=== PATIENT | female | born 1965 | race Caucasian/White ===

== ENCOUNTER 2023-02-26 18:12 | Observation (INO) | payer MEDICAID, SELFPAY ==
--- NOTE | ~2023-02-26 | US_ITS ---
EXAMINATION: US venous doppler [facility] DATE: 02/27/2023 21:27 INDICATION: Lower limb swelling. TECHNIQUE: Grayscale ultrasound images without and with compression and Doppler ultrasound images of the bilateral lower extremity veins were obtained. COMPARISON: None. FINDINGS: The visualized portions of right common femoral vein, profunda (deep) femoral vein, femoral vein, pop liteal vein, peroneal veins, posterior tibial veins, and greater saphenous vein outflow are patent. The visualized portions of left common femoral vein, profunda femoral vein, femoral vein, popliteal v ein, peroneal veins, posterior tibial veins, and greater saphenous vein outflow are patent. IMPRESSION: 1. No deep venous thrombosis. Reviewed, dictated and finalized at location E.
--- NOTE | ~2023-02-26 | US_ITS ---
EXAMINATION: US renal BI DATE: 02/27/2023 10:10 INDICATION: Acute kidney injury TECHNIQUE: Multiple grayscale and Doppler ultrasound images of the kidneys were obtained. COMPARISON: None. FINDINGS: The right kidney measures 11.7 x 6.2 x 6.6 cm. The left kidney measures 12.1 x 5.8 x 5.5 cm . The kidneys demonstrate normal parenchymal echogenicity. There is no hydronephrosis. The bladder is decompressed by Seth catheter. IMPRESSION: 1. Normal kidneys without hydronephrosis. Reviewed, dictated and finalized at location L.
--- NOTE | ~2023-02-26 | XR_ITS ---
EXAMINATION: XR chest 1V portable Exam Date/Time: 02/26/2023 18:25 CDT HISTORY: BILAT leg swelling, SOB w/ excertion Comparison: None. RESULT: Lines, tubes, and devices: None. Lungs and pleura: Very mild bilateral reticular opacities, otherwise clear. Cardiomediastinal silhouette: Stable. Other: Left humeral head fracture. No acute abdominal finding. IMPRESSION: Mild interstitial edema. Left humeral head fracture of uncertain age, correlate with pain/tenderness. Reviewed, dictated and finalized at location K.
[2023-02-26 18:10] VITALS: BP 121/56; PULSE 71; RESP 17; TEMP 36.7; O2SAT 100
--- NOTE | 2023-02-26 18:14 | ECG_ITS ---
Measurements Intervals [place] Rate: 71 P: 43 NH: 178 QRS: 13 QRSD: 113 T: 48 QT: 394 QTc: 429 Interpretive Statements SINUS RHYTHM INTRAVENTRICULAR CONDUCTION DELAY LOW QRS VOLTAGE IN PRECORDIAL LEADS BASELINE ARTIFACT- I, II, AVR, AVL, AVF, V1-V6 BORDERLINE ECG NO PREVIOUS ECG AVAILABLE FOR COMPARISON Electronically Signed On 02-26-2023 20:12:38 CDT by Foster Argueta D.O.
[2023-02-26 18:56] VITALS: BP 128/59; PULSE 70; RESP 15; O2SAT 100
[2023-02-26 19:06] LABS: Basophils Percent Auto 0.3 % (0.2-1.2); Eosinophils Absolute Auto 0.4 K/mm3 (0-0.3); Eosinophils Percent Auto 5.6 % (0-4.4); Hematocrit 29.6 % (37.0-47.0); Hemoglobin 8.9 g/dL (12.0-15.0); Immature Granulocyte Absolute 0.02 K/mm3 (0.00-0.031); Immature Granulocyte Percent A 0.3 % (0-0.5); Lymphocytes Percent Auto 19.7 % (18.3-44.2); Mean Corpuscular HGB Conc 30.1 g/dl (32-36); Mean Corpuscular Hemoglobin 30.1 pg (26-34); Mean Platelet Volume 9.5 fl (7.4-10.4); Monocytes Absolute Auto 0.6 K/mm3 (0.1-0.6); Monocytes Percent Auto 8.8 % (2.6-8.5); Neutrophils Absolute Auto 4.7 K/mm3 (1.3-6.7); Neutrophils Percent Auto 65.3 % (45.5-73.1); Platelet Count Result 251 k/mm3 (150-375); Red Blood Count 2.96 M/mm3 (4.2-5.4); Red Cell Distribution Width 14.6 % (11.5-14.5); White Blood Count 7.1 K/mm3 (4.5-10.0)
[2023-02-26 19:15] LABS: Alanine Aminotransferase 21 U/L (6-35); Albumin Level 3.5 g/dL (3.5-5.1); Alkaline Phosphatase 82 U/L (38-126); Anion Gap 4 mmol/L (8-16); Aspartate Amino Transferase 33 U/L (14-36); Bilirubin,Total 0.5 mg/dL (0.2-1.3); Blood Urea Nitrogen 41 mg/dL (7-17); Calcium 8.5 mg/dL (8.4-10.2); Carbon Dioxide 30 mmol/L (22-30); Chloride 105 mmol/L (98-107); Estimated CRCL calculation 50 ml/min; Estimated Glomerular Filt Rate 33; Glucose 118 mg/dL (65-110); Potassium 4.4 mmol/L (3.4-5.0); Sodium 139 mmol/L (137-145)
[2023-02-26 19:20] LABS: INR 1.2
[2023-02-26 19:21] LABS: Partial Thromboplastin Time 28.9 SECONDS (22.3-36.8)
[2023-02-26 19:27] LABS: NT Pro B Type Natriuretic Pept 889 pg/mL (19.9-100); Troponin I < 0.012 ng/mL (0.000-0.034)
--- NOTE | 2023-02-26 19:51 | ED.GENADULT ---
HPI - General Adult General Chief complaint: Skin/Abscess/Foreign Body Stated complaint: CELLULITIS Time Seen by Provider: 02/26/23 18:22 History of Present Illness HPI narrative: 58-year-old female presented the ED for evaluation of increased lower extremity swelling and shortness of breath. Patient does have a history lymphedema and does take Lasix. Patient had a recent left shoulder injury and recently moved to the area and is living with her brother and [id number]. Patient spends majority of her time sitting in a recliner and ambulates very little. Since having the shoulder injury patient ambulates even less than her typical baseline. Patient presented to the ED today for worsening lower extremity edema, blisters and shortness of breath. Family does not feel that they are able to care for the patient at their home. Related Data Home Medications Medication Instructions Recorded Confirmed allopurinol 100 mg tablet 100 mg PO DAILY 02/27/23 02/27/23 allopurinol 100 mg tablet 100 mg PO DAILY 02/27/23 02/27/23 amlodipine 5 mg tablet 5 mg PO DAILY 02/27/23 02/27/23 apixaban 5 mg tablet (Eliquis) 5 mg PO BID 02/27/23 02/27/23 aspirin 81 mg tablet,delayed 81 mg PO DAILY 02/27/23 02/27/23 release bupropion HCl 100 mg tablet,12 hr 100 mg PO DAILY 02/27/23 02/27/23 sustained-release cariprazine 3 mg capsule (Vraylar) 3 mg PO DAILY 02/27/23 02/27/23 ferrous sulfate 325 mg (65 mg 325 mg PO DAILY 02/27/23 02/27/23 iron) tablet furosemide 40 mg tablet 40 mg PO DAILY 02/27/23 02/27/23 gabapentin 600 mg tablet 600 mg PO BID 02/27/23 02/27/23 glimepiride 2 mg tablet 2 mg PO BID 02/27/23 02/27/23 tamsulosin 0.4 mg capsule 0.4 mg PO HS 02/27/23 02/27/23 Allergies Allergy/AdvReac Type Severity Reaction Status Date / Time No Known Allergies Allergy Verified 02/27/23 00:38 Review of Systems Review of Systems: All systems reviewed & are unremarkable except as noted in HPI and below PMFSH Social History Social History Smoking status: Never smoker Second hand tobacco smoke exposure: Yes Alcohol intake: never Substance use: never Lack of Transportation: No Lack of Food: Never True Current Housing: I Have Housing Concerned About Future Housing: No Difficulty Paying Gas/Electric Bills: No Difficulty Paying for Meds: No Currently Unemployed: No Education: High School Diploma/GED Difficulty w/ Childcare or Family Care: No Spiritual care concerns: No Exam Narrative: APPEARANCE: Well appearing, no pain, no distress, well-nourished. HEAD: normocephalic, atraumatic. EYES: PERRLA/EOMI, conjunctivae clear. NOSE: Normal no drainage EARS:TMS clear with good light reflex. THROAT: Pharynx clear, no exudate. NECK: Supple. No adenopathy, no masses. RESPIRATORY: Airway patent, respirations nonlabored. Clear to auscultation bilaterally, no rales, rhonchi, wheezing. CARDIOVASCULAR: Regular rate and rhythm without murmurs rubs or gallops. ABDOMINAL: Soft, nontender, nondistended, normal bowel sounds MUSCULOSKELETAL: Moves all extremities. Bilateral lower extremity lymphedema with blistering NEURO: Alert. Cranial nerves II through XII intact. Good gait. Good coordination SKIN: Bilateral ulcers to heels Course Course Emergency Course: 58-year-old female presented the ED for evaluation of shortness of breath. Upon arrival to the ED patient states her shortness of breath is resolved and patient is saturating well on room air. Patient is afebrile with no leukocytosis and a hemoglobin of 8.9. Patient denies any active bleeding. Patient's creatinine is 1.6 with a BUN of 41. No baselines are available. Patient does have an elevated BNP at 889 and chest x-ray does show evidence of interstitial edema. Patient was treated with a dose of Lasix due to her lower extremity edema. Case was discussed with the hospitalist and patient will be admitted to be further diuresed and will have PT and OT. Patient family were
--- NOTE | 2023-02-26 20:30 | PM.IMHP ---
H&P: HPI History of Present Illness Date/Time: 02/26/23 20:30 Chief Complaint: leg swelling Narrative: This is a 58-year-old female with past medical history significant for type diabetes mellitus, morbid obesity, patient is bed ridden, according to history able to walk by at very short distances within the house and as of lately has been bed ridden, chronic bilateral lower extremity lymphedema on Lasix at home [place] had a humeral fracture which now make said more taxing when providing care for her family is wanting to place the patient in a half-way due to inability to take care of her at home. Patient also was noted to have worsening bilateral lower extremity swelling with blistering. No fevers, no rigors, no chills, no nausea, no vomiting, no cough, no sputum production, no shortness of breath. Preliminary workup was significant for hemoglobin 8.9 hematocrit 29 BUN 40 creatinine 1.6 brain natriuretic peptide 880. A chest x-ray was reported as: EXAMINATION:? XR chest 1V portable Exam Date/Time:? 02/26/2023 18:25 CDT HISTORY: BILAT leg swelling, SOB w/ excertion ? Comparison:? None. RESULT: Lines, tubes, and devices:? None. Lungs and pleura:? Very mild bilateral reticular opacities, otherwise clear. Cardiomediastinal silhouette:? Stable. Other:? Left humeral head fracture. No acute abdominal finding. ? IMPRESSION: Mild interstitial edema. Left humeral head fracture of uncertain age, correlate with pain/tenderness. ekg Rate 71 WA 178 QRSd 113 QT 394 QTc 429 --Mcgreg[place]-- P 43 QRS 13 T 48 SINUS RHYTHM INTRAVENTRICULAR CONDUCTION DELAY LOW QRS VOLTAGE IN PRECORDIAL LEADS BASELINE ARTIFACT- I, II, AVR, AVL, AVF, V1-V6 BORDERLINE ECG NO PREVIOUS ECG AVAILABLE FOR COMPARISON Electronically Signed On 02-26-2023 20:12:38 CDT by Foster Argueta D.O. Review of Systems Review of Systems: worsening bilateral lower extremity edema and blistering Constitutional: Constitutional: Denies chills, Denies fever(s), Denies night sweats, Denies poor appetite and Reports weakness Eyes: Eyes: Denies change in vision ENT: Denies dysphagia, Denies vertigo, Denies dizziness and Denies odynophagia Cardiovascular: Cardiovascular: Denies chest pain, Reports leg edema, Denies radiating jaw, neck or arm pain, Denies palpitations and Reports dyspnea Respiratory: Respiratory: Denies chest congestion and Denies cough Gastrointestinal: Gastrointestinal: Denies abdominal pain, Denies melena, Denies hematochezia, Denies coffee ground emesis, Denies dyspepsia, Denies heartburn, Denies diarrhea, Denies nausea and Denies vomiting Genitourinary: Genitourinary: Denies dysuria Musculoskeletal: Musculoskeletal: Reports muscle weakness Integumentary/Breasts: Skin/Breast: Reports skin swelling and Reports other ( blisters) Neurologic: Reports other ( bed ridden) Psychiatric: Psychiatric: Reports no additional psychiatric complaints and Reports as per HPI Endocrine: Endocrine: Denies cold intolerance, Denies flushing, Denies heat intolerance, Denies polyphagia, Denies polydipsia and Denies palpitations Hematologic/Lymphatic: Hematologic/Lymphatic: Reports no additional hematologic/lymphatic complaints and Reports as per HPI Allergic/Immunologic: Allergic/Immunologic: Reports no additional allergic/immunologic complaints and Reports as per HPI PMFSH Social History Social History Smoking status: Never smoker Second hand tobacco smoke exposure: Yes Alcohol intake: never Substance use: never Lack of Transportation: No Lack of Food: Never True Current Housing: I Have Housing Concerned About Future Housing: No Difficulty Paying Gas/Electric Bills: No Difficulty Paying for Meds: No Currently Unemployed: No Education: High School Diploma/GED Difficulty w/ Childcare or Family Care: No Spiritual care concerns: No Meds Home Medications and Allergies Home Medications Medication Instructions
[2023-02-26] MEDS: FUROSEMIDE INJ 40 MG/4 ML VIAL IV PUSH (20:49)
[2023-02-26 20:54] VITALS: BP 113/63; PULSE 70; RESP 18; O2SAT 96
[2023-02-26 23:07] VITALS: BP 139/57; PULSE 68; O2SAT 96
--- NOTE | 2023-02-26 23:38 | ADMGEN ---
This patient, Talia Peralta, was admitted to 3 [facility] Surg Room 316-02. Patient/family oriented to hospital policies and general routines including ID bracelet, bed and alarms, visiting hours, pain management, procedures, bathroom and other care routines, personal items, smoking policy, room service/diet, and visiting hours. Information on how to activate the Rapid Response Team has been discussed. Patient/Family are encouraged to report perceived risks to care and to ask questions if they do not understand what they are told or what they should do.
--- NOTE | 2023-02-27 | ECHO_ITS ---
Patient Info Name: Talia Peralta Age: 58 years : 1965 Gender: Female Ht: 66 in Wt: 293 lbs BSA: 2.56 m2 HR: 78 bpm BP: 130 / 63 mmHg Heart Rhythm: Sinus Rhythm Technical Quality: Poor Exam Date: 02/27/2023 11:06 AM Exam Location: [facility] Exam Room: [facility] Patient Status: Inpatient Admit Date: 02/26/2023 Staff Ordering Physician: Asher Agee MD Inside Tester: Abi Foy RDCS Attending Provider: Asher Agee MD Referring Physician: Anuel KUMAR; Exam Type: CA echo dop color flow w con Study Info Indications - MARY Complete two-dimensional, color flow and Doppler transthoracic echocardiogram is performed with contrast to opacify the left ventricle and to improve the deliniation of the left ventricle endocardial borders. Contrast/Agitated Saline Contrast/Ag. Saline: Definity Amount: 2.00 ml Administered By: Abi Foy [facility] Existing IV Access: Yes IV Access Condition: patent with no signs of infiltration Reason for Poor Study: patient body habitus Summary 1. Technically difficult study with limited views. Definity contrast administered. 2. Left ventricular chamber dimension is mildly enlarged. 3. Left ventricular systolic function is normal, estimated at 60-65%. 4. There is mildly increased left ventricular wall thickness. 5. The left ventricular diastolic function is grade I diastolic dysfunction. 6. Left atrial chamber dimension is moderately enlarged. 7. Right atrial chamber dimension is mildly enlarged. 8. There is no aortic valve stenosis. 9. There is mild mitral valve regurgitation. 10. There is mild tricuspid valve regurgitation. 11. Moderate pulmonary hypertension, estimated pulmonary arterial systolic pressure is 57 mmHg. Left Ventricle Left ventricular chamber dimension is mildly enlarged. Left ventricular systolic function is normal, estimated at 60-65%. There is mildly increased left ventricular wall thickness. The left ventricular diastolic function is grade I diastolic dysfunction. Technically difficult study with limited views. Definity contrast administered. Right Ventricle Right ventricular chamber dimension is normal. Right ventricular systolic function is normal. Left Atria Left atrial chamber dimension is moderately enlarged. Right Atria Right atrial chamber dimension is mildly enlarged. Aortic Valve The aortic valve is not well visualized. There is no aortic valve stenosis. There is no aortic valve regurgitation. Pulmonic Valve The pulmonic valve is not well visualized. Mitral Valve The mitral valve has normal leaflets. There is mild mitral valve regurgitation. The mitral valve annulus is mildly calcified. Tricuspid Valve The tricuspid valve leaflets are normal. There is mild tricuspid valve regurgitation. Moderate pulmonary hypertension, estimated pulmonary arterial systolic pressure is 57 mmHg. Pericardium/Pleural The pericardium appears not well visualized. There is trivial pericardial effusion. Inferior Vena Cava Normal inferior vena cava with >50% collapse upon inspiration consistent with normal right atrial pressure, 5 mmHg. Aorta The aortic root size at the sinus of Valsalva is normal. There is mild-moderate aortic atherosclerosis. Left Ventricular Outflow Tract Name Value Normal LVOT 2D
[2023-02-27 00:30] VITALS: BP 130/63; PULSE 75; RESP 25; TEMP 36.1; O2SAT 96
[2023-02-27 01:05] LABS: Glucose Point of Care 75 mg/dl (65-105)
[2023-02-27] MEDS: HYDROmorphone HCL INJ (*CRX) 1 MG/ML SYR IV PUSH (01:37)
[2023-02-27 05:54] LABS: Appearance Urine Clear (Clear); Bacteria Urine None Seen /hpf; Bilirubin Urine Negative (Negative); Blood Urine 1+ (Negative); Color Urine Yellow (Yellow); Glucose Urine UA Negative (Negative); Ketones Urine Negative (Negative); Leukocyte Esterase Ur 2+ LEU/UL (Negative); Need Manual Microscopic Reviewed; Nitrate Urine Negative (Negative); Protein Urine 1+ mg/dL (Negative); Specific Grav Ur 1.012 (1.001-1.035); Squamous Epithelial Cell Urine Occasional /hpf (Few); Urobilinogen Urine 0.2 mg/dL (<2.0); WBC Urine 51-100 /hpf
[2023-02-27 06:00] VITALS: BP 139/49; PULSE 71; RESP 18; TEMP 35.7; O2SAT 97
[2023-02-27 06:11] LABS: Add Urine Microscopic? YES
[2023-02-27 07:54] LABS: Iron 28 ug/dL (37-170)
[2023-02-27 07:56] LABS: Hematocrit 26.5 % (37.0-47.0); Hemoglobin 7.8 g/dL (12.0-15.0); Mean Corpuscular HGB Conc 29.4 g/dl (32-36); Mean Corpuscular Hemoglobin 29.9 pg (26-34); Mean Corpuscular Volume 101.5 fl (80-100); Mean Platelet Volume 9.9 fl (7.4-10.4); Platelet Count Result 236 k/mm3 (150-375); Red Blood Count 2.61 M/mm3 (4.2-5.4); Red Cell Distribution Width 14.6 % (11.5-14.5); White Blood Count 5.7 K/mm3 (4.5-10.0)
[2023-02-27 08:06] LABS: Percent Iron Saturation 11 % (20-50)
[2023-02-27 08:27] LABS: Alanine Aminotransferase 70 U/L (6-35); Albumin Level 2.9 g/dL (3.5-5.1); Alkaline Phosphatase 145 U/L (38-126); Anion Gap 6 mmol/L (8-16); Aspartate Amino Transferase 154 U/L (14-36); Bilirubin,Total 0.6 mg/dL (0.2-1.3); Blood Urea Nitrogen 39 mg/dL (7-17); Calcium 8.3 mg/dL (8.4-10.2); Carbon Dioxide 33 mmol/L (22-30); Chloride 103 mmol/L (98-107); Estimated CRCL calculation 44 ml/min; Estimated Glomerular Filt Rate 29; Glucose 77 mg/dL (65-110); Potassium 3.7 mmol/L (3.4-5.0); Sodium 142 mmol/L (137-145)
[2023-02-27 09:01] LABS: Folic Acid 11.7 ng/mL (2.76->20)
[2023-02-27] MEDS: amLODIPine BESYLATE 5 MG TABLET PO (10:23)
[2023-02-27] MEDS: APIXABAN 5 MG TABLET PO ×2 (10:23→20:13)
[2023-02-27] MEDS: FERROUS SULFATE 325 MG TABLET DR BY MOUTH (10:23)
[2023-02-27] MEDS: GABAPENTIN 300 MG CAPSULE 600 MG PO ×2 (10:23→18:46)
[2023-02-27] MEDS: allopurinoL 100 MG TABLET PO (10:24)
[2023-02-27] MEDS: buPROPion HCL SR (12HR) 100 MG TABCR PO (10:24)
[2023-02-27] MEDS: ASPIRIN 81 MG ENTERIC TABLET PO (10:24)
[2023-02-27] MEDS: cefTRIAXone 2 GM/NS 100 ML 2 GM/100 ML BAG IVPB (10:25)
[2023-02-27] MEDS: FUROSEMIDE INJ 40 MG/4 ML VIAL IV PUSH ×2 (10:34→20:13)
--- NOTE | 2023-02-27 10:45 | PM.IMPN ---
Progress Note: A&P Assessment and Plan (1) Adult failure to thrive: Code(s): R62.7 - Adult failure to thrive Status: Acute Assessment and Plan: patient is now bed ridden after fall fracturing her left humerus And worsening swelling her legs. Patient likely to need custodial placement. (2) Closed left humeral fracture: Code(s): S42.302A - Unspecified fracture of shaft of humerus, left arm, initial encounter for closed fracture Status: Acute Assessment and Plan: left arm in a sling. Bruising noted under aspect of the arm. Pain control ordered with Tylenol or Clark depending on pain level (3) Anemia: Code(s): D64.9 - Anemia, unspecified Status: Acute Assessment and Plan: Iron studies are low , B12 and folate are normal. Patient is supposed to be oral iron. Ordered IV iron. No evidence bleeding. (4) IGNACIO (acute kidney injury): Code(s): N17.9 - Acute kidney failure, unspecified Status: Acute Assessment and Plan: No baseline labs available but patient noted to have BUN 41 creatinine 1.6 estimated GFR 33 on admission and creatinine 1.8 GFR 29 on recheck this morning. Patient appears to be fluid overloaded with bilateral lower extremity excessive swelling with blistering. renal ultrasound unremarkable (5) Edema: Code(s): R60.9 - Edema, unspecified Status: Acute Assessment and Plan: IV diuresis initiated in the emergency department and continued. Will order venous Dopplers as well. (6) UTI (urinary tract infection): Code(s): N39.0 - Urinary tract infection, site not specified Status: Acute Assessment and Plan: Urinary discomfort with her white cells and leukocyte esterase noted. Culture in process. Started treatment with IV ceftriaxone 2 g then 1 g Q 24 hours ongoing Plan pain control for shoulder fracture case management for possible custodial placement PT OT wound care consult IV iron, monitor for bleeding Time Spent With Patient Time with patient: Greater than 35 minutes Subjective Date/time seen: 02/27/23 10:45 Interval history: Patient was admitted to the hospital due to inability to ambulate due to worsening lower extremity edema as well as new left humerus fracture for which she was initially evaluated at a hospital in [place]. Patient just moved to the area with her brother and is not able to be taken care of at home at this time. Family requesting custodial placement. patient complaining primarily left upper arm / shoulder pain as well as swelling and blistering of legs. Review of Systems Review of Systems: All systems reviewed & are unremarkable except as noted in HPI and below Exam Narrative: patient is laying in a stretcher Const: General: cooperative, comfortable, no acute distress, well developed, alert, awake, ill appearing chronically and obese Nutritional Appearance: obese Orientation/consciousness: patient oriented x3 HENMT: Head: normal to inspection, normocephalic and atraumatic Ears: hearing grossly normal bilaterally Face/Nose/Sinus: normal facial exam Face and sinus: normal facial exam Eyes: General: appearance normal, both eyes and all related structures Pupils: Equal, round and reactive pupils present EOM: EOMs intact bilaterally Neck: Neck: full ROM, no lymphadenopathy and no JVD Thyroid: thyroid normal Lymphatic: no lymphadenopathy noted Resp: Effort & Inspection: normal respiratory effort and able to speak in complete sentences Auscultation: clear to auscultation bilaterally Cardio: Jugular venous distension: no JVD Rate: regular rate Rhythm: regular rhythm Heart sounds: S1 normal heart sound present and S2 normal heart sound present GI: Inspection: Pannus present and obesity GI Palp: Yes Soft to palpation and Yes No hepatosplenomegaly present : General: Yes deferred Skin: Rashes: no rashes Other: bilateral lower extremity bliste
[2023-02-27] MEDS: ACETAMINOPHEN 325 MG TABLET 650 MG PO (10:47)
[2023-02-27] MEDS: PERFLUTREN LIPID MICROSPHERES 1.5 ML VIAL DILUTED TO 10 ML TOTAL VOLUME IV PUSH (11:35)
--- NOTE | 2023-02-27 12:49 | IVDEFINITY ---
Prior to administration of IV Definity the patient was educated on the risks and benefits of the imaging enhancing agent including potential adverse side effects. The patient verbalized understanding. Allergies were verified. No exclusion criteria were identified and at least one of the following inclusion criteria were met: 1) physician request, 2) patient technically difficult to image (per the [place] [employer]chocardi[employer] guidelines of two or more segments not discernable within the apical view), or 3) questionable left ventricular function. ?
[2023-02-27] MEDS: SILVERGEL (ELTA) 45 ML 1 APPLIC TOPICAL (13:20)
[2023-02-27] MEDS: HYDROcodone/acetaminophen (*CRX) 5-325 MG TABLET 2 TAB PO ×2 (13:20→20:18)
[2023-02-27 14:07] VITALS: BP 131/66; PULSE 76; RESP 17; TEMP 36.1; O2SAT 96
[2023-02-27] MEDS: IRON SUCROSE COMPLEX 500 MG in SODIUM CHLORIDE 0.9% IV 250 ML 78.57 MG IVPB (15:04)
--- NOTE | 2023-02-27 18:28 | PC.NURSE ---
On 02/27/23, the INTERFACE DESIGNER, Claribel Hilario, provided care and completed [employer] documentation on this patient. I have reviewed the INTERFACE DESIGNER's documentation and agree with the findings.
[2023-02-27 20:10] LABS: Glucose Point of Care 94 mg/dl (65-105)
[2023-02-27] MEDS: TOLNAFTATE 1% POWDER 45 GM BTL 1 APPLIC TOPICAL (20:13)
[2023-02-27] MEDS: TAMSULOSIN HCL 0.4 MG CAPSULE PO (20:13)
[2023-02-27 21:32] LABS: Hemoglobin A1C 6.8 % (<5.7)
[2023-02-27 22:00] VITALS: BP 102/46; PULSE 63; RESP 18; TEMP 36.4; O2SAT 96
[2023-02-28] VITALS (7 sets, daily range): BP systolic 116–147; BP diastolic 57–74; PULSE 68–75; RESP 16–17; TEMP 36–36.3; O2SAT 88–95
[2023-02-28] MEDS: HYDROcodone/acetaminophen (*CRX) 5-325 MG TABLET 2 TAB PO ×2 (05:39→14:40)
[2023-02-28 05:53] LABS: Basophils Percent Auto 0.4 % (0.2-1.2); Eosinophils Absolute Auto 0.4 K/mm3 (0-0.3); Hemoglobin 7.7 g/dL (12.0-15.0); Immature Granulocyte Absolute 0.02 K/mm3 (0.00-0.031); Immature Granulocyte Percent A 0.4 % (0-0.5); Lymphocytes Absolute Auto 1.36 K/mm3 (0.9-3.2); Lymphocytes Percent Auto 27.8 % (18.3-44.2); Mean Corpuscular HGB Conc 29.6 g/dl (32-36); Mean Corpuscular Hemoglobin 29.8 pg (26-34); Mean Corpuscular Volume 100.8 fl (80-100); Mean Platelet Volume 9.3 fl (7.4-10.4); Monocytes Absolute Auto 0.6 K/mm3 (0.1-0.6); Monocytes Percent Auto 11.6 % (2.6-8.5); Neutrophils Absolute Auto 2.5 K/mm3 (1.3-6.7); Neutrophils Percent Auto 51.8 % (45.5-73.1); Platelet Count Result 224 k/mm3 (150-375); Red Blood Count 2.58 M/mm3 (4.2-5.4); Red Cell Distribution Width 14.6 % (11.5-14.5); White Blood Count 4.9 K/mm3 (4.5-10.0)
[2023-02-28 06:06] LABS: Alanine Aminotransferase 56 U/L (6-35); Albumin Level 2.9 g/dL (3.5-5.1); Alkaline Phosphatase 118 U/L (38-126); Anion Gap 1 mmol/L (8-16); Aspartate Amino Transferase 55 U/L (14-36); Bilirubin,Total 0.3 mg/dL (0.2-1.3); Blood Urea Nitrogen 35 mg/dL (7-17); Carbon Dioxide 35 mmol/L (22-30); Chloride 103 mmol/L (98-107); Estimated CRCL calculation 44 ml/min; Estimated Glomerular Filt Rate 29; Glucose 86 mg/dL (65-110); Potassium 3.8 mmol/L (3.4-5.0); Sodium 139 mmol/L (137-145)
[2023-02-28 06:47] LABS: Hypochromasia 1+ (NORMAL); Platelet Estimate Adequate (Adequate); Schistocytes None Seen (NORMAL)
[2023-02-28] MEDS: FERROUS SULFATE 325 MG TABLET DR BY MOUTH (08:30)
[2023-02-28] MEDS: APIXABAN 5 MG TABLET PO ×2 (08:30→21:48)
[2023-02-28] MEDS: allopurinoL 100 MG TABLET PO (08:30)
[2023-02-28] MEDS: amLODIPine BESYLATE 5 MG TABLET PO (08:30)
[2023-02-28] MEDS: FUROSEMIDE INJ 40 MG/4 ML VIAL IV PUSH ×2 (08:30→21:49)
[2023-02-28] MEDS: buPROPion HCL SR (12HR) 100 MG TABCR PO (08:30)
[2023-02-28] MEDS: GABAPENTIN 300 MG CAPSULE 600 MG PO ×2 (08:30→16:28)
[2023-02-28] MEDS: ASPIRIN 81 MG ENTERIC TABLET PO (08:30)
[2023-02-28] MEDS: SILVERGEL (ELTA) 45 ML 1 APPLIC TOPICAL (08:31)
[2023-02-28] MEDS: TOLNAFTATE 1% POWDER 45 GM BTL 1 APPLIC TOPICAL ×2 (08:31→21:45)
[2023-02-28 08:40] LABS: Glucose Point of Care 85 mg/dl (65-105)
[2023-02-28 12:11] LABS: Glucose Point of Care 105 mg/dl (65-105)
--- NOTE | 2023-02-28 15:00 | PM.IMPN ---
Progress Note: A&P Assessment and Plan (1) Adult failure to thrive: Code(s): R62.7 - Adult failure to thrive Status: Acute Assessment and Plan: patient is now bed ridden after fall fracturing her left humerus And worsening swelling her legs. Patient likely to need longterm placement. (2) Closed left humeral fracture: Code(s): S42.302A - Unspecified fracture of shaft of humerus, left arm, initial encounter for closed fracture Status: Acute Assessment and Plan: left arm in a sling. Bruising noted under aspect of the arm. Pain control ordered with Tylenol or Manning depending on pain level PT/OT eval/treat (3) Anemia: Code(s): D64.9 - Anemia, unspecified Status: Acute Assessment and Plan: Iron studies are low , B12 and folate are normal. Patient is supposed to be oral iron. Ordered IV iron. No evidence bleeding. Current H/H stable 7.7/26.0 Continue to trend Adjust therapy as indicated (4) IGNACIO (acute kidney injury): Code(s): N17.9 - Acute kidney failure, unspecified Status: Acute Assessment and Plan: No baseline labs available but patient noted to have BUN 41 creatinine 1.6 estimated GFR 33 on admission and creatinine 1.8 GFR 29 on recheck this morning. Patient appears to be fluid overloaded with bilateral lower extremity excessive swelling with blistering. renal ultrasound unremarkable Current BUN/Cr 35/1.80 (5) Edema: Code(s): R60.9 - Edema, unspecified Status: Acute Assessment and Plan: IV diuresis initiated in the emergency department and continued. Venous dopplers negative Echo stable with grade 1 diastolic dysfunction and EF of 60-65% (6) UTI (urinary tract infection): Code(s): N39.0 - Urinary tract infection, site not specified Status: Acute Assessment and Plan: Urinary discomfort with her white cells and leukocyte esterase noted. Culture in process. Started treatment with IV ceftriaxone 2 g then 1 g Q 24 hours ongoing Culture still pending Plan pain control for shoulder fracture case management for possible longterm placement PT OT wound care consult IV iron, monitor for bleeding Time Spent With Patient Time: 48 minutes Time with patient: Greater than 35 minutes Subjective Date/time seen: 02/28/23 15:00 Interval history: patient is sitting in the chair. Patient stated that she is feeling okay. She denies any current chest pain, shortness a breath, vomiting Diarrhea constipation. Patient did state that she was nauseous and she said is related to her arm sling. She is currently still have 4+ pitting edema. She is also stated the pain is being controlled. Review of Systems Review of Systems: All systems reviewed & are unremarkable except as noted in HPI and below Exam Narrative: General: well-nourished, ill-appearing 58-year-old female, sitting up in chair, comfortable, NARD Neuro: awake, alert and oriented x4, speech clear, no focal neuro deficits noted HEENMT: normocephalic, atraumatic, EOMI, sclerae anicteric, moist oral mucosa Respiratory: Clear to auscultation bilaterally without crackles, rhonchi or wheezes, nonlabored breathing Cardio: regular rate, regular rhythm with S1-S2 Abdomen: nondistended, normoactive bowel sounds, soft, nontender to palpation Extremities: 4+ pitting edema, no erythema, or tenderness to palpation, DP pulses 2+ bilaterally Skin: no rashes or lesions, warm and dry, large blister noted to the right perea Psych: appropriate mood and affect, judgment and insight intact Objective Data Vital Signs Vital Signs: Vital Signs - 24 hr 02/27/23 22:00 02/28/23 05:30 02/28/23 05:32 Temperature 97.6 F Pulse Rate 63 Respiratory Rate 18 Blood Pressure 102/46 L Pulse Oximetry 96 88 L 92 Oxygen Delivery Room Air Nasal Cannula Oxygen Flow Rate 02/28/23 06:00 02/28/23 09:00 02/28/23
[2023-02-28 16:52] LABS: Glucose Point of Care 159 mg/dl (65-105)
[2023-02-28 21:38] LABS: Glucose Point of Care 298 mg/dl (65-105)
[2023-02-28] MEDS: TAMSULOSIN HCL 0.4 MG CAPSULE PO (21:48)
[2023-02-28] MEDS: INSULIN ASPART (*BKC) 100 UNITS/ML SUB-Q (21:50)
[2023-03-01 05:58] VITALS: BP 116/62; PULSE 70; RESP 18; TEMP 36.6; O2SAT 92
[2023-03-01 06:24] LABS: Basophils Percent Auto 0.3 % (0.2-1.2); Eosinophils Absolute Auto 0.4 K/mm3 (0-0.3); Eosinophils Percent Auto 7.3 % (0-4.4); Hematocrit 25.1 % (37.0-47.0); Hemoglobin 7.5 g/dL (12.0-15.0); Immature Granulocyte Absolute 0.04 K/mm3 (0.00-0.031); Immature Granulocyte Percent A 0.7 % (0-0.5); Lymphocytes Absolute Auto 1.47 K/mm3 (0.9-3.2); Mean Corpuscular HGB Conc 29.9 g/dl (32-36); Mean Corpuscular Volume 100.4 fl (80-100); Mean Platelet Volume 9.4 fl (7.4-10.4); Monocytes Absolute Auto 0.8 K/mm3 (0.1-0.6); Monocytes Percent Auto 12.7 % (2.6-8.5); Neutrophils Absolute Auto 3.2 K/mm3 (1.3-6.7); Platelet Count Result 249 k/mm3 (150-375); Red Cell Distribution Width 14.5 % (11.5-14.5); White Blood Count 5.9 K/mm3 (4.5-10.0)
[2023-03-01 06:40] LABS: Alanine Aminotransferase 44 U/L (6-35); Albumin Level 2.9 g/dL (3.5-5.1); Alkaline Phosphatase 114 U/L (38-126); Anion Gap 4 mmol/L (8-16); Aspartate Amino Transferase 38 U/L (14-36); Bilirubin,Total 0.3 mg/dL (0.2-1.3); Blood Urea Nitrogen 31 mg/dL (7-17); Calcium 8.5 mg/dL (8.4-10.2); Carbon Dioxide 35 mmol/L (22-30); Chloride 101 mmol/L (98-107); Estimated CRCL calculation 47 ml/min; Estimated Glomerular Filt Rate 31; Glucose 102 mg/dL (65-110); Potassium 3.7 mmol/L (3.4-5.0); Sodium 140 mmol/L (137-145)
[2023-03-01 07:30] LABS: Platelet Estimate Adequate (Adequate)
[2023-03-01 07:34] LABS: Hypochromasia 1+ (NORMAL); Schistocytes None Seen (NORMAL)
[2023-03-01 07:47] LABS: Glucose Point of Care 103 mg/dl (65-105)
[2023-03-01] MEDS: APIXABAN 5 MG TABLET PO ×2 (08:15→21:17)
[2023-03-01] MEDS: buPROPion HCL SR (12HR) 100 MG TABCR PO (08:15)
[2023-03-01] MEDS: FUROSEMIDE INJ 40 MG/4 ML VIAL IV PUSH ×2 (08:15→21:17)
[2023-03-01] MEDS: ASPIRIN 81 MG ENTERIC TABLET PO (08:15)
[2023-03-01] MEDS: allopurinoL 100 MG TABLET PO (08:15)
[2023-03-01] MEDS: amLODIPine BESYLATE 5 MG TABLET PO (08:15)
[2023-03-01] MEDS: FERROUS SULFATE 325 MG TABLET DR BY MOUTH (08:15)
[2023-03-01] MEDS: GABAPENTIN 300 MG CAPSULE 600 MG PO ×2 (08:15→16:12)
[2023-03-01] MEDS: TOLNAFTATE 1% POWDER 45 GM BTL 1 APPLIC TOPICAL ×2 (08:16→21:17)
[2023-03-01] MEDS: SILVERGEL (ELTA) 45 ML 1 APPLIC TOPICAL (08:16)
--- NOTE | 2023-03-01 10:17 | PM.IMPN ---
Progress Note: A&P Assessment and Plan (1) Adult failure to thrive: Code(s): R62.7 - Adult failure to thrive Status: Acute Assessment and Plan: Pain controlled, arm in sling Will continue current treatment. Patient is now bed ridden after fall fracturing her left humerus And worsening swelling her legs. Patient likely to need half-way placement. (2) Closed left humeral fracture: Code(s): S42.302A - Unspecified fracture of shaft of humerus, left arm, initial encounter for closed fracture Status: Acute Assessment and Plan: left arm in a sling. Bruising noted under aspect of the arm. Pain control ordered with Tylenol or [place] depending on pain level PT/OT eval/treat Waiting half-way placement (3) Anemia: Code(s): D64.9 - Anemia, unspecified Status: Acute Assessment and Plan: Iron studies are low , B12 and folate are normal. Patient is supposed to be oral iron. Ordered IV iron. No evidence bleeding. Current H/H stable 7.7/26.0 Continue to trend Adjust therapy as indicated Stable, monitor yesy (4) IGNACIO (acute kidney injury): Code(s): N17.9 - Acute kidney failure, unspecified Status: Acute Assessment and Plan: Improving Will continue current treatment and monitor closely. (5) Edema: Code(s): R60.9 - Edema, unspecified Status: Acute Assessment and Plan: IV diuresis initiated in the emergency department and continued. Venous dopplers negative Echo stable with grade 1 diastolic dysfunction and EF of 60-65% (6) UTI (urinary tract infection): Code(s): N39.0 - Urinary tract infection, site not specified Status: Acute Assessment and Plan: Urinary discomfort with her white cells and leukocyte esterase noted. Culture in process. Started treatment with IV ceftriaxone 2 g then 1 g Q 24 hours ongoing Culture still pending Plan pain control for shoulder fracture case management for possible half-way placement PT OT wound care consult IV iron, monitor for bleeding Subjective Date/time seen: 03/01/23 10:17 Interval history: Patient was seen during the morning rounds today. Feeling slightly better. Pain controlled. No sob or chest pain. No abdominal pain,no nausea or vomiting. Mood stable. Review of Systems Review of Systems: worsening bilateral lower extremity edema and blistering All systems reviewed & are unremarkable except as noted in HPI and below Constitutional: Constitutional: Denies chills, Denies fever(s), Denies night sweats, Denies poor appetite and Reports weakness Eyes: Eyes: Denies change in vision ENT: Denies dysphagia, Denies vertigo, Denies dizziness and Denies odynophagia Cardiovascular: Cardiovascular: Denies chest pain, Reports leg edema, Denies radiating jaw, neck or arm pain, Denies palpitations and Reports dyspnea Respiratory: Respiratory: Denies chest congestion, Denies cough and Reports dyspnea Gastrointestinal: Gastrointestinal: Denies abdominal pain, Denies melena, Denies hematochezia, Denies coffee ground emesis, Denies dysphagia, Denies dyspepsia, Denies heartburn, Denies diarrhea, Denies nausea, Denies odynophagia and Denies vomiting Genitourinary: Genitourinary: Denies dysuria Musculoskeletal: Musculoskeletal: Reports muscle weakness Integumentary/Breasts: Skin/Breast: Reports skin swelling and Reports other ( blisters) Neurologic: Denies vertigo, Denies dizziness, Reports weakness and Reports other ( bed ridden) Psychiatric: Psychiatric: Reports no additional psychiatric complaints and Reports as per HPI Endocrine: Endocrine: Denies cold intolerance, Denies flushing, Denies heat intolerance, Denies polyphagia, Denies polydipsia and Denies palpitations Hematologic/Lymphatic: Hematologic/Lymphatic: Reports no additional hematologic/lymphatic complaints and Reports as per HPI Allergic/Immunologic: Aller
[2023-03-01] MEDS: HYDROcodone/acetaminophen (*CRX) 5-325 MG TABLET 2 TAB PO (10:51)
[2023-03-01 11:34] LABS: Glucose Point of Care 132 mg/dl (65-105)
[2023-03-01 14:00] VITALS: BP 121/70; PULSE 74; RESP 16; TEMP 37; O2SAT 94
[2023-03-01 17:06] LABS: Glucose Point of Care 156 mg/dl (65-105)
[2023-03-01] MEDS: TAMSULOSIN HCL 0.4 MG CAPSULE PO (21:17)
[2023-03-01 21:42] LABS: Glucose Point of Care 165 mg/dl (65-105)
[2023-03-01 22:00] VITALS: BP 144/63; PULSE 70; RESP 16; TEMP 35.9; O2SAT 94
[2023-03-02 06:00] VITALS: BP 131/63; PULSE 69; RESP 16; TEMP 35.7; O2SAT 94
[2023-03-02 06:08] LABS: Basophils Percent Auto 0.5 % (0.2-1.2); Eosinophils Absolute Auto 0.5 K/mm3 (0-0.3); Eosinophils Percent Auto 7.6 % (0-4.4); Hematocrit 25.8 % (37.0-47.0); Hemoglobin 7.8 g/dL (12.0-15.0); Immature Granulocyte Absolute 0.03 K/mm3 (0.00-0.031); Immature Granulocyte Percent A 0.5 % (0-0.5); Lymphocytes Percent Auto 25.2 % (18.3-44.2); Mean Corpuscular HGB Conc 30.2 g/dl (32-36); Mean Corpuscular Hemoglobin 29.8 pg (26-34); Mean Corpuscular Volume 98.5 fl (80-100); Mean Platelet Volume 9.5 fl (7.4-10.4); Monocytes Absolute Auto 0.6 K/mm3 (0.1-0.6); Monocytes Percent Auto 9.2 % (2.6-8.5); Neutrophils Absolute Auto 3.4 K/mm3 (1.3-6.7); Platelet Count Result 257 k/mm3 (150-375); Red Blood Count 2.62 M/mm3 (4.2-5.4); Red Cell Distribution Width 14.6 % (11.5-14.5)
[2023-03-02 06:22] LABS: Alanine Aminotransferase 38 U/L (6-35); Albumin Level 3.1 g/dL (3.5-5.1); Alkaline Phosphatase 106 U/L (38-126); Anion Gap 2 mmol/L (8-16); Aspartate Amino Transferase 28 U/L (14-36); Bilirubin,Total 0.3 mg/dL (0.2-1.3); Blood Urea Nitrogen 33 mg/dL (7-17); Calcium 8.6 mg/dL (8.4-10.2); Carbon Dioxide 38 mmol/L (22-30); Chloride 99 mmol/L (98-107); Estimated CRCL calculation 50 ml/min; Estimated Glomerular Filt Rate 33; Glucose 108 mg/dL (65-110); Sodium 139 mmol/L (137-145)
[2023-03-02 08:00] VITALS: PULSE 69; RESP 16; O2SAT 94
[2023-03-02 08:22] LABS: Glucose Point of Care 117 mg/dl (65-105)
--- NOTE | 2023-03-02 08:31 | PM.IMPN ---
Progress Note: A&P Assessment and Plan (1) Adult failure to thrive: Code(s): R62.7 - Adult failure to thrive Status: Acute Assessment and Plan: Poor activity tolerance and not doing well at home - self care needs are not able to be met in current situation adequately per my opinion. Working towards a skilled placement. (2) Closed left humeral fracture: Code(s): S42.302A - Unspecified fracture of shaft of humerus, left arm, initial encounter for closed fracture Status: Acute Assessment and Plan: Sling to left arm to continue. - Therapy services as tolerated. - Likely SNF placement for rehab. (3) Anemia: Code(s): D64.9 - Anemia, unspecified Status: Acute Assessment and Plan: Hgb 7.8, stable. - Cont. Iron orally. Has received IV iron. - No acute evidence of bleeding. - Trend labs. (4) IGNACIO (acute kidney injury): Code(s): N17.9 - Acute kidney failure, unspecified Status: Acute Assessment and Plan: Continued daily improvement with creatinine from 1.7 to 1.6 on labs this am. Renally dose all meds. (5) Edema: Code(s): R60.9 - Edema, unspecified Status: Acute Assessment and Plan: Tolerating IV diuresis with lasix 40mg BID. Renal function stable. Currently 6L down since admission. - Will decrease to lasix daily. Consider back to oral tomorrow. (6) UTI (urinary tract infection): Code(s): N39.0 - Urinary tract infection, site not specified Status: Acute Assessment and Plan: Culture negative. DC Abx, three day course completed. Plan Pain is fairly well controlled on current regimen. Urine cx negative and dc abx. Awaiting case management plans for placement d/t inability to meet self care needs in home setting. Time Spent With Patient Time: >35 minutes Subjective Date/time seen: 03/02/23 08:31 Interval history: Taila states she is feeling fair this am. Her left arm pain is stable. Review of Systems Review of Systems: ROS negative across 10 systems unless otherwise noted. Exam Narrative: GENERAL APPEARANCE: Appears to be in no acute distress. HEAD: normocephalic atraumatic EYES: PERRL, EOMI. Vision grossly intact. ENT: Hearing grossly intact, no nasal discharge NECK: Neck supple, trachea midline. CARDIAC: Normal S1/S2. Rhythm is regular. No murmurs, rubs, or gallops. No cyanosis or pallor. Extremities are warm and well perfused. LUNGS: Clear to auscultation without rales, rhonchi, wheezing or diminished breath sounds. Respirations even and unlabored. ABDOMEN: Obese. BS positive x 4 quadrants. Soft, nondistended, nontender. No guarding or rebound. PERIPHERAL VASCULAR: Peripheral pulses palpable. Normal perfusion, cap refill <2 seconds. No edema. NEURO: Follows commands. No focal deficits. SKIN: [place] without lesions or eruptions. PSYCH: Stable, no paranoia or delusional thinking. Objective Data Vital Signs Vital Signs: Vital Signs - 24 hr 03/01/23 14:00 03/01/23 22:00 03/01/23 20:00 Temperature 98.6 F 96.6 F L Pulse Rate 74 70 Respiratory Rate 16 16 Blood Pressure 121/70 144/63 H Pulse Oximetry 94 94 Oxygen Delivery Room Air 03/02/23 06:00 Temperature 96.2 F L Pulse Rate 69 Respiratory Rate 16 Blood Pressure 131/63 Pulse Oximetry 94 Oxygen Delivery Intake/Output Intake/Output: Intake & Output 02/27/23 02/28/23 03/01/23 03/02/23 23:59 23:59 23:59 23:59 Intake Total 1525 1250 760 400 Output Total 3100 3250 2575 1550 [facility] -[id number] Meds/Results Medications: Active Medications Generic Name Dose Route Start Last Admin Trade Name Freq PRN Reason Stop Dose Admin Acetaminophen 650 mg 02/27/23 11:42 Acetaminophen 325 Mg Tablet PO Q4H PRN Pain Rated 1-3 Hydrocodone Bitart/Acetaminophen 1 tab 02/27/23 11:42 Hydrocodone/Acetaminophen (*Crx) 5-325 Mg Tablet PO Q6H PRN Pain Rated
[2023-03-02] MEDS: allopurinoL 100 MG TABLET PO (09:22)
[2023-03-02] MEDS: FERROUS SULFATE 325 MG TABLET DR BY MOUTH (09:22)
[2023-03-02] MEDS: FUROSEMIDE INJ 40 MG/4 ML VIAL IV PUSH ×2 (09:22→21:41)
[2023-03-02] MEDS: APIXABAN 5 MG TABLET PO ×2 (09:22→21:39)
[2023-03-02] MEDS: buPROPion HCL SR (12HR) 100 MG TABCR PO (09:22)
[2023-03-02] MEDS: GABAPENTIN 300 MG CAPSULE 600 MG PO ×2 (09:22→16:34)
[2023-03-02] MEDS: ASPIRIN 81 MG ENTERIC TABLET PO (09:22)
[2023-03-02] MEDS: amLODIPine BESYLATE 5 MG TABLET PO (09:23)
[2023-03-02] MEDS: HYDROcodone/acetaminophen (*CRX) 5-325 MG TABLET 2 TAB PO (09:25)
[2023-03-02 12:01] LABS: Glucose Point of Care 162 mg/dl (65-105)
[2023-03-02] MEDS: TOLNAFTATE 1% POWDER 45 GM BTL 1 APPLIC TOPICAL ×2 (13:31→21:40)
[2023-03-02] MEDS: SILVERGEL (ELTA) 45 ML 1 APPLIC TOPICAL (13:31)
[2023-03-02 14:00] VITALS: PULSE 70; RESP 18; TEMP 36.8; O2SAT 95
[2023-03-02] MEDS: HYDROcodone/acetaminophen (*CRX) 5-325 MG TABLET 1 TAB PO (16:35)
[2023-03-02 17:30] VITALS: BP 129/63
[2023-03-02 17:36] LABS: Glucose Point of Care 147 mg/dl (65-105)
[2023-03-02 19:56] LABS: Methylmalonic Acid 598 nmol/L (87-318)
[2023-03-02] MEDS: TAMSULOSIN HCL 0.4 MG CAPSULE PO (21:40)
[2023-03-02 21:51] LABS: Glucose Point of Care 178 mg/dl (65-105)
[2023-03-02 22:00] VITALS: BP 111/55; PULSE 70; RESP 20; TEMP 36.4; O2SAT 94
[2023-03-03 06:00] VITALS: BP 129/63; PULSE 69; RESP 18; TEMP 37.1; O2SAT 97
[2023-03-03 06:48] LABS: Basophils Percent Auto 0.4 % (0.2-1.2); Eosinophils Absolute Auto 0.4 K/mm3 (0-0.3); Eosinophils Percent Auto 5.9 % (0-4.4); Hematocrit 27.1 % (37.0-47.0); Hemoglobin 7.9 g/dL (12.0-15.0); Immature Granulocyte Absolute 0.04 K/mm3 (0.00-0.031); Immature Granulocyte Percent A 0.6 % (0-0.5); Lymphocytes Absolute Auto 1.59 K/mm3 (0.9-3.2); Lymphocytes Percent Auto 23.4 % (18.3-44.2); Mean Corpuscular HGB Conc 29.2 g/dl (32-36); Mean Corpuscular Hemoglobin 29.6 pg (26-34); Mean Corpuscular Volume 101.5 fl (80-100); Mean Platelet Volume 9.4 fl (7.4-10.4); Monocytes Absolute Auto 0.6 K/mm3 (0.1-0.6); Monocytes Percent Auto 8.7 % (2.6-8.5); Neutrophils Absolute Auto 4.1 K/mm3 (1.3-6.7); Platelet Count Result 276 k/mm3 (150-375); Red Blood Count 2.67 M/mm3 (4.2-5.4); White Blood Count 6.8 K/mm3 (4.5-10.0)
[2023-03-03 07:07] LABS: Hypochromasia 1+ (NORMAL); Platelet Estimate Adequate (Adequate); Schistocytes None Seen (NORMAL)
[2023-03-03 07:17] LABS: Alanine Aminotransferase 33 U/L (6-35); Albumin Level 2.8 g/dL (3.5-5.1); Alkaline Phosphatase 100 U/L (38-126); Anion Gap 3 mmol/L (8-16); Aspartate Amino Transferase 26 U/L (14-36); Bilirubin,Total 0.3 mg/dL (0.2-1.3); Blood Urea Nitrogen 41 mg/dL (7-17); Calcium 8.8 mg/dL (8.4-10.2); Carbon Dioxide 35 mmol/L (22-30); Chloride 100 mmol/L (98-107); Estimated CRCL calculation 50 ml/min; Estimated Glomerular Filt Rate 33; Glucose 133 mg/dL (65-110); Potassium 4.4 mmol/L (3.4-5.0); Sodium 138 mmol/L (137-145)
[2023-03-03 07:51] LABS: Glucose Point of Care 122 mg/dl (65-105)
[2023-03-03] MEDS: FUROSEMIDE INJ 40 MG/4 ML VIAL IV PUSH (08:09)
[2023-03-03] MEDS: amLODIPine BESYLATE 5 MG TABLET PO (08:16)
[2023-03-03] MEDS: APIXABAN 5 MG TABLET PO ×2 (08:17→20:20)
[2023-03-03] MEDS: ASPIRIN 81 MG ENTERIC TABLET PO (08:17)
[2023-03-03] MEDS: allopurinoL 100 MG TABLET PO (08:17)
[2023-03-03] MEDS: GABAPENTIN 300 MG CAPSULE 600 MG PO ×2 (08:17→17:22)
[2023-03-03] MEDS: FERROUS SULFATE 325 MG TABLET DR BY MOUTH (08:17)
[2023-03-03] MEDS: buPROPion HCL SR (12HR) 100 MG TABCR PO (08:17)
[2023-03-03] MEDS: TOLNAFTATE 1% POWDER 45 GM BTL 1 APPLIC TOPICAL ×2 (08:20→20:22)
[2023-03-03] MEDS: SILVERGEL (ELTA) 45 ML 1 APPLIC TOPICAL (08:42)
[2023-03-03 11:41] LABS: Glucose Point of Care 201 mg/dl (65-105)
--- NOTE | 2023-03-03 12:00 | PM.IMPN ---
Progress Note: A&P Assessment and Plan (1) Adult failure to thrive: Code(s): R62.7 - Adult failure to thrive Status: Acute Assessment and Plan: Patient presented to the ED with complaints of inability to take care of self at home Recently became more bed ridden after fall and fracture Could be related to the bilateral lower swelling of the lower extremity swelling. PT/OT ordered and consulted Rehab placement in progress Care coordination consulted (2) Closed left humeral fracture: Qualifiers: Encounter type: initial encounter Fracture morphology: unspecified fracture morphology Humerus Location: distal Qualified Code(s): S42.402A - Unspecified fracture of lower end of left humerus, initial encounter for closed fracture Code(s): S42.302A - Unspecified fracture of shaft of humerus, left arm, initial encounter for closed fracture Status: Acute Assessment and Plan: left arm in a sling. Pain medications ordered Continue PT/OT (3) Anemia: Qualifiers: Anemia type: iron deficiency Iron deficiency anemia type: inadequate dietary iron intake Qualified Code(s): D50.8 - Other iron deficiency anemias Code(s): D64.9 - Anemia, unspecified Status: Acute Assessment and Plan: H/H stable at time of admission 8.9/29.6 Currently trending back up 7.9/27.1 Low values 7.5/25.1 Anemia Labs Iron 28, TIBC 251, % sat 11, B12 444.0, Folate 11.7 Continue ferrous sulfate 325mg PO daily Continue to trend labs Transfuse for Hgb <7.0 (4) IGNACIO (acute kidney injury): Code(s): N17.9 - Acute kidney failure, unspecified Status: Acute Assessment and Plan: BUN/Cr 41/1.6 GFR 33 Current BUN/Cr 41/1.60 GFR 33 Most likely related to fluid overloaded Continue diuretics Trend labs Avoid nephrotoxic medications Renal dose medication Adjust therapy as indicated (5) Edema: Qualifiers: Edema type: unspecified Qualified Code(s): R60.9 - Edema, unspecified Code(s): R60.9 - Edema, unspecified Status: Acute Assessment and Plan: IV diuresis initiated in the emergency department Convert to 40mg PO daily Venous dopplers negative Echo stable with grade 1 diastolic dysfunction and EF of 60-65% daily weights Trend I&Os (6) UTI (urinary tract infection): Qualifiers: Hematuria presence: without hematuria Urinary tract infection type: acute cystitis Qualified Code(s): N30.00 - Acute cystitis without hematuria Code(s): N39.0 - Urinary tract infection, site not specified Status: Acute Assessment and Plan: Urinary discomfort with her white cells and leukocyte esterase noted. Culture in process. Started treatment with IV ceftriaxone 2 g then 1 g Q 24 hours discontinued Culture no growth Time Spent With Patient Time: 41 minutes Time with patient: Greater than 35 minutes Subjective Date/time seen: 03/03/23 1200 Interval history: 03/03/23 1200 Patient was sitting in the chair. Patient stated that she is feeling okay. She is stating that she is having some pain in her arm and stated that the pain medicine is working sometimes. She currently rates her pain a 9/10. She denies any chest pain, shortness a breath, nausea, vomiting, diarrhea constipation. She also seemed to be little disgruntled today which most likely related to the pain. She still has pretty decent appetite. 03/02/23 0831 patient is sitting in the chair. Patient stated that she is feeling okay. She denies any current chest pain, shortness a breath, vomiting Diarrhea constipation. Patient did state that she was nauseous and she said is related to her arm sling. She is currently still have 4+ pitting edema. She is also stated the pain is being controlled. 03/01/23? 10:17 Patient was seen during th
--- NOTE | 2023-03-03 12:00 | P.PNIM_ITS ---
Progress Note: A&P Assessment and Plan (1) Adult failure to thrive: Code(s): R62.7 - Adult failure to thrive Status: Acute Assessment and Plan: * Patient presented to the ED with complaints of inability to take care of self at home * Recently became more bed ridden after fall and fracture * Could be related to the bilateral lower swelling of the lower extremity swelling. * PT/OT ordered and consulted * Rehab placement in progress * Care coordination consulted (2) Closed left humeral fracture: Qualifiers: Encounter type: initial encounter Fracture morphology: unspecified fracture morphology Humerus Location: distal Qualified Code(s): S42.402A - Unspecified fracture of lower end of left humerus, initial encounter for closed fracture Code(s): S42.302A - Unspecified fracture of shaft of humerus, left arm, initial encounter for closed fracture Status: Acute Assessment and Plan: * left arm in a sling. * Pain medications ordered * Continue PT/OT (3) Anemia: Qualifiers: Anemia type: iron deficiency Iron deficiency anemia type: inadequate dietary iron intake Qualified Code(s): D50.8 - Other iron deficiency anemias Code(s): D64.9 - Anemia, unspecified Status: Acute Assessment and Plan: * H/H stable at time of admission 8.9/29.6 * Currently trending back up 7.9/27.1 * Low values 7.5/25.1 * Anemia Labs Iron 28, TIBC 251, % sat 11, B12 444.0, Folate 11.7 * Continue ferrous sulfate 325mg PO daily * Continue to trend labs * Transfuse for Hgb <7.0 (4) IGNACIO (acute kidney injury): Code(s): N17.9 - Acute kidney failure, unspecified Status: Acute Assessment and Plan: * BUN/Cr 41/1.6 GFR 33 * Current BUN/Cr 41/1.60 GFR 33 * Most likely related to fluid overloaded * Continue diuretics * Trend labs * Avoid nephrotoxic medications * Renal dose medication * Adjust therapy as indicated (5) Edema: Qualifiers: Edema type: unspecified Qualified Code(s): R60.9 - Edema, unspecified Code(s): R60.9 - Edema, unspecified Status: Acute Assessment and Plan: * IV diuresis initiated in the emergency department * Convert to 40mg PO daily * Venous dopplers negative * Echo stable with grade 1 diastolic dysfunction and EF of 60-65% * daily weights * Trend I&Os (6) UTI (urinary tract infection): Qualifiers: Hematuria presence: without hematuria Urinary tract infection type: acute cystitis Qualified Code(s): N30.00 - Acute cystitis without hematuria Code(s): N39.0 - Urinary tract infection, site not specified Status: Acute Assessment and Plan: * Urinary discomfort with her white cells and leukocyte esterase noted. Culture in process. Started treatment with IV ceftriaxone 2 g then 1 g Q 24 hours discontinued * Culture no growth Time Spent With Patient Time: 41 minutes Time with patient: Greater than 35 minutes Subjective Date/time seen: 03/03/23 1200 Interval history: 03/03/231199 Patient was sitting in the chair. Patient stated that she is feeling okay. She is stating that she is having some pain in her arm and stated that the pain medicine is working sometimes. She currently rates her pain a 9/10. She denies any chest pain,
[2023-03-03] MEDS: INSULIN ASPART (*BKC) 100 UNITS/ML SUB-Q ×2 (12:35→20:59)
[2023-03-03] MEDS: HYDROcodone/acetaminophen (*CRX) 5-325 MG TABLET 1 TAB PO ×2 (12:36→18:54)
[2023-03-03 15:09] VITALS: BP 128/61; PULSE 65; RESP 18; TEMP 36.2; O2SAT 98
[2023-03-03 17:14] LABS: Glucose Point of Care 170 mg/dl (65-105)
[2023-03-03] MEDS: TAMSULOSIN HCL 0.4 MG CAPSULE PO (20:20)
[2023-03-03 21:04] LABS: Glucose Point of Care 208 mg/dl (65-105)
[2023-03-03 21:08] VITALS: BP 113/51; PULSE 67; RESP 16; TEMP 36.2; O2SAT 97
[2023-03-04 05:43] VITALS: BP 119/64; PULSE 65; RESP 14; TEMP 36.3; O2SAT 94
[2023-03-04 06:47] LABS: Basophils Percent Auto 0.5 % (0.2-1.2); Eosinophils Absolute Auto 0.4 K/mm3 (0-0.3); Eosinophils Percent Auto 6.4 % (0-4.4); Hematocrit 26.3 % (37.0-47.0); Immature Granulocyte Absolute 0.03 K/mm3 (0.00-0.031); Immature Granulocyte Percent A 0.5 % (0-0.5); Lymphocytes Absolute Auto 1.41 K/mm3 (0.9-3.2); Mean Corpuscular HGB Conc 30.4 g/dl (32-36); Mean Corpuscular Hemoglobin 30.2 pg (26-34); Mean Corpuscular Volume 99.2 fl (80-100); Mean Platelet Volume 9.2 fl (7.4-10.4); Monocytes Absolute Auto 0.6 K/mm3 (0.1-0.6); Monocytes Percent Auto 9.1 % (2.6-8.5); Neutrophils Absolute Auto 3.9 K/mm3 (1.3-6.7); Neutrophils Percent Auto 61.5 % (45.5-73.1); Platelet Count Result 295 k/mm3 (150-375); Red Blood Count 2.65 M/mm3 (4.2-5.4); White Blood Count 6.4 K/mm3 (4.5-10.0)
[2023-03-04 07:01] LABS: Alanine Aminotransferase 28 U/L (6-35); Alkaline Phosphatase 96 U/L (38-126); Anion Gap 5 mmol/L (8-16); Aspartate Amino Transferase 23 U/L (14-36); Bilirubin,Total 0.3 mg/dL (0.2-1.3); Blood Urea Nitrogen 39 mg/dL (7-17); Calcium 8.6 mg/dL (8.4-10.2); Carbon Dioxide 36 mmol/L (22-30); Chloride 97 mmol/L (98-107); Estimated CRCL calculation 47 ml/min; Estimated Glomerular Filt Rate 31; Glucose 136 mg/dL (65-110); Sodium 138 mmol/L (137-145)
[2023-03-04 08:00] LABS: Glucose Point of Care 134 mg/dl (65-105)
--- NOTE | 2023-03-04 08:03 | P.DS_ITS ---
DS: Admitting Diagnosis Discharge Date 03/04/23 Admitting Diagnosis Failure to thrive, Severe bilateral lower extremity edema DS: Discharge Diagnosis Discharge Diagnosis (1) Adult failure to thrive: Code(s): R62.7 - Adult failure to thrive Status: Acute Assessment and Plan: * Patient presented to the ED with complaints of inability to take care of self at home * Recently became more bed ridden after fall and fracture * Could be related to the bilateral lower swelling of the lower extremity swelling. * PT/OT ordered and consulted * Rehab placement in progress * Care coordination consulted (2) Closed left humeral fracture: Qualifiers: Encounter type: initial encounter Fracture morphology: unspecified fracture morphology Humerus Location: distal Qualified Code(s): S42.402A - Unspecified fracture of lower end of left humerus, initial encounter for closed fracture Code(s): S42.302A - Unspecified fracture of shaft of humerus, left arm, initial encounter for closed fracture Status: Acute Assessment and Plan: * left arm in a sling. * Pain medications ordered * Continue PT/OT (3) Anemia: Qualifiers: Anemia type: iron deficiency Iron deficiency anemia type: inadequate dietary iron intake Qualified Code(s): D50.8 - Other iron deficiency anemias Code(s): D64.9 - Anemia, unspecified Status: Acute Assessment and Plan: * H/H stable at time of admission 8.9/29.6 * Currently trending back up 8.0/26.3 * Low values 7.5/25.1 * Anemia Labs Iron 28, TIBC 251, % sat 11, B12 444.0, Folate 11.7 * Continue ferrous sulfate 325mg PO daily * Continue to trend labs * Transfuse for Hgb <7.0 (4) IGNACIO (acute kidney injury): Code(s): N17.9 - Acute kidney failure, unspecified Status: Acute Assessment and Plan: * BUN/Cr 41/1.6 GFR 33 * Current BUN/Cr 39/1.70 * Most likely related to fluid overloaded * Continue diuretics * Trend labs * Avoid nephrotoxic medications * Renal dose medication * Adjust therapy as indicated (5) Edema: Qualifiers: Edema type: unspecified Qualified Code(s): R60.9 - Edema, unspecified Code(s): R60.9 - Edema, unspecified Status: Acute Assessment and Plan: * IV diuresis initiated in the emergency department * Convert to 40mg PO daily * Venous dopplers negative * Echo stable with grade 1 diastolic dysfunction and EF of 60-65% * daily weights * Trend I&Os DS: Summary Hospital Course Hospital Course: patient is a 58-year-old female with a past medical history of diabetes, morbid obesity who presented to the ED with complaints of failure to thrive inability take care of oneself. Patient has recently moved here from [place]. Upon arrival to the ED patient was noted to have anemia with hemoglobin of 8.9 hematocrit of 29 BUN of 40 creatinine 1.6 and a BNP of 880. patient recently had a fall. After the fall the patient has had some pretty significant declines. Patient has been and able to walk and has been also having issues with taking care of herself. PT and OT has been work with the patient patient has been able to get up and out of the chair. She does have a closed left humeral fracture which is being treated with pain medications in a sling. H&H has been on trend however is currently 8.0/26.3. Patient does ap
--- NOTE | 2023-03-04 08:03 | PM.DS ---
DS: Admitting Diagnosis Discharge Date 03/04/23 Admitting Diagnosis Failure to thrive, Severe bilateral lower extremity edema DS: Discharge Diagnosis Discharge Diagnosis (1) Adult failure to thrive: Code(s): R62.7 - Adult failure to thrive Status: Acute Assessment and Plan: Patient presented to the ED with complaints of inability to take care of self at home Recently became more bed ridden after fall and fracture Could be related to the bilateral lower swelling of the lower extremity swelling. PT/OT ordered and consulted Rehab placement in progress Care coordination consulted (2) Closed left humeral fracture: Qualifiers: Encounter type: initial encounter Fracture morphology: unspecified fracture morphology Humerus Location: distal Qualified Code(s): S42.402A - Unspecified fracture of lower end of left humerus, initial encounter for closed fracture Code(s): S42.302A - Unspecified fracture of shaft of humerus, left arm, initial encounter for closed fracture Status: Acute Assessment and Plan: left arm in a sling. Pain medications ordered Continue PT/OT (3) Anemia: Qualifiers: Anemia type: iron deficiency Iron deficiency anemia type: inadequate dietary iron intake Qualified Code(s): D50.8 - Other iron deficiency anemias Code(s): D64.9 - Anemia, unspecified Status: Acute Assessment and Plan: H/H stable at time of admission 8.9/29.6 Currently trending back up 8.0/26.3 Low values 7.5/25.1 Anemia Labs Iron 28, TIBC 251, % sat 11, B12 444.0, Folate 11.7 Continue ferrous sulfate 325mg PO daily Continue to trend labs Transfuse for Hgb <7.0 (4) IGNACIO (acute kidney injury): Code(s): N17.9 - Acute kidney failure, unspecified Status: Acute Assessment and Plan: BUN/Cr 41/1.6 GFR 33 Current BUN/Cr 39/1.70 Most likely related to fluid overloaded Continue diuretics Trend labs Avoid nephrotoxic medications Renal dose medication Adjust therapy as indicated (5) Edema: Qualifiers: Edema type: unspecified Qualified Code(s): R60.9 - Edema, unspecified Code(s): R60.9 - Edema, unspecified Status: Acute Assessment and Plan: IV diuresis initiated in the emergency department Convert to 40mg PO daily Venous dopplers negative Echo stable with grade 1 diastolic dysfunction and EF of 60-65% daily weights Trend I&Os DS: Summary Hospital Course Hospital Course: patient is a 58-year-old female with a past medical history of diabetes, morbid obesity who presented to the ED with complaints of failure to thrive inability take care of oneself. Patient has recently moved here from [place]. Upon arrival to the ED patient was noted to have anemia with hemoglobin of 8.9 hematocrit of 29 BUN of 40 creatinine 1.6 and a BNP of 880. patient recently had a fall. After the fall the patient has had some pretty significant declines. Patient has been and able to walk and has been also having issues with taking care of herself. PT and OT has been work with the patient patient has been able to get up and out of the chair. She does have a closed left humeral fracture which is being treated with pain medications in a sling. H&H has been on trend however is currently 8.0/26.3. Patient does appear to have an IGNACIO however patient most likely has some chronic kidney disease is unknown due to patient's new relocation. She did have some pretty significant bilateral lower extremity edema 4+ pitting edema. Patient was started on IV Lasix which did significantly decrease the swelling of the bilateral lower extremities. Echo was stable with an EF of 60 65% with grade 1 diastolic dysfunction. IV Lasix has been transitioned to 40 mg p.o. daily. Patient did also have a notable blister on the right perea which has been treated
[2023-03-04] MEDS: GABAPENTIN 300 MG CAPSULE 600 MG PO ×2 (09:14→18:11)
[2023-03-04] MEDS: APIXABAN 5 MG TABLET PO ×2 (09:14→20:43)
[2023-03-04] MEDS: amLODIPine BESYLATE 5 MG TABLET PO (09:14)
[2023-03-04] MEDS: FERROUS SULFATE 325 MG TABLET DR BY MOUTH (09:14)
[2023-03-04] MEDS: FUROSEMIDE 40 MG TABLET PO (09:14)
[2023-03-04] MEDS: buPROPion HCL SR (12HR) 100 MG TABCR PO (09:14)
[2023-03-04] MEDS: SILVERGEL (ELTA) 45 ML 1 APPLIC TOPICAL (09:15)
[2023-03-04] MEDS: allopurinoL 100 MG TABLET PO (09:15)
[2023-03-04] MEDS: ASPIRIN 81 MG ENTERIC TABLET PO (09:15)
[2023-03-04] MEDS: TOLNAFTATE 1% POWDER 45 GM BTL 1 APPLIC TOPICAL ×2 (09:15→20:54)
--- NOTE | 2023-03-04 09:45 | PM.IMPN ---
Progress Note: A&P Assessment and Plan (1) Adult failure to thrive: Code(s): R62.7 - Adult failure to thrive Status: Acute Assessment and Plan: Patient presented to the ED with complaints of inability to take care of self at home Recently became more bed ridden after fall and fracture Could be related to the bilateral lower swelling of the lower extremity swelling. PT/OT ordered and consulted Rehab placement in progress Care coordination consulted (2) Closed left humeral fracture: Qualifiers: Encounter type: initial encounter Fracture morphology: unspecified fracture morphology Humerus Location: distal Qualified Code(s): S42.402A - Unspecified fracture of lower end of left humerus, initial encounter for closed fracture Code(s): S42.302A - Unspecified fracture of shaft of humerus, left arm, initial encounter for closed fracture Status: Acute Assessment and Plan: left arm in a sling. Pain medications ordered Continue PT/OT (3) Anemia: Qualifiers: Anemia type: iron deficiency Iron deficiency anemia type: inadequate dietary iron intake Qualified Code(s): D50.8 - Other iron deficiency anemias Code(s): D64.9 - Anemia, unspecified Status: Acute Assessment and Plan: H/H stable at time of admission 8.9/29.6 Currently trending back up 8.0/26.3 Low values 7.5/25.1 Anemia Labs Iron 28, TIBC 251, % sat 11, B12 444.0, Folate 11.7 Continue ferrous sulfate 325mg PO daily Continue to trend labs Transfuse for Hgb <7.0 (4) IGNACIO (acute kidney injury): Code(s): N17.9 - Acute kidney failure, unspecified Status: Acute Assessment and Plan: BUN/Cr 41/1.6 GFR 33 Current BUN/Cr 39/1.70 Most likely related to fluid overloaded Continue diuretics Trend labs Avoid nephrotoxic medications Renal dose medication Adjust therapy as indicated (5) Edema: Qualifiers: Edema type: unspecified Qualified Code(s): R60.9 - Edema, unspecified Code(s): R60.9 - Edema, unspecified Status: Acute Assessment and Plan: IV diuresis initiated in the emergency department Convert to 40mg PO daily Venous dopplers negative Echo stable with grade 1 diastolic dysfunction and EF of 60-65% daily weights Trend I&Os Time Spent With Patient Time: 38 minutes Time with patient: Greater than 35 minutes Subjective Date/time seen: 03/04/23 0945 Interval history: 03/04/23 0945 patient is sitting in the chair patient denies any current chest pain, shortness a breath, nausea, vomiting, diarrhea constipation. Patient does still have pain in her arm and stated that her pain medicine is working. Was hopeful to discharge the patient however still awaiting acceptance from the long-term care facility. 03/03/23 1200 Patient was sitting in the chair. Patient stated that she is feeling okay. She is stating that she is having some pain in her arm and stated that the pain medicine is working sometimes. She currently rates her pain a 9/10. She denies any chest pain, shortness a breath, nausea, vomiting, diarrhea constipation. She also seemed to be little disgruntled today which most likely related to the pain. She still has pretty decent appetite. 03/02/23 0831 patient is sitting in the chair. Patient stated that she is feeling okay. She denies any current chest pain, shortness a breath, vomiting Diarrhea constipation. Patient did state that she was nauseous and she said is related to her arm sling. She is currently still have 4+ pitting edema. She is also stated the pain is being controlled. 03/01/23? 10:17 Patient was seen during the morning rounds today. Feeling slightly better. Pain controlled. No sob or chest pain. No abdominal pain,no nausea or vomiting. Mood stable. 02/28/23? 15:00 Interval history: ?pat
--- NOTE | 2023-03-04 09:45 | P.PNIM_ITS ---
Progress Note: A&P Assessment and Plan (1) Adult failure to thrive: Code(s): R62.7 - Adult failure to thrive Status: Acute Assessment and Plan: * Patient presented to the ED with complaints of inability to take care of self at home * Recently became more bed ridden after fall and fracture * Could be related to the bilateral lower swelling of the lower extremity swelling. * PT/OT ordered and consulted * Rehab placement in progress * Care coordination consulted (2) Closed left humeral fracture: Qualifiers: Encounter type: initial encounter Fracture morphology: unspecified fracture morphology Humerus Location: distal Qualified Code(s): S42.402A - Unspecified fracture of lower end of left humerus, initial encounter for closed fracture Code(s): S42.302A - Unspecified fracture of shaft of humerus, left arm, initial encounter for closed fracture Status: Acute Assessment and Plan: * left arm in a sling. * Pain medications ordered * Continue PT/OT (3) Anemia: Qualifiers: Anemia type: iron deficiency Iron deficiency anemia type: inadequate dietary iron intake Qualified Code(s): D50.8 - Other iron deficiency anemias Code(s): D64.9 - Anemia, unspecified Status: Acute Assessment and Plan: * H/H stable at time of admission 8.9/29.6 * Currently trending back up 8.0/26.3 * Low values 7.5/25.1 * Anemia Labs Iron 28, TIBC 251, % sat 11, B12 444.0, Folate 11.7 * Continue ferrous sulfate 325mg PO daily * Continue to trend labs * Transfuse for Hgb <7.0 (4) IGNACIO (acute kidney injury): Code(s): N17.9 - Acute kidney failure, unspecified Status: Acute Assessment and Plan: * BUN/Cr 41/1.6 GFR 33 * Current BUN/Cr 39/1.70 * Most likely related to fluid overloaded * Continue diuretics * Trend labs * Avoid nephrotoxic medications * Renal dose medication * Adjust therapy as indicated (5) Edema: Qualifiers: Edema type: unspecified Qualified Code(s): R60.9 - Edema, unspecified Code(s): R60.9 - Edema, unspecified Status: Acute Assessment and Plan: * IV diuresis initiated in the emergency department * Convert to 40mg PO daily * Venous dopplers negative * Echo stable with grade 1 diastolic dysfunction and EF of 60-65% * daily weights * Trend I&Os Time Spent With Patient Time: 38 minutes Time with patient: Greater than 35 minutes Subjective Date/time seen: 03/04/23944 Interval history: 03/04/23944 patient is sitting in the chair patient denies any current chest pain, shortness a breath, nausea, vomiting, diarrhea constipation. Patient does still have pain in her arm and stated that her pain medicine is working. Was hopeful to discharge the patient however still awaiting acceptance from the long-term care facility. 03/03/23 1200 Patient was sitting in the chair. Patient stated that she is feeling okay. She is stating that she is having some pain in her arm and stated that the pain medicine is working sometimes. She currently rates her pain a 9/10. She denies any chest pain, shortness a breath, nausea, vomiting, diarrhea constipation. She also seemed to be little disgruntled today which most likely related to the pain. She still has pretty decent appetite. 03/02/23 0831 patient
[2023-03-04 11:48] LABS: Glucose Point of Care 247 mg/dl (65-105)
[2023-03-04] MEDS: INSULIN ASPART (*BKC) 100 UNITS/ML SUB-Q ×2 (13:18→20:47)
[2023-03-04 13:59] VITALS: BP 108/55; PULSE 71; RESP 18; TEMP 36.6; O2SAT 98
[2023-03-04 16:25] LABS: Glucose Point of Care 180 mg/dl (65-105)
[2023-03-04] MEDS: TAMSULOSIN HCL 0.4 MG CAPSULE PO (20:43)
[2023-03-04 20:46] LABS: Glucose Point of Care 227 mg/dl (65-105)
[2023-03-04 22:00] VITALS: BP 133/58; PULSE 72; RESP 18; TEMP 36.5; O2SAT 98
[2023-03-05 06:00] VITALS: BP 116/51; PULSE 67; RESP 18; TEMP 36.4; O2SAT 95
[2023-03-05 06:45] LABS: Basophils Percent Auto 0.5 % (0.2-1.2); Eosinophils Absolute Auto 0.4 K/mm3 (0-0.3); Eosinophils Percent Auto 5.7 % (0-4.4); Hematocrit 28.2 % (37.0-47.0); Hemoglobin 8.4 g/dL (12.0-15.0); Immature Granulocyte Absolute 0.03 K/mm3 (0.00-0.031); Immature Granulocyte Percent A 0.5 % (0-0.5); Lymphocytes Absolute Auto 1.29 K/mm3 (0.9-3.2); Mean Corpuscular HGB Conc 29.8 g/dl (32-36); Mean Corpuscular Hemoglobin 30.1 pg (26-34); Mean Corpuscular Volume 101.1 fl (80-100); Mean Platelet Volume 9.5 fl (7.4-10.4); Monocytes Absolute Auto 0.6 K/mm3 (0.1-0.6); Monocytes Percent Auto 9.1 % (2.6-8.5); Neutrophils Absolute Auto 4.2 K/mm3 (1.3-6.7); Neutrophils Percent Auto 64.2 % (45.5-73.1); Platelet Count Result 300 k/mm3 (150-375); Red Blood Count 2.79 M/mm3 (4.2-5.4); Red Cell Distribution Width 15.4 % (11.5-14.5); White Blood Count 6.5 K/mm3 (4.5-10.0)
[2023-03-05 06:56] LABS: Alanine Aminotransferase 30 U/L (6-35); Albumin Level 3.2 g/dL (3.5-5.1); Alkaline Phosphatase 103 U/L (38-126); Anion Gap 4 mmol/L (8-16); Aspartate Amino Transferase 25 U/L (14-36); Bilirubin,Total 0.4 mg/dL (0.2-1.3); Blood Urea Nitrogen 36 mg/dL (7-17); Calcium 8.9 mg/dL (8.4-10.2); Carbon Dioxide 34 mmol/L (22-30); Chloride 100 mmol/L (98-107); Estimated CRCL calculation 50 ml/min; Estimated Glomerular Filt Rate 33; Glucose 132 mg/dL (65-110); Potassium 4.2 mmol/L (3.4-5.0); Sodium 138 mmol/L (137-145)
[2023-03-05 07:54] LABS: Platelet Estimate Adequate (Adequate)
[2023-03-05 07:55] LABS: Anisocytosis 1+ (NORMAL); Hypochromasia 1+ (NORMAL); Schistocytes None Seen (NORMAL)
[2023-03-05 07:57] LABS: Glucose Point of Care 138 mg/dl (65-105)
[2023-03-05 09:30] VITALS: O2SAT 96
[2023-03-05] MEDS: allopurinoL 100 MG TABLET PO (09:31)
[2023-03-05] MEDS: APIXABAN 5 MG TABLET PO (09:31)
[2023-03-05] MEDS: ASPIRIN 81 MG ENTERIC TABLET PO (09:31)
[2023-03-05] MEDS: amLODIPine BESYLATE 5 MG TABLET PO (09:31)
[2023-03-05] MEDS: GABAPENTIN 300 MG CAPSULE 600 MG PO (09:32)
[2023-03-05] MEDS: TOLNAFTATE 1% POWDER 45 GM BTL 1 APPLIC TOPICAL (09:32)
[2023-03-05] MEDS: FERROUS SULFATE 325 MG TABLET DR BY MOUTH (09:32)
[2023-03-05] MEDS: buPROPion HCL SR (12HR) 100 MG TABCR PO (09:32)
[2023-03-05] MEDS: FUROSEMIDE 40 MG TABLET PO (09:32)
[2023-03-05] MEDS: SILVERGEL (ELTA) 45 ML 1 APPLIC TOPICAL (09:33)
--- NOTE | 2023-03-05 11:53 | PM.DS ---
DS: Admitting Diagnosis Discharge Date 03/05/23 Admitting Diagnosis failure to thrive, severe bilateral lower extremity edema DS: Discharge Diagnosis Discharge Diagnosis (1) Adult failure to thrive: Code(s): R62.7 - Adult failure to thrive Status: Acute (2) Closed left humeral fracture: Qualifiers: Encounter type: initial encounter Fracture morphology: unspecified fracture morphology Humerus Location: distal Qualified Code(s): S42.402A - Unspecified fracture of lower end of left humerus, initial encounter for closed fracture Code(s): S42.302A - Unspecified fracture of shaft of humerus, left arm, initial encounter for closed fracture Status: Acute (3) Anemia: Qualifiers: Anemia type: iron deficiency Iron deficiency anemia type: inadequate dietary iron intake Qualified Code(s): D50.8 - Other iron deficiency anemias Code(s): D64.9 - Anemia, unspecified Status: Acute (4) IGNACIO (acute kidney injury): Code(s): N17.9 - Acute kidney failure, unspecified Status: Acute (5) Edema: Qualifiers: Edema type: unspecified Qualified Code(s): R60.9 - Edema, unspecified Code(s): R60.9 - Edema, unspecified Status: Acute DS: Summary Hospital Course Hospital Course: Patient is a 58-year-old female with a past medical history of diabetes, morbid? obesity who presented to the ED with complaints of failure to thrive inability take care of oneself.? Patient has recently moved here from [place].? Upon arrival to the ED patient was noted to have anemia with hemoglobin of 8.9 hematocrit of 29 BUN of 40 creatinine 1.6 and a BNP of 880. patient recently had a fall.? After the fall the patient has had some pretty significant declines.? Patient has been and able to walk and has been also having issues with taking care of herself.? PT and OT has been work with the patient patient has been able to get up and out of the chair.? She does have a closed left humeral fracture which is being treated with pain medications in a sling.? H&H has been on trend however is currently 8.0/26.3.? Patient does appear to have an IGNACIO however patient most likely has some chronic kidney disease is unknown due to patient's new relocation.? She did have some pretty significant bilateral lower extremity edema 4+ pitting edema.? Patient was started on IV Lasix which did significantly decrease the swelling of the bilateral lower extremities.? Echo was stable with an EF of 60 65% with grade 1 diastolic dysfunction.? IV Lasix has been transitioned to 40 mg p.o. daily.? Patient did also have a notable blister on the right perea which has been treated in covered.? She was complaining of some urinary discomfort however urine culture showed no growth.? Currently the patient just complains of pain in her left arm.? She denies any current chest pain, shortness a breath, nausea, vomiting, diarrhea or constipation.? Patient will be going to rehab facility for further strengthening and training.? At this time patient is stable for discharge for labs and vital signs. Time Spent with Patient Time attestation: Total time spent providing and/or coordinating discharge services: Exam Narrative: GENERAL: Comfortable, no acute distress, morbid obesity HENMT: moist mucous membranes, hirsutism EYES: EOM intact b/l NECK: no lymphadenopathy RESPIRATORY: clear to auscultation CARDIO: RRR GI: soft, nontender, bowel sounds present SKIN: no rashes EXTREMITIES: bilateral lower extremity edema +2 that is improved, no redness or tenderness DS: Data Data Completed and Pending Labs on day of discharge: Labs from last 24 hours 03/05/23 03/05/23 03/04/23 07:52 06:24 20:43 WBC 6.5 RBC 2.79 L Hgb 8.4 L Hct 28.2 L MCV 101.1 H MCH 30.1 MCHC 29.8 L RDW 15.4 H Plt Count 300 MPV 9.5 Immature Gran % (Auto) 0.5 Neut % (Auto) 64.2 Lymph % (Auto) 20.0 [place] % (Aut
[2023-03-05 12:12] LABS: Glucose Point of Care 151 mg/dl (65-105)
[2023-03-05] MEDS: polyethylene glycoL 3350 17 GM POWD.PACK PO (12:28)
[2023-03-05] MEDS: BISACODYL 10 MG SUPPOSITORY RECTAL (12:28)
[2023-03-05 14:00] VITALS: BP 146/60; PULSE 80; RESP 18; TEMP 36.5; O2SAT 98
[2023-03-05] MEDS: HYDROcodone/acetaminophen (*CRX) 5-325 MG TABLET 2 TAB PO (14:08)
[2023-03-05 16:46] LABS: Glucose Point of Care 176 mg/dl (65-105)
== END 2023-03-05 16:55 ==
LOC: ANHED 20:45 → ANH3MEDSUR 02-28 06:46
PROVIDERS: Nurse Practitioner; Admitting Provider Internal Medicine; Emergency Provider Emergency Medicine; Visit Provider Hospitalist
DX: R62.7 Adult failure to thrive (principal); Z68.42 Body mass index [BMI] 45.0-49.9, adult; S42.402A Unspecified fracture of lower end of left humerus, initial encounter for closed fracture; D50.8 Other iron deficiency anemias; R60.9 Edema, unspecified; N17.9 Acute kidney failure, unspecified; E66.01 Morbid (severe) obesity due to excess calories; I45.4 Nonspecific intraventricular block; N39.0 Urinary tract infection, site not specified; I08.1 Rheumatic disorders of both mitral and tricuspid valves; D72.829 Elevated white blood cell count, unspecified; E11.9 Type 2 diabetes mellitus without complications; I27.20 Pulmonary hypertension, unspecified; R23.8 Other skin changes; J84.9 Interstitial pulmonary disease, unspecified; Z74.01 Bed confinement status; R79.89 Other specified abnormal findings of blood chemistry; Z79.899 Other long term (current) drug therapy; Z79.01 Long term (current) use of anticoagulants; Z79.84 Long term (current) use of oral hypoglycemic drugs; Z79.82 Long term (current) use of aspirin
CPT/HCPCS: 36415; 71045; 76775; 80053; 81001; 82607; 82746; 82948; 83036; 83540; 83550; 83880; 83921; 84484; 85025; 85027; 85610; 85730; 87086; 93005; 93970; 96365; 96366; 96367; 96374; 96375; 96376; 97110; 97116; 97161; 97165; 97530; 97535; 99285; A9270; C8929; G0378; J0696; J1170; J1756; J1815; J1940; J7050; Q9957

== ENCOUNTER 2023-03-20 21:15 | Inpatient (IN) | payer MEDICAID, SELFPAY ==
[2023-03-20] VITALS (11 sets, daily range): BP systolic 145; BP diastolic 116; PULSE 65–75; RESP 14–20; TEMP 36.2; O2SAT 97–98
--- NOTE | ~2023-03-20 | XR_ITS ---
EXAMINATION: XR chest 2V DATE: 03/20/2023 22:14 INDICATION: Shortness of breath TECHNIQUE: Frontal and lateral views of the chest are obtained COMPARISON: 02/26/2023 FINDINGS: Cardiomegaly is noted. There is a mild diffuse interstitial pattern. No pleural effusion or pneumothorax. There is mild thoracic spondylosis. IMPRESSION: 1. Diffuse interstitial opacities, consistent with pneumonia versus pulmonary edema. 2. Cardiomegaly. Reviewed, dictated and finalized at location F. IMPRESSION: 1. Diffuse interstitial opacities, consistent with pneumonia versus pulmonary e saurav. 2. Cardiomegaly.
--- NOTE | 2023-03-20 21:33 | ECG_ITS ---
Measurements Intervals [place] Rate: 67 P: 48 MD: 175 QRS: 17 QRSD: 107 T: 36 QT: 422 QTc: 448 Interpretive Statements SINUS RHYTHM CANNOT RULE OUT SEPTAL INFARCT, AGE INDETERMINATE BASELINE ARTIFACT- I, II, III, AVR, AVL, AVF, V1-V6 ABNORMAL ECG COMPARED TO ECG 02/26/2023 19:12:22 NO SIGNIFICANT CHANGES Electronically Signed On 03-21-2023 6:24:23 CDT by Foster Argueta D.O.
--- NOTE | 2023-03-20 21:51 | ECG_ITS ---
Measurements Intervals [place] Rate: 69 P: 72 AK: 181 QRS: 19 QRSD: 105 T: 40 QT: 432 QTc: 463 Interpretive Statements SINUS RHYTHM LOW QRS VOLTAGE IN PRECORDIAL LEADS CANNOT RULE OUT SEPTAL INFARCT, AGE INDETERMINATE BASELINE ARTIFACT- I, II, AVR, AVL, AVF, V1-V2, V4-V6 ABNORMAL ECG COMPARED TO ECG 03/20/2023 21:36:34 NO SIGNIFICANT CHANGES Electronically Signed On 03-21-2023 6:27:31 CDT by Foster Argueta D.O.
[2023-03-20 22:02] LABS: Basophils Percent Auto 0.4 % (0.2-1.2); Eosinophils Absolute Auto 1.3 K/mm3 (0-0.3); Eosinophils Percent Auto 16.3 % (0-4.4); Hematocrit 29.7 % (37.0-47.0); Hemoglobin 8.9 g/dL (12.0-15.0); Immature Granulocyte Absolute 0.02 K/mm3 (0.00-0.031); Immature Granulocyte Percent A 0.3 % (0-0.5); Lymphocytes Absolute Auto 1.43 K/mm3 (0.9-3.2); Lymphocytes Percent Auto 18.1 % (18.3-44.2); Mean Corpuscular Hemoglobin 29.1 pg (26-34); Mean Corpuscular Volume 97.1 fl (80-100); Mean Platelet Volume 9.4 fl (7.4-10.4); Monocytes Absolute Auto 0.5 K/mm3 (0.1-0.6); Monocytes Percent Auto 6.6 % (2.6-8.5); Neutrophils Absolute Auto 4.6 K/mm3 (1.3-6.7); Neutrophils Percent Auto 58.3 % (45.5-73.1); Platelet Count Result 275 k/mm3 (150-375); Red Blood Count 3.06 M/mm3 (4.2-5.4); Red Cell Distribution Width 15.3 % (11.5-14.5); White Blood Count 7.9 K/mm3 (4.5-10.0)
[2023-03-20 22:12] LABS: Lactic Acid Reflex 1.3 mmol/L (0.7-2.0)
[2023-03-20 22:12] LABS: Alanine Aminotransferase 23 U/L (6-35); Albumin Level 3.7 g/dL (3.5-5.1); Alkaline Phosphatase 135 U/L (38-126); Anion Gap 4 mmol/L (8-16); Aspartate Amino Transferase 21 U/L (14-36); Bilirubin,Total 0.4 mg/dL (0.2-1.3); Blood Urea Nitrogen 37 mg/dL (7-17); Carbon Dioxide 34 mmol/L (22-30); Chloride 101 mmol/L (98-107); Estimated CRCL calculation 52 ml/min; Estimated Glomerular Filt Rate 33; Glucose 206 mg/dL (65-110); Potassium 4.4 mmol/L (3.4-5.0); Sodium 139 mmol/L (137-145)
[2023-03-21] VITALS (14 sets, daily range): BP systolic 122–134; BP diastolic 46–77; PULSE 61–78; RESP 13–31; TEMP 35.5–36.3; O2SAT 95–99; BMI 50.4; BMI 49.8
[2023-03-21] MEDS: FUROSEMIDE INJ 40 MG/4 ML VIAL IV PUSH ×3 (00:40→22:17)
[2023-03-21 00:58] LABS: NT Pro B Type Natriuretic Pept 513 pg/mL (19.9-100); Troponin I < 0.012 ng/mL (0.000-0.034)
--- NOTE | 2023-03-21 02:04 | ED.GENADULT ---
HPI - General Adult General Chief complaint: Shortness of Breath/Dyspnea Stated complaint: sob, LE swelling Time Seen by Provider: 03/20/23 23:48 History of Present Illness HPI narrative: Patient 58-year-old female who presents the emergency department with chief complaint of peripheral edema. Patient reports she was in the hospital recently and was discharged to a nursing facility the patient reports has been taking her Lasix and reported that her legs have become progressively more swollen. Patient denies fevers reports that she has felt a little short of breath with this but denies chest pain. The patient states that she feels as though the Lasix is not working anymore. Related Data Home Medications Medication Instructions Recorded Confirmed allopurinol 100 mg tablet 100 mg PO DAILY 02/27/23 02/27/23 allopurinol 100 mg tablet 100 mg PO DAILY 02/27/23 02/27/23 amlodipine 5 mg tablet 5 mg PO DAILY 02/27/23 02/27/23 apixaban 5 mg tablet (Eliquis) 5 mg PO BID 02/27/23 02/27/23 aspirin 81 mg tablet,delayed 81 mg PO DAILY 02/27/23 02/27/23 release bupropion HCl 100 mg tablet,12 hr 100 mg PO DAILY 02/27/23 02/27/23 sustained-release cariprazine 3 mg capsule (Vraylar) 3 mg PO DAILY 02/27/23 02/27/23 ferrous sulfate 325 mg (65 mg 325 mg PO DAILY 02/27/23 02/27/23 iron) tablet furosemide 40 mg tablet 40 mg PO DAILY 02/27/23 02/27/23 gabapentin 600 mg tablet 600 mg PO BID 02/27/23 02/27/23 glimepiride 2 mg tablet 2 mg PO BID 02/27/23 02/27/23 tamsulosin 0.4 mg capsule 0.4 mg PO HS 02/27/23 02/27/23 Allergies Allergy/AdvReac Type Severity Reaction Status Date / Time No Known Allergies Allergy Verified 02/27/23 00:38 Review of Systems Review of Systems: A 10 system review of systems was completed on the patient and is negative except for what is stated in the HPI. Nursing and ancillary documentation was reviewed. [facility] Social History Social History Smoking status: Never smoker Second hand tobacco smoke exposure: Yes Alcohol intake: never Substance use: never Lack of Transportation: No Lack of Food: Never True Current Housing: I Have Housing Concerned About Future Housing: No Difficulty Paying Gas/Electric Bills: No Difficulty Paying for Meds: No Currently Unemployed: No Education: High School Diploma/GED Difficulty w/ Childcare or Family Care: No Spiritual care concerns: No Exam Narrative: GENERAL: Well-appearing, well-nourished, and in no acute distress. HEAD: Normocephalic, atraumatic. EYES: PERRLA and EOMI. ENT: Nares clear, no rhinorrhea or epistaxis. Mucous membranes moist. NECK: Supple. CHEST: Clear to auscultation. No respiratory distress. HEART: Regular rate and rhythm. No murmur heard. Normal peripheral pulses. ABDOMEN: Soft, nontender, nondistended, normal active bowel sounds. EXTREMITIES: Normal range of motion. 2+ edema. SKIN: Warm, dry, no rash. Lower extremities are edematous and swollen there is slight erythema around the ankles bilaterally NEURO: No focal deficits. Alert and oriented x3. PSYCH: Normal mood and affect. Course Vital Signs Vital signs: Vital Signs Temperature 36.2 C L 03/20/23 21:15 Pulse Rate 70 03/20/23 21:15 Respiratory Rate 15 03/20/23 21:15 Blood Pressure 145/116 H 03/20/23 21:15 Pulse Oximetry 98 03/20/23 21:15 Oxygen Delivery Room Air 03/20/23 21:15 Temperature 36.2 C L 03/20/23 21:15 Pulse Rate 78 03/21/23 00:42 Respiratory Rate 31 H 03/21/23 00:42 Blood Pressure 127/77 03/21/23 00:42 Pulse Oximetry 95 03/21/23 00:42 Oxygen Delivery Room Air 03/20/23 21:23 Medical Decision Making MDM Narrative Medical decision making narrative: Differential diagnosis includes CHF exacerbation, peripheral edema, lymphedema, pneumonia, Laboratory studies were obtained and the patient showed a white count of 7.9 hemoglobin was
--- NOTE | 2023-03-21 02:36 | PC.NURSE ---
This RN attempted to call report to the nurse taking pt in room 317 but was unsuccessful.
--- NOTE | 2023-03-21 04:17 | PM.IMHP ---
H&P: HPI History of Present Illness Date/Time: 03/21/23 02:30 Chief Complaint: Shortness of breath. Narrative: This is a pleasant 58-year-old female with diastolic congestive heart failure, pulmonary hypertension, hypertension, hyperlipidemia, pulmonary embolism on anticoagulation, type 2 diabetes mellitus, chronic lymphedema, depression, and anxiety who presented to the emergency department via EMS from [place] for evaluation of shortness of breath. The patient provides the following history. She is known to the hospitalist service with a recent admission several weeks ago following a fall with volume overload and left humeral fracture. She was discharged to [place] on 03/05/2023 for I believe nursing home care. At that facility it does not sound as though she is given a heart healthy diet and since that time she has had increasing edema and shortness of breath which has gotten worse over the last day. She was given 80 mg of furosemide prior to being sent to the ED. she was afebrile on arrival with stable vital signs. CMP and CBC were reviewed and they are stable compared to previous labs. ProBNP was 513, down from a 889 earlier this month. Chest x-ray showed diffuse interstitial opacities consistent with pneumonia versus pulmonary edema and cardiomegaly. With further questioning she does endorse a mild cough which is been nonproductive. She has no concerns for pneumonia and specifically denies fever, chills, sweats, sinus congestion, sore throat, productive cough, nausea, vomiting, and diarrhea. She also denies chest and pleuritic pain and palpitations. In the ED she was given another 40 mg of furosemide and she is being admitted in this setting with volume overload. Review of Systems Review of Systems: Twelve systems were reviewed and are negative except for as per HPI. [facility] Past Medical History Medical History (Updated 03/21/23 @ 04:31 by Ester Vital PA-C) Chronic anemia Chronic anticoagulation Chronic kidney disease Depression with anxiety Diastolic congestive heart failure Hyperlipidemia Hypertension Lymphedema Pulmonary embolism (2018) Pulmonary hypertension Type 2 diabetes mellitus Surgical History Surgical History (Updated 03/21/23 @ 04:25 by Ester Vital PA-C) History of cholecystectomy History of hernia repair History of tonsillectomy History of tubal ligation Family History Family History (Updated 03/21/23 @ 04:25 by Ester Vital PA-C) Other Family history unknown Social History Social History (Updated 03/21/23 @ 04:25 by Ester Vital PA-C) Social History: Surrogate medical decision maker: Farhan Avalos (brother). Code status: Full code. Smoking status: Never smoker Second hand tobacco smoke exposure: Yes Alcohol intake: never Substance use: never Substance use type: does not use Lack of Transportation: No Lack of Food: Never True Current Housing: I Have Housing Concerned About Future Housing: No Difficulty Paying Gas/Electric Bills: No Difficulty Paying for Meds: No Currently Unemployed: No Education: High School Diploma/GED Difficulty w/ Childcare or Family Care: No Spiritual care concerns: No Meds Home Medications and Allergies Home Medications Medication Instructions Recorded Confirmed Type allopurinol 100 mg tablet 100 mg PO DAILY 02/27/23 02/27/23 History allopurinol 100 mg tablet 100 mg PO DAILY 02/27/23 02/27/23 History amlodipine 5 mg tablet 5 mg PO DAILY 02/27/23 02/27/23 History apixaban 5 mg tablet (Eliquis) 5 mg PO BID 02/27/23 02/27/23 History aspirin 81 mg tablet,delayed 81 mg PO DAILY 02/27/23 02/27/23 History release bupropion HCl 100 mg tablet,12 hr 100 mg PO DAILY 02/27/23 02/27/23 History sustained-release cariprazine 3 mg capsule (Vraylar) 3 mg PO DAILY 02/27/23 02/27/23 History ferrous sulfate 325 mg (65 mg 325 mg PO DAILY 02/27/23 02/27/23 History iron) tablet furosemide 40 mg tablet 40 mg PO DAILY
[2023-03-21 05:16] LABS: Anion Gap 2 mmol/L (8-16); Blood Urea Nitrogen 36 mg/dL (7-17); Calcium 8.7 mg/dL (8.4-10.2); Carbon Dioxide 36 mmol/L (22-30); Chloride 101 mmol/L (98-107); Estimated CRCL calculation 52 ml/min; Estimated Glomerular Filt Rate 33; Glucose 181 mg/dL (65-110); Potassium 3.9 mmol/L (3.4-5.0); Sodium 139 mmol/L (137-145)
[2023-03-21 05:51] LABS: Procalcitonin 0.1 ng/mL
[2023-03-21 07:36] LABS: Glucose Point of Care 146 mg/dl (65-105)
[2023-03-21 07:49] LABS: Troponin I < 0.012 ng/mL (0.000-0.034)
[2023-03-21] MEDS: HYDROcodone/acetaminophen (*CRX) 5-325 MG TABLET 1 TAB PO (08:25)
[2023-03-21] MEDS: FERROUS SULFATE 325 MG TABLET DR PO (08:29)
[2023-03-21] MEDS: ASPIRIN 81 MG ENTERIC TABLET PO (08:29)
[2023-03-21] MEDS: POTASSIUM CHLORIDE 20 MEQ ER TABLET 40 MEQ PO (08:30)
[2023-03-21] MEDS: amLODIPine BESYLATE 5 MG TABLET PO (08:30)
[2023-03-21] MEDS: APIXABAN 5 MG TABLET PO ×2 (08:30→16:18)
[2023-03-21] MEDS: GABAPENTIN 300 MG CAPSULE 600 MG PO ×2 (08:30→16:20)
[2023-03-21] MEDS: buPROPion HCL SR (12HR) 100 MG TABCR PO (08:31)
[2023-03-21] MEDS: GLIMEPIRIDE 2 MG TABLET PO ×2 (08:35→16:18)
[2023-03-21 11:23] LABS: Glucose Point of Care 106 mg/dl (65-105)
[2023-03-21] MEDS: SILVERGEL (ELTA) 45 ML 1 APPLIC TOPICAL (12:24)
[2023-03-21 13:05] LABS: Appearance Urine Clear (Clear); Bilirubin Urine Negative (Negative); Blood Urine Negative (Negative); Color Urine Yellow (Yellow); Glucose Urine UA Negative (Negative); Ketones Urine Negative (Negative); Leukocyte Esterase Ur Negative LEU/UL (Negative); Nitrate Urine Negative (Negative); Protein Urine Negative (Negative); Specific Grav Ur 1.008 (1.001-1.035); Urobilinogen Urine 0.2 mg/dL (<2.0)
[2023-03-21 13:10] LABS: Add Urine Microscopic? NO
--- NOTE | 2023-03-21 14:41 | PM.IMPN ---
Progress Note: A&P Assessment and Plan (1) Acute on chronic diastolic congestive heart failure: Code(s): I50.33 - Acute on chronic diastolic (congestive) heart failure Status: Acute Assessment and Plan: The patient presented to the emergency department for evaluation of increasing shortness of breath ProBNP is actually a bit lower than what it was earlier this month however her weight is up 6.5 kg Pulmonary edema on chest x-ray. Apnea link ordered to screen for sleep apnea. She will be diuresed with close monitoring of volume status, renal function, and electrolytes. (2) Diabetic ulcer of heel: Code(s): E11.621 - Type 2 diabetes mellitus with foot ulcer; L97.409 - Non-pressure chronic ulcer of unspecified heel and midfoot with unspecified severity Status: Acute Assessment and Plan: Regarding her right heel wound, there is a large black eschar which may need debridement and thus will ask General surgery to see her in consultation. (3) Type 2 diabetes mellitus: Code(s): E11.9 - Type 2 diabetes mellitus without complications Status: Acute Assessment and Plan: Continue glimepiride. Initiate sliding scale insulin, Accu-Cheks, and hypoglycemic protocol. 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 Urinary catheter placed and output was 1800 mL. UA with no sign of infection. Subjective Date/time seen: 03/21/23 14:41 Interval history: Patient lying comfortably in bed. Patient states that she did not move much at her senior living, and they just sat her in her wheelchair. Patient states that she typically uses a walker to ambulate although not sure how accurate this is. She was recently admitted here due to IGNACIO and CHF. She clinic that she continues to be short of breath for and she has pain in her lower extremities. She does have chronic ulcers on her heels. Exam Narrative: GENERAL: Comfortable, no acute distress HENMT: moist mucous membranes EYES: EOM intact b/l NECK: no lymphadenopathy RESPIRATORY: bibasilar expiratory wheezes present CARDIO: RRR GI: soft, nontender, bowel sounds present SKIN: no rashes EXTREMITIES: bilateral +4 pitting edema up to the knee with circumferential erythema around b/l ankles Objective Data Vital Signs Vital Signs: Vital Signs - 24 hr 03/20/23 21:15 03/20/23 21:23 03/20/23 21:36 Temperature 97.2 F L Pulse Rate 70 68 Respiratory Rate 15 14 Blood Pressure 145/116 H Pulse Oximetry 98 98 97 Oxygen Delivery Room Air Room Air 03/20/23 21:45 03/20/23 22:14 03/20/23 22:15 Temperature Pulse Rate 69 67 68 Respiratory Rate 18 14 14 Blood Pressure Pulse Oximetry 98 98 Oxygen Delivery 03/20/23 22:43 03/20/23 22:45 03/20/23 23:00 Temperature Pulse Rate 65 66 75 Respiratory Rate 20 20 16 Blood Pressure Pulse Oximetry 97 Oxygen Delivery 03/20/23 23:30 03/20/23 23:45 03/21/23 00:00 Temperature Pulse Rate 66 68 78 Respiratory Rate 16 14 19 Blood Pressure Pulse Oximetry 98 97 Oxygen Delivery 03/21/23 00:15 03/21/23 00:34 03/21/23 00:42 Temperature Pulse Rate 73 69 78 Respiratory Rate 30 H 13 31 H Blood Pre
--- NOTE | 2023-03-21 14:54 | WPDCN ---
Assessment and Plan Assessment and plan (1) Diabetic ulcer of heel: Code(s): E11.621 - Type 2 diabetes mellitus with foot ulcer; L97.409 - Non-pressure chronic ulcer of unspecified heel and midfoot with unspecified severity Status: Acute Assessment and Plan: The patient has bilateral diabetic heel ulcers the left being worse than the right. Presently there is minimal evidence of cellulitis. Minimal necrotic tissue was noted. Drainage is not purulent. We will continue with local wound care with silver impregnated dressings and offloading pressure from the heels with wall for bleeds. Will need to wrap the bilateral lower extremities from the knees distally all the way to the toes to get compression and decreased edema in lower extremities. Given the degree of edema at this point would be very very difficult to get the wounds to heal. There is no obvious need for surgical debridement at this time. Will follow. HPI Data of Consult Date/Time: 03/21/23 14:54 Requesting Physician: Devante Fermin MD Primary Care Provider: PHYSICIAN NOT ON STAFF Consult Narrative Reason for consult: Bilateral heel ulcers Narrative: Talia Peralta is a 58 year old female admitted from a local nursing with fluid overload. Apparently she had been discharged from the hospital not too long ago with the same issues. Upon admission was noted she had bilateral wounds on the heels. She states she has never had heel wounds in the past. Until recently when she had fluid retention issues and severe swelling of lower extremities she has been able to ambulate with the aid of a walker. She is a [id number] diabetic. She is also on Eliquis presently. She has been seen by the wound care nurses have assess the wounds and that documented pictures. The measurements of the wounds are in the wound care nursing notes. Review of Systems Constitutional: Comments: The remainder of the review of systems to include constitutional, HEENT, cardiovascular, respiratory, GI, , integumentary, musculoskeletal, endocrine, immunologic, hematologic, psychiatric, and neurologic are all negative except for which is mentioned above in the HPI. [facility] Past Medical History Medical History Chronic anemia Chronic anticoagulation Chronic kidney disease Depression with anxiety Diastolic congestive heart failure Hyperlipidemia Hypertension Lymphedema Pulmonary embolism (2018) Pulmonary hypertension Type 2 diabetes mellitus Surgical History Surgical History History of cholecystectomy History of hernia repair History of tonsillectomy History of tubal ligation Family History Family History Other Family history unknown Social History Social History Social History: Surrogate medical decision maker: Farhan Avalos (brother). Code status: Full code. Smoking status: Never smoker Second hand tobacco smoke exposure: Yes Alcohol intake: never Substance use: never Substance use type: does not use Lack of Transportation: No Lack of Food: Never True Current Housing: I Have Housing Concerned About Future Housing: No Difficulty Paying Gas/Electric Bills: No Difficulty Paying for Meds: No Currently Unemployed: No Education: High School Diploma/GED Difficulty w/ Childcare or Family Care: No Spiritual care concerns: No Meds Home Medications and Allergies Home Medications Medication Instructions Recorded Confirmed Type allopurinol 100 mg tablet 100 mg PO DAILY 02/27/23 03/21/23 History amlodipine 5 mg tablet 5 mg PO DAILY 02/27/23 03/21/23 History apixaban 5 mg tablet (Eliquis) 5 mg PO BID 02/27/23 03/21/23 History aspirin 81 mg tablet,delayed 81 mg PO DAILY 02/27/23 03/21/23 History ruthas
[2023-03-21 16:26] LABS: Glucose Point of Care 103 mg/dl (65-105)
[2023-03-21 20:02] LABS: Glucose Point of Care 74 mg/dl (65-105)
[2023-03-21 21:48] LABS: Glucose Point of Care 57 mg/dl (65-105)
[2023-03-21 22:12] LABS: Glucose Point of Care 77 mg/dl (65-105)
[2023-03-21] MEDS: TAMSULOSIN HCL 0.4 MG CAPSULE PO (22:17)
[2023-03-22] VITALS (9 sets, daily range): BP systolic 121–128; BP diastolic 52–62; PULSE 59–76; RESP 13–18; TEMP 36.4–36.6; O2SAT 92–98
[2023-03-22 06:37] LABS: Hematocrit 26.6 % (37.0-47.0); Mean Corpuscular HGB Conc 30.1 g/dl (32-36); Mean Corpuscular Hemoglobin 29.5 pg (26-34); Mean Corpuscular Volume 98.2 fl (80-100); Mean Platelet Volume 9.6 fl (7.4-10.4); Platelet Count Result 228 k/mm3 (150-375); Red Blood Count 2.71 M/mm3 (4.2-5.4); Red Cell Distribution Width 15.7 % (11.5-14.5); White Blood Count 5.7 K/mm3 (4.5-10.0)
[2023-03-22 06:50] LABS: Glucose Point of Care 48 mg/dl (65-105)
[2023-03-22 06:50] LABS: Anion Gap 5 mmol/L (8-16); Blood Urea Nitrogen 39 mg/dL (7-17); Calcium 8.5 mg/dL (8.4-10.2); Carbon Dioxide 35 mmol/L (22-30); Chloride 101 mmol/L (98-107); Estimated CRCL calculation 51 ml/min; Estimated Glomerular Filt Rate 33; Glucose 49 mg/dL (65-110); Magnesium 2.1 mg/dL (1.6-2.3); Potassium 4.2 mmol/L (3.4-5.0); Sodium 141 mmol/L (137-145)
[2023-03-22 07:34] LABS: Glucose Point of Care 77 mg/dl (65-105)
[2023-03-22 07:49] LABS: Glucose Point of Care 95 mg/dl (65-105)
[2023-03-22] MEDS: FUROSEMIDE INJ 40 MG/4 ML VIAL IV PUSH ×2 (08:17→20:44)
[2023-03-22] MEDS: ASPIRIN 81 MG ENTERIC TABLET PO (08:17)
[2023-03-22] MEDS: GLIMEPIRIDE 2 MG TABLET PO (08:17)
[2023-03-22] MEDS: GABAPENTIN 300 MG CAPSULE 600 MG PO ×2 (08:17→17:00)
[2023-03-22] MEDS: APIXABAN 5 MG TABLET PO ×2 (08:17→17:01)
[2023-03-22] MEDS: amLODIPine BESYLATE 5 MG TABLET PO (08:17)
[2023-03-22] MEDS: buPROPion HCL SR (12HR) 100 MG TABCR PO (08:17)
[2023-03-22] MEDS: FERROUS SULFATE 325 MG TABLET DR PO (08:17)
[2023-03-22] MEDS: SILVERGEL (ELTA) 45 ML 1 APPLIC TOPICAL (08:17)
--- NOTE | 2023-03-22 11:05 | PM.PNGS ---
Progress Note: A&P Assessment and Plan (1) Diabetic ulcer of heel: Code(s): E11.621 - Type 2 diabetes mellitus with foot ulcer; L97.409 - Non-pressure chronic ulcer of unspecified heel and midfoot with unspecified severity Status: Acute Assessment and Plan: Stable presently. Continue topical agents as recommended by wound care nurses. Continue compression with Michael wraps of the bilateral lower extremities from the knees all the way to the toes . Continue IV antibiotics. Will follow. Subjective Subjective Date/Time Seen: 03/22/23 11:05 Interval history: Patient without new complaints today. Continues to get diuresis as per hospitalist service. No obvious issues with breathing. Feet feel about the same as yesterday. Heel wounds are dressed and pressure is being offloaded with wall foot boots. Exam Skin: Other: Bilateral heel wounds unchanged from yesterday. No significant cellulitis. Swelling in the bilateral lower extremities from the knee distally is decreased with Michael wrapping which was started yesterday evening. Objective Data Vital Signs Vital Signs: Vital Signs - 24 hr 03/21/23 12:00 03/21/23 14:00 03/21/23 16:00 Temperature 36.3 C L Pulse Rate 67 69 61 Respiratory Rate 16 Blood Pressure 128/64 Pulse Oximetry 98 Oxygen Delivery 03/21/23 21:27 03/21/23 20:00 03/21/23 20:00 Temperature 36.3 C L Pulse Rate 70 66 70 Respiratory Rate 13 13 Blood Pressure 124/46 L Pulse Oximetry 95 95 Oxygen Delivery Room Air 03/22/23 00:00 03/22/23 05:43 03/22/23 04:00 Temperature 36.4 C L Pulse Rate 69 71 66 Respiratory Rate 13 Blood Pressure 125/52 L Pulse Oximetry 92 Oxygen Delivery 03/22/23 00:00 Temperature Pulse Rate Respiratory Rate Blood Pressure Pulse Oximetry 98 Oxygen Delivery Room Air Intake/Output Intake/Output: Intake & Output 03/19/23 03/20/23 03/21/23 03/22/23 23:59 23:59 23:59 23:59 Intake Total 1055 500 Output Total 2850 2100 Balance -1791 -1600 Meds/Results Medications: Active Medications Generic Name Dose Route Start Last Admin Trade Name Freq PRN Reason Stop Dose Admin Acetaminophen 650 mg 03/21/23 04:33 Acetaminophen 325 Mg Tablet PO Q6H PRN Mild Pain (1-3) or Fever Hydrocodone Bitart/Acetaminophen 1 tab 03/21/23 08:07 03/21/23 08:25 Hydrocodone/Acetaminophen (*Crx) 5-325 Mg Tablet PO 1 tab Q6H PRN Administration Pain Rated 4-6 Amlodipine Besylate 5 mg 03/21/23 09:00 03/22/23 08:17 Amlodipine Besylate 5 Mg Tablet PO 5 mg DAILY ANGELIA Administration Apixaban 5 mg 03/21/23 09:00 03/22/23 08:17 Apixaban 5 Mg Tablet PO 5 mg BID ANGELIA Administration Aspirin 81 mg 03/21/23 09:00 03/22/23 08:17 Aspirin 81 Mg Enteric Tablet PO 81 mg DAILY ANGELIA Administration Bupropion HCl 100 mg 03/21/23 09:00 03/22/23 08:17 Bupropion Hcl Sr (12hr) 100 Mg Tabcr PO 100 mg DAILY ANGELIA Administration Dextrose 12.5 gm 03/21/23 04:33 Dextrose 50% 25 Gm/50 Ml Syringe IV PUSH PRN PRN Hypoglycemia Protocol Ferrous Sulfate 325 mg 03/21/23 09:00 03/22/23 08:17 Ferrous Sulfate [address] PO 325 mg DAILY ANGELIA Administration Furosemide 40 mg 03/21/23 09:00 03/22/23 08:17 Furosemide Inj 40 Mg/4 Ml Vial IV PUSH 40 mg Q12HR ANGELIA Administration Gabapentin 600 mg 03/21/23 09:00 03/22/23 08:17 Gabapentin 300 Mg Capsule PO 600 mg BID ANGELIA Administration Glimepiride 2 mg 03/21/23 09:00 03/22/23 08:17 Glimepiride 2 Mg Tablet PO 2 mg BIDWM ANGELIA Administration Glucagon 1 mg 03/21/23 04:33 Glucagon For Inj 1 Mg Vial IM PRN PRN Hypoglycemia Protocol Glucose 15 gm 03/21/23 04:33 Glucose Oral Gel 15 Gm Of Glucse In 37.5 Gm Tube PO PRN PRN Hypoglycemia Protocol Dextrose 1,000 mls @ 100 mls/hr 03/21/23 04:33 Dextrose 5% 1,000 Ml IVPB PRN PRN
[2023-03-22 11:48] LABS: Glucose Point of Care 67 mg/dl (65-105)
--- NOTE | 2023-03-22 13:12 | PM.IMPN ---
Progress Note: A&P Assessment and Plan (1) Acute on chronic diastolic congestive heart failure: Code(s): I50.33 - Acute on chronic diastolic (congestive) heart failure Status: Acute Assessment and Plan: The patient presented to the emergency department for evaluation of increasing shortness of breath ProBNP is actually a bit lower than what it was earlier this month however her weight is up 6.5 kg Pulmonary edema on chest x-ray. Apnea link ordered to screen for sleep apnea. She will be diuresed with close monitoring of volume status, renal function, and electrolytes. Furosemide 40 mg IV b.i.d. (2) Diabetic ulcer of heel: Code(s): E11.621 - Type 2 diabetes mellitus with foot ulcer; L97.409 - Non-pressure chronic ulcer of unspecified heel and midfoot with unspecified severity Status: Acute Assessment and Plan: Regarding her right heel wound, there is a large black eschar which may need debridement and thus will ask General surgery to see her in consultation. (3) Type 2 diabetes mellitus: Code(s): E11.9 - Type 2 diabetes mellitus without complications Status: Acute Assessment and Plan: Continue glimepiride. Initiate sliding scale insulin, Accu-Cheks, and hypoglycemic protocol. 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 Urinary catheter placed and output was 1800 mL. UA with no sign of infection. Subjective Date/time seen: 03/22/23 13:12 Interval history: Patient states that she gets intermittently short of breath and has a dry cough. Her lower extremity continue to be edematous although they are improved with compression wraps. Spoke with surgeon and he is not believe that patient needs debridement at this time of her heel wounds. Patient is not having any chest pain, abdominal pain, nausea vomiting. Urinary catheter in place and draining appropriately. PT and OT evaluating patient. Care coordination stated patient's family is wanting her to return home with them. Exam Narrative: GENERAL: Comfortable, no acute distress HENMT: moist mucous membranes EYES: EOM intact b/l NECK: no lymphadenopathy RESPIRATORY: bibasilar expiratory wheezes present CARDIO: RRR GI: soft, nontender, bowel sounds present SKIN: no rashes EXTREMITIES: bilateral +4 pitting edema up to the knee with circumferential erythema around b/l ankles Objective Data Vital Signs Vital Signs: Vital Signs - 24 hr 03/21/23 14:00 03/21/23 16:00 03/21/23 21:27 Temperature 97.4 F L 97.4 F L Pulse Rate 69 61 70 Respiratory Rate 16 13 Blood Pressure 128/64 124/46 L Pulse Oximetry 98 95 Oxygen Delivery 03/21/23 20:00 03/21/23 20:00 03/22/23 00:00 Temperature Pulse Rate 66 70 69 Respiratory Rate 13 Blood Pressure Pulse Oximetry 95 Oxygen Delivery Room Air 03/22/23 05:43 03/22/23 04:00 03/22/23 00:00 Temperature 97.5 F L Pulse Rate 71 66 Respiratory Rate 13 Blood Pressure 125/52 L Pulse Oximetry 92 98 Oxygen Delivery Room Air 03/22/23 08:00 Temperature Pulse Rate Respiratory Rate Blood Pressure Pulse Oximetry Oxygen Delivery Room Air Intake/Output Intake/Output: Inta
[2023-03-22] MEDS: DEXTROSE 50% 25 GM/50 ML SYRINGE IV PUSH (16:29)
[2023-03-22 16:47] LABS: Glucose Point of Care 36 mg/dl (65-105)
[2023-03-22 17:53] LABS: Glucose Point of Care 104 mg/dl (65-105)
[2023-03-22 19:40] LABS: Glucose Point of Care 137 mg/dl (65-105)
[2023-03-22] MEDS: TAMSULOSIN HCL 0.4 MG CAPSULE PO (20:44)
[2023-03-22 21:33] LABS: Glucose Point of Care 118 mg/dl (65-105)
[2023-03-23] VITALS (9 sets, daily range): BP systolic 120–142; BP diastolic 49–77; PULSE 59–75; RESP 16–20; TEMP 36.1–36.4; O2SAT 94–95
[2023-03-23 04:47] LABS: Glucose Point of Care 87 mg/dl (65-105)
[2023-03-23 04:50] LABS: Glucose Point of Care 62 mg/dl (65-105)
--- NOTE | 2023-03-23 05:06 | PC.NURSE ---
Spoke with Dr. Luna about patient's blood glucose trending down and dropping below normal. New order received to give 1 amp D50 now and then have day team follow up with medications.
[2023-03-23] MEDS: DEXTROSE 50% 25 GM/50 ML SYRINGE IV PUSH (05:14)
[2023-03-23 06:29] LABS: Hematocrit 27.6 % (37.0-47.0); Hemoglobin 8.2 g/dL (12.0-15.0); Mean Corpuscular HGB Conc 29.7 g/dl (32-36); Mean Corpuscular Hemoglobin 28.8 pg (26-34); Mean Corpuscular Volume 96.8 fl (80-100); Mean Platelet Volume 9.2 fl (7.4-10.4); Platelet Count Result 216 k/mm3 (150-375); Red Blood Count 2.85 M/mm3 (4.2-5.4); Red Cell Distribution Width 15.5 % (11.5-14.5); White Blood Count 6.3 K/mm3 (4.5-10.0)
[2023-03-23 06:40] LABS: Alanine Aminotransferase 21 U/L (6-35); Alkaline Phosphatase 92 U/L (38-126); Anion Gap 3 mmol/L (8-16); Aspartate Amino Transferase 24 U/L (14-36); Bilirubin,Total 0.4 mg/dL (0.2-1.3); Blood Urea Nitrogen 44 mg/dL (7-17); Calcium 8.4 mg/dL (8.4-10.2); Carbon Dioxide 38 mmol/L (22-30); Chloride 98 mmol/L (98-107); Estimated CRCL calculation 51 ml/min; Estimated Glomerular Filt Rate 33; Glucose 122 mg/dL (65-110); Magnesium 2.2 mg/dL (1.6-2.3); Potassium 3.8 mmol/L (3.4-5.0); Sodium 139 mmol/L (137-145)
[2023-03-23 07:42] LABS: Glucose Point of Care 105 mg/dl (65-105)
[2023-03-23] MEDS: amLODIPine BESYLATE 5 MG TABLET PO (08:57)
[2023-03-23] MEDS: FUROSEMIDE INJ 40 MG/4 ML VIAL IV PUSH ×2 (08:57→20:35)
[2023-03-23] MEDS: ASPIRIN 81 MG ENTERIC TABLET PO (08:57)
[2023-03-23] MEDS: APIXABAN 5 MG TABLET PO ×2 (08:57→16:42)
[2023-03-23] MEDS: buPROPion HCL SR (12HR) 100 MG TABCR PO (08:57)
[2023-03-23] MEDS: FERROUS SULFATE 325 MG TABLET DR PO (08:57)
[2023-03-23] MEDS: GABAPENTIN 300 MG CAPSULE 600 MG PO ×2 (08:57→16:41)
[2023-03-23] MEDS: SILVERGEL (ELTA) 45 ML 1 APPLIC TOPICAL (08:58)
[2023-03-23] MEDS: POTASSIUM CHLORIDE 20 MEQ ER TABLET 40 MEQ PO (08:58)
[2023-03-23 10:00] LABS: Glucose Point of Care 149 mg/dl (65-105)
--- NOTE | 2023-03-23 10:42 | PM.PNGS ---
Progress Note: A&P Assessment and Plan (1) Diabetic ulcer of heel: Code(s): E11.621 - Type 2 diabetes mellitus with foot ulcer; L97.409 - Non-pressure chronic ulcer of unspecified heel and midfoot with unspecified severity Status: Acute Assessment and Plan: Continue wound care management as per wound care nurses topical medications the bilateral heels. Continue offloading pressure on the heels with waffle boots. Dressed with dry Kerlix gauze and Michael wraps from the knee to the toes for compression and decreasing lower extremity edema. No significant cellulitis to address. White blood cell count is normal. No need for debridement of the wounds. Subjective Subjective Date/Time Seen: 03/23/23 10:42 Interval history: Patient clinically stable. No new complaints. No significant pain in the bilateral lower extremities or heels. Wounds are dressed and off foam boots are in place. Exam Skin: Other: Bilateral heel wounds dressed. Dressings are dry. Michael wraps from the knee distal to the toes bilateral. Waffle boots in place. Lower extremity edema is improved with the compression wraps. Objective Data Vital Signs Vital Signs: Vital Signs - 24 hr 03/22/23 12:00 03/22/23 13:29 03/22/23 14:00 Temperature 36.6 C Pulse Rate 70 68 Respiratory Rate 14 Blood Pressure 128/56 L Pulse Oximetry 96 Oxygen Delivery Room Air 03/22/23 16:00 03/22/23 20:00 03/22/23 22:00 Temperature 36.4 C Pulse Rate 71 62 Respiratory Rate 18 Blood Pressure 121/62 Pulse Oximetry 96 93 Oxygen Delivery Room Air 03/22/23 20:00 03/23/23 00:00 03/23/23 04:00 Temperature Pulse Rate 59 L 59 L 64 Respiratory Rate Blood Pressure Pulse Oximetry Oxygen Delivery 03/23/23 06:00 03/23/23 08:00 03/23/23 08:00 Temperature 36.4 C Pulse Rate 66 68 Respiratory Rate 20 Blood Pressure 120/49 L Pulse Oximetry 95 Oxygen Delivery Room Air Intake/Output Intake/Output: Intake & Output 03/20/23 03/21/23 03/22/23 03/23/23 23:59 23:59 23:59 23:59 Intake Total 1055 1820 530 Output Total 1615 8910 1999 Balance -2290 -7166 -5854 Meds/Results Medications: Active Medications Generic Name Dose Route Start Last Admin Trade Name Freq PRN Reason Stop Dose Admin Acetaminophen 650 mg 03/21/23 04:33 Acetaminophen 325 Mg Tablet PO Q6H PRN Mild Pain (1-3) or Fever Hydrocodone Bitart/Acetaminophen 1 tab 03/21/23 08:07 03/21/23 08:25 Hydrocodone/Acetaminophen (*Crx) 5-325 Mg Tablet PO 1 tab Q6H PRN Administration Pain Rated 4-6 Amlodipine Besylate 5 mg 03/21/23 09:00 03/23/23 08:57 Amlodipine Besylate 5 Mg Tablet PO 5 mg DAILY ANGELIA Administration Apixaban 5 mg 03/21/23 09:00 03/23/23 08:57 Apixaban 5 Mg Tablet PO 5 mg BID ANGELIA Administration Aspirin 81 mg 03/21/23 09:00 03/23/23 08:57 Aspirin 81 Mg Enteric Tablet PO 81 mg DAILY ANGELIA Administration Bupropion HCl 100 mg 03/21/23 09:00 03/23/23 08:57 Bupropion Hcl Sr (12hr) 100 Mg Tabcr PO 100 mg DAILY ANGELIA Administration Dextrose 12.5 gm 03/21/23 04:33 03/22/23 16:29 Dextrose 50% 25 Gm/50 Ml Syringe IV PUSH 12.5 gm PRN PRN Administration Hypoglycemia Protocol Ferrous Sulfate 325 mg 03/21/23 09:00 03/23/23 08:57 Ferrous Sulfate [address] PO 325 mg DAILY ANGELIA Administration Furosemide 40 mg 03/21/23 09:00 03/23/23 08:57 Furosemide Inj 40 Mg/4 Ml Vial IV PUSH 40 mg Q12HR ANGELIA Administration Gabapentin 600 mg 03/21/23 09:00 03/23/23 08:57 Gabapentin 300 Mg Capsule PO 600 mg BID ANGELIA Administration Glimepiride 2 mg 03/21/23 09:00 03/23/23 08:57 Glimepiride 2 Mg Tablet PO Not Given BIDWM ANGELIA Glucagon 1 mg 03/21/23 04:33 Glucagon For Inj 1 Mg Vial IM PRN PRN Hypoglycemia Protocol Glucose 15 gm 03/21/23 04:33 Glucose Oral Gel 15 Gm Of Glucse In 37.5 Gm Tube
[2023-03-23 11:33] LABS: Glucose Point of Care 153 mg/dl (65-105)
--- NOTE | 2023-03-23 13:03 | PM.IMPN ---
Progress Note: A&P Assessment and Plan (1) Acute on chronic diastolic congestive heart failure: Code(s): I50.33 - Acute on chronic diastolic (congestive) heart failure Status: Acute Assessment and Plan: The patient presented to the emergency department for evaluation of increasing shortness of breath ProBNP is actually a bit lower than what it was earlier this month however her weight is up 6.5 kg Pulmonary edema on chest x-ray. Apnea link with the result of 18 suggestive of possible CHASTITY. Needs sleep study as outpatient. She will be diuresed with close monitoring of volume status, renal function, and electrolytes. Furosemide 40 mg IV b.i.d. (2) Diabetic ulcer of heel: Code(s): E11.621 - Type 2 diabetes mellitus with foot ulcer; L97.409 - Non-pressure chronic ulcer of unspecified heel and midfoot with unspecified severity Status: Acute Assessment and Plan: Regarding her right heel wound, there is a large black eschar which may need debridement and thus will ask General surgery to see her in consultation. (3) Type 2 diabetes mellitus: Code(s): E11.9 - Type 2 diabetes mellitus without complications Status: Acute Assessment and Plan: Continue glimepiride. Initiate sliding scale insulin, Accu-Cheks, and hypoglycemic protocol. 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 Urinary catheter placed and output was 1800 mL. UA with no sign of infection. Subjective Date/time seen: 03/23/23 13:03 Interval history: Patient doing better today. Her lower extremity edema has improved significantly. She continues to wear Michael wraps for compression. She states that she continues to have a dry cough and has some intermittent wheezing when she tries to do any activity. She denies any chest pain, lightheadedness, dizziness, nausea vomiting. Also spoke with her family member on the phone with her in the room and answered all their questions. Exam Narrative: GENERAL: Comfortable, no acute distress HENMT: moist mucous membranes EYES: EOM intact b/l NECK: no lymphadenopathy RESPIRATORY: bibasilar expiratory wheezes present CARDIO: RRR GI: soft, nontender, bowel sounds present SKIN: no rashes EXTREMITIES: bilateral +2 pitting edema up to the knee with circumferential erythema around b/l ankles Objective Data Vital Signs Vital Signs: Vital Signs - 24 hr 03/22/23 13:29 03/22/23 14:00 03/22/23 16:00 Temperature 97.8 F Pulse Rate 68 71 Respiratory Rate 14 Blood Pressure 128/56 L Pulse Oximetry 96 Oxygen Delivery Room Air 03/22/23 20:00 03/22/23 22:00 03/22/23 20:00 Temperature 97.6 F Pulse Rate 62 59 L Respiratory Rate 18 Blood Pressure 121/62 Pulse Oximetry 96 93 Oxygen Delivery Room Air 03/23/23 00:00 03/23/23 04:00 03/23/23 06:00 Temperature 97.6 F Pulse Rate 59 L 64 66 Respiratory Rate 20 Blood Pressure 120/49 L Pulse Oximetry 95 Oxygen Delivery 03/23/23 08:00 03/23/23 08:00 Temperature Pulse Rate 68 Respiratory Rate Blood Pressure Pulse Oximetry Oxygen Delivery Room Air Intake/Output Intake/Output: Intake & Output 03/20/23 03/21/23
[2023-03-23 14:33] LABS: Glucose Point of Care 148 mg/dl (65-105)
[2023-03-23 16:37] LABS: Glucose Point of Care 150 mg/dl (65-105)
[2023-03-23 20:26] LABS: Glucose Point of Care 177 mg/dl (65-105)
[2023-03-23] MEDS: TAMSULOSIN HCL 0.4 MG CAPSULE PO (20:35)
[2023-03-24] VITALS (10 sets, daily range): BP systolic 128–138; BP diastolic 60–78; PULSE 63–74; RESP 15–18; TEMP 35.9–36.3; O2SAT 93–100
[2023-03-24 07:47] LABS: Glucose Point of Care 100 mg/dl (65-105)
[2023-03-24 08:09] LABS: Alanine Aminotransferase 20 U/L (6-35); Albumin Level 3.3 g/dL (3.5-5.1); Alkaline Phosphatase 99 U/L (38-126); Anion Gap 2 mmol/L (8-16); Aspartate Amino Transferase 23 U/L (14-36); Bilirubin,Total 0.5 mg/dL (0.2-1.3); Blood Urea Nitrogen 48 mg/dL (7-17); Calcium 8.7 mg/dL (8.4-10.2); Carbon Dioxide 39 mmol/L (22-30); Chloride 99 mmol/L (98-107); Estimated CRCL calculation 51 ml/min; Estimated Glomerular Filt Rate 33; Glucose 97 mg/dL (65-110); Potassium 4.3 mmol/L (3.4-5.0); Sodium 140 mmol/L (137-145)
[2023-03-24 08:10] LABS: Hematocrit 26.7 % (37.0-47.0); Hemoglobin 8.1 g/dL (12.0-15.0); Mean Corpuscular HGB Conc 30.3 g/dl (32-36); Mean Corpuscular Hemoglobin 29.6 pg (26-34); Mean Corpuscular Volume 97.4 fl (80-100); Mean Platelet Volume 9.9 fl (7.4-10.4); Platelet Count Result 244 k/mm3 (150-375); Red Blood Count 2.74 M/mm3 (4.2-5.4); Red Cell Distribution Width 15.7 % (11.5-14.5); White Blood Count 6.1 K/mm3 (4.5-10.0)
[2023-03-24] MEDS: FUROSEMIDE INJ 40 MG/4 ML VIAL IV PUSH ×2 (09:22→21:40)
[2023-03-24] MEDS: amLODIPine BESYLATE 5 MG TABLET PO (09:23)
[2023-03-24] MEDS: FERROUS SULFATE 325 MG TABLET DR PO (09:23)
[2023-03-24] MEDS: ASPIRIN 81 MG ENTERIC TABLET PO (09:23)
[2023-03-24] MEDS: buPROPion HCL SR (12HR) 100 MG TABCR PO (09:23)
[2023-03-24] MEDS: APIXABAN 5 MG TABLET PO ×2 (09:23→16:36)
[2023-03-24] MEDS: GABAPENTIN 300 MG CAPSULE 600 MG PO ×2 (09:23→16:36)
[2023-03-24] MEDS: POTASSIUM CHLORIDE 20 MEQ ER TABLET 40 MEQ PO (09:23)
[2023-03-24] MEDS: SILVERGEL (ELTA) 45 ML 1 APPLIC TOPICAL (09:24)
[2023-03-24 11:16] LABS: Glucose Point of Care 171 mg/dl (65-105)
[2023-03-24] MEDS: GLIMEPIRIDE 2 MG TABLET PO ×2 (11:34→17:37)
--- NOTE | 2023-03-24 13:37 | PM.PNGS ---
Progress Note: A&P Assessment and Plan (1) Diabetic ulcer of heel: Code(s): E11.621 - Type 2 diabetes mellitus with foot ulcer; L97.409 - Non-pressure chronic ulcer of unspecified heel and midfoot with unspecified severity Status: Acute Assessment and Plan: Continue local wound care per wound care nurses on bilateral heels. Continue offloading pressure on the heels with waffle boots. No surgical indication at this time. Plan I have discussed the patient's case and plan of care with Dr. Lee. Subjective Subjective Date/Time Seen: 03/24/23 10:37 Patient reports: no new complaints and afebrile Interval history: This is a 58-year-old woman admitted from the assisted with fluid overload. She was also found to have bilateral heel wounds on admission which we were consulted for. Chart reviewed. She is seen this morning with the nurse at the bedside. We removed both dressings. She has no specific complaints. Plan for discharge is for her to discharge to her brother's house where she will live with him there. She is working with physical therapy for transfers. Exam Narrative: Bilateral lower extremity jeri wraps and dressings removed. Left heel with a small area of firm necrotic tissue on the posterior aspect of the heel that is intact, no purulent drainage. Right heel with a small superficial open wound that has pink healthy tissue, no purulent drainage or surrounding erythema. Lymphedema present of both legs with circumferential ring of mild erythema around the lower leg. Const: General: comfortable and no acute distress Objective Data Vital Signs Vital Signs: Vital Signs - 24 hr 03/23/23 16:00 03/23/23 14:00 03/23/23 21:11 Temperature 97.5 F L 97.0 F L Pulse Rate 72 72 68 Respiratory Rate 16 16 Blood Pressure 121/65 142/77 H Pulse Oximetry 94 95 Oxygen Delivery 03/23/23 20:00 03/23/23 20:00 03/24/23 00:00 Temperature Pulse Rate 70 66 Respiratory Rate Blood Pressure Pulse Oximetry 95 Oxygen Delivery Room Air 03/24/23 04:00 03/24/23 05:25 03/24/23 09:23 Temperature 97.4 F L Pulse Rate 71 71 Respiratory Rate 15 16 Blood Pressure 138/78 Pulse Oximetry 93 93 Oxygen Delivery Room Air 03/24/23 08:01 03/24/23 12:02 Temperature Pulse Rate 66 74 Respiratory Rate Blood Pressure Pulse Oximetry Oxygen Delivery Intake/Output Intake/Output: Intake & Output 03/21/23 03/22/23 03/23/23 03/24/23 23:59 23:59 23:59 23:59 Intake Total 1055 1820 1290 477 Output Total 2850 4300 4900 4025 [facility] -[phone] -[phone] -[id number] Meds/Results Medications: Active Medications Generic Name Dose Route Start Last Admin Trade Name Freq PRN Reason Stop Dose Admin Acetaminophen 650 mg 03/21/23 04:33 Acetaminophen 325 Mg Tablet PO Q6H PRN Mild Pain (1-3) or Fever Hydrocodone Bitart/Acetaminophen 1 tab 03/21/23 08:07 03/21/23 08:25 Hydrocodone/Acetaminophen (*Crx) 5-325 Mg Tablet PO 1 tab Q6H PRN Administration Pain Rated 4-6 Amlodipine Besylate 5 mg 03/21/23 09:00 03/24/23 09:23 Amlodipine Besylate 5 Mg Tablet PO 5 mg DAILY ANGELIA Administration Apixaban 5 mg 03/21/23 09:00 03/24/23 09:23 Apixaban 5 Mg Tablet PO 5 mg BID ANGELIA Administration Aspirin 81 mg 03/21/23 09:00 03/24/23 09:23 Aspirin 81 Mg Enteric Tablet PO 81 mg DAILY ANGELIA Administration Bupropion HCl 100 mg 03/21/23 09:00 03/24/23 09:23 Bupropion Hcl Sr (12hr) 100 Mg Tabcr PO 100 mg DAILY ANGELIA Administration Dextrose 12.5 gm 03/21/23 04:33 03/22/23 16:29 Dextrose 50% 25 Gm/50 Ml Syringe IV PUSH 12.5 gm PRN PRN Administration Hypoglycemia Protocol Ferrous Sulfate 325 mg 03/21/23 09:00 03/24/23 09:23 Ferrous Sulfate [address] PO 325 mg DAILY ANGELIA Administration Furosemide 40 mg 03/21/23 09:00 03/24/23 09:22 Furosemide Inj 40 Mg/4 Ml Vial IV PUSH 40 mg Q12HR ANGELIA
--- NOTE | 2023-03-24 16:11 | PM.IMPN ---
Progress Note: A&P Assessment and Plan (1) Acute on chronic diastolic congestive heart failure: Code(s): I50.33 - Acute on chronic diastolic (congestive) heart failure Status: Acute Assessment and Plan: The patient presented to the emergency department for evaluation of increasing shortness of breath ProBNP is actually a bit lower than what it was earlier this month however her weight is up 6.5 kg Pulmonary edema on chest x-ray. Apnea link with the result of 18 suggestive of possible CHASTITY. Needs sleep study as outpatient. She will be diuresed with close monitoring of volume status, renal function, and electrolytes. Furosemide 40 mg IV b.i.d. (2) Diabetic ulcer of heel: Code(s): E11.621 - Type 2 diabetes mellitus with foot ulcer; L97.409 - Non-pressure chronic ulcer of unspecified heel and midfoot with unspecified severity Status: Acute Assessment and Plan: Regarding her right heel wound, there is a large black eschar which may need debridement and thus will ask General surgery to see her in consultation. (3) Type 2 diabetes mellitus: Code(s): E11.9 - Type 2 diabetes mellitus without complications Status: Acute Assessment and Plan: Continue glimepiride. Initiate sliding scale insulin, Accu-Cheks, and hypoglycemic protocol. 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 Urinary catheter placed and output was 1800 mL. UA with no sign of infection. Subjective Date/time seen: 03/24/23 16:11 Interval history: Patient doing well today. She states that she has had minimal wheezing on exertion/shortness of breath and her cough has resolved. Her lower extremity edema has greatly improved. Will do voiding trial in the morning and plan on discharge tomorrow. Patient is unable to void will reinsert Seth catheter and have her follow-up with Urology in 7-10 days. She denies any chest pain. Encouraged her to get a primary care provider in order for her to closely follow with wound care. Exam Narrative: GENERAL: Comfortable, no acute distress HENMT: moist mucous membranes EYES: EOM intact b/l NECK: no lymphadenopathy RESPIRATORY: bibasilar expiratory wheezes present CARDIO: RRR GI: soft, nontender, bowel sounds present SKIN: no rashes EXTREMITIES: bilateral +2 pitting edema up to the knee with circumferential erythema around b/l ankles Objective Data Vital Signs Vital Signs: Vital Signs - 24 hr 03/23/23 21:11 03/23/23 20:00 03/23/23 20:00 Temperature 97.0 F L Pulse Rate 68 70 Respiratory Rate 16 Blood Pressure 142/77 H Pulse Oximetry 95 95 Oxygen Delivery Room Air 03/24/23 00:00 03/24/23 04:00 03/24/23 05:25 Temperature 97.4 F L Pulse Rate 66 71 71 Respiratory Rate 15 Blood Pressure 138/78 Pulse Oximetry 93 Oxygen Delivery 03/24/23 09:23 03/24/23 08:01 03/24/23 12:02 Temperature Pulse Rate 66 74 Respiratory Rate 16 Blood Pressure Pulse Oximetry 93 Oxygen Delivery Room Air 03/24/23 14:00 Temperature 96.6 F L Pulse Rate 69 Respiratory Rate 16 Blood Pressure 130/63 Pulse Oximetry 100 Oxygen Delivery Intake/Output Intake/Output: Intake & O
[2023-03-24 16:24] LABS: Glucose Point of Care 136 mg/dl (65-105)
[2023-03-24 21:05] LABS: Glucose Point of Care 148 mg/dl (65-105)
[2023-03-24] MEDS: TAMSULOSIN HCL 0.4 MG CAPSULE PO (21:40)
[2023-03-25] VITALS (7 sets, daily range): BP systolic 108–125; BP diastolic 53; PULSE 62–80; RESP 16–18; TEMP 36.2–36.6; O2SAT 93–97
[2023-03-25 07:18] LABS: Hematocrit 27.7 % (37.0-47.0); Hemoglobin 8.3 g/dL (12.0-15.0); Mean Corpuscular Hemoglobin 29.4 pg (26-34); Mean Corpuscular Volume 98.2 fl (80-100); Mean Platelet Volume 9.7 fl (7.4-10.4); Platelet Count Result 232 k/mm3 (150-375); Red Blood Count 2.82 M/mm3 (4.2-5.4); Red Cell Distribution Width 15.9 % (11.5-14.5)
[2023-03-25 07:37] LABS: Alanine Aminotransferase 19 U/L (6-35); Albumin Level 3.2 g/dL (3.5-5.1); Alkaline Phosphatase 106 U/L (38-126); Aspartate Amino Transferase 19 U/L (14-36); Bilirubin,Total 0.4 mg/dL (0.2-1.3); Blood Urea Nitrogen 45 mg/dL (7-17); Calcium 8.8 mg/dL (8.4-10.2); Carbon Dioxide > 40 mmol/L (22-30); Chloride 98 mmol/L (98-107); Estimated CRCL calculation 40 ml/min; Estimated Glomerular Filt Rate 26; Glucose 103 mg/dL (65-110); Potassium 4.3 mmol/L (3.4-5.0); Sodium 139 mmol/L (137-145)
[2023-03-25 07:48] LABS: Glucose Point of Care 95 mg/dl (65-105)
[2023-03-25] MEDS: GLIMEPIRIDE 2 MG TABLET PO (10:16)
[2023-03-25] MEDS: amLODIPine BESYLATE 5 MG TABLET PO (10:16)
[2023-03-25] MEDS: FERROUS SULFATE 325 MG TABLET DR PO (10:16)
[2023-03-25] MEDS: FUROSEMIDE INJ 40 MG/4 ML VIAL IV PUSH (10:16)
[2023-03-25] MEDS: buPROPion HCL SR (12HR) 100 MG TABCR PO (10:17)
[2023-03-25] MEDS: POTASSIUM CHLORIDE 20 MEQ ER TABLET 40 MEQ PO (10:17)
[2023-03-25] MEDS: APIXABAN 5 MG TABLET PO (10:17)
[2023-03-25] MEDS: GABAPENTIN 300 MG CAPSULE 600 MG PO (10:17)
[2023-03-25] MEDS: ASPIRIN 81 MG ENTERIC TABLET PO (10:17)
[2023-03-25] MEDS: SILVERGEL (ELTA) 45 ML 1 APPLIC TOPICAL (10:30)
[2023-03-25 11:25] LABS: Glucose Point of Care 189 mg/dl (65-105)
--- NOTE | 2023-03-25 12:09 | PM.DS ---
DS: Admitting Diagnosis Discharge Date 03/25/23 Admitting Diagnosis CHF exacerbation DS: Discharge Diagnosis Discharge Diagnosis (1) Acute on chronic diastolic congestive heart failure: Code(s): I50.33 - Acute on chronic diastolic (congestive) heart failure Status: Acute (2) Diabetic ulcer of heel: Code(s): E11.621 - Type 2 diabetes mellitus with foot ulcer; L97.409 - Non-pressure chronic ulcer of unspecified heel and midfoot with unspecified severity Status: Acute (3) Type 2 diabetes mellitus: Code(s): E11.9 - Type 2 diabetes mellitus without complications Status: Acute (4) Chronic anemia: Code(s): D64.9 - Anemia, unspecified Status: Chronic (5) Chronic anticoagulation: Code(s): Z79.01 - [facility] (current) use of anticoagulants Status: Chronic (6) Hypertension: Code(s): I10 - Essential (primary) hypertension Status: Chronic (7) Chronic kidney disease: Code(s): N18.9 - Chronic kidney disease, unspecified Status: Chronic (8) Urinary retention: Code(s): R33.9 - Retention of urine, unspecified Status: Acute DS: Summary Hospital Course Hospital Course: this is a 58-year-old female with diastolic congestive heart failure, pulmonary hypertension, hypertension, hyperlipidemia, history of PE on anticoagulation, diabetes, chronic lymphedema, depression and anxiety the presents to the ED on 03/21/2023 for evaluation of shortness of breath. Patient had recently been hospitalized and discharged on 03/05/2023 into skilled nursing care due to CHF exacerbation. Patient went to this facility and apparently they did not know she was on a heart healthy diet and ever since she has been at this facility she has had increasing edema and shortness of breath. Patient states that everything that she ate there was filled with salt. She has 4+ pitting edema in her legs Chest x-ray showed diffuse interstitial opacities consistent with pneumonia versus pulmonary edema and cardiomegaly. Patient has had a dry cough as well. Patient was admitted for CHF exacerbation and started on 40 mg furosemide IV b.i.d. patient also has history of chronic pressure wounds on her heels in general surgery was consulted. General surgery recommended that patient where impression stockings or Michael bandages to help reduce overall edema and aid in wound healing. He recommends that she does not bear weight other than for transfers. Patient's family does not want her to return to longterm and would like her to be discharged back to live with them. During patient's hospital stay her edema greatly improved with compression and IV Lasix. It is recommended that she continue using compression stockings and/or Michael bandages at home as well as setting up a primary care provider in order to receive outpatient wound care. Patient waiting for medical card to come in prior to setting up a primary care appointment. Patient worked really well with therapy. Labs and vital signs are stable and she is medically clear for discharge at this time Time Spent with Patient Time attestation: Total time spent providing and/or coordinating discharge services: Exam Narrative: GENERAL: Comfortable, no acute distress HENMT: moist mucous membranes EYES: EOM intact b/l NECK: no lymphadenopathy RESPIRATORY: bibasilar expiratory wheezes present CARDIO: RRR GI: soft, nontender, bowel sounds present SKIN: no rashes EXTREMITIES: bilateral +1 pitting edema up to the knee with circumferential erythema around b/l ankles DS: Data Data Completed and Pending Labs on day of discharge: Labs from last 24 hours 03/25/23 03/25/23 03/25/23 11:15 07:40 06:48 WBC 6.0 RBC 2.82 L Hgb 8.3 L Hct 27.7 L MCV 98.2 MCH 29.4 MCHC 30.0 L RDW 15.9 H Plt Count 232 MPV 9.7 Sodium Potassium Chloride Carbon Dioxide Anion Gap BUN Creatinine Estim Creat Francisco
[2023-03-25 16:32] LABS: Glucose Point of Care 155 mg/dl (65-105)
== END 2023-03-25 17:18 | disposition home or self-care (01) | DRG 194 ==
LOC: ANHED 03-21 02:07 → ANH3MEDSUR 03-21 03:33
PROVIDERS: Physician Assistant; Admitting Provider Internal Medicine; Emergency Provider Emergency Medicine; Visit Provider Internal Medicine Critical Care Medicine
DX: I13.0 Hypertensive heart and chronic kidney disease with heart failure and stage 1 through stage 4 chronic kidney disease, or unspecified chronic kidney disease (principal); I27.20 Pulmonary hypertension, unspecified; L97.418 Non-pressure chronic ulcer of right heel and midfoot with other specified severity; L97.428 Non-pressure chronic ulcer of left heel and midfoot with other specified severity; E11.22 Type 2 diabetes mellitus with diabetic chronic kidney disease; D63.1 Anemia in chronic kidney disease; I50.33 Acute on chronic diastolic (congestive) heart failure; E78.5 Hyperlipidemia, unspecified; E11.621 Type 2 diabetes mellitus with foot ulcer; F41.8 Other specified anxiety disorders; I89.0 Lymphedema, not elsewhere classified; N18.9 Chronic kidney disease, unspecified; R33.9 Retention of urine, unspecified; Z79.01 Long term (current) use of anticoagulants; Z23 Encounter for immunization; Z79.82 Long term (current) use of aspirin; Z79.84 Long term (current) use of oral hypoglycemic drugs; Z86.711 Personal history of pulmonary embolism; Z90.49 Acquired absence of other specified parts of digestive tract
CPT/HCPCS: 36415; 71046; 80048; 80053; 81003; 82948; 83605; 83735; 83880; 84145; 84443; 84484; 85025; 85027; 86140; 90471; 90686; 93005; 96374; 96375; 96376; 97110; 97161; 97165; 97530; 99285; A9270; G0008; G0378; J1940

== ENCOUNTER 2023-04-15 18:27 | Inpatient (IN) | payer MEDICAID, SELFPAY ==
[2023-04-15] VITALS (7 sets, daily range): BP systolic 101–132; BP diastolic 49–73; PULSE 59–94; RESP 14–20; TEMP 36.1–36.4; O2SAT 96–100; BMI 50.0
--- NOTE | ~2023-04-15 | US_ITS ---
EXAMINATION: US abdomen limited DATE: 04/16/2023 15:54 INDICATION: Elevated liver function tests TECHNIQUE: Multiple grayscale and Doppler ultrasound images of the abdomen were obtained. COMPARISON: None FINDINGS: The pancreatic head and body are normal in appearance. The pancreatic tail is not visualized. Visual ized proximal to mid inferior vena cava is normal. Liver has normal echogenicity and contour, with a smooth surface. No liver lesion identified. No intrahepatic biliary duct dilation suspected. Portal v enous flow was seen in the hepatopetal, normal direction. There is increased portal venous pulsatilit y which can be seen in setting of right heart failure, tricuspid regurgitation or other cause of elev ated right heart pressures. Gallbladder is not visualized and reportedly surgically absent. The commo n bile duct measures 6 mm diameter which is normal. Visualized portion of the right kidney demonstrat es normal echogenicity with no hydronephrosis. IMPRESSION: 1. Status post cholecystectomy. No evident intra-axial hepatic biliary ductal dilation. 2. Increased portal venous pulsatility with normal directional flow which can be seen with right hear t failure, tricuspid regurgitation or other cause of elevated right heart pressure. Reviewed, dictated and finalized at location A. IMPRESSION: 1. Status post cholecystectomy. No evident intra-axial hepatic biliary ductal d ilation. 2. Increased portal venous pulsatility with normal directional flow which can b e seen with right heart failure, tricuspid regurgitation or other cause of elev ated right heart pressure.
--- NOTE | ~2023-04-15 | XR_ITS ---
EXAMINATION: XR chest 1V portable DATE: 04/18/2023 02:28 INDICATION: Shortness of breath. TECHNIQUE: A single frontal view of the chest was obtained. COMPARISON: Chest single view 04/17/2023, 02/26/2023 FINDINGS: There are airspace opacities throughout the lungs bilaterally. No pleural effusion or pneum othorax. Cardiomegaly is noted. Again seen is an ununited two-part fracture of proximal left humerus. IMPRESSION: 1. Stable diffuse lung disease, consistent with pulmonary edema versus pneumonia. 2. Cardiomegaly. 3. Two-part fracture of proximal left humerus which was present on 02/26/2023 and may be subacute or ch ronic. Reviewed, dictated and finalized at location E. IMPRESSION: 1. Stable diffuse lung disease, consistent with pulmonary edema versus pneumoni a. 2. Cardiomegaly. 3. Two-part fracture of proximal left humerus which was present on 02/26/2023 and may be subacute or chronic.
--- NOTE | ~2023-04-15 | CT_ITS ---
EXAMINATION: CT BRAIN W/O DATE: 04/18/2023 10:58 INDICATION: Altered mental status TECHNIQUE: Computed tomography (CT) of the head was performed without intravenous contrast. The dose- length product was 605.33 mGy-cm. Automated exposure control and iterative reconstruction technique w ere employed. COMPARISON: No prior studies for comparison. FINDINGS: Normal brain parenchymal volume for age. Normal simpson-white differentiation. No acute intrac ranial hemorrhage, infarction, mass or mass effect. There are scattered mild periventricular and subc ortical white matter changes, most likely related to small vessel ischemic disease (microangiopathy). Study limited by motion artifact. No ventriculomegaly or midline shift. Midline sagittal images demonstrate a normal corpus callosum, c raniovertebral junction and sella turcica. Basilar cisterns are patent. Paranasal sinuses and mastoids are pneumatized. There is mild mucosal thickening of the left maxillar y sinus. Small right mastoid effusion. No depressed skull fractures. No depressed skull fractures. Th ere is an NG tube present. IMPRESSION: 1. No acute intracranial abnormality. Reviewed, dictated and finalized at location B.
--- NOTE | ~2023-04-15 | XR_ITS ---
EXAMINATION: XR shoulder LT min 2V DATE: 04/23/2023 13:21 INDICATION: Left humerus fracture. TECHNIQUE: 4 views of left shoulder were obtained. COMPARISON: Chest single view 02/26/2023, chest CT 04/21/2023 FINDINGS: There is a transverse fracture of surgical neck of proximal left humerus. The distal fractu re fragment demonstrates 2.0 cm medial displacement, 2.3 cm anterior displacement, and impaction. Eb vianney formation is noted. There is mild osteoarthritis of glenohumeral joint and acromioclavicular join t. There are airspace opacities in all lung zones bilaterally. IMPRESSION: 1. Subacute two-part fracture of proximal left humerus. 2. Polyarticular osteoarthritis. 3. Diffuse lung disease, consistent with pneumonia. Reviewed, dictated and finalized at location E.
--- NOTE | ~2023-04-15 | CT_ITS ---
EXAMINATION: CT chest high resolution wo id DATE: 04/21/2023 15:12 INDICATION: Respiratory failure. Interstitial lung disease. TECHNIQUE: Computed tomography (CT) of the chest was performed without intravenous contrast. The dose -length product was 965.06 mGy-cm. Automated exposure control and iterative reconstruction technique were employed. COMPARISON: Chest x-ray dated 04/19/2023 FINDINGS: Small pleural effusions. Heart size normal. Mediastinal lymphadenopathy. There is left axil karsten lymphadenopathy. There is extensive patchy groundglass opacification and consolidation throughou t both lungs. No pneumothorax. Mild thoracic spondylosis with accentuated kyphosis. There is a commin uted displaced left humeral neck fracture. IMPRESSION: 1. Extensive patchy bilateral groundglass opacification and consolidation, consistent with pneumonia. 2: Small pleural effusions. 3: Mediastinal and left axillary lymphadenopathy, likely reactive. 4: Comminuted displaced left humeral neck fracture with valgus angulation. Reviewed, dictated and finalized at location A. IMPRESSION: 1. Extensive patchy bilateral groundglass opacification and consolidation, cons istent with pneumonia. 2: Small pleural effusions. 3: Mediastinal and left axillary lymphadenopathy, likely reactive. 4: Comminuted displaced left humeral neck fracture with valgus angulation.
--- NOTE | ~2023-04-15 | XR_ITS ---
XR chest 1V portable DATE: 04/15/2023 18:53 INDICATION: Chest pain TECHNIQUE: Portable upright AP chest on 04/11/2023 at 1840 hours COMPARISON: 03/12/2023 AP and lateral chest FINDINGS: Cardiomegaly. There are diffuse patchy bilateral pulmonary infiltrates suggesting extensive multifocal pneumonia. Differential diagnosis includes pulmonary edema or less likely pulmonary hemor rhage. No pleural effusion or pneumothorax is noted. Diffuse osteopenia. Medially displaced transverse surgical neck fracture of the left humerus, not significantly changed s daren 03/20/2023. IMPRESSION: Diffuse patchy bilateral pulmonary infiltrates suggesting extensive multifocal pneumonia. Differential diagnosis includes pulmonary edema. The infiltrates are increased since 03/20/2023 Cardiomegaly Reviewed, dictated and finalized at location A. IMPRESSION: Diffuse patchy bilateral pulmonary infiltrates suggesting extensive multifocal pneumonia. Differential diagnosis includes pulmonary edema. The inf iltrates are increased since 03/20/2023 Cardiomegaly
--- NOTE | ~2023-04-15 | XR_ITS ---
XR chest 1V portable 04/17/2023 12:45 Indication: Shortness of breath Procedure: AP portable chest Comparison: Comparison to multiple prior studies sequentially, with oldest reviewed study dated 11/2022. Findings: Progression of diffuse bilateral airspace disease, compatible with pneumonia. No pleural ef fusion or pneumothorax. No acute osseous abnormality. Impression: 1: Progression of diffuse bilateral airspace disease, compatible with pneumonia. Reviewed, dictated and finalized at location L. Impression: 1: Progression of diffuse bilateral airspace disease, compatible with pneumonia .
--- NOTE | ~2023-04-15 | XR_ITS ---
EXAMINATION: XR chest 1V portable DATE: 04/22/2023 08:16 INDICATION: Pneumonia. TECHNIQUE: A single frontal view of the chest was obtained. COMPARISON: Chest single view 04/19/2023, chest CT 04/21/2023 FINDINGS: There are patchy airspace opacities throughout the lungs bilaterally. There are small pleur al effusions. No pneumothorax. The heart size is normal. There is a subacute fracture of proximal lef t humerus. IMPRESSION: 1. Stable diffuse lung disease, consistent with pneumonia. 2. Stable small pleural effusions. 3. Subacute fracture of proximal left humerus. Reviewed, dictated and finalized at location E.
--- NOTE | ~2023-04-15 | XR_ITS ---
EXAMINATION: XR abdomen gastric tube insert DATE: 04/18/2023 10:40 INDICATION: Nasogastric tube placement TECHNIQUE: A supine view of the abdomen and lower chest was obtained for evaluation of feeding tube placement. COMPARISON: Chest radiograph dated 04/18/2023 FINDINGS: Nasogastric tube tip in proximal side port in the body the stomach. No dilated loops of gas-filled juan wel in the visualized abdomen. Again seen are diffuse patchy airspace opacities throughout both lungs . Cardiomegaly. IMPRESSION: 1. Nasogastric tube in the stomach. 2. Diffuse bilateral lung disease which could represent pulmonary edema or pneumonia. 3. Cardiomegaly. Reviewed, dictated and finalized at location A. IMPRESSION: 1. Nasogastric tube in the stomach. 2. Diffuse bilateral lung disease which could represent pulmonary edema or pneu monia. 3. Cardiomegaly.
--- NOTE | ~2023-04-15 | XR_ITS ---
EXAMINATION: XR chest 1V portable DATE: 04/25/2023 05:48 INDICATION: Pneumonia. TECHNIQUE: A single frontal view of the chest was obtained. COMPARISON: Chest single view 04/22/2023 FINDINGS: There are patchy airspace opacities in all lung zones bilaterally. No pleural effusion or p neumothorax. The heart size is normal. Mediastinal lipomatosis is noted. There is a subacute fracture of proximal left humerus. IMPRESSION: 1. Stable diffuse lung disease, consistent with pneumonia versus pulmonary edema. 2. Subacute fracture of proximal left humerus. Reviewed, dictated and finalized at location E. IMPRESSION: 1. Stable diffuse lung disease, consistent with pneumonia versus pulmonary lia a. 2. Subacute fracture of proximal left humerus.
--- NOTE | ~2023-04-15 | XR_ITS ---
XR chest 1V portable DATE: 04/19/2023 05:27 INDICATION: Respiratory failure TECHNIQUE: Portable AP chest on 04/19/2023 at 0521 hours COMPARISON: 04/18/2023 portable AP chest at 0213 hours FINDINGS: There are persistent severe bilateral patchy consolidating infiltrates throughout both lung s, with little interval change since 04/18/2023. Cardiomegaly. Minimal blunting of the costophrenic angles might indicate small if any pleural effusio n. No pneumothorax. NG tube in stomach. Medially displaced left surgical neck fracture of the humerus. Diffuse osteopenia. IMPRESSION: Extensive bilateral pulmonary infiltrates, with little interval change since 04/18/2023 Interval placement of NG tube in stomach Reviewed, dictated and finalized at location A. IMPRESSION: Extensive bilateral pulmonary infiltrates, with little interval kathleen nge since 04/18/2023 Interval placement of NG tube in stomach
--- NOTE | 2023-04-15 18:39 | ECG_ITS ---
Measurements Intervals [place] Rate: 69 P: 57 NH: 188 QRS: 11 QRSD: 102 T: 49 QT: 403 QTc: 433 Interpretive Statements SINUS RHYTHM LOW QRS VOLTAGE IN PRECORDIAL LEADS [QRS DEFLECTION < 1.0 mV IN CHEST LEADS] COMPARED TO ECG 03/20/2023 21:57:09 NO SIGNIFICANT CHANGES Electronically Signed On 04-15-2023 20:05:28 CDT by Aria Edwards M.D.
[2023-04-15 18:47] LABS: Basophils Percent Auto 0.5 % (0.2-1.2); Eosinophils Absolute Auto 0.3 K/mm3 (0-0.3); Eosinophils Percent Auto 4.9 % (0-4.4); Hemoglobin 7.6 g/dL (12.0-15.0); Immature Granulocyte Absolute 0.02 K/mm3 (0.00-0.031); Immature Granulocyte Percent A 0.3 % (0-0.5); Lymphocytes Absolute Auto 1.01 K/mm3 (0.9-3.2); Mean Corpuscular HGB Conc 29.2 g/dl (32-36); Mean Corpuscular Volume 95.9 fl (80-100); Mean Platelet Volume 9.5 fl (7.4-10.4); Monocytes Absolute Auto 0.5 K/mm3 (0.1-0.6); Monocytes Percent Auto 7.6 % (2.6-8.5); Neutrophils Absolute Auto 4.2 K/mm3 (1.3-6.7); Neutrophils Percent Auto 69.7 % (45.5-73.1); Platelet Count Result 189 k/mm3 (150-375); Red Blood Count 2.71 M/mm3 (4.2-5.4); Red Cell Distribution Width 16.5 % (11.5-14.5)
[2023-04-15 19:00] LABS: Alanine Aminotransferase 34 U/L (6-35); Albumin Level 3.7 g/dL (3.5-5.1); Alkaline Phosphatase 104 U/L (38-126); Anion Gap 5 mmol/L (8-16); Aspartate Amino Transferase 26 U/L (14-36); Bilirubin,Total 0.6 mg/dL (0.2-1.3); Blood Urea Nitrogen 40 mg/dL (7-17); Calcium 9.2 mg/dL (8.4-10.2); Carbon Dioxide 34 mmol/L (22-30); Chloride 100 mmol/L (98-107); Estimated CRCL calculation 45 ml/min; Estimated Glomerular Filt Rate 31; Glucose 126 mg/dL (65-110); Lipase 38 U/L (23-300); Potassium 4.4 mmol/L (3.4-5.0); Sodium 139 mmol/L (137-145)
[2023-04-15 19:07] LABS: Anisocytosis 1+ (NORMAL); Hypochromasia 1+ (NORMAL); Platelet Estimate Adequate (Adequate); Schistocytes Rare (NORMAL); Target Cells 1+ (NORMAL)
[2023-04-15 19:08] LABS: INR 1.3; Prothrombin Time 17.2 Seconds (11.1-14.7)
--- NOTE | 2023-04-15 19:10 | PC.NURSE ---
Assumed care of pt from WILLIE Deras at this time.
[2023-04-15 19:11] LABS: Troponin I < 0.012 ng/mL (0.000-0.034)
--- NOTE | 2023-04-15 19:27 | ED.CHESTPAIN ---
HPI - Chest Pain General Chief Complaint: Chest Pain Stated Complaint: cp Time Seen by Provider: 04/15/23 19:01 History of Present Illness HPI narrative: 58F w/hx of CHF, COPD presenting with shortness of breath. States she has been compliant with all of her meds, including her lasix but she has been increasingly short of breath that last several days. Difficult to sleep d/t orthopnea. States she had chest pain earlier that has resolved. Reports intermittent cough. No fevers, numbness/weakness, nausea/vomiting, diarrhea. Reports chronic leg swelling that is unchanged. Related Data Home Medications Medication Instructions Recorded Confirmed allopurinol 100 mg tablet 100 mg PO DAILY 02/27/23 04/15/23 amlodipine 5 mg tablet 5 mg PO DAILY 02/27/23 04/15/23 apixaban 5 mg tablet (Eliquis) 5 mg PO BID 02/27/23 04/15/23 aspirin 81 mg tablet,delayed 81 mg PO DAILY 02/27/23 04/15/23 release bupropion HCl 100 mg tablet,12 hr 100 mg PO DAILY 02/27/23 04/15/23 sustained-release cariprazine 3 mg capsule (Vraylar) 3 mg PO DAILY 02/27/23 04/15/23 ferrous sulfate 325 mg (65 mg 325 mg PO DAILY 02/27/23 04/15/23 iron) tablet furosemide 40 mg tablet 80 mg PO DAILY 02/27/23 04/15/23 gabapentin 600 mg tablet 600 mg PO BID 02/27/23 04/15/23 glimepiride 2 mg tablet 2 mg PO BID 02/27/23 04/15/23 tamsulosin 0.4 mg capsule 0.4 mg PO HS 02/27/23 04/15/23 atorvastatin 40 mg tablet 40 mg PO HS 04/15/23 04/15/23 ergocalciferol (vitamin D2) 1,250 1,250 mcg PO WEEKLY 04/15/23 04/16/23 mcg (50,000 unit) capsule (Vitamin D2) omeprazole 20 mg capsule,delayed 20 mg PO BID 04/16/23 04/16/23 release Allergies Allergy/AdvReac Type Severity Reaction Status Date / Time No Known Allergies Allergy Verified 02/27/23 00:38 Review of Systems Review of Systems: All systems reviewed & are unremarkable except as noted in HPI and below PMFSH Past Medical History Medical History Chronic anemia Chronic anticoagulation Chronic kidney disease Depression with anxiety Diastolic congestive heart failure Hyperlipidemia Hypertension Lymphedema Pulmonary embolism (2018) Pulmonary hypertension Type 2 diabetes mellitus Surgical History Surgical History History of cholecystectomy History of hernia repair History of tonsillectomy History of tubal ligation Family History Family History Other Family history unknown Social History Social History Social History: Surrogate medical decision maker: Farhan Avalos (brother). Code status: Full code. Smoking status: Never smoker Second hand tobacco smoke exposure: No Alcohol intake: never Substance use: never Substance use type: does not use Lack of Transportation: No Lack of Food: Never True Current Housing: I Have Housing Concerned About Future Housing: No Difficulty Paying Gas/Electric Bills: No Difficulty Paying for Meds: No Currently Unemployed: No Education: High School Diploma/GED Difficulty w/ Childcare or Family Care: No Spiritual care concerns: No Exam Narrative: GENERAL: chronically ill appearing, in no acute distress HEAD: Normocephalic, atraumatic. EYES: PERRLA and EOMI. ENT: Mucous membranes moist. NECK: Supple. CHEST: crackles bilaterally, on 3L NC HEART: Regular rate and rhythm ABDOMEN: Soft, nontender EXTREMITIES: 4+ pitting edema BLE with compression stockings in place SKIN: Warm, dry NEURO: Alert and oriented x3. PSYCH: Normal mood and affect. Course Vital Signs Vital signs: Vital Signs Temperature 97.6 F 04/15/23 18:33 Pulse Rate 70 04/15/23 18:33 Respiratory Rate 16 04/15/23 18:33 Blood Pressure 132/68 04/15/23 18:33 Pulse Oximetry 98 04/15/23 18:33 Temperature 97.5 F L
[2023-04-15] MEDS: MORPHINE SULFATE (*CRX) 4 MG/ML INJ IV PUSH (19:35)
[2023-04-15] MEDS: ONDANSETRON INJ 4 MG/2 ML VIAL IV PUSH (19:35)
[2023-04-15 19:47] LABS: NT Pro B Type Natriuretic Pept 980 pg/mL (19.9-100)
[2023-04-15 20:21] LABS: Influenza A QL RT-PCR Negative (Negative); Influenza B QL RT-PCR Negative (Negative); SARS-CoV-2 RNA PCR Negative (Negative)
[2023-04-15] MEDS: FUROSEMIDE INJ 40 MG/4 ML VIAL IV PUSH (21:00)
[2023-04-15 22:14] LABS: Troponin I < 0.012 ng/mL (0.000-0.034)
--- NOTE | 2023-04-15 23:40 | ADMGEN ---
This patient, Talia Peralta, was admitted to [facility] Surg Room 326-01. Patient/family oriented to hospital policies and general routines including ID bracelet, bed and alarms, visiting hours, pain management, procedures, bathroom and other care routines, personal items, smoking policy, room service/diet, and visiting hours. Information on how to activate the Rapid Response Team has been discussed. Patient/Family are encouraged to report perceived risks to care and to ask questions if they do not understand what they are told or what they should do.
[2023-04-16] VITALS (11 sets, daily range): BP systolic 99–138; BP diastolic 60–82; PULSE 59–81; RESP 12–20; TEMP 35.8–36.2; O2SAT 94–97
[2023-04-16 02:06] LABS: Troponin I < 0.012 ng/mL (0.000-0.034)
[2023-04-16 08:50] LABS: Basophils Percent Auto 0.3 % (0.2-1.2); Eosinophils Absolute Auto 0.3 K/mm3 (0-0.3); Eosinophils Percent Auto 5.6 % (0-4.4); Hematocrit 27.5 % (37.0-47.0); Hemoglobin 7.7 g/dL (12.0-15.0); Immature Granulocyte Absolute 0.02 K/mm3 (0.00-0.031); Immature Granulocyte Percent A 0.3 % (0-0.5); Lymphocytes Absolute Auto 0.93 K/mm3 (0.9-3.2); Lymphocytes Percent Auto 15.2 % (18.3-44.2); Mean Platelet Volume 10.5 fl (7.4-10.4); Monocytes Absolute Auto 0.7 K/mm3 (0.1-0.6); Neutrophils Absolute Auto 4.1 K/mm3 (1.3-6.7); Neutrophils Percent Auto 67.6 % (45.5-73.1); Platelet Count Result 181 k/mm3 (150-375); Red Blood Count 2.75 M/mm3 (4.2-5.4); Red Cell Distribution Width 16.7 % (11.5-14.5); White Blood Count 6.1 K/mm3 (4.5-10.0)
[2023-04-16 09:18] LABS: Anisocytosis 2+ (NORMAL); Hypochromasia 2+ (NORMAL)
[2023-04-16 09:19] LABS: Platelet Estimate Adequate (Adequate); Schistocytes None Seen (NORMAL)
[2023-04-16] MEDS: buPROPion HCL SR (12HR) 100 MG TABCR PO (09:31)
[2023-04-16] MEDS: APIXABAN 5 MG TABLET PO ×2 (09:32→21:19)
[2023-04-16] MEDS: FUROSEMIDE INJ 40 MG/4 ML VIAL IV PUSH ×2 (09:32→16:22)
[2023-04-16] MEDS: GLIMEPIRIDE 2 MG TABLET PO ×2 (09:32→16:21)
[2023-04-16] MEDS: GABAPENTIN 300 MG CAPSULE 600 MG PO ×2 (09:32→16:22)
[2023-04-16] MEDS: ASPIRIN 81 MG ENTERIC TABLET PO (09:32)
[2023-04-16] MEDS: amLODIPine BESYLATE 5 MG TABLET PO (09:32)
[2023-04-16] MEDS: PANTOPRAZOLE SODIUM IV 40 MG VIAL IV PUSH ×2 (09:34→21:19)
[2023-04-16] MEDS: SILVERGEL (ELTA) 45 ML 1 APPLIC TOPICAL (09:36)
[2023-04-16] MEDS: ERGOCALCIFEROL 50,000 UNITS CAPSULE 50000 UNITS PO (09:41)
[2023-04-16] MEDS: FERROUS SULFATE 325 MG TABLET DR PO (09:41)
[2023-04-16 09:52] LABS: Alanine Aminotransferase 71 U/L (6-35); Albumin Level 3.4 g/dL (3.5-5.1); Alkaline Phosphatase 145 U/L (38-126); Anion Gap 6 mmol/L (8-16); Aspartate Amino Transferase 65 U/L (14-36); Bilirubin,Total 0.6 mg/dL (0.2-1.3); Blood Urea Nitrogen 40 mg/dL (7-17); Calcium 8.8 mg/dL (8.4-10.2); Carbon Dioxide 32 mmol/L (22-30); Chloride 103 mmol/L (98-107); Estimated CRCL calculation 40 ml/min; Estimated Glomerular Filt Rate 24; Glucose 75 mg/dL (65-110); Potassium 4.5 mmol/L (3.4-5.0); Sodium 141 mmol/L (137-145)
[2023-04-16] MEDS: AZITHROMYCIN 500 MG/NS 250 ML 500 MG/250 ML BAG 250 MG IVPB (10:16)
--- NOTE | 2023-04-16 13:14 | PM.IMHP ---
H&P: HPI History of Present Illness Date/Time: 04/16/23 13:14 Chief Complaint: Shortness of breath, chest pain, lower extremity swelling Narrative: This is a 58-year-old female with diastolic congestive heart failure, pulmonary hypertension, hypertension, hyperlipidemia, history of PE on anticoagulation, diabetes, chronic lymphedema and diabetic foot ulcers the present to the ED on 04/15/2023 due to worsening shortness of breath, chest pain and lower extremity edema. her symptoms started 1 days before presentation with worsening shortness of breath at rest, a chronic dry cough and progressive worsening lower extremity edema. She states she is compliant with her medication. Denies any sick contacts. Denies nausea, vomiting, fever, body aches, chills. Patient recently discharged from the hospital on 03/25/2023 due to similar symptoms. At that time patient was in a long-term where she was not following cardiac diet. Patient states that she has been compliant with her home medications although she has only been taking 40 mg of her furosemide and when she was discharged home last she was prescribed 80 mg daily. She states that she has been wearing her compression stockings and has been getting around the house well with the help of her [id number]. Patient presented with chest pain. Chest x-ray revealed multi focal pneumonia. Patient's troponins negative x3. She is typically on room air at baseline but is now requiring 3 L of oxygen. White blood cell count within normal limits, elevated BUN and creatinine of 40/2.1 which is Close to her baseline, elevated LFTs, BNP of 980 and COVID and flu negative. PMFSH Past Medical History Medical History Chronic anemia Chronic anticoagulation Chronic kidney disease Depression with anxiety Diastolic congestive heart failure Hyperlipidemia Hypertension Lymphedema Pulmonary embolism (2018) Pulmonary hypertension Type 2 diabetes mellitus Surgical History Surgical History History of cholecystectomy History of hernia repair History of tonsillectomy History of tubal ligation Family History Family History Other Family history unknown Social History Social History Social History: Surrogate medical decision maker: Farhan Avalos (brother). Code status: Full code. Smoking status: Never smoker Second hand tobacco smoke exposure: No Alcohol intake: never Substance use: never Substance use type: does not use Lack of Transportation: No Lack of Food: Never True Current Housing: I Have Housing Concerned About Future Housing: No Difficulty Paying Gas/Electric Bills: No Difficulty Paying for Meds: No Currently Unemployed: No Education: High School Diploma/GED Difficulty w/ Childcare or Family Care: No Spiritual care concerns: No Meds Home Medications and Allergies Home Medications Medication Instructions Recorded Confirmed Type allopurinol 100 mg tablet 100 mg PO DAILY 02/27/23 04/15/23 History amlodipine 5 mg tablet 5 mg PO DAILY 02/27/23 04/15/23 History apixaban 5 mg tablet (Eliquis) 5 mg PO BID 02/27/23 04/15/23 History aspirin 81 mg tablet,delayed 81 mg PO DAILY 02/27/23 04/15/23 History release bupropion HCl 100 mg tablet,12 hr 100 mg PO DAILY 02/27/23 04/15/23 History sustained-release cariprazine 3 mg capsule (Vraylar) 3 mg PO DAILY 02/27/23 04/15/23 History ferrous sulfate 325 mg (65 mg 325 mg PO DAILY 02/27/23 04/15/23 History iron) tablet furosemide 40 mg tablet 80 mg PO DAILY 02/27/23 04/15/23 History gabapentin 600 mg tablet 600 mg PO BID 02/27/23 04/15/23 History glimepiride 2 mg tablet 2 mg PO BID 02/27/23 04/15/23 History tamsulosin 0.4 mg capsule 0.4 mg PO HS 02/27/23 04/15/23 History blood sugar di
--- NOTE | 2023-04-16 14:54 | PC.NURSE ---
Bladder scanned pt at 1450 04/16/23 and got 117ml for the highest amount in the bladder.
[2023-04-16 16:58] LABS: Glucose Point of Care 99 mg/dl (65-105)
[2023-04-16 21:15] LABS: Glucose Point of Care 106 mg/dl (65-105)
[2023-04-16] MEDS: TAMSULOSIN HCL 0.4 MG CAPSULE PO (21:19)
[2023-04-16] MEDS: ATORVASTATIN 40 MG TABLET PO (21:27)
[2023-04-17] VITALS (14 sets, daily range): BP systolic 126–138; BP diastolic 58–67; PULSE 74–90; RESP 16–88; TEMP 35.9–36.4; O2SAT 90–96
[2023-04-17] MEDS: DEXTROSE 50% 25 GM/50 ML SYRINGE IV PUSH ×6 (05:07→23:58)
[2023-04-17 05:12] LABS: Glucose Point of Care 148 mg/dl (65-105)
[2023-04-17 05:12] LABS: Glucose Point of Care 35 mg/dl (65-105)
[2023-04-17] MEDS: ONDANSETRON INJ 4 MG/2 ML VIAL IV PUSH (05:24)
[2023-04-17 06:28] LABS: Basophils Percent Auto 0.1 % (0.2-1.2); Eosinophils Absolute Auto 0.3 K/mm3 (0-0.3); Hematocrit 24.9 % (37.0-47.0); Hemoglobin 7.2 g/dL (12.0-15.0); Immature Granulocyte Absolute 0.04 K/mm3 (0.00-0.031); Immature Granulocyte Percent A 0.6 % (0-0.5); Lymphocytes Absolute Auto 0.67 K/mm3 (0.9-3.2); Mean Corpuscular HGB Conc 28.9 g/dl (32-36); Mean Corpuscular Hemoglobin 28.5 pg (26-34); Mean Corpuscular Volume 98.4 fl (80-100); Mean Platelet Volume 10.2 fl (7.4-10.4); Monocytes Absolute Auto 0.6 K/mm3 (0.1-0.6); Monocytes Percent Auto 8.2 % (2.6-8.5); Neutrophils Absolute Auto 5.2 K/mm3 (1.3-6.7); Neutrophils Percent Auto 77.1 % (45.5-73.1); Platelet Count Result 163 k/mm3 (150-375); Red Blood Count 2.53 M/mm3 (4.2-5.4); Red Cell Distribution Width 16.1 % (11.5-14.5); White Blood Count 6.7 K/mm3 (4.5-10.0)
[2023-04-17 06:29] LABS: Glucose Point of Care 107 mg/dl (65-105)
[2023-04-17 06:29] LABS: Glucose Point of Care 102 mg/dl (65-105)
[2023-04-17 06:41] LABS: Alanine Aminotransferase 54 U/L (6-35); Albumin Level 3.3 g/dL (3.5-5.1); Alkaline Phosphatase 130 U/L (38-126); Anion Gap 2 mmol/L (8-16); Aspartate Amino Transferase 30 U/L (14-36); Bilirubin,Total 0.5 mg/dL (0.2-1.3); Blood Urea Nitrogen 44 mg/dL (7-17); Calcium 8.4 mg/dL (8.4-10.2); Carbon Dioxide 35 mmol/L (22-30); Chloride 99 mmol/L (98-107); Estimated CRCL calculation 38 ml/min; Estimated Glomerular Filt Rate 23; Glucose 101 mg/dL (65-110); Potassium 3.9 mmol/L (3.4-5.0); Sodium 136 mmol/L (137-145)
[2023-04-17 07:14] LABS: Hepatitis B Surface Antigen Negative (Negative)
[2023-04-17 07:20] LABS: HAV RESULT Negative (Negative); Hepatitis B Core IgM Result Negative (Negative)
[2023-04-17 07:21] LABS: Anisocytosis 1+ (NORMAL); Hypochromasia 1+ (NORMAL); Platelet Estimate Adequate (Adequate); Schistocytes None Seen (NORMAL)
[2023-04-17 07:32] LABS: Hepatitis C Virus Antibody Negative (Negative)
[2023-04-17 07:41] LABS: Glucose Point of Care 75 mg/dl (65-105)
[2023-04-17] MEDS: GLIMEPIRIDE 2 MG TABLET PO (08:14)
[2023-04-17] MEDS: GABAPENTIN 300 MG CAPSULE 600 MG PO ×2 (08:15→16:47)
[2023-04-17] MEDS: FERROUS SULFATE 325 MG TABLET DR PO (08:15)
[2023-04-17] MEDS: FUROSEMIDE INJ 40 MG/4 ML VIAL IV PUSH ×2 (08:15→16:47)
[2023-04-17] MEDS: ASPIRIN 81 MG ENTERIC TABLET PO (08:15)
[2023-04-17] MEDS: amLODIPine BESYLATE 5 MG TABLET PO (08:15)
[2023-04-17] MEDS: buPROPion HCL SR (12HR) 100 MG TABCR PO (08:15)
[2023-04-17] MEDS: APIXABAN 5 MG TABLET PO (08:15)
[2023-04-17] MEDS: SILVERGEL (ELTA) 45 ML 1 APPLIC TOPICAL (08:17)
[2023-04-17] MEDS: PANTOPRAZOLE SODIUM IV 40 MG VIAL IV PUSH ×2 (08:17→21:22)
[2023-04-17 09:32] LABS: Glucose Point of Care 153 mg/dl (65-105)
[2023-04-17 11:48] LABS: Glucose Point of Care 89 mg/dl (65-105)
[2023-04-17 12:01] LABS: Fractional Inspired Oxygen 32 %; HCO3 ABG 31.2 mEq/l (22.0-26.0); Oxygen Content ABG 10.6 %vol (16.0-22.0); Oxygen Saturation ABG 92.7 % (95.0-100.0); Oxyhemoglobin 90.3 % THb (90.0-100.0); PCO2 ABG 56.1 mmHg (35.0-45.0); PO2 ABG 68.5 mmHg (80.0-100.0); PO2 FiO2 Ratio Arterial Blood 2.14 %; Total Hemoglobin 8.3 g/dL (12.0-18.0); pH ABG 7.363 (7.350-7.450)
[2023-04-17 12:05] LABS: Device NASAL CANNULA; Modified Allen's Test Pass; Site Drawn RIGHT RADIAL
[2023-04-17 12:07] LABS: Transferrin 163 mg/dL (206-381)
[2023-04-17 12:13] LABS: Iron 23 ug/dL (37-170)
[2023-04-17] MEDS: ALBUMIN HUMAN 25% 25 GM/100 ML 100 ML IVPB ×2 (12:16→17:00)
[2023-04-17 12:24] LABS: Percent Iron Saturation 10 % (20-50)
[2023-04-17 12:46] LABS: Thyroid Stimulating Hormone Reflex 0.965 uIU/mL (0.465-4.68)
[2023-04-17 13:03] LABS: Folic Acid 9.2 ng/mL (2.76->20)
--- NOTE | 2023-04-17 13:58 | PM.IMPN ---
Progress Note: A&P Assessment and Plan (1) Acute on chronic diastolic congestive heart failure: Code(s): I50.33 - Acute on chronic diastolic (congestive) heart failure Status: Acute Assessment and Plan: The patient presented to the emergency department for evaluation of increasing shortness of breath. Patient's weight is up 7 and half kg since last admission. She will be diuresed with close monitoring of volume status, renal function, and electrolytes. Furosemide 40 mg IV b.i.d. Cardiac diet ordered daily weights and strict I&Os (2) Pneumonia: Code(s): J18.9 - Pneumonia, unspecified organism Status: Acute Assessment and Plan: Chest x-ray revealing extensive multifocal pneumonia. Patient started on azithromycin Rocephin. Sputum culture ordered. DuoNebs ordered. Patient requiring oxygen supplementation about 3 L. Wean to maintain O2 saturation greater than 90%. COVID and influenza negative (3) IGNACIO (acute kidney injury): Code(s): N17.9 - Acute kidney failure, unspecified Status: Acute Assessment and Plan: BUN creatinine 40/2.1. This is very close to patient's baseline. Continue to monitor hydration status. Consider fluid restriction if kidney function worsens. (4) Type 2 diabetes mellitus: Code(s): E11.9 - Type 2 diabetes mellitus without complications Status: Acute Assessment and Plan: Insulin Lispro sliding scale, Accu-checks qAc and HS and Hold oral hypoglycemics Initiate hypoglycemic precautions (5) Chronic kidney disease: Code(s): N18.9 - Chronic kidney disease, unspecified Status: Chronic Assessment and Plan: Patient with stage 3 chronic kidney disease. Continue to monitor BMP. 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 Continue Eliquis. (7) Lymphedema: Code(s): I89.0 - Lymphedema, not elsewhere classified Status: Chronic Assessment and Plan: Recommend leg elevation. Use Michael bandage to wrap legs Furosemide 40 mg IV b.i.d. (8) Elevated LFTs: Code(s): R79.89 - Other specified abnormal findings of blood chemistry Status: Acute Assessment and Plan: Patient with elevated AST, ALT and alk-phos. Right upper quadrant ultrasound ordered. Subjective Date/time seen: 04/17/23 13:58 Interval history: Patient is about the same today. She is very sleepy but able to answer questions appropriately. did an ABG on the patient she is well compensated. Will continue to monitor her as necessary. Repeat chest x-ray showed persistent pneumonia. She did have episode of hypoglycemia which causes some sweating and increased fatigue but that has since corrected itself. Exam Narrative: GENERAL: Comfortable, no acute distress HENMT: moist mucous membranes EYES: EOM intact b/l NECK: no lymphadenopathy RESPIRATORY: clear to auscultation CARDIO: RRR GI: soft, nontender, bowel sounds present SKIN: no rashes EXTREMITIES: Plus four pitting edema from the knees down, bilateral diabetic ulcers on the heels Objective Data Vital Signs Vital Signs: Vital Signs - 24 hr 04/16/23 14:00 04/16/23 15:45 04/16/23 15:57 Temperature 97.0 F L Pulse Rate 74 81 Respiratory Rate 20 Blood Pressure 104/78 Pulse Oximetry 97 94 Pulse Oximetry [At Rest After Therapy Session] Oxygen Delivery Nasal Cannula Nasal Cannula Oxygen Flow Rate 2.5 2 04/16/23 16:00 04/16/23 22:00 04/16/23 20:00 Temperature 96.5 F L Pulse Rate 78 78 73 Respiratory Rate 12 Blood Pressure 123/70 Pulse Oximetry 97 Pulse Oximetry [At Rest After Therapy Session] Oxygen Delivery Oxygen Flow Rate 04/17/23 00:00 04/17/23
[2023-04-17 16:47] LABS: Glucose Point of Care 90 mg/dl (65-105)
--- NOTE | 2023-04-17 20:35 | PC.NURSE ---
This RN scanned in medications, and used her account during Rapid Response
[2023-04-17 20:45] LABS: Glucose Point of Care 51 mg/dl (65-105)
[2023-04-17 20:45] LABS: Glucose Point of Care 53 mg/dl (65-105)
[2023-04-17 20:45] LABS: Glucose Point of Care 187 mg/dl (65-105)
--- NOTE | 2023-04-17 21:35 | PC.NURSE ---
Patient unable to take oral medications at this time, provider notifed
[2023-04-17 21:40] LABS: Glucose Point of Care 66 mg/dl (65-105)
[2023-04-17 22:13] LABS: Glucose Point of Care 95 mg/dl (65-105)
[2023-04-17 22:23] LABS: Glucose Point of Care 107 mg/dl (65-105)
[2023-04-17 22:40] LABS: Hematocrit 25.4 % (37.0-47.0); Hemoglobin 7.4 g/dL (12.0-15.0); Mean Corpuscular HGB Conc 29.1 g/dl (32-36); Mean Corpuscular Hemoglobin 28.5 pg (26-34); Mean Corpuscular Volume 97.7 fl (80-100); Mean Platelet Volume 10.1 fl (7.4-10.4); Platelet Count Result 161 k/mm3 (150-375); Red Cell Distribution Width 16.1 % (11.5-14.5); White Blood Count 7.1 K/mm3 (4.5-10.0)
[2023-04-17 22:51] LABS: Anion Gap 6 mmol/L (8-16); Blood Urea Nitrogen 46 mg/dL (7-17); Calcium 8.5 mg/dL (8.4-10.2); Carbon Dioxide 34 mmol/L (22-30); Chloride 97 mmol/L (98-107); Estimated CRCL calculation 39 ml/min; Estimated Glomerular Filt Rate 23; Glucose 99 mg/dL (65-110); Potassium 4.1 mmol/L (3.4-5.0); Sodium 137 mmol/L (137-145)
[2023-04-17] MEDS: DEXTROSE 5% 1,000 ML 1,000 ML 100 ML IVPB (23:03)
[2023-04-17 23:10] LABS: Glucose Point of Care 77 mg/dl (65-105)
--- NOTE | 2023-04-17 23:48 | PM.EVENT ---
Event Note Event Note Event Note: Rapid Response 8:00 p.m. POC glucose of 53 at 8:07 p.m. Patient has been somnolent throughout the day, however it was noted that patient was less responsive and confused. Patient has been on 2 L of oxygen via nasal cannula. Sat reassessed during rapid and 87%. Placed on high-flow cannula with humidity at 8 L nasal cannula. Sat 98%. At arrival patient not responding to voice. S1-S2 present without murmur, rub, ectopy. No wheezing or stridor. Airway partially obstructed by tongue but patent. Crackles on exam of lung yanez. Amp of d50 (25 G) given. Patient became more responsive and alert: orientated to self, place, year. Repeat POC post amp of D50 was 187 (8:29 p.m.). Repeat glucose in 1 hour. 9:30 p.m. POC was 66 and patient becoming increasingly somnolent again. Given D50 (12.5). Reassessment of patient: Somnolent, decreased to no response to voice. No new oxygen requirement. Physical exam of heart and lungs unchanged. After admin of 12.5 G of D50, returned to alert and orientated Xself, place, year. Repeat POC glucose 30 minutes. 10:00 p.m. POC glucose 95, given additional 12.5 g of D50. O2 titrated from 8 -> 6 -> 4L NS - sat 97%. Repeat in 30 minutes x2: 107 at 10:19 p.m. 11:00 p.m. POC glucose 77 at 10:59. Give additional 12.5G of D50, total at that time was 50G of D50. Due to persistent hypoglycemia despite 2 amps of D50, continue close monitoring of POC glucose and increase in nursing rounds. Add D10 at 100 mL/hr x500 mL. 12:00 a.m. 12.5 of D50 given while awaiting D10. Repeat POC in 30 mins. 12:30 a.m. Repeat POC glucose 87. Give additional 12.5 G of D50. Total now 75 G of D50. D10 has not arrived from pharmacy. Recheck in 30 mins. Continue increased nursing rounds and move to Q2H glucose checks post-D10 infusion initiation. Critical Care Time: I personally spent 90 minutes of direct patient care including (but not limited to) the physical examination, decision-making, bedside evaluation, review of medical records, review of labs and imaging, discussion with nursing staff and other providers for collaborative, critical care management of this patient.
[2023-04-18] VITALS (38 sets, daily range): BP systolic 107–142; BP diastolic 56–81; PULSE 54–80; RESP 11–28; TEMP 35.1–37.2; O2SAT 90–100
[2023-04-18] MEDS: ALBUMIN HUMAN 25% 25 GM/100 ML 100 ML IVPB ×2 (00:06→05:26)
[2023-04-18 00:39] LABS: Glucose Point of Care 87 mg/dl (65-105)
[2023-04-18] MEDS: DEXTROSE 50% 25 GM/50 ML SYRINGE IV PUSH (00:46)
[2023-04-18] MEDS: DEXTROSE 10% 500 ML 100 ML IV CONT (00:51)
[2023-04-18 01:32] LABS: Glucose Point of Care 120 mg/dl (65-105)
[2023-04-18 01:32] LABS: Glucose Point of Care 123 mg/dl (65-105)
[2023-04-18 01:47] LABS: Glucose Point of Care 124 mg/dl (65-105)
[2023-04-18 01:57] LABS: Glucose Point of Care 119 mg/dl (65-105)
[2023-04-18 02:05] LABS: Alveolar/Arterial O2 Gradient 441.9 mmHg; Base Excess ABG 4.1 mEq/l (+/-2.0); Carboxyhemoglobin 1.5 % THb (0-2.0); Fractional Inspired Oxygen 90 %; HCO3 ABG 34.9 mEq/l (22.0-26.0); Methemoglobin ABG 0.2 %THb (0-1.5); Oxygen Saturation ABG 93.7 % (95.0-100.0); Oxyhemoglobin 92.5 % THb (90.0-100.0); PO2 ABG 92.2 mmHg (80.0-100.0); PO2 FiO2 Ratio Arterial Blood 1.02 %; Reduced Hemoglobin 5.8 %THb (0-5.0); Total Hemoglobin 9.1 g/dL (12.0-18.0)
[2023-04-18 02:09] LABS: Device NON-REBREATHER MASK; Modified Allen's Test Pass; Site Drawn LEFT RADIAL
--- NOTE | 2023-04-18 02:25 | P.PNCROSS_ITS ---
Event Note Event Note Event Note: Rapid response was called to the patient's room after patient was found unrespo nsive, earlier in the day there was another episode in which patient was found to be hypoglycemic. Upon arrival to the room patient is noted to be unresponsive on non-rebreather patient is minimally responsive only opens eyes does not follow commands. Vitals blood pressure is 138/67 respiratory rate is 12 saturating 100% on non- rebreather pulse is 75 General: Laying in bed chronically ill-appearing morbidly obese female unresponsive on supplemental oxygen but non-rebreather HEENT: Face is symmetric, pupils reactive to light PERRLA, neck supple no JVD. Respiratory: Scattered wheezing and diminished throughout Cardiovascular: Heart sounds of low tone and intensity no murmurs rubs or gallops Abdomen: Large pannus, obesity, no hepatosplenomegaly. Extremities: 4+ bilateral lower extremity edema Michael wraps in place Skin: No cyanosis Central nervous system: Stuporous, face is symmetric, muscle tone equal throughout Assessment and plan 1.Acute hypercarbic respiratory failure:Transferred to IMU on continuous BiPAP. ABG reviewed, chest xr reviewed by me, cbc, trop, lactic acid, panculture, blood cx, urine. 2.Lung infiltrate: Patient was on Rocephin and Zithromax, will discontinue Ro cephin, will add Cefepime and vanc. Will diures as well. 3.Hypoglycemia: On d10 currently, glucose wnl, Glipizide discontinued.
[2023-04-18 02:30] LABS: Hematocrit 23.8 % (37.0-47.0); Mean Corpuscular HGB Conc 26.9 g/dl (32-36); Mean Corpuscular Hemoglobin 28.2 pg (26-34); Mean Corpuscular Volume 104.8 fl (80-100); Mean Platelet Volume 10.1 fl (7.4-10.4); Platelet Count Result 144 k/mm3 (150-375); Red Blood Count 2.27 M/mm3 (4.2-5.4); White Blood Count 6.5 K/mm3 (4.5-10.0)
--- NOTE | 2023-04-18 02:30 | PC.NURSE ---
This RN used computer during rapid on pt, orders received from provider at bedside. Pt transfered to ICU6
[2023-04-18 02:33] LABS: Hemoglobin 6.4 g/dL (12.0-15.0)
--- NOTE | 2023-04-18 02:43 | PC.NURSE ---
This RN to room after blood glucose of 53, protocol was followed, patient was very lethargic, hard to arouse and had a change in mental status, also patients oxygen level was low 80's on 6L NC, RN switched to high flow NC of 6-7L, rapid response was called, IV dextrose was given and blood sugar went up to 187, and patient was placed on 8L high flow, oxygen level improved to the lower 90's, patient was a&o x 4, and very drowsy, but was talking. rechecked blood sugar at 2130 and was 66, hospitalist was called and came to room, IV dextrose was given again, and was rechecked at 2200 and it was 95, patient was arousable and a&o 4 and was able to respond to questions. at 2259 patients blood sugar was 77, hospitalist was called again and orders were received to give a one time dose of IV dextrose, recheck in 30. recheck was 87, hospitalist gave orders to give rest of IV dextrose and hang D10 LR. patients glucose was in the 100's. RN in room to recheck glucose and patients consciousness was decreased, unresponsive to verbal and painful stimuli. Rapid response was called again, blood sugar was 119, oxygen level was in the lower 80s, MD to room, verbal orders were placed by at bedside, along with a continuous BIPAP, Dr transfered patient to ICU
[2023-04-18 02:54] LABS: Appearance Urine Cloudy (Clear); Bacteria Urine None Seen /hpf; Bilirubin Urine Negative (Negative); Blood Urine 2+ (Negative); Color Urine Yellow (Yellow); Glucose Urine UA Negative (Negative); Hyaline Casts Urine Present /lpf; Ketones Urine Negative (Negative); Leukocyte Esterase Ur Trace LEU/UL (Negative); Nitrate Urine Negative (Negative); Non Pathogenic Casts >20; Protein Urine 2+ mg/dL (Negative); RBC Urine 51-100 /hpf (0-2); Specific Grav Ur 1.014 (1.001-1.035); Squamous Epithelial Cell Urine Occasional /hpf (Few); WBC Clumps Urine Present /HPF
[2023-04-18 03:02] LABS: Add Urine Microscopic? YES
--- NOTE | 2023-04-18 03:09 | PC.NURSE ---
This patient, Talia Peralta, was received from [ [id number]] on 04/18/23 at 0225. Patient/family oriented to unit policies and routines. Brother notified of transfer and updated on care.
[2023-04-18] MEDS: FUROSEMIDE INJ 40 MG/4 ML VIAL IV PUSH ×3 (03:21→17:04)
[2023-04-18 04:05] LABS: Alveolar/Arterial O2 Gradient 110.9 mmHg; Base Excess ABG 4.2 mEq/l (+/-2.0); Carboxyhemoglobin 0.2 % THb (0-2.0); Fractional Inspired Oxygen 40 %; HCO3 ABG 32.7 mEq/l (22.0-26.0); Methemoglobin ABG 0.5 %THb (0-1.5); Oxygen Content ABG 10.2 %vol (16.0-22.0); Oxygen Saturation ABG 93.6 % (95.0-100.0); Oxyhemoglobin 92.6 % THb (90.0-100.0); PO2 FiO2 Ratio Arterial Blood 2.08 %; Reduced Hemoglobin 6.7 %THb (0-5.0)
[2023-04-18 04:09] LABS: Device NON-INVASIVE VENT; Modified Allen's Test Pass; PCO2 ABG 79.4 mmHg (35.0-45.0); Site Drawn LEFT RADIAL; Total Hemoglobin 7.7 g/dL (12.0-18.0); pH ABG 7.232 (7.350-7.450)
[2023-04-18 04:10] LABS: Non-Invasive Expiratory Pressure 10 CMH2O; Non-Invasive Inspiratory Pressure 18 CMH2O; Non-Invasive Vent Rate 24 /MIN
[2023-04-18 04:16] LABS: Basophils Percent Auto 0.3 % (0.2-1.2); Eosinophils Absolute Auto 0.1 K/mm3 (0-0.3); Eosinophils Percent Auto 1.8 % (0-4.4); Hematocrit 22.7 % (37.0-47.0); Immature Granulocyte Absolute 0.05 K/mm3 (0.00-0.031); Immature Granulocyte Percent A 0.8 % (0-0.5); Lymphocytes Absolute Auto 0.56 K/mm3 (0.9-3.2); Lymphocytes Percent Auto 8.6 % (18.3-44.2); Mean Corpuscular HGB Conc 29.1 g/dl (32-36); Mean Corpuscular Hemoglobin 28.6 pg (26-34); Mean Corpuscular Volume 98.3 fl (80-100); Mean Platelet Volume 9.9 fl (7.4-10.4); Monocytes Absolute Auto 0.5 K/mm3 (0.1-0.6); Neutrophils Absolute Auto 5.3 K/mm3 (1.3-6.7); Neutrophils Percent Auto 80.5 % (45.5-73.1); Platelet Count Result 141 k/mm3 (150-375); Red Blood Count 2.31 M/mm3 (4.2-5.4); White Blood Count 6.5 K/mm3 (4.5-10.0)
[2023-04-18] MEDS: VANCOMYCIN 1,250 MG/NS 250 ML 1,250 MG/250 ML BAG 166.67 MG IVPB ×2 (04:20→05:26)
[2023-04-18 04:28] LABS: Glucose Point of Care 127 mg/dl (65-105)
[2023-04-18 04:36] LABS: Hemoglobin 6.6 g/dL (12.0-15.0)
[2023-04-18 04:37] LABS: Anisocytosis 1+ (NORMAL); Hypochromasia 2+ (NORMAL); Platelet Estimate Adequate (Adequate); Schistocytes Rare (NORMAL); Target Cells 1+ (NORMAL)
[2023-04-18 04:41] LABS: Lactic Acid Reflex 0.5 mmol/L (0.7-2.0)
[2023-04-18 04:42] LABS: Alanine Aminotransferase 60 U/L (6-35); Albumin Level 3.6 g/dL (3.5-5.1); Alkaline Phosphatase 116 U/L (38-126); Anion Gap 5 mmol/L (8-16); Aspartate Amino Transferase 36 U/L (14-36); Bilirubin,Total 0.4 mg/dL (0.2-1.3); Blood Urea Nitrogen 46 mg/dL (7-17); Calcium 8.1 mg/dL (8.4-10.2); Carbon Dioxide 35 mmol/L (22-30); Chloride 97 mmol/L (98-107); Estimated CRCL calculation 39 ml/min; Estimated Glomerular Filt Rate 23; Glucose 132 mg/dL (65-110); Magnesium 2.3 mg/dL (1.6-2.3); Phosphorus 5.4 mg/dL (2.5-4.5); Sodium 137 mmol/L (137-145)
[2023-04-18 05:02] LABS: NT Pro B Type Natriuretic Pept 1530 pg/mL (19.9-100); Troponin I < 0.012 ng/mL (0.000-0.034)
[2023-04-18] MEDS: CEFEPIME 1 GM/NS 50 ML 1 GM/50 ML BAG IVPB ×2 (05:03→17:04)
[2023-04-18 05:35] LABS: MRSA (PCR) NOT DETECTED (NOT DETECTE)
[2023-04-18 06:32] LABS: Glucose Point of Care 121 mg/dl (65-105)
--- NOTE | 2023-04-18 07:05 | PC.NURSE ---
RN placed called to patient's brother Farhan, about patient's need for increased care and code status. Farhan wants to talk with his and call back.
--- NOTE | 2023-04-18 08:14 | P.PNIM_ITS ---
Progress Note: A&P Assessment and Plan (1) Acute respiratory failure: Code(s): J96.00 - Acute respiratory failure, unspecified whether with hypoxia or hypercapnia Status: Acute Assessment and Plan: The patient presented to the emergency department for evaluation of increasing shortness of breath. * Patient's weight is up 7.5 kg since last admission. BNP 980 -> 1530 * CXR on admission diffuse patchy bilateral pulmonary infiltrates and CMG. Diffusely edematous * Echo Feb 2023: EF 60-65%, Grade I diastolic dysfunction, Biatrial enlargement, mild valve dz and moderate pHTN. * Diff Diag: untreated CHASTITY, CHF, PNA, pulm HTN * Not on O2 at home and not diagnosed with CHASTITY (but positive apnea link in Feb) * Started on Lasix IV 04/15. * She worsened overnight 04/17- with ABG 7.14/105/92 on 15L NRBM; related to i ncreased O2? * She has acute hypoxic and hypercarbic resp failure * ABG better with BiPAP. Discussed with intensisvist. Settings changed. * Concern for PNA and was on Rocephin/Azithro on admission -> changed to Vanco/Cefepime/Azithro 04/18 * MRSA screen negative. BCx pending (drawn after abx started) * I/O +830 but UOP 2200mL yesterday * Monitor volume status, renal function, and electrolytes. * NPO (2) Unresponsive: Code(s): R41.89 - Other symptoms and signs involving cognitive functions and awareness Status: Acute Assessment and Plan: Patient unresponsive. No nuchal rigidity to suggest meningitus. No fevers but no hypothermic. CVA? She is on Eliquis. Related to resp failure? TSH okay. B12 to be replaced. CT brain when more stable. Monitor with neurochecks to see if improves as ABG improves. (3) Pneumonia: Code(s): J18.9 - Pneumonia, unspecified organism Status: Acute Assessment and Plan: Chest x-ray today showing stable diffuse lung disease * Patient started on azithromycin Rocephin but abx adjusted. * Sputum culture ordered. * Remains on DuoNebs * As above (4) Acute on chronic diastolic congestive heart failure: Code(s): I50.33 - Acute on chronic diastolic (congestive) heart failure Status: Acute Assessment and Plan: As above. Concern for CHF exacerbation but could be confused with right sided failure from her pHTN and from undiagnosed CHASTITY. (5) Acute on chronic renal failure: Code(s): N17.9 - Acute kidney failure, unspecified; N18.9 - Chronic kidney disease, unspecified Status: Acute Assessment and Plan: Patient with stage 3 chronic kidney disease. Baseline Cr 1.6-2.0. BUN creatinine 40/2.1 on admisison here. * This is close to patient's baseline. * Continue to monitor hydration status. (6) Type 2 diabetes mellitus: Code(s): E11.9 - Type 2 diabetes mellitus without complications Status: Acute Assessment and Plan: A1c 6.8 last month. The patient's blood glucose was reviewed on 04/18 Glucose low at times requiring intervention. Continue AccuCheks covering with sliding scale. Hypoglycemia protocol available as needed. 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 Hold Eliquis. (8) Lymphedema: Code(s): I89.0 - Lymphedema, not elsewhere classified Status: Chronic Assessment and Plan: Chronic lymph edema. Continue leg elevation and Michael bandage to wrap legs Continue Furosemide
--- NOTE | 2023-04-18 08:14 | PM.IMPN ---
Progress Note: A&P Assessment and Plan (1) Acute respiratory failure: Code(s): J96.00 - Acute respiratory failure, unspecified whether with hypoxia or hypercapnia Status: Acute Assessment and Plan: The patient presented to the emergency department for evaluation of increasing shortness of breath. Patient's weight is up 7.5 kg since last admission. BNP 980 -> 1530 CXR on admission diffuse patchy bilateral pulmonary infiltrates and CMG. Diffusely edematous Echo Feb 2023: EF 60-65%, Grade I diastolic dysfunction, Biatrial enlargement, mild valve dz and moderate pHTN. Diff Diag: untreated CHASTITY, CHF, PNA, pulm HTN Not on O2 at home and not diagnosed with CHASTITY (but positive apnea link in Feb) Started on Lasix IV 04/15. She worsened overnight 04/17- with ABG 7.14/105/92 on 15L NRBM; related to increased O2? She has acute hypoxic and hypercarbic resp failure ABG better with BiPAP. Discussed with intensisvist. Settings changed. Concern for PNA and was on Rocephin/Azithro on admission -> changed to Vanco/Cefepime/Azithro 04/18 MRSA screen negative. BCx pending (drawn after abx started) I/O +830 but UOP 2200mL yesterday Monitor volume status, renal function, and electrolytes. NPO (2) Unresponsive: Code(s): R41.89 - Other symptoms and signs involving cognitive functions and awareness Status: Acute Assessment and Plan: Patient unresponsive. No nuchal rigidity to suggest meningitus. No fevers but no hypothermic. CVA? She is on Eliquis. Related to resp failure? TSH okay. B12 to be replaced. CT brain when more stable. Monitor with neurochecks to see if improves as ABG improves. (3) Pneumonia: Code(s): J18.9 - Pneumonia, unspecified organism Status: Acute Assessment and Plan: Chest x-ray today showing stable diffuse lung disease Patient started on azithromycin Rocephin but abx adjusted. Sputum culture ordered. Remains on DuoNebs As above (4) Acute on chronic diastolic congestive heart failure: Code(s): I50.33 - Acute on chronic diastolic (congestive) heart failure Status: Acute Assessment and Plan: As above. Concern for CHF exacerbation but could be confused with right sided failure from her pHTN and from undiagnosed CHASTITY. (5) Acute on chronic renal failure: Code(s): N17.9 - Acute kidney failure, unspecified; N18.9 - Chronic kidney disease, unspecified Status: Acute Assessment and Plan: Patient with stage 3 chronic kidney disease. Baseline Cr 1.6-2.0. BUN creatinine 40/2.1 on admisison here. This is close to patient's baseline. Continue to monitor hydration status. (6) Type 2 diabetes mellitus: Code(s): E11.9 - Type 2 diabetes mellitus without complications Status: Acute Assessment and Plan: A1c 6.8 last month. The patient's blood glucose was reviewed on 04/18 Glucose low at times requiring intervention. Continue AccuCheks covering with sliding scale. Hypoglycemia protocol available as needed. 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 Hold Eliquis. (8) Lymphedema: Code(s): I89.0 - Lymphedema, not elsewhere classified Status: Chronic Assessment and Plan: Chronic lymph edema. Continue leg elevation and Michael bandage to wrap legs Continue Furosemide (9) Elevated LFTs: Code(s): R79.89 - Other specified abnormal findings of blood chemistry Status: Acute Assessment and Plan: Patient with elevated AST, ALT and alk-phos. Abd US showing increased portal venous pulsatility with normal flow c/w right heart failure. LFTs better and suspect related to hepatic congestion. (10) Left humeral fracture: Code(s): S42.302A - Unspecified fracture of shaft of h
[2023-04-18 08:15] LABS: Glucose Point of Care 111 mg/dl (65-105)
[2023-04-18] MEDS: PANTOPRAZOLE SODIUM IV 40 MG VIAL IV PUSH ×2 (08:29→20:41)
[2023-04-18] MEDS: SODIUM CHLORIDE 0.9% IV 250 ML 30 ML IV CONT (08:29)
[2023-04-18] MEDS: SILVERGEL (ELTA) 45 ML 1 APPLIC TOPICAL (08:33)
--- NOTE | 2023-04-18 11:07 | PCWOUND ---
Receive new consult for bilateral heels. Patient was seen on Friday04/16/23, orders are in place for care.
[2023-04-18 11:12] LABS: Glucose Point of Care 109 mg/dl (65-105)
[2023-04-18] MEDS: CYANOCOBALAMIN INJ 1,000 MCG/ML VIAL 1000 MCG IM (11:12)
[2023-04-18] MEDS: DEXTROSE 5%/0.9% SOD CHL 1,000 ML 50 ML IV CONT (11:17)
[2023-04-18 11:27] LABS: Alveolar/Arterial O2 Gradient 106.3 mmHg; Base Excess ABG 4.9 mEq/l (+/-2.0); Fractional Inspired Oxygen 35 %; HCO3 ABG 32.6 mEq/l (22.0-26.0); Oxygen Saturation ABG 88.7 % (95.0-100.0); Oxyhemoglobin 88.7 % THb (90.0-100.0); Total Hemoglobin 8.8 g/dL (12.0-18.0)
[2023-04-18 11:28] LABS: Device NON-INVASIVE VENT; Modified Allen's Test Pass; Site Drawn LEFT RADIAL; pH ABG 7.292 (7.350-7.450)
[2023-04-18 11:29] LABS: Non-Invasive Expiratory Pressure 10 CMH2O; Non-Invasive Inspiratory Pressure 22 CMH2O; Non-Invasive Vent Rate 24 /MIN
[2023-04-18 11:58] LABS: Glucose Point of Care 118 mg/dl (65-105)
--- NOTE | 2023-04-18 14:30 | PCOTNOTE ---
Spoke with hospitalist, Dr. Fermin, who agreed to D/C of OT services at this time due to decline in condition.
[2023-04-18 16:39] LABS: Glucose Point of Care 103 mg/dl (65-105)
--- NOTE | 2023-04-18 16:47 | PCPTNOTE ---
Per OT (who spoke with hospitalist), OK to discharge therapy orders due to pt condition. Please re-order when pt is appropriate. Will follow.
[2023-04-18 18:10] LABS: Glucose Point of Care 101 mg/dl (65-105)
[2023-04-18 19:06] LABS: Alveolar/Arterial O2 Gradient 75.9 mmHg; Base Excess ABG 7.2 mEq/l (+/-2.0); Fractional Inspired Oxygen 30 %; HCO3 ABG 34.1 mEq/l (22.0-26.0); Oxygen Content ABG 11.4 %vol (16.0-22.0); Oxygen Saturation ABG 90.6 % (95.0-100.0); Oxyhemoglobin 89.4 % THb (90.0-100.0); PO2 ABG 63.7 mmHg (80.0-100.0); PO2 FiO2 Ratio Arterial Blood 2.12 %
[2023-04-18 19:08] LABS: Device NON-INVASIVE VENT; Modified Allen's Test Pass; PCO2 ABG 63.2 mmHg (35.0-45.0); Site Drawn RIGHT RADIAL
[2023-04-18 19:09] LABS: Non-Invasive Expiratory Pressure 10 CMH2O; Non-Invasive Inspiratory Pressure 22 CMH2O; Non-Invasive Vent Rate 24 /MIN
[2023-04-18 20:38] LABS: Hematocrit 26.8 % (37.0-47.0)
[2023-04-18] MEDS: ATORVASTATIN 40 MG TABLET FEED TUBE (20:40)
[2023-04-18 20:48] LABS: Glucose Point of Care 114 mg/dl (65-105)
--- NOTE | 2023-04-18 22:01 | PC.NURSE ---
This patient, Talia Peralta, was transferred to [[id number]] on 04/18/23 at 2140. Personal belongings sent with patient. Report given to [WILLIE Waddell]. Appropriate documentation sent with patient.
[2023-04-18 23:54] LABS: Glucose Point of Care 130 mg/dl (65-105)
[2023-04-19] VITALS (20 sets, daily range): BP systolic 122–151; BP diastolic 58–88; PULSE 54–80; RESP 18–25; TEMP 36.1–36.6; O2SAT 92–96
[2023-04-19] MEDS: CEFEPIME 1 GM/NS 50 ML 1 GM/50 ML BAG IVPB ×2 (05:21→18:04)
[2023-04-19 05:24] LABS: Alveolar/Arterial O2 Gradient 75.9 mmHg; Base Excess ABG 8.8 mEq/l (+/-2.0); Fractional Inspired Oxygen 30 %; HCO3 ABG 34.7 mEq/l (22.0-26.0); Oxygen Content ABG 10.9 %vol (16.0-22.0); Oxygen Saturation ABG 93.9 % (95.0-100.0); Oxyhemoglobin 91.7 % THb (90.0-100.0); PCO2 ABG 57.2 mmHg (35.0-45.0); PO2 ABG 70.8 mmHg (80.0-100.0); PO2 FiO2 Ratio Arterial Blood 2.36 %; Total Hemoglobin 8.4 g/dL (12.0-18.0); pH ABG 7.401 (7.350-7.450)
[2023-04-19 05:25] LABS: Device NON-INVASIVE VENT; Modified Allen's Test Pass; Non-Invasive Expiratory Pressure 10 CMH2O; Non-Invasive Inspiratory Pressure 22 CMH2O; Non-Invasive Vent Rate 24 /MIN; Site Drawn RIGHT RADIAL
[2023-04-19 05:25] LABS: Basophils Percent Auto 0.3 % (0.2-1.2); Eosinophils Absolute Auto 0.4 K/mm3 (0-0.3); Eosinophils Percent Auto 5.5 % (0-4.4); Hematocrit 24.8 % (37.0-47.0); Hemoglobin 7.4 g/dL (12.0-15.0); Immature Granulocyte Absolute 0.03 K/mm3 (0.00-0.031); Immature Granulocyte Percent A 0.5 % (0-0.5); Lymphocytes Percent Auto 12.7 % (18.3-44.2); Mean Corpuscular HGB Conc 29.8 g/dl (32-36); Mean Corpuscular Hemoglobin 28.2 pg (26-34); Mean Corpuscular Volume 94.7 fl (80-100); Mean Platelet Volume 10.1 fl (7.4-10.4); Monocytes Absolute Auto 0.5 K/mm3 (0.1-0.6); Monocytes Percent Auto 8.2 % (2.6-8.5); Neutrophils Absolute Auto 4.6 K/mm3 (1.3-6.7); Neutrophils Percent Auto 72.8 % (45.5-73.1); Platelet Count Result 179 k/mm3 (150-375); Red Blood Count 2.62 M/mm3 (4.2-5.4); Red Cell Distribution Width 15.9 % (11.5-14.5); White Blood Count 6.3 K/mm3 (4.5-10.0)
[2023-04-19] MEDS: DEXTROSE 5%/0.9% SOD CHL 1,000 ML 50 ML IV CONT (05:28)
[2023-04-19 05:46] LABS: Alanine Aminotransferase 73 U/L (6-35); Albumin Level 3.4 g/dL (3.5-5.1); Alkaline Phosphatase 105 U/L (38-126); Anion Gap 5 mmol/L (8-16); Aspartate Amino Transferase 42 U/L (14-36); Bilirubin,Total 0.7 mg/dL (0.2-1.3); Blood Urea Nitrogen 46 mg/dL (7-17); Calcium 8.2 mg/dL (8.4-10.2); Carbon Dioxide 36 mmol/L (22-30); Chloride 98 mmol/L (98-107); Estimated CRCL calculation 47 ml/min; Estimated Glomerular Filt Rate 31; Glucose 133 mg/dL (65-110); Magnesium 2.3 mg/dL (1.6-2.3); Potassium 3.2 mmol/L (3.4-5.0); Sodium 139 mmol/L (137-145)
[2023-04-19 05:49] LABS: Anisocytosis 1+ (NORMAL); Platelet Estimate Adequate (Adequate); Schistocytes None Seen (NORMAL)
[2023-04-19 05:50] LABS: Hypochromasia 2+ (NORMAL)
[2023-04-19 09:03] LABS: Glucose Point of Care 123 mg/dl (65-105)
[2023-04-19] MEDS: PANTOPRAZOLE SODIUM IV 40 MG VIAL IV PUSH ×2 (09:53→20:04)
[2023-04-19] MEDS: FUROSEMIDE INJ 40 MG/4 ML VIAL IV PUSH ×2 (09:53→18:05)
[2023-04-19] MEDS: POTASSIUM CHLORIDE 20 MEQ ER TABLET 40 MEQ PO (09:53)
[2023-04-19] MEDS: ASPIRIN 81 MG CHEWABLE TABLET FEED TUBE (09:54)
[2023-04-19] MEDS: APIXABAN 5 MG TABLET PO ×2 (09:54→20:04)
[2023-04-19] MEDS: amLODIPine BESYLATE 5 MG TABLET FEED TUBE (09:54)
[2023-04-19] MEDS: GABAPENTIN 300 MG CAPSULE 600 MG FEED TUBE ×2 (09:54→18:05)
[2023-04-19] MEDS: SILVERGEL (ELTA) 45 ML 1 APPLIC TOPICAL (09:56)
[2023-04-19 12:17] LABS: Glucose Point of Care 164 mg/dl (65-105)
--- NOTE | 2023-04-19 14:47 | P.PNIM_ITS ---
Progress Note: A&P Assessment and Plan (1) Acute respiratory failure: Code(s): J96.00 - Acute respiratory failure, unspecified whether with hypoxia or hypercapnia Status: Acute Assessment and Plan: The patient presented to the emergency department for evaluation of increasing shortness of breath. * Patient's weight is up 7.5 kg since last admission. BNP 980 -> 1530 * CXR on admission diffuse patchy bilateral pulmonary infiltrates and CMG. Diffusely edematous * Echo Feb 2023: EF 60-65%, Grade I diastolic dysfunction, Biatrial enlargement, mild valve dz and moderate pHTN. * Diff Diag: untreated CHASTITY, CHF, PNA, pulm HTN * Not on O2 at home and not diagnosed with CHASTITY (but positive apnea link in Feb) * Started on Lasix IV 04/15. * She worsened overnight 04/17- with ABG 7.14/105/92 on 15L NRBM; related to i ncreased O2? * She has acute hypoxic and hypercarbic resp failure * ABG better with BiPAP. * Concern for PNA and was on Rocephin/Azithro on admission -> changed to Vanco/Cefepime/Azithro 04/18 * MRSA screen negative. UCx negative. BCx NGTD(drawn after abx started) * I/O +1.7L but UOP 2230mL yesterday * Much improved. ABG better but CXR unchanged, . * Trial off BiPAP while awake and use only when sleeping. Supplemental O2 while awake * Monitor volume status, renal function, and electrolytes. * Remove NGT and start diet (2) Unresponsive: Code(s): R41.89 - Other symptoms and signs involving cognitive functions and awareness Status: Acute Assessment and Plan: Patient unresponsive. No nuchal rigidity to suggest meningitus. No fevers but became hypothermic. CVA? She is on Eliquis. Related to resp failure? TSH okay. B12 to be replaced. CT brain showing no acute changes Related to above. Resolved (3) Pneumonia: Code(s): J18.9 - Pneumonia, unspecified organism Status: Acute Assessment and Plan: Chest x-ray today showing stable diffuse lung disease * Patient started on azithromycin Rocephin but abx adjusted. * Sputum culture ordered. * Remains on DuoNebs * As above (4) Acute on chronic diastolic congestive heart failure: Code(s): I50.33 - Acute on chronic diastolic (congestive) heart failure Status: Acute Assessment and Plan: As above. Concern for CHF exacerbation but could be confused with right sided failure from her pHTN and from undiagnosed CHASTITY. Continue Lasix (5) Acute on chronic renal failure: Code(s): N17.9 - Acute kidney failure, unspecified; N18.9 - Chronic kidney disease, unspecified Status: Acute Assessment and Plan: Patient with stage 3 chronic kidney disease. Baseline Cr 1.6-2.0. BUN creatinine 40/2.1 on admisison here. * Cr has trended down. * Continue to monitor (6) Type 2 diabetes mellitus: Code(s): E11.9 - Type 2 diabetes mellitus without complications Status: Acute Assessment and Plan: A1c 6.8 last month. The patient's blood glucose was reviewed on 04/19 Glucose low at times requiring intervention. Continue AccuCheks covering with sliding scale. Hypoglycemia protocol available as needed. (7) Chronic anticoagulation: Code(s): Z79.01 - halfway (current) use of anticoagulants Status: Chronic Assessment and Plan: Patient on Eliquis due to history of pulmonary embolism. Eliquis resumed. (8) Lymphedema: Code(s): I89.0 - Lymphedema, not elsewhere classified Status: Chronic Assessment and Plan: Chronic lymph edema. Cont
--- NOTE | 2023-04-19 14:47 | PM.IMPN ---
Progress Note: A&P Assessment and Plan (1) Acute respiratory failure: Code(s): J96.00 - Acute respiratory failure, unspecified whether with hypoxia or hypercapnia Status: Acute Assessment and Plan: The patient presented to the emergency department for evaluation of increasing shortness of breath. Patient's weight is up 7.5 kg since last admission. BNP 980 -> 1530 CXR on admission diffuse patchy bilateral pulmonary infiltrates and CMG. Diffusely edematous Echo Feb 2023: EF 60-65%, Grade I diastolic dysfunction, Biatrial enlargement, mild valve dz and moderate pHTN. Diff Diag: untreated CHASTITY, CHF, PNA, pulm HTN Not on O2 at home and not diagnosed with CHASTITY (but positive apnea link in Feb) Started on Lasix IV 04/15. She worsened overnight 04/17- with ABG 7.14/105/92 on 15L NRBM; related to increased O2? She has acute hypoxic and hypercarbic resp failure ABG better with BiPAP. Concern for PNA and was on Rocephin/Azithro on admission -> changed to Vanco/Cefepime/Azithro 04/18 MRSA screen negative. UCx negative. BCx NGTD(drawn after abx started) I/O +1.7L but UOP 2230mL yesterday Much improved. ABG better but CXR unchanged, . Trial off BiPAP while awake and use only when sleeping. Supplemental O2 while awake Monitor volume status, renal function, and electrolytes. Remove NGT and start diet (2) Unresponsive: Code(s): R41.89 - Other symptoms and signs involving cognitive functions and awareness Status: Acute Assessment and Plan: Patient unresponsive. No nuchal rigidity to suggest meningitus. No fevers but became hypothermic. CVA? She is on Eliquis. Related to resp failure? TSH okay. B12 to be replaced. CT brain showing no acute changes Related to above. Resolved (3) Pneumonia: Code(s): J18.9 - Pneumonia, unspecified organism Status: Acute Assessment and Plan: Chest x-ray today showing stable diffuse lung disease Patient started on azithromycin Rocephin but abx adjusted. Sputum culture ordered. Remains on DuoNebs As above (4) Acute on chronic diastolic congestive heart failure: Code(s): I50.33 - Acute on chronic diastolic (congestive) heart failure Status: Acute Assessment and Plan: As above. Concern for CHF exacerbation but could be confused with right sided failure from her pHTN and from undiagnosed CHASTITY. Continue Lasix (5) Acute on chronic renal failure: Code(s): N17.9 - Acute kidney failure, unspecified; N18.9 - Chronic kidney disease, unspecified Status: Acute Assessment and Plan: Patient with stage 3 chronic kidney disease. Baseline Cr 1.6-2.0. BUN creatinine 40/2.1 on admisison here. Cr has trended down. Continue to monitor (6) Type 2 diabetes mellitus: Code(s): E11.9 - Type 2 diabetes mellitus without complications Status: Acute Assessment and Plan: A1c 6.8 last month. The patient's blood glucose was reviewed on 04/19 Glucose low at times requiring intervention. Continue AccuCheks covering with sliding scale. Hypoglycemia protocol available as needed. 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 Eliquis resumed. (8) Lymphedema: Code(s): I89.0 - Lymphedema, not elsewhere classified Status: Chronic Assessment and Plan: Chronic lymph edema. Continue leg elevation and Michael bandage to wrap legs Continue Furosemide (9) Elevated LFTs: Code(s): R79.89 - Other specified abnormal findings of blood chemistry Status: Acute Assessment and Plan: Patient with elevated AST, ALT and alk-phos. Abd US showing increased portal venous pulsatility with normal flow c/w right heart failure. LFTs better and suspect related to hepatic congestion. (10) Left humeral fra
[2023-04-19 18:11] LABS: Glucose Point of Care 147 mg/dl (65-105)
[2023-04-19 20:03] LABS: Glucose Point of Care 142 mg/dl (65-105)
[2023-04-19] MEDS: ATORVASTATIN 40 MG TABLET FEED TUBE (20:04)
[2023-04-20] VITALS (17 sets, daily range): BP systolic 129–150; BP diastolic 64–72; PULSE 60–94; RESP 20–25; TEMP 36.4–36.6; O2SAT 92–97
[2023-04-20 05:31] LABS: Basophils Percent Auto 0.3 % (0.2-1.2); Eosinophils Absolute Auto 0.5 K/mm3 (0-0.3); Hematocrit 26.4 % (37.0-47.0); Hemoglobin 7.6 g/dL (12.0-15.0); Immature Granulocyte Absolute 0.01 K/mm3 (0.00-0.031); Immature Granulocyte Percent A 0.2 % (0-0.5); Lymphocytes Absolute Auto 0.78 K/mm3 (0.9-3.2); Lymphocytes Percent Auto 12.1 % (18.3-44.2); Mean Corpuscular HGB Conc 28.8 g/dl (32-36); Mean Corpuscular Hemoglobin 27.7 pg (26-34); Mean Corpuscular Volume 96.4 fl (80-100); Monocytes Absolute Auto 0.6 K/mm3 (0.1-0.6); Monocytes Percent Auto 9.3 % (2.6-8.5); Neutrophils Absolute Auto 4.6 K/mm3 (1.3-6.7); Neutrophils Percent Auto 71.1 % (45.5-73.1); Platelet Count Result 197 k/mm3 (150-375); Red Blood Count 2.74 M/mm3 (4.2-5.4); Red Cell Distribution Width 15.9 % (11.5-14.5); White Blood Count 6.5 K/mm3 (4.5-10.0)
[2023-04-20 05:46] LABS: Alanine Aminotransferase 69 U/L (6-35); Albumin Level 3.3 g/dL (3.5-5.1); Alkaline Phosphatase 106 U/L (38-126); Anion Gap 4 mmol/L (8-16); Aspartate Amino Transferase 32 U/L (14-36); Bilirubin,Total 0.6 mg/dL (0.2-1.3); Blood Urea Nitrogen 44 mg/dL (7-17); Calcium 8.3 mg/dL (8.4-10.2); Carbon Dioxide 37 mmol/L (22-30); Chloride 99 mmol/L (98-107); Estimated CRCL calculation 53 ml/min; Estimated Glomerular Filt Rate 36; Glucose 143 mg/dL (65-110); Magnesium 2.3 mg/dL (1.6-2.3); Phosphorus 2.9 mg/dL (2.5-4.5); Sodium 140 mmol/L (137-145)
[2023-04-20 05:52] LABS: Platelet Estimate Adequate (Adequate); Schistocytes Rare (NORMAL)
[2023-04-20 05:53] LABS: Anisocytosis 1+ (NORMAL); Hypochromasia 1+ (NORMAL)
[2023-04-20] MEDS: CEFEPIME 1 GM/NS 50 ML 1 GM/50 ML BAG IVPB ×2 (07:36→17:21)
[2023-04-20 08:47] LABS: Glucose Point of Care 139 mg/dl (65-105)
[2023-04-20] MEDS: APIXABAN 5 MG TABLET PO ×2 (10:06→20:46)
[2023-04-20] MEDS: GABAPENTIN 300 MG CAPSULE 600 MG FEED TUBE ×2 (10:07→17:20)
[2023-04-20] MEDS: amLODIPine BESYLATE 5 MG TABLET FEED TUBE (10:07)
[2023-04-20] MEDS: ASPIRIN 81 MG CHEWABLE TABLET FEED TUBE (10:07)
[2023-04-20] MEDS: FUROSEMIDE INJ 40 MG/4 ML VIAL IV PUSH ×2 (10:09→17:20)
[2023-04-20] MEDS: PANTOPRAZOLE SODIUM IV 40 MG VIAL IV PUSH ×2 (10:10→20:47)
[2023-04-20] MEDS: SILVERGEL (ELTA) 45 ML 1 APPLIC TOPICAL (10:10)
--- NOTE | 2023-04-20 11:28 | PCSTNOTE ---
Bedside swallowing evaluation completed. Cursory oral peripheral examination results within functional limits. Patient is able to cough and clear throat upon request. Patient was seen bedside with head of bed elevated. Nasogastric tube in place. Trials of thin liquid by spoon were WFL. Trial of thin liquid by straw was not followed by coughing but other signs of possible aspiration were observed, including shortness of breath and holding breath after swallowing to avoid coughing. Trials of mildly thickened liquids by spoon and straw were WFL. Pureed food by spoon was WFL. No soft signs of aspiration noted with the exception of possibly with thin liquids by straw. Patient refused trials of crackers due to dryness and possible discomfort with swallowing them with nasogastric tube in place. Recommendation: pureed diet with mildly thickened liquids. Swallowing precaution recommendations placed in chart. Once nasogastric tube is removed patient could have another bedside swallowing evaluation to determine whether diet consistency can be advanced based on patient's functional swallowing abilities at that time. Please note that silent aspiration cannot be ruled out at bedside and can be evaluated with a modified barium swallow study. No further speech therapy is recommended at this time. Thank you for this referral.
[2023-04-20] MEDS: POTASSIUM CHLORIDE 20 MEQ PACKET (FOR LIQUID) 40 MEQ FEED TUBE (11:54)
--- NOTE | 2023-04-20 13:24 | P.PNIM_ITS ---
Progress Note: A&P Assessment and Plan (1) Acute respiratory failure: Code(s): J96.00 - Acute respiratory failure, unspecified whether with hypoxia or hypercapnia Status: Acute Assessment and Plan: The patient presented to the emergency department for evaluation of increasing shortness of breath. Diff Diag: untreated CHASTITY, CHF, PNA, pulm HTN. Patient's weight is up 7.5 kg since last admission. * CXR on admission diffuse patchy bilateral pulmonary infiltrates and CMG. Diffusely edematous * Echo Feb 2023: EF 60-65%, Grade I diastolic dysfunction, Biatrial enlargement, mild valve dz and moderate pHTN. * BNP 980 -> 1530 * Not on O2 at home and not diagnosed with CHASTITY (but positive apnea link in Feb) * Started on Lasix IV 04/15. * She worsened overnight 04/17- with ABG 7.14/105/92 on 15L NRBM; related to increased O2? * She has acute hypoxic and hypercarbic resp failure * ABG better with BiPAP. * Concern for PNA and was on Rocephin/Azithro on admission -> changed to Vanco/Cefepime/Azithro 04/18 * MRSA screen negative. UCx negative. BCx NGTD(drawn after abx started) * I/O -4.6L but UOP 2900mL yesterday * Much improved. ABG better * Now off BiPAP while awake and using only when sleeping. Supplemental O2 while awake * Wean off O2 as toelrated. * Monitor volume status, renal function, and electrolytes. * Remove NGT and start diet (2) Unresponsive: Code(s): R41.89 - Other symptoms and signs involving cognitive functions and awareness Status: Acute Assessment and Plan: Patient unresponsive. No nuchal rigidity to suggest meningitus. No fevers but became hypothermic. TSH okay. B12 to be replaced. CT brain showing no acute changes Related to above. Resolved (3) Pneumonia: Code(s): J18.9 - Pneumonia, unspecified organism Status: Acute Assessment and Plan: Chest x-ray today showing stable diffuse lung disease * Patient started on azithromycin Rocephin but abx adjusted. * Sputum culture ordered. * Add Albuterol * As above (4) Acute on chronic diastolic congestive heart failure: Code(s): I50.33 - Acute on chronic diastolic (congestive) heart failure Status: Acute Assessment and Plan: As above. Concern for CHF exacerbation but could be confused with right sided failure from her pHTN and from undiagnosed CHASTITY. Continue Lasix. Monitor renal function, electrolytes and UOP. (5) Acute on chronic renal failure: Code(s): N17.9 - Acute kidney failure, unspecified; N18.9 - Chronic kidney disease, unspecified Status: Acute Assessment and Plan: Patient with stage 3 chronic kidney disease. Baseline Cr 1.6-2.0. BUN creatinine 40/2.1 on admisison here. * Cr has trended down. * Continue to monitor (6) Type 2 diabetes mellitus: Code(s): E11.9 - Type 2 diabetes mellitus without complications Status: Acute Assessment and Plan: A1c 6.8 last month. The patient's blood glucose was reviewed on 04/20 Glucose was ow at times requiring intervention but now better. Continue AccuCheks covering with sliding scale. Hypoglycemia protocol available as needed. Diet started. 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 Eliquis resumed. (8) Lymphedema: Code(s): I89.0 - Lymphedema, not elsewhere classified Status: Chronic
--- NOTE | 2023-04-20 13:24 | PM.IMPN ---
Progress Note: A&P Assessment and Plan (1) Acute respiratory failure: Code(s): J96.00 - Acute respiratory failure, unspecified whether with hypoxia or hypercapnia Status: Acute Assessment and Plan: The patient presented to the emergency department for evaluation of increasing shortness of breath. Diff Diag: untreated CHASTITY, CHF, PNA, pulm HTN. Patient's weight is up 7.5 kg since last admission. CXR on admission diffuse patchy bilateral pulmonary infiltrates and CMG. Diffusely edematous Echo Feb 2023: EF 60-65%, Grade I diastolic dysfunction, Biatrial enlargement, mild valve dz and moderate pHTN. BNP 980 -> 1530 Not on O2 at home and not diagnosed with CHASTITY (but positive apnea link in Feb) Started on Lasix IV 04/15. She worsened overnight 04/17- with ABG 7.14/105/92 on 15L NRBM; related to increased O2? She has acute hypoxic and hypercarbic resp failure ABG better with BiPAP. Concern for PNA and was on Rocephin/Azithro on admission -> changed to Vanco/Cefepime/Azithro 04/18 MRSA screen negative. UCx negative. BCx NGTD(drawn after abx started) I/O -4.6L but UOP 2900mL yesterday Much improved. ABG better Now off BiPAP while awake and using only when sleeping. Supplemental O2 while awake Wean off O2 as toelrated. Monitor volume status, renal function, and electrolytes. Remove NGT and start diet (2) Unresponsive: Code(s): R41.89 - Other symptoms and signs involving cognitive functions and awareness Status: Acute Assessment and Plan: Patient unresponsive. No nuchal rigidity to suggest meningitus. No fevers but became hypothermic. TSH okay. B12 to be replaced. CT brain showing no acute changes Related to above. Resolved (3) Pneumonia: Code(s): J18.9 - Pneumonia, unspecified organism Status: Acute Assessment and Plan: Chest x-ray today showing stable diffuse lung disease Patient started on azithromycin Rocephin but abx adjusted. Sputum culture ordered. Add Albuterol As above (4) Acute on chronic diastolic congestive heart failure: Code(s): I50.33 - Acute on chronic diastolic (congestive) heart failure Status: Acute Assessment and Plan: As above. Concern for CHF exacerbation but could be confused with right sided failure from her pHTN and from undiagnosed CHASTITY. Continue Lasix. Monitor renal function, electrolytes and UOP. (5) Acute on chronic renal failure: Code(s): N17.9 - Acute kidney failure, unspecified; N18.9 - Chronic kidney disease, unspecified Status: Acute Assessment and Plan: Patient with stage 3 chronic kidney disease. Baseline Cr 1.6-2.0. BUN creatinine 40/2.1 on admisison here. Cr has trended down. Continue to monitor (6) Type 2 diabetes mellitus: Code(s): E11.9 - Type 2 diabetes mellitus without complications Status: Acute Assessment and Plan: A1c 6.8 last month. The patient's blood glucose was reviewed on 04/20 Glucose was ow at times requiring intervention but now better. Continue AccuCheks covering with sliding scale. Hypoglycemia protocol available as needed. Diet started. Will stop IVF/Dextrose (7) Chronic anticoagulation: Code(s): Z79.01 - prison (current) use of anticoagulants Status: Chronic Assessment and Plan: Patient on Eliquis due to history of pulmonary embolism. Eliquis resumed. (8) Lymphedema: Code(s): I89.0 - Lymphedema, not elsewhere classified Status: Chronic Assessment and Plan: Chronic lymph edema. Continue leg elevation and Michael bandage to wrap legs Continue Furosemide (9) Elevated LFTs: Code(s): R79.89 - Other specified abnormal findings of blood chemistry Status: Acute Assessment and Plan: Patient with elevated AST, ALT and alk-phos. Abd US showing increased portal venous pulsatility with normal flow c/w right heart failure. LFTs better and suspect relate
[2023-04-20 14:44] LABS: Glucose Point of Care 192 mg/dl (65-105)
[2023-04-20 17:20] LABS: Glucose Point of Care 176 mg/dl (65-105)
[2023-04-20] MEDS: ALBUTEROL SULFATE NEB 2.5 MG/3 ML INH INHALATION (20:12)
[2023-04-20 20:46] LABS: Glucose Point of Care 182 mg/dl (65-105)
[2023-04-20] MEDS: ATORVASTATIN 40 MG TABLET FEED TUBE (20:47)
[2023-04-21] VITALS (24 sets, daily range): BP systolic 109–141; BP diastolic 57–73; PULSE 58–92; RESP 16–27; TEMP 36.2–36.4; O2SAT 93–98
[2023-04-21] MEDS: CEFEPIME 1 GM/NS 50 ML 1 GM/50 ML BAG IVPB (05:28)
[2023-04-21 09:06] LABS: Basophils Percent Auto 0.7 % (0.2-1.2); Eosinophils Absolute Auto 0.4 K/mm3 (0-0.3); Eosinophils Percent Auto 7.1 % (0-4.4); Hematocrit 28.2 % (37.0-47.0); Hemoglobin 8.2 g/dL (12.0-15.0); Immature Granulocyte Absolute 0.02 K/mm3 (0.00-0.031); Immature Granulocyte Percent A 0.3 % (0-0.5); Lymphocytes Absolute Auto 0.73 K/mm3 (0.9-3.2); Lymphocytes Percent Auto 12.7 % (18.3-44.2); Mean Corpuscular HGB Conc 29.1 g/dl (32-36); Mean Corpuscular Hemoglobin 28.1 pg (26-34); Mean Corpuscular Volume 96.6 fl (80-100); Mean Platelet Volume 9.6 fl (7.4-10.4); Monocytes Absolute Auto 0.5 K/mm3 (0.1-0.6); Monocytes Percent Auto 9.4 % (2.6-8.5); Neutrophils Percent Auto 69.8 % (45.5-73.1); Platelet Count Result 222 k/mm3 (150-375); Red Blood Count 2.92 M/mm3 (4.2-5.4); Red Cell Distribution Width 15.8 % (11.5-14.5); White Blood Count 5.7 K/mm3 (4.5-10.0)
[2023-04-21] MEDS: PANTOPRAZOLE SODIUM IV 40 MG VIAL IV PUSH ×2 (09:06→21:36)
[2023-04-21] MEDS: GABAPENTIN 300 MG CAPSULE 600 MG FEED TUBE ×2 (09:06→16:32)
[2023-04-21] MEDS: FUROSEMIDE INJ 40 MG/4 ML VIAL IV PUSH (09:06)
[2023-04-21] MEDS: SILVERGEL (ELTA) 45 ML 1 APPLIC TOPICAL (09:07)
[2023-04-21] MEDS: amLODIPine BESYLATE 5 MG TABLET FEED TUBE (09:07)
[2023-04-21] MEDS: APIXABAN 5 MG TABLET PO ×2 (09:07→21:35)
[2023-04-21] MEDS: ASPIRIN 81 MG CHEWABLE TABLET FEED TUBE (09:07)
[2023-04-21 09:18] LABS: Glucose Point of Care 118 mg/dl (65-105)
[2023-04-21 09:28] LABS: Alanine Aminotransferase 51 U/L (6-35); Albumin Level 3.5 g/dL (3.5-5.1); Alkaline Phosphatase 111 U/L (38-126); Aspartate Amino Transferase 21 U/L (14-36); Bilirubin,Total 0.6 mg/dL (0.2-1.3); Blood Urea Nitrogen 37 mg/dL (7-17); Carbon Dioxide > 40 mmol/L (22-30); Chloride 99 mmol/L (98-107); Estimated CRCL calculation 59 ml/min; Estimated Glomerular Filt Rate 39; Glucose 128 mg/dL (65-110); Magnesium 2.2 mg/dL (1.6-2.3); Phosphorus 2.6 mg/dL (2.5-4.5); Potassium 3.2 mmol/L (3.4-5.0); Sodium 142 mmol/L (137-145)
[2023-04-21] MEDS: ALBUTEROL SULFATE NEB 2.5 MG/3 ML INH INHALATION ×3 (09:36→20:13)
[2023-04-21 09:38] LABS: Anisocytosis 1+ (NORMAL); Hypochromasia 1+ (NORMAL); Platelet Estimate Adequate (Adequate); Schistocytes None Seen (NORMAL)
[2023-04-21] MEDS: INSULIN ASPART (*BKC) 100 UNITS/ML SUB-Q ×2 (12:18→16:32)
[2023-04-21 12:33] LABS: Glucose Point of Care 220 mg/dl (65-105)
[2023-04-21] MEDS: POTASSIUM CHLORIDE 20 MEQ ER TABLET 40 MEQ PO (13:25)
--- NOTE | 2023-04-21 14:20 | P.PNIM_ITS ---
Progress Note: A&P Assessment and Plan (1) Acute respiratory failure: Code(s): J96.00 - Acute respiratory failure, unspecified whether with hypoxia or hypercapnia Status: Acute Assessment and Plan: The patient presented to the emergency department for evaluation of increasing shortness of breath. Diff Diag: untreated CHASTITY, CHF, PNA, pulm HTN. Patient's weight is up 7.5 kg since last admission. * CXR on admission diffuse patchy bilateral pulmonary infiltrates and CMG. Diffusely edematous * Echo Feb 2023: EF 60-65%, Grade I diastolic dysfunction, Biatrial enlargement, mild valve dz and moderate pHTN. * BNP 980 -> 1530 * Not on O2 at home and not diagnosed with CHASTITY (but positive apnea link in Feb) * Started on Lasix IV 04/15. * She worsened overnight 04/17- with ABG 7.14/105/92 on 15L NRBM; related to increased O2? * She has acute hypoxic and hypercarbic resp failure * ABG better with BiPAP. * Concern for PNA and was on Rocephin/Azithro on admission -> changed to Vanco/Cefepime/Azithro 04/18 * MRSA screen negative. UCx negative. BCx NGTD(drawn after abx started) * I/O -4.6L but UOP 2900mL yesterday * ABG better so now using BiPAP while sleeping. Weaned off O2 while awake * Monitor volume status, renal function, and electrolytes. * Change to oral Lasix * Stop Azithromycin. Change to oral abx. * Pulmonary consult to help with getting BiPAP at home. (2) Unresponsive: Code(s): R41.89 - Other symptoms and signs involving cognitive functions and awareness Status: Acute Assessment and Plan: Patient unresponsive. No fevers but became hypothermic. TSH okay. B12 to be replaced. CT brain showing no acute changes Related to above. Resolved (3) Pneumonia: Code(s): J18.9 - Pneumonia, unspecified organism Status: Acute Assessment and Plan: Chest x-ray today showing stable diffuse lung disease * Patient started on azithromycin Rocephin but abx adjusted. * Diffuse lung disease noted last admission - ILD? Aspiration? Autoimmune given the pulm HTN? * Sputum culture ordered. * Continue Albuterol * Check CT chest. * As above (4) Acute on chronic diastolic congestive heart failure: Code(s): I50.33 - Acute on chronic diastolic (congestive) heart failure Status: Acute Assessment and Plan: As above. Concern for CHF exacerbation but could be confused with right sided failure from her pHTN and from undiagnosed CHASTITY. Continue Lasix but change to oral. Monitor renal function, electrolytes and UOP. (5) Acute on chronic renal failure: Code(s): N17.9 - Acute kidney failure, unspecified; N18.9 - Chronic kidney disease, unspecified Status: Acute Assessment and Plan: Patient with stage 3 chronic kidney disease. Baseline Cr 1.6-2.0. BUN creatinine 40/2.1 on admisison here. * Cr has trended down. * Continue to monitor (6) Type 2 diabetes mellitus: Code(s): E11.9 - Type 2 diabetes mellitus without complications Status: Acute Assessment and Plan: A1c 6.8 last month. The patient's blood glucose was reviewed on 04/21 Glucose was low at times requiring intervention but now better. Continue AccuCheks covering with sliding scale. Hypoglycemia protocol available as needed. 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 Eliquis resumed. (8) Jacinto
--- NOTE | 2023-04-21 14:20 | PM.IMPN ---
Progress Note: A&P Assessment and Plan (1) Acute respiratory failure: Code(s): J96.00 - Acute respiratory failure, unspecified whether with hypoxia or hypercapnia Status: Acute Assessment and Plan: The patient presented to the emergency department for evaluation of increasing shortness of breath. Diff Diag: untreated CHASTITY, CHF, PNA, pulm HTN. Patient's weight is up 7.5 kg since last admission. CXR on admission diffuse patchy bilateral pulmonary infiltrates and CMG. Diffusely edematous Echo Feb 2023: EF 60-65%, Grade I diastolic dysfunction, Biatrial enlargement, mild valve dz and moderate pHTN. BNP 980 -> 1530 Not on O2 at home and not diagnosed with CHASTITY (but positive apnea link in Feb) Started on Lasix IV 04/15. She worsened overnight 04/17- with ABG 7.14/105/92 on 15L NRBM; related to increased O2? She has acute hypoxic and hypercarbic resp failure ABG better with BiPAP. Concern for PNA and was on Rocephin/Azithro on admission -> changed to Vanco/Cefepime/Azithro 04/18 MRSA screen negative. UCx negative. BCx NGTD(drawn after abx started) I/O -4.6L but UOP 2900mL yesterday ABG better so now using BiPAP while sleeping. Weaned off O2 while awake Monitor volume status, renal function, and electrolytes. Change to oral Lasix Stop Azithromycin. Change to oral abx. Pulmonary consult to help with getting BiPAP at home. (2) Unresponsive: Code(s): R41.89 - Other symptoms and signs involving cognitive functions and awareness Status: Acute Assessment and Plan: Patient unresponsive. No fevers but became hypothermic. TSH okay. B12 to be replaced. CT brain showing no acute changes Related to above. Resolved (3) Pneumonia: Code(s): J18.9 - Pneumonia, unspecified organism Status: Acute Assessment and Plan: Chest x-ray today showing stable diffuse lung disease Patient started on azithromycin Rocephin but abx adjusted. Diffuse lung disease noted last admission - ILD? Aspiration? Autoimmune given the pulm HTN? Sputum culture ordered. Continue Albuterol Check CT chest. As above (4) Acute on chronic diastolic congestive heart failure: Code(s): I50.33 - Acute on chronic diastolic (congestive) heart failure Status: Acute Assessment and Plan: As above. Concern for CHF exacerbation but could be confused with right sided failure from her pHTN and from undiagnosed CHASTITY. Continue Lasix but change to oral. Monitor renal function, electrolytes and UOP. (5) Acute on chronic renal failure: Code(s): N17.9 - Acute kidney failure, unspecified; N18.9 - Chronic kidney disease, unspecified Status: Acute Assessment and Plan: Patient with stage 3 chronic kidney disease. Baseline Cr 1.6-2.0. BUN creatinine 40/2.1 on admisison here. Cr has trended down. Continue to monitor (6) Type 2 diabetes mellitus: Code(s): E11.9 - Type 2 diabetes mellitus without complications Status: Acute Assessment and Plan: A1c 6.8 last month. The patient's blood glucose was reviewed on 04/21 Glucose was low at times requiring intervention but now better. Continue AccuCheks covering with sliding scale. Hypoglycemia protocol available as needed. 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 Eliquis resumed. (8) Lymphedema: Code(s): I89.0 - Lymphedema, not elsewhere classified Status: Chronic Assessment and Plan: Chronic lymph edema. Continue leg elevation and Michael bandage to wrap legs Continue Furosemide (9) Elevated LFTs: Code(s): R79.89 - Other specified abnormal findings of blood chemistry Status: Acute Assessment and Plan: Patient with elevated AST, ALT and alk-phos. Abd US showing increas
[2023-04-21] MEDS: FERROUS SULFATE 325 MG TABLET DR PO (16:32)
[2023-04-21] MEDS: FUROSEMIDE 40 MG TABLET PO (16:32)
[2023-04-21 17:05] LABS: Glucose Point of Care 204 mg/dl (65-105)
--- NOTE | 2023-04-21 17:36 | PC.NURSE ---
This patient, Talia Peralta, was transferred to [ [facility]] on 04/21/23 at 1730. Personal belongings sent with patient. Report given to [ Xenia]. Appropriate documentation sent with patient.
--- NOTE | 2023-04-21 19:02 | ADMGEN ---
This patient, Talia Peralta, was admitted to 3 [facility] Surg Room 322-01. Patient/family oriented to hospital policies and general routines including ID bracelet, bed and alarms, visiting hours, pain management, procedures, bathroom and other care routines, personal items, smoking policy, room service/diet, and visiting hours. Information on how to activate the Rapid Response Team has been discussed. Patient/Family are encouraged to report perceived risks to care and to ask questions if they do not understand what they are told or what they should do.
[2023-04-21] MEDS: TAMSULOSIN HCL 0.4 MG CAPSULE PO (21:35)
[2023-04-21] MEDS: DOXYCYCLINE HYCLATE 100 MG TABLET PO (21:35)
[2023-04-21] MEDS: ATORVASTATIN 40 MG TABLET FEED TUBE (21:35)
[2023-04-21] MEDS: AMOXICILLIN/CLAVULANATE K 875-125 MG TAB 1 TABLET PO (21:35)
[2023-04-22] VITALS (15 sets, daily range): BP systolic 118–146; BP diastolic 55–70; PULSE 65–82; RESP 14–25; TEMP 36.4–36.7; O2SAT 88–100
[2023-04-22 00:05] LABS: Glucose Point of Care 171 mg/dl (65-105)
[2023-04-22] MEDS: ALBUTEROL SULFATE NEB 2.5 MG/3 ML INH INHALATION ×4 (02:59→21:17)
[2023-04-22 08:02] LABS: Glucose Point of Care 98 mg/dl (65-105)
[2023-04-22] MEDS: DOXYCYCLINE HYCLATE 100 MG TABLET PO ×2 (09:10→20:17)
[2023-04-22] MEDS: AMOXICILLIN/CLAVULANATE K 875-125 MG TAB 1 TABLET PO ×2 (09:10→20:17)
[2023-04-22] MEDS: APIXABAN 5 MG TABLET PO ×2 (09:10→20:17)
[2023-04-22] MEDS: FUROSEMIDE 40 MG TABLET PO ×2 (09:10→17:36)
[2023-04-22] MEDS: ASPIRIN 81 MG CHEWABLE TABLET FEED TUBE (09:10)
[2023-04-22] MEDS: GABAPENTIN 300 MG CAPSULE 600 MG FEED TUBE ×2 (09:10→17:36)
[2023-04-22] MEDS: FERROUS SULFATE 325 MG TABLET DR PO ×2 (09:10→17:36)
[2023-04-22] MEDS: allopurinoL 100 MG TABLET PO (09:11)
[2023-04-22] MEDS: SILVERGEL (ELTA) 45 ML 1 APPLIC TOPICAL (09:11)
[2023-04-22] MEDS: PANTOPRAZOLE SODIUM IV 40 MG VIAL IV PUSH ×2 (09:11→20:15)
[2023-04-22] MEDS: amLODIPine BESYLATE 5 MG TABLET FEED TUBE (09:18)
[2023-04-22 09:22] LABS: Basophils Percent Auto 0.6 % (0.2-1.2); Eosinophils Absolute Auto 0.3 K/mm3 (0-0.3); Eosinophils Percent Auto 6.4 % (0-4.4); Hematocrit 26.3 % (37.0-47.0); Hemoglobin 7.8 g/dL (12.0-15.0); Immature Granulocyte Absolute 0.02 K/mm3 (0.00-0.031); Immature Granulocyte Percent A 0.4 % (0-0.5); Lymphocytes Absolute Auto 0.79 K/mm3 (0.9-3.2); Lymphocytes Percent Auto 15.4 % (18.3-44.2); Mean Corpuscular HGB Conc 29.7 g/dl (32-36); Mean Corpuscular Hemoglobin 28.2 pg (26-34); Mean Corpuscular Volume 94.9 fl (80-100); Mean Platelet Volume 9.8 fl (7.4-10.4); Monocytes Absolute Auto 0.5 K/mm3 (0.1-0.6); Monocytes Percent Auto 9.7 % (2.6-8.5); Neutrophils Absolute Auto 3.5 K/mm3 (1.3-6.7); Neutrophils Percent Auto 67.5 % (45.5-73.1); Platelet Count Result 232 k/mm3 (150-375); Red Blood Count 2.77 M/mm3 (4.2-5.4); Red Cell Distribution Width 15.9 % (11.5-14.5); White Blood Count 5.1 K/mm3 (4.5-10.0)
[2023-04-22 09:52] LABS: Alanine Aminotransferase 39 U/L (6-35); Albumin Level 3.2 g/dL (3.5-5.1); Alkaline Phosphatase 105 U/L (38-126); Aspartate Amino Transferase 22 U/L (14-36); Bilirubin,Total 0.6 mg/dL (0.2-1.3); Blood Urea Nitrogen 36 mg/dL (7-17); Calcium 8.8 mg/dL (8.4-10.2); Carbon Dioxide > 40 mmol/L (22-30); Chloride 97 mmol/L (98-107); Complement C3 122 mg/dL (88-165); Estimated CRCL calculation 55 ml/min; Estimated Glomerular Filt Rate 36; Glucose 110 mg/dL (65-110); Magnesium 2.2 mg/dL (1.6-2.3); Phosphorus 2.7 mg/dL (2.5-4.5); Potassium 3.6 mmol/L (3.4-5.0); Rheumatoid Factor < 12.0 IU/ML (<12); Sodium 140 mmol/L (137-145)
[2023-04-22 10:00] LABS: Hepatitis B Surface Antigen Negative (Negative)
--- NOTE | 2023-04-22 10:03 | PM.CNPUL ---
Assessment and Plan Assessment and plan (1) Obesity hypoventilation syndrome: Code(s): E66.2 - Morbid (severe) obesity with alveolar hypoventilation Status: Acute Assessment and Plan: Patient is morbidly obese with a BMI of 50.4. She has fluid overload and has diuresed 6.7 L. she states she is breathing at her baseline. Her TSH is normal. The patient has no smoking and no evidence of emphysema on her CT scan. ABG on 3 L on 04/17/2023 7.36/56/69. The patient has obesity hypoventilation syndrome with chronic hypercarbic respiratory failure and would benefit from noninvasive ventilation. The patient has attempted to wear BiPAP but she says the pressure is prevent her from sleeping at night. I changed her to noninvasive ventilator mode with the AVAPS mode rate of 20, tidal volume 500, EPAP 5, minimal inspiratory pressure 6, maximal inspiratory pressure 25, I time of 1.0, rise of 5 and 32% FiO2. She said this was more comfortable believe she could tolerate it tonight. Plan: I will place is a patient on the noninvasive ventilation with the above settings and order an overnight oximetry and blood gas prior to removal to assess oxygenation and ventilation on these settings. I have spoken to the housing coordinator on her will initiate home noninvasive ventilation. Discussed with Dr. Fermin, will follow with you (2) Fluid overload: Code(s): E87.70 - Fluid overload, unspecified Status: Acute Assessment and Plan: 04/22: Creatinine is 1.5. She has diuresed a total of 6.5 L since admission. Agree with as aggressive diuresis as tolerated by her cardiac and renal systems per hospitalist team. Currently she is on Lasix 40 p.o. b.i.d.. (3) Pneumonia: Code(s): J18.9 - Pneumonia, unspecified organism Status: Acute Assessment and Plan: Patient was admitted to the hospital on 04/15 and treated for pneumonia with ceftriaxone and azithromycin. Patient deteriorated on 04/18 was changed to cefepime and vanco and continue the azithromycin. On 04/21/2023 the azithromycin was discontinued after 5 days. On 04/22 she was changed to doxycycline and Augmentin. She is afebrile, denies any respiratory complaints and his on 2 L during the day. Chest x-ray today is shows diffuse interstitial infiltrates with no change compared to 04/19/2023. Patient has a CT scan of the chest with diffuse ground-glass infiltrates with no evidence of bullous emphysema, bronchiectasis, honeycombing or reticulations. Serologies for connective tissue disease and autoimmune disease have been sent. I will add a CPK, aldolase level, anti CCP antibody, hypersensitivity pneumonitis panel and MyoMarker 3 panel Plan: I will continue doxycycline and Augmentin at this time. Today is day 8 of total antibiotics. Patient will require a CT scan as an outpatient to follow her diffuse ground-glass patchy infiltrates. History of Present Illness History of Present Illness Consult date: 04/22/23 Chief complaint: CHF Exacerbation Narrative: 04/22/2023: This is a new pulmonary consult for chronic hypercarbic respiratory failure and pneumonia. 58-year-old with a history of diabetes, anemia, fluid overload, closed left humerus fracture, PE in 2018 on chronic anticoagulation, CKD, morbid obesity with a BMI of 50.4 Patient was admitted to the hospital from 02/26/2023 through 03/05/2023 for increased lower extremity edema she had an echocardiogram with an EF of 60 65%, grade 1 diastolic dysfunction, mildly enlarged left atrium, mildly enlarged right atrium, normal RV size and function, mild MR, mild TR with an RVSP of 57. Patient improved and was treated with IV Lasix and sent home on Lasix 40 p.o. q.day. of no chest x-ray at that time showed cardiomegaly with very mild bilateral interstitial infiltrates on 02/26/2023. She was started on ceftriaxone and azithromycin Patient was admitted to the hospital from 03/21 through 03 26 2023 with fluid ov
[2023-04-22 10:07] LABS: HIV 1/2 Ab P24 Ag Result Negative (Negative)
[2023-04-22 10:17] LABS: Hepatitis B Surface Anti Res Negative
[2023-04-22 10:35] LABS: NT Pro B Type Natriuretic Pept 1500 pg/mL (19.9-100)
[2023-04-22 10:36] LABS: Hepatitis C Virus Antibody Negative (Negative)
[2023-04-22 10:57] LABS: Anisocytosis 1+ (NORMAL); Hypochromasia 1+ (NORMAL); Platelet Estimate Adequate (Adequate); Schistocytes None Seen (NORMAL)
[2023-04-22 12:14] LABS: Glucose Point of Care 135 mg/dl (65-105)
[2023-04-22 14:17] LABS: Influenza A QL RT-PCR Negative (Negative); Influenza B QL RT-PCR Negative (Negative); RSV RNA, RT-PCR Negative (Negative); SARS-CoV-2 RNA PCR Negative (Negative)
--- NOTE | 2023-04-22 16:19 | PM.IMPN ---
Progress Note: A&P Assessment and Plan (1) Acute respiratory failure: Code(s): J96.00 - Acute respiratory failure, unspecified whether with hypoxia or hypercapnia Status: Acute Assessment and Plan: The patient presented to the emergency department for evaluation of increasing shortness of breath. Diff Diag: untreated CHASTITY, CHF, PNA, pulm HTN. Patient's weight is up 7.5 kg since last admission. CXR on admission diffuse patchy bilateral pulmonary infiltrates and CMG. Diffusely edematous Echo Feb 2023: EF 60-65%, Grade I diastolic dysfunction, Biatrial enlargement, mild valve dz and moderate pHTN. BNP 980 -> 1530 Not on O2 at home and not diagnosed with CHASTITY (but positive apnea link in Feb) Started on Lasix IV 04/15. She worsened overnight 04/17- with ABG 7.14/105/92 on 15L NRBM; related to increased O2? She has acute hypoxic and hypercarbic resp failure ABG better with BiPAP. Concern for PNA and was on Rocephin/Azithro on admission -> changed to Vanco/Cefepime/Azithro 04/18 MRSA screen negative. UCx negative. BCx NGTD(drawn after abx started) I/O -6.4L and UOP 3300mL yesterday ABG better so now using BiPAP while sleeping. Weaned off O2 briefly but now back on O2 Monitor volume status, renal function, and electrolytes. Continue oral Lasix Completed Azithromycin. Changed to Doxycycline and Augmentin Pulmonary consulted to help with getting BiPAP at home and appreciate their input (2) Unresponsive: Code(s): R41.89 - Other symptoms and signs involving cognitive functions and awareness Status: Acute Assessment and Plan: Patient was unresponsive. No fevers but became hypothermic. TSH okay. B12 low and on replacement. CT brain showing no acute changes Related to respiratory failure. Resolved (3) Pneumonia: Code(s): J18.9 - Pneumonia, unspecified organism Status: Acute Assessment and Plan: Chest x-ray today showing stable diffuse lung disease Patient started on azithromycin Rocephin but abx adjusted. Diffuse lung disease noted last admission on 03/20 but CXR 02/26 showing mild interstital edema CT chest showing extensive patchy bilateral groundglass opacification and consolidation, consistent with pneumonia. Consider anti-GBM. Blood work drawn Continue Albuterol Discussed with pulmonary (4) Acute on chronic diastolic congestive heart failure: Code(s): I50.33 - Acute on chronic diastolic (congestive) heart failure Status: Acute Assessment and Plan: As above. Concern for CHF exacerbation; possibly right sided failure from her pHTN and from undiagnosed CHASTITY. Echo Feb 2023: EF 60-65%, Grade I diastolic dysfunction, Biatrial enlargement, mild valve dz and moderate pHTN. Continue Lasix Monitor renal function, electrolytes and UOP. (5) Acute on chronic renal failure: Code(s): N17.9 - Acute kidney failure, unspecified; N18.9 - Chronic kidney disease, unspecified Status: Acute Assessment and Plan: Patient with stage 3 chronic kidney disease. Baseline Cr 1.6-2.0. BUN creatinine 40/2.1 on admisison here. Cr has trended down and now stable at 1.5 range. Continue to monitor (6) Type 2 diabetes mellitus: Code(s): E11.9 - Type 2 diabetes mellitus without complications Status: Acute Assessment and Plan: A1c 6.8 last month. The patient's blood glucose was reviewed on 04/22 Glucose was low at times requiring intervention but now better. Continue AccuCheks covering with sliding scale. Hypoglycemia protocol available as needed. 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 Continue Eliquis (8) Lymphedema: Code(s): I89.0 - Lymphedema, not elsewhere classified Status: Chronic Assessment and Plan
[2023-04-22 16:51] LABS: Glucose Point of Care 201 mg/dl (65-105)
[2023-04-22] MEDS: INSULIN ASPART (*BKC) 100 UNITS/ML SUB-Q (17:43)
[2023-04-22] MEDS: TAMSULOSIN HCL 0.4 MG CAPSULE PO (20:15)
[2023-04-22] MEDS: ATORVASTATIN 40 MG TABLET FEED TUBE (20:17)
[2023-04-22 20:25] LABS: Glucose Point of Care 185 mg/dl (65-105)
[2023-04-23] VITALS (13 sets, daily range): BP systolic 116–137; BP diastolic 45–67; PULSE 66–84; RESP 18–26; TEMP 35.7–36.6; O2SAT 92–96
--- NOTE | 2023-04-23 04:24 | PCRCNOTE ---
Due to patient being on an overnight oximetry study, pt did not receive her 0200 updraft treatment. Treatment will resume at 0800.
[2023-04-23 05:29] LABS: Base Excess ABG 9.7 mEq/l (+/-2.0); Device NON-INVASIVE VENT; Fractional Inspired Oxygen 32 %; Modified Allen's Test Pass; Non-Invasive Expiratory Pressure 5 CMH2O; Non-Invasive Vent Rate 20 /MIN; Oxygen Content ABG 10.7 %vol (16.0-22.0); Oxygen Saturation ABG 96.1 % (95.0-100.0); Oxyhemoglobin 93.1 % THb (90.0-100.0); PCO2 ABG 52.8 mmHg (35.0-45.0); PO2 ABG 81.4 mmHg (80.0-100.0); PO2 FiO2 Ratio Arterial Blood 2.54 %; Site Drawn RIGHT RADIAL; Total Hemoglobin 8.1 g/dL (12.0-18.0); pH ABG 7.439 (7.350-7.450)
[2023-04-23 06:35] LABS: Basophils Percent Auto 0.3 % (0.2-1.2); Eosinophils Absolute Auto 0.4 K/mm3 (0-0.3); Eosinophils Percent Auto 6.3 % (0-4.4); Hematocrit 25.1 % (37.0-47.0); Hemoglobin 7.3 g/dL (12.0-15.0); Immature Granulocyte Absolute 0.01 K/mm3 (0.00-0.031); Immature Granulocyte Percent A 0.2 % (0-0.5); Lymphocytes Absolute Auto 0.87 K/mm3 (0.9-3.2); Lymphocytes Percent Auto 15.1 % (18.3-44.2); Mean Corpuscular HGB Conc 29.1 g/dl (32-36); Mean Corpuscular Hemoglobin 28.1 pg (26-34); Mean Corpuscular Volume 96.5 fl (80-100); Mean Platelet Volume 9.1 fl (7.4-10.4); Monocytes Absolute Auto 0.5 K/mm3 (0.1-0.6); Monocytes Percent Auto 8.9 % (2.6-8.5); Neutrophils Percent Auto 69.2 % (45.5-73.1); Platelet Count Result 209 k/mm3 (150-375); Red Cell Distribution Width 16.2 % (11.5-14.5); White Blood Count 5.8 K/mm3 (4.5-10.0)
[2023-04-23 07:01] LABS: Blood Urea Nitrogen 36 mg/dL (7-17); Calcium 8.8 mg/dL (8.4-10.2); Carbon Dioxide > 40 mmol/L (22-30); Chloride 97 mmol/L (98-107); Estimated CRCL calculation 55 ml/min; Estimated Glomerular Filt Rate 36; Glucose 127 mg/dL (65-110); Potassium 3.9 mmol/L (3.4-5.0); Sodium 140 mmol/L (137-145)
[2023-04-23 07:02] LABS: Platelet Estimate Adequate (Adequate)
[2023-04-23 07:03] LABS: Anisocytosis 2+ (NORMAL); Hypochromasia 2+ (NORMAL)
[2023-04-23 07:04] LABS: Microcytosis 1+ (NORMAL); Schistocytes None Seen (NORMAL)
[2023-04-23 08:05] LABS: Glucose Point of Care 124 mg/dl (65-105)
[2023-04-23] MEDS: ALBUTEROL SULFATE NEB 2.5 MG/3 ML INH INHALATION ×3 (09:00→20:12)
--- NOTE | 2023-04-23 09:04 | P.PNIM_ITS ---
Progress Note: A&P Assessment and Plan (1) Acute respiratory failure: Code(s): J96.00 - Acute respiratory failure, unspecified whether with hypoxia or hypercapnia Status: Acute Assessment and Plan: The patient presented to the emergency department for evaluation of increasing shortness of breath. Diff Diag: untreated CHASTITY, CHF, PNA, pulm HTN. Patient's weight is up 7.5 kg since last admission. * CXR on admission diffuse patchy bilateral pulmonary infiltrates and CMG. Diffusely edematous * Echo Feb 2023: EF 60-65%, Grade I diastolic dysfunction, Biatrial enlargement, mild valve dz and moderate pHTN. * BNP 980 -> 1530 * Not on O2 at home and not diagnosed with CHASTITY (but positive apnea link in Feb) * Started on Lasix IV 04/15. * She worsened overnight 04/17- with ABG 7.14/105/92 on 15L NRBM; related to increased O2? * She has acute hypoxic and hypercarbic resp failure * ABG better with BiPAP. * Concern for PNA and was on Rocephin/Azithro on admission -> changed to Vanco/Cefepime/Azithro 04/18 * MRSA screen negative. UCx negative. BCx NGTD(drawn after abx started) * I/O -6.4L and UOP 3300mL yesterday * ABG better so now using BiPAP while sleeping. Weaned off O2 briefly but now back on O2 * Monitor volume status, renal function, and electrolytes. * Continue oral Lasix * Completed Azithromycin. Changed to Doxycycline and Augmentin * Pulmonary consulted to help with getting BiPAP at home and appreciate their input (2) Unresponsive: Code(s): R41.89 - Other symptoms and signs involving cognitive functions and awareness Status: Acute Assessment and Plan: Patient was unresponsive. No fevers but became hypothermic. TSH okay. B12 low and on replacement. CT brain showing no acute changes Related to respiratory failure. Resolved (3) Pneumonia: Code(s): J18.9 - Pneumonia, unspecified organism Status: Acute Assessment and Plan: Chest x-ray today showing stable diffuse lung disease * Patient started on azithromycin Rocephin but abx adjusted. * Diffuse lung disease noted last admission on 03/20 but CXR 02/26 showing mild interstital edema * CT chest showing extensive patchy bilateral groundglass opacification and consolidation, consistent with pneumonia. * Consider anti-GBM. Blood work drawn * Continue Albuterol * Discussed with pulmonary (4) Acute on chronic diastolic congestive heart failure: Code(s): I50.33 - Acute on chronic diastolic (congestive) heart failure Status: Acute Assessment and Plan: As above. Concern for CHF exacerbation; possibly right sided failure from her pHTN and from undiagnosed CHASTITY. Echo Feb 2023: EF 60-65%, Grade I diastolic dysfunction, Biatrial enlargement, mild valve dz and moderate pHTN. Continue Lasix Monitor renal function, electrolytes and UOP. (5) Acute on chronic renal failure: Code(s): N17.9 - Acute kidney failure, unspecified; N18.9 - Chronic kidney disease, unspecified Status: Acute Assessment and Plan: Patient with stage 3 chronic kidney disease. Baseline Cr 1.6-2.0. BUN creatinine 40/2.1 on admisison here. * Cr has trended down and now stable at 1.5 range. * Continue to monitor (6) Type 2 diabetes mellitus: Code(s): E11.9 - Type 2 diabetes mellitus without complications Status: Acute Assessment and Plan: A1c 6.8 last month. The patient's blood glucose was reviewed on 04/23 Glucose was low at times requiring intervention but now better. Continue AccuCheks covering with sliding scale. Hypoglycemia pro
[2023-04-23] MEDS: PANTOPRAZOLE SODIUM IV 40 MG VIAL IV PUSH ×2 (09:40→21:38)
--- NOTE | 2023-04-23 09:57 | PM.PNPUL ---
Progress Note: A&P Assessment and Plan (1) Obesity hypoventilation syndrome: Code(s): E66.2 - Morbid (severe) obesity with alveolar hypoventilation Status: Acute Assessment and Plan: Patient is morbidly obese with a BMI of 50.4. She has fluid overload and has diuresed 6.7 L. she states she is breathing at her baseline. Her TSH is normal. The patient has no smoking and no evidence of emphysema on her CT scan. ABG on 3 L on 04/17/2023 7.36/56/69. The patient has obesity hypoventilation syndrome with chronic hypercarbic respiratory failure and would benefit from noninvasive ventilation. The patient has attempted to wear BiPAP but she says the pressure is prevent her from sleeping at night. I changed her to noninvasive ventilator mode with the AVAPS mode rate of 20, tidal volume 500, EPAP 5, minimal inspiratory pressure 6, maximal inspiratory pressure 25, I time of 1.0, rise of 5 and 32% FiO2. She said this was more comfortable believe she could tolerate it tonight. Plan: I will place is a patient on the noninvasive ventilation with the above settings and order an overnight oximetry and blood gas prior to removal to assess oxygenation and ventilation on these settings. I have spoken to the closing coordinator on her will initiate home noninvasive ventilation. Discussed with Dr. Fermin, will follow with you. 04/23/23: Patient wore the hospital noninvasive ventilator with the AVAPS mode : rate of 20, tidal volume 500, EPAP 5, minimal inspiratory pressure 6, maximal inspiratory pressure 25, I time of 1.0, rise of 5 and 32% FiO2. Used an over the mouth under the nose mask. She had an overnight oximetry with recording duration of 7 hours and 43 minutes, average saturation 97%, low saturation 88%. Time with saturation less than or equal to 88% was 0 minutes, oxygen desaturation index was 0.9. Patient had a blood gas prior to removal with a pH of 7.44/53/81. Plan: The above settings provide adequate oxygenation and ventilation. Will continue these settings while she is in the hospital. Discharge plans being made and the patient will need noninvasive ventilation when she is discharged and she should go to a facility that has the capability to use a noninvasive ventilator with the AVAPS AE mode. (2) Fluid overload: Code(s): E87.70 - Fluid overload, unspecified Status: Acute Assessment and Plan: 04/22: Creatinine is 1.5. She has diuresed a total of 6.5 L since admission. Agree with as aggressive diuresis as tolerated by her cardiac and renal systems per hospitalist team. Currently she is on Lasix 40 p.o. b.i.d.. 04/23/23: The patient states that she is breathing normal. She has no wheezing. creatinine is 1.5, admission weight was 140.6 and today's weight is 140.2. Cumulative diuresis since admission is 7.9 L. continue aggressive diuresis per hospitalist team. (3) Pneumonia: Code(s): J18.9 - Pneumonia, unspecified organism Status: Acute Assessment and Plan: Patient was admitted to the hospital on 04/15 and treated for pneumonia with ceftriaxone and azithromycin. Patient deteriorated on 04/18 was changed to cefepime and vanco and continue the azithromycin. On 04/21/2023 the azithromycin was discontinued after 5 days. On 04/22 she was changed to doxycycline and Augmentin. She is afebrile, denies any respiratory complaints and his on 2 L during the day. Chest x-ray today is shows diffuse interstitial infiltrates with no change compared to 04/19/2023. Patient has a CT scan of the chest with diffuse ground-glass infiltrates with no evidence of bullous emphysema, bronchiectasis, honeycombing or reticulations. Plan: I will continue doxycycline and Augmentin at this time. Today is day 8 of total antibiotics. Patient will require a CT scan as an outpatient to follow her diffuse ground-glass patchy infiltrates. Serologies for connective tissue disease and autoimmune disease have been sen
[2023-04-23] MEDS: ASPIRIN 81 MG CHEWABLE TABLET FEED TUBE (10:00)
[2023-04-23] MEDS: GABAPENTIN 300 MG CAPSULE 600 MG FEED TUBE ×2 (10:01→18:48)
[2023-04-23] MEDS: DOXYCYCLINE HYCLATE 100 MG TABLET PO ×2 (10:01→21:37)
[2023-04-23] MEDS: amLODIPine BESYLATE 5 MG TABLET FEED TUBE (10:01)
[2023-04-23] MEDS: AMOXICILLIN/CLAVULANATE K 875-125 MG TAB 1 TABLET PO ×2 (10:02→21:36)
[2023-04-23] MEDS: allopurinoL 100 MG TABLET PO (10:02)
[2023-04-23] MEDS: APIXABAN 5 MG TABLET PO ×2 (10:02→21:36)
[2023-04-23] MEDS: FERROUS SULFATE 325 MG TABLET DR PO ×2 (10:02→18:49)
[2023-04-23] MEDS: polyethylene glycoL 3350 17 GM POWD.PACK PO (10:03)
[2023-04-23] MEDS: FUROSEMIDE 40 MG TABLET PO ×2 (10:03→18:48)
[2023-04-23] MEDS: SILVERGEL (ELTA) 45 ML 1 APPLIC TOPICAL (10:07)
[2023-04-23 11:36] LABS: Glucose Point of Care 155 mg/dl (65-105)
--- NOTE | 2023-04-23 12:01 | PM.CNOR ---
Assessment and Plan Assessment and plan (1) Left humeral fracture: Code(s): S42.302A - Unspecified fracture of shaft of humerus, left arm, initial encounter for closed fracture Status: Acute (2) Comminuted left humeral fracture with nonunion: Code(s): S42.352K - Displaced comminuted fracture of shaft of humerus, left arm, subsequent encounter for fracture with nonunion Status: Acute Assessment and Plan: Patient has a comminuted fracture of the left humerus which is I believe is ununited. It happened 2 months ago in [place]. For some reason she did not seek any treatment and has just been living with it. She has multiple medical problems which makes her not a surgical candidate at this point. To address this she would probably require a prosthesis as a it is ununited at this point.I think it will probably remain ununited. I think if she can be in a sling for comfort she can use her hand wrist and elbow as she can tolerate. She can follow-up at the office when she is medically better. I will review her status at that point. I do not have any x-rays so I have ordered them here. To better evaluate the fracture at this time. On the chest x-rays it appears to be ununited. History of Present Illness HPI Consult date: 04/23/23 Chief complaint: CHF Exacerbation Narrative: Patient presents two-month history of shoulder pain. She fell in [place] 2 months ago. Had a diagnosed fracture but never got treatment. She was placed in a sling and has developed a nonunion. Review of Systems Musculoskeletal: Musculoskeletal: Reports arthralgias and Reports joint swelling PMFSH Past Medical History Medical History Chronic anemia Chronic anticoagulation Chronic kidney disease Depression with anxiety Diastolic congestive heart failure Hyperlipidemia Hypertension Lymphedema Pulmonary embolism (2018) Pulmonary hypertension Type 2 diabetes mellitus Surgical History Surgical History History of cholecystectomy History of hernia repair History of tonsillectomy History of tubal ligation Family History Family History Other Family history unknown Social History Social History Social History: Surrogate medical decision maker: Farhan Avalos (brother). Code status: Full code. Smoking status: Never smoker Second hand tobacco smoke exposure: No Alcohol intake: never Substance use: never Substance use type: does not use Lack of Transportation: No Lack of Food: Never True Current Housing: I Have Housing Concerned About Future Housing: No Difficulty Paying Gas/Electric Bills: No Difficulty Paying for Meds: No Currently Unemployed: No Education: High School Diploma/GED Difficulty w/ Childcare or Family Care: No Spiritual care concerns: No Meds Home Medications and Allergies Home Medications Medication Instructions Recorded Confirmed Type allopurinol 100 mg tablet 100 mg PO DAILY 02/27/23 04/15/23 History amlodipine 5 mg tablet 5 mg PO DAILY 02/27/23 04/15/23 History apixaban 5 mg tablet (Eliquis) 5 mg PO BID 02/27/23 04/15/23 History aspirin 81 mg tablet,delayed 81 mg PO DAILY 02/27/23 04/15/23 History release bupropion HCl 100 mg tablet,12 hr 100 mg PO DAILY 02/27/23 04/15/23 History sustained-release cariprazine 3 mg capsule (Vraylar) 3 mg PO DAILY 02/27/23 04/15/23 History ferrous sulfate 325 mg (65 mg 325 mg PO DAILY 02/27/23 04/15/23 History iron) tablet furosemide 40 mg tablet 80 mg PO DAILY 02/27/23 04/15/23 History gabapentin 600 mg tablet 600 mg PO BID 02/27/23 04/15/23 History glimepiride 2 mg tablet 2 mg PO BID 02/27/23 04/15/23 History tamsulosin 0.4 mg capsule 0.4 mg PO HS 02/27/23 04/15/23 History blood sugar diagnost
[2023-04-23 16:49] LABS: Glucose Point of Care 168 mg/dl (65-105)
--- NOTE | 2023-04-23 19:14 | PC.NURSE ---
On 04/23/23, the MALARIOLOGIST Claribel Hilario, provided care and completed [facility] documentation on this patient. I have reviewed the MALARIOLOGIST's documentation and agree with the findings.
[2023-04-23 21:12] LABS: Glucose Point of Care 219 mg/dl (65-105)
[2023-04-23] MEDS: TAMSULOSIN HCL 0.4 MG CAPSULE PO (21:36)
[2023-04-23] MEDS: ATORVASTATIN 40 MG TABLET FEED TUBE (21:36)
[2023-04-23] MEDS: INSULIN ASPART (*BKC) 100 UNITS/ML SUB-Q (21:37)
[2023-04-24] VITALS (8 sets, daily range): BP systolic 118–160; BP diastolic 54–73; PULSE 65–79; RESP 18–22; TEMP 35.7–36.4; O2SAT 94–98
[2023-04-24] MEDS: ALBUTEROL SULFATE NEB 2.5 MG/3 ML INH INHALATION (02:03)
[2023-04-24 04:40] LABS: Alveolar/Arterial O2 Gradient 100.8 mmHg; Base Excess ABG 14.3 mEq/l (+/-2.0); Fractional Inspired Oxygen 32 %; HCO3 ABG 40.1 mEq/l (22.0-26.0); Oxygen Content ABG 10.2 %vol (16.0-22.0); Oxygen Saturation ABG 90.1 % (95.0-100.0); Oxyhemoglobin 88.3 % THb (90.0-100.0); PCO2 ABG 59.7 mmHg (35.0-45.0); PO2 ABG 57.5 mmHg (80.0-100.0); Total Hemoglobin 8.2 g/dL (12.0-18.0); pH ABG 7.445 (7.350-7.450)
[2023-04-24 04:41] LABS: Device NON-INVASIVE VENT; Site Drawn RIGHT BRACHIAL
[2023-04-24 04:42] LABS: Non-Invasive Expiratory Pressure 4 CMH2O; Non-Invasive Inspiratory Pressure 18 CMH2O; Non-Invasive Vent Rate 20 /MIN
[2023-04-24 07:57] LABS: Glucose Point of Care 129 mg/dl (65-105)
[2023-04-24] MEDS: ASPIRIN 81 MG CHEWABLE TABLET FEED TUBE (09:43)
[2023-04-24] MEDS: allopurinoL 100 MG TABLET PO (09:43)
[2023-04-24] MEDS: FERROUS SULFATE 325 MG TABLET DR PO ×2 (09:44→16:29)
[2023-04-24] MEDS: amLODIPine BESYLATE 5 MG TABLET FEED TUBE (09:44)
[2023-04-24] MEDS: GABAPENTIN 300 MG CAPSULE 600 MG FEED TUBE ×2 (09:44→16:30)
[2023-04-24] MEDS: APIXABAN 5 MG TABLET PO ×2 (09:44→20:32)
[2023-04-24] MEDS: PANTOPRAZOLE SODIUM IV 40 MG VIAL IV PUSH ×2 (09:44→20:34)
[2023-04-24] MEDS: AMOXICILLIN/CLAVULANATE K 875-125 MG TAB 1 TABLET PO ×2 (09:44→20:32)
[2023-04-24] MEDS: polyethylene glycoL 3350 17 GM POWD.PACK PO (09:44)
[2023-04-24] MEDS: FUROSEMIDE 40 MG TABLET PO ×2 (09:44→16:29)
[2023-04-24] MEDS: DOXYCYCLINE HYCLATE 100 MG TABLET PO ×2 (09:44→20:32)
[2023-04-24] MEDS: SILVERGEL (ELTA) 45 ML 1 APPLIC TOPICAL (09:45)
--- NOTE | 2023-04-24 09:51 | PCNWS ---
Weekly nutritional screen. Patient is tolerating current diet with adequate intake. No weight loss reported. No nutritional needs at this time.
[2023-04-24 11:54] LABS: Glucose Point of Care 152 mg/dl (65-105)
--- NOTE | 2023-04-24 12:18 | PM.PNPUL ---
Progress Note: A&P Assessment and Plan (1) Obesity hypoventilation syndrome: Code(s): E66.2 - Morbid (severe) obesity with alveolar hypoventilation Status: Acute Assessment and Plan: Patient is morbidly obese with a BMI of 50.4. She has fluid overload and has diuresed 6.7 L. she states she is breathing at her baseline. Her TSH is normal. The patient has no smoking and no evidence of emphysema on her CT scan. ABG on 3 L on 04/17/2023 7.36/56/69. The patient has obesity hypoventilation syndrome with chronic hypercarbic respiratory failure and would benefit from noninvasive ventilation. The patient has attempted to wear BiPAP but she says the pressure is prevent her from sleeping at night. I changed her to noninvasive ventilator mode with the AVAPS mode rate of 20, tidal volume 500, EPAP 5, minimal inspiratory pressure 6, maximal inspiratory pressure 25, I time of 1.0, rise of 5 and 32% FiO2. She said this was more comfortable believe she could tolerate it tonight. Plan: I will place is a patient on the noninvasive ventilation with the above settings and order an overnight oximetry and blood gas prior to removal to assess oxygenation and ventilation on these settings. I have spoken to the credentialing coordinator on her will initiate home noninvasive ventilation. Discussed with Dr. Fermin, will follow with you. 04/23/23: Patient wore the hospital noninvasive ventilator with the AVAPS mode : rate of 20, tidal volume 500, EPAP 5, minimal inspiratory pressure 6, maximal inspiratory pressure 25, I time of 1.0, rise of 5 and 32% FiO2. Used an over the mouth under the nose mask. She had an overnight oximetry with recording duration of 7 hours and 43 minutes, average saturation 97%, low saturation 88%. Time with saturation less than or equal to 88% was 0 minutes, oxygen desaturation index was 0.9. Patient had a blood gas prior to removal with a pH of 7.44/53/81. Plan: The above settings provide adequate oxygenation and ventilation. Will continue these settings while she is in the hospital. Discharge plans being made and the patient will need noninvasive ventilation when she is discharged and she should go to a facility that has the capability to use a noninvasive ventilator with the AVAPS AE mode. Later in the day informed that she will go to a facility that can not apply noninvasive ventilation with the AVAPS mode. 04/24/23: Patient wore the hospital BiPAP last night was set rate of 20, pressures 18/4 and 32% FiO2. She said she did well with the mask. Overnight oximetry on these studies was not performed. ABG prior to removal of these settings was 7.45/60/58. The patient told me she could tolerate more pressure. Plan: The above settings do not provide adequate ventilation I will increase her IPAP to 22, continue EPAP at 4 and 32% FiO2. I will perform an overnight oximetry and blood gas prior to removal of the settings. (2) Fluid overload: Code(s): E87.70 - Fluid overload, unspecified Status: Acute Assessment and Plan: 04/22: Creatinine is 1.5. She has diuresed a total of 6.5 L since admission. Agree with as aggressive diuresis as tolerated by her cardiac and renal systems per hospitalist team. Currently she is on Lasix 40 p.o. b.i.d.. 04/23/23: The patient states that she is breathing normal. She has no wheezing. creatinine is 1.5, admission weight was 140.6 and today's weight is 140.2. Cumulative diuresis since admission is 7.9 L. continue aggressive diuresis per hospitalist team. 04/24/23: She states her breathing is normal and has no wheezing. Patient is on Lasix 40 p.o. b.i.d. with net cumulative diuresis 10.2 L since admission on Lasix 40 p.o. b.i.d.. (3) Pneumonia: Code(s): J18.9 - Pneumonia, unspecified organism Status: Acute Assessment and Plan: Patient was admitted to the hospital on 04/15 and treated for pneumonia with ceftriaxone and azithromycin. Patient deter
[2023-04-24 16:52] LABS: Glucose Point of Care 151 mg/dl (65-105)
[2023-04-24] MEDS: ATORVASTATIN 40 MG TABLET FEED TUBE (20:32)
[2023-04-24] MEDS: TAMSULOSIN HCL 0.4 MG CAPSULE PO (20:34)
[2023-04-24 21:06] LABS: Glucose Point of Care 165 mg/dl (65-105)
[2023-04-25 03:20] VITALS: PULSE 83; RESP 21; O2SAT 97
[2023-04-25 04:43] LABS: Alveolar/Arterial O2 Gradient 64.4 mmHg; Base Excess ABG 19.3 mEq/l (+/-2.0); Fractional Inspired Oxygen 31 %; HCO3 ABG 44.9 mEq/l (22.0-26.0); Oxygen Content ABG 11.1 %vol (16.0-22.0); Oxygen Saturation ABG 96.7 % (95.0-100.0); Oxyhemoglobin 95.1 % THb (90.0-100.0); PO2 ABG 84.8 mmHg (80.0-100.0); PO2 FiO2 Ratio Arterial Blood 2.74 %; Total Hemoglobin 8.2 g/dL (12.0-18.0); pH ABG 7.483 (7.350-7.450)
[2023-04-25 04:47] LABS: Device NON-INVASIVE VENT; Modified Allen's Test Pass; PCO2 ABG 61.3 mmHg (35.0-45.0); Site Drawn LEFT RADIAL
[2023-04-25 04:48] LABS: Non-Invasive Expiratory Pressure 4 CMH2O; Non-Invasive Inspiratory Pressure 22 CMH2O; Non-Invasive Vent Rate 20 /MIN
[2023-04-25 06:47] VITALS: BP 124/69; PULSE 57; RESP 20; TEMP 35.7; O2SAT 98
[2023-04-25 07:46] LABS: Glucose Point of Care 115 mg/dl (65-105)
[2023-04-25 08:30] VITALS: O2SAT 93
[2023-04-25] MEDS: allopurinoL 100 MG TABLET PO (08:32)
[2023-04-25] MEDS: ASPIRIN 81 MG CHEWABLE TABLET FEED TUBE (08:32)
[2023-04-25] MEDS: amLODIPine BESYLATE 5 MG TABLET FEED TUBE (08:32)
[2023-04-25] MEDS: GABAPENTIN 300 MG CAPSULE 600 MG FEED TUBE ×2 (08:33→16:23)
[2023-04-25] MEDS: FERROUS SULFATE 325 MG TABLET DR PO ×2 (08:33→16:23)
[2023-04-25] MEDS: FUROSEMIDE 40 MG TABLET PO ×2 (08:33→16:22)
[2023-04-25] MEDS: AMOXICILLIN/CLAVULANATE K 875-125 MG TAB 1 TABLET PO (08:33)
[2023-04-25] MEDS: DOXYCYCLINE HYCLATE 100 MG TABLET PO (08:33)
[2023-04-25] MEDS: APIXABAN 5 MG TABLET PO (08:33)
[2023-04-25] MEDS: SILVERGEL (ELTA) 45 ML 1 APPLIC TOPICAL (08:34)
[2023-04-25] MEDS: polyethylene glycoL 3350 17 GM POWD.PACK PO (08:34)
[2023-04-25] MEDS: PANTOPRAZOLE SODIUM IV 40 MG VIAL IV PUSH (08:34)
[2023-04-25] MEDS: CYANOCOBALAMIN INJ 1,000 MCG/ML VIAL 1000 MCG IM (08:47)
[2023-04-25 08:56] LABS: Myeloperoxidase Ab <1.0 AI (<1.0)
--- NOTE | 2023-04-25 09:35 | PM.PNPUL ---
Progress Note: A&P Assessment and Plan (1) Obesity hypoventilation syndrome: Code(s): E66.2 - Morbid (severe) obesity with alveolar hypoventilation Status: Acute Assessment and Plan: Patient is morbidly obese with a BMI of 50.4. She has fluid overload and has diuresed 6.7 L. she states she is breathing at her baseline. Her TSH is normal. The patient has no smoking and no evidence of emphysema on her CT scan. ABG on 3 L on 04/17/2023 7.36/56/69. The patient has obesity hypoventilation syndrome with chronic hypercarbic respiratory failure and would benefit from noninvasive ventilation. The patient has attempted to wear BiPAP but she says the pressure is prevent her from sleeping at night. I changed her to noninvasive ventilator mode with the AVAPS mode rate of 20, tidal volume 500, EPAP 5, minimal inspiratory pressure 6, maximal inspiratory pressure 25, I time of 1.0, rise of 5 and 32% FiO2. She said this was more comfortable believe she could tolerate it tonight. Plan: I will place is a patient on the noninvasive ventilation with the above settings and order an overnight oximetry and blood gas prior to removal to assess oxygenation and ventilation on these settings. I have spoken to the shipping coordinator on her will initiate home noninvasive ventilation. Discussed with Dr. Fermin, will follow with you. 04/23/23: Patient wore the hospital noninvasive ventilator with the AVAPS mode : rate of 20, tidal volume 500, EPAP 5, minimal inspiratory pressure 6, maximal inspiratory pressure 25, I time of 1.0, rise of 5 and 32% FiO2. Used an over the mouth under the nose mask. She had an overnight oximetry with recording duration of 7 hours and 43 minutes, average saturation 97%, low saturation 88%. Time with saturation less than or equal to 88% was 0 minutes, oxygen desaturation index was 0.9. Patient had a blood gas prior to removal with a pH of 7.44/53/81. Plan: The above settings provide adequate oxygenation and ventilation. Will continue these settings while she is in the hospital. Discharge plans being made and the patient will need noninvasive ventilation when she is discharged and she should go to a facility that has the capability to use a noninvasive ventilator with the AVAPS AE mode. Later in the day informed that she will go to a facility that can not apply noninvasive ventilation with the AVAPS mode. 04/24/23: Patient wore the hospital BiPAP last night was set rate of 20, pressures 18/4 and 32% FiO2. She said she did well with the mask. Overnight oximetry on these studies was not performed. ABG prior to removal of these settings was 7.45/60/58. The patient told me she could tolerate more pressure. Plan: The above settings do not provide adequate ventilation I will increase her IPAP to 22, continue EPAP at 4 and 32% FiO2. I will perform an overnight oximetry and blood gas prior to removal of the settings. 04/25 patient continues to improve she was out of bed yesterday. Patient states she has no breathing issues at rest and got to the chair yesterday without any dyspnea on exertion. She has no wheezing on exam. Patient wore the hospital BiPAP with a rate of 20, 22/4 and 32% FiO2. Overnight oximetry on these studies with recording time of 6 hours and 18 minutes, average saturation 94, low saturation 86, time with saturation less than or equal to 88% was 0 minutes. Oxygen desaturation was index was 0.7. Patient had an ABG on these settings with a pH of 7.48/61/85. Chest x-ray today demonstrates diffuse interstitial alveolar infiltrates with no change from 04/22. Cumulative diuresis since admission is -12.7 L. Patient weighs 137 kilos today. Plan: 32% FiO2 provides adequate oxygenation. paCO2 was marginally higher on a increased EPAP and will discharge the patient on BiPAP rate of 20, EPAP 4, IPAP 18, 3 L bleed in. Patient should wear and over the mouth under the nose mask until her nose fully heals and at that time
[2023-04-25 11:49] LABS: Glucose Point of Care 155 mg/dl (65-105)
[2023-04-25 11:51] LABS: Anti Glomerular Basement Memb <1.0 AI (<1.0)
--- NOTE | 2023-04-25 12:33 | P.DS_ITS ---
DS: Admitting Diagnosis Discharge Date 04/25/23 Admitting Diagnosis sob DS: Discharge Diagnosis Discharge Diagnosis (1) Acute respiratory failure: Code(s): J96.00 - Acute respiratory failure, unspecified whether with hypoxia or hypercapnia Status: Acute Assessment and Plan: The patient presented to the emergency department for evaluation of increasing shortness of breath. Diff Diag: untreated CHASTITY, CHF, PNA, pulm HTN. Patient's weight is up 7.5 kg since last admission. * CXR on admission diffuse patchy bilateral pulmonary infiltrates and CMG. Diffusely edematous * Echo Feb 2023: EF 60-65%, Grade I diastolic dysfunction, Biatrial enlargement, mild valve dz and moderate pHTN. * BNP 980 -> 1530 * Not on O2 at home and not diagnosed with CHASTITY (but positive apnea link in Feb) * Started on Lasix IV 04/15. * She worsened overnight 04/17- with ABG 7.14/105/92 on 15L NRBM; related to increased O2? * She has acute hypoxic and hypercarbic resp failure * ABG better with BiPAP. * Concern for PNA and was on Rocephin/Azithro on admission -> changed to Vanco/Cefepime/Azithro 04/18 * MRSA screen negative. UCx negative. BCx NGTD(drawn after abx started) * I/O -6.4L and UOP 3300mL yesterday * ABG better so now using BiPAP while sleeping. Weaned off O2 briefly but now back on O2 * Monitor volume status, renal function, and electrolytes. * Continue oral Lasix * Completed Azithromycin. Changed to Doxycycline and Augmentin * Pulmonary consulted to help with getting BiPAP at home and appreciate their input (2) Unresponsive: Code(s): R41.89 - Other symptoms and signs involving cognitive functions and awareness Status: Acute Assessment and Plan: Patient was unresponsive. No fevers but became hypothermic. TSH okay. B12 low and on replacement. CT brain showing no acute changes Related to respiratory failure. Resolved (3) Pneumonia: Code(s): J18.9 - Pneumonia, unspecified organism Status: Acute Assessment and Plan: Chest x-ray today showing stable diffuse lung disease * Patient started on azithromycin Rocephin but abx adjusted. * Diffuse lung disease noted last admission on 03/20 but CXR 02/26 showing mild interstital edema * CT chest showing extensive patchy bilateral groundglass opacification and consolidation, consistent with pneumonia. * Consider anti-GBM. Blood work drawn * Continue Albuterol * Discussed with pulmonary (4) Acute on chronic diastolic congestive heart failure: Code(s): I50.33 - Acute on chronic diastolic (congestive) heart failure Status: Acute Assessment and Plan: As above. Concern for CHF exacerbation; possibly right sided failure from her pHTN and from undiagnosed CHASTITY. Echo Feb 2023: EF 60-65%, Grade I diastolic dysfunction, Biatrial enlargement, mild valve dz and moderate pHTN. Continue Lasix Monitor renal function, electrolytes and UOP. (5) Acute on chronic renal failure: Code(s): N17.9 - Acute kidney failure, unspecified; N18.9 - Chronic kidney disease, unspecified Status: Acute Assessment and Plan: Patient with stage 3 chronic kidney disease. Baseline Cr 1.6-2.0. BUN creatinine 40/2.1 on admisison here. * Cr has trended down and now stable at 1.5 range. * Continue to monitor (6) Type 2 diabetes mellitus: Code(s): E11.9 - Type 2 diabetes mellitus without complications Status: Acute Assessment and Plan: A1c 6.8 last month. The patient's blood glucose was reviewed on 04/25 Glucose was low at times req
--- NOTE | 2023-04-25 12:33 | PM.DS ---
DS: Admitting Diagnosis Discharge Date 04/25/23 Admitting Diagnosis sob DS: Discharge Diagnosis Discharge Diagnosis (1) Acute respiratory failure: Code(s): J96.00 - Acute respiratory failure, unspecified whether with hypoxia or hypercapnia Status: Acute Assessment and Plan: The patient presented to the emergency department for evaluation of increasing shortness of breath. Diff Diag: untreated CHASTITY, CHF, PNA, pulm HTN. Patient's weight is up 7.5 kg since last admission. CXR on admission diffuse patchy bilateral pulmonary infiltrates and CMG. Diffusely edematous Echo Feb 2023: EF 60-65%, Grade I diastolic dysfunction, Biatrial enlargement, mild valve dz and moderate pHTN. BNP 980 -> 1530 Not on O2 at home and not diagnosed with CHASTITY (but positive apnea link in Feb) Started on Lasix IV 04/15. She worsened overnight 04/17- with ABG 7.14/105/92 on 15L NRBM; related to increased O2? She has acute hypoxic and hypercarbic resp failure ABG better with BiPAP. Concern for PNA and was on Rocephin/Azithro on admission -> changed to Vanco/Cefepime/Azithro 04/18 MRSA screen negative. UCx negative. BCx NGTD(drawn after abx started) I/O -6.4L and UOP 3300mL yesterday ABG better so now using BiPAP while sleeping. Weaned off O2 briefly but now back on O2 Monitor volume status, renal function, and electrolytes. Continue oral Lasix Completed Azithromycin. Changed to Doxycycline and Augmentin Pulmonary consulted to help with getting BiPAP at home and appreciate their input (2) Unresponsive: Code(s): R41.89 - Other symptoms and signs involving cognitive functions and awareness Status: Acute Assessment and Plan: Patient was unresponsive. No fevers but became hypothermic. TSH okay. B12 low and on replacement. CT brain showing no acute changes Related to respiratory failure. Resolved (3) Pneumonia: Code(s): J18.9 - Pneumonia, unspecified organism Status: Acute Assessment and Plan: Chest x-ray today showing stable diffuse lung disease Patient started on azithromycin Rocephin but abx adjusted. Diffuse lung disease noted last admission on 03/20 but CXR 02/26 showing mild interstital edema CT chest showing extensive patchy bilateral groundglass opacification and consolidation, consistent with pneumonia. Consider anti-GBM. Blood work drawn Continue Albuterol Discussed with pulmonary (4) Acute on chronic diastolic congestive heart failure: Code(s): I50.33 - Acute on chronic diastolic (congestive) heart failure Status: Acute Assessment and Plan: As above. Concern for CHF exacerbation; possibly right sided failure from her pHTN and from undiagnosed CHASTITY. Echo Feb 2023: EF 60-65%, Grade I diastolic dysfunction, Biatrial enlargement, mild valve dz and moderate pHTN. Continue Lasix Monitor renal function, electrolytes and UOP. (5) Acute on chronic renal failure: Code(s): N17.9 - Acute kidney failure, unspecified; N18.9 - Chronic kidney disease, unspecified Status: Acute Assessment and Plan: Patient with stage 3 chronic kidney disease. Baseline Cr 1.6-2.0. BUN creatinine 40/2.1 on admisison here. Cr has trended down and now stable at 1.5 range. Continue to monitor (6) Type 2 diabetes mellitus: Code(s): E11.9 - Type 2 diabetes mellitus without complications Status: Acute Assessment and Plan: A1c 6.8 last month. The patient's blood glucose was reviewed on 04/25 Glucose was low at times requiring intervention but now better. Continue AccuCheks covering with sliding scale. Hypoglycemia protocol available as needed. 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 Continue Eliquis (8) Lymphedema: Code(s): I89.0 - Lymp
[2023-04-25 13:14] LABS: Alanine Aminotransferase 60 U/L (6-35); Albumin Level 3.2 g/dL (3.5-5.1); Alkaline Phosphatase 101 U/L (38-126); Aspartate Amino Transferase 43 U/L (14-36); Bilirubin,Total 0.6 mg/dL (0.2-1.3); Blood Urea Nitrogen 38 mg/dL (7-17); Calcium 9.2 mg/dL (8.4-10.2); Carbon Dioxide > 40 mmol/L (22-30); Chloride 93 mmol/L (98-107); Estimated CRCL calculation 67 ml/min; Estimated Glomerular Filt Rate 46; Glucose 175 mg/dL (65-110); Potassium 4.4 mmol/L (3.4-5.0); Sodium 138 mmol/L (137-145)
[2023-04-25 14:00] VITALS: BP 136/55; PULSE 67; RESP 20; TEMP 36.2; O2SAT 95
[2023-04-25 14:21] LABS: SARS-CoV-2 RNA PCR Negative (Negative)
[2023-04-25 14:24] LABS: Hepatitis B Core Ab Total Nonreactive (Nonreactive)
[2023-04-25 14:45] LABS: Basophils Percent Auto 0.5 % (0.2-1.2); Eosinophils Absolute Auto 0.4 K/mm3 (0-0.3); Eosinophils Percent Auto 6.7 % (0-4.4); Hematocrit 29.1 % (37.0-47.0); Hemoglobin 8.2 g/dL (12.0-15.0); Immature Granulocyte Absolute 0.03 K/mm3 (0.00-0.031); Immature Granulocyte Percent A 0.5 % (0-0.5); Lymphocytes Absolute Auto 0.76 K/mm3 (0.9-3.2); Lymphocytes Percent Auto 13.5 % (18.3-44.2); Mean Corpuscular HGB Conc 28.2 g/dl (32-36); Mean Corpuscular Hemoglobin 27.5 pg (26-34); Mean Corpuscular Volume 97.7 fl (80-100); Mean Platelet Volume 10.3 fl (7.4-10.4); Monocytes Absolute Auto 0.4 K/mm3 (0.1-0.6); Monocytes Percent Auto 6.7 % (2.6-8.5); Neutrophils Absolute Auto 4.1 K/mm3 (1.3-6.7); Neutrophils Percent Auto 72.1 % (45.5-73.1); Platelet Count Result 268 k/mm3 (150-375); Red Blood Count 2.98 M/mm3 (4.2-5.4); Red Cell Distribution Width 15.9 % (11.5-14.5); White Blood Count 5.6 K/mm3 (4.5-10.0)
[2023-04-25 15:30] LABS: Platelet Estimate Adequate (Adequate)
[2023-04-25 15:31] LABS: Hypochromasia 1+ (NORMAL); Schistocytes None Seen (NORMAL)
[2023-04-25 15:32] LABS: Anisocytosis 1+ (NORMAL)
[2023-04-25 16:32] LABS: Glucose Point of Care 169 mg/dl (65-105)
[2023-04-25 23:14] LABS: ANCA Screen Negative (Negative)
[2023-04-26 21:14] LABS: Anti Cyclic Citrullinated Pept <16 Units (<20)
[2023-04-27 03:16] LABS: Adenovirus DNA Not Detected (Not Detected); Chlamydophila pneumoniae Not Detected (Not Detected); Coronavirus 229E Not Detected (Not Detected); Coronavirus HKU1 Not Detected (Not Detected); Coronavirus NL63 Not Detected (Not Detected); Coronavirus OC43 Not Detected (Not Detected); Human Metapneumovirus Not Detected (Not Detected); Human Parainfluenza Virus 1 Not Detected (Not Detected); Human Parainfluenza Virus 2 Not Detected (Not Detected); Human Parainfluenza Virus 3 Not Detected (Not Detected); Human Parainfluenza Virus 4 Not Detected (Not Detected); Human RSV B Not Detected (Not Detected); Influenza A Not Detected (Not Detected); Influenza B Not Detected (Not Detected); Mycoplasma pneumoniae Not Detected (Not Detected); Rhinovirus/Enterovirus Not Detected (Not Detected)
[2023-04-27 05:14] LABS: Hexagonal Phase Confirm Positive (Negative); Lupus dRVVT Confirmation Negative (Negative)
[2023-04-27 05:48] LABS: Lupus dRVVT Screen 51 sec (<=45); PTT-LA Screen 54 sec (<=40)
[2023-04-28 05:00] LABS: Anti Cyclic Citrullinated Pept <16 Units (<20)
[2023-04-28 19:18] LABS: Cryoglobulin, QL Negative (Negative)
[2023-04-28 21:57] LABS: Aldolase 3.8 U/L (<=8.1)
[2023-05-02 18:47] LABS: JO-1 AB <11 SI (<11); MI-2 Alpha Ab <11 SI (<11); MI-2 Beta Ab <11 SI (<11); NXP-2 AB <11 SI (<11); TIF1 Gamma Ab <11 SI (<11)
== END 2023-04-25 17:48 | DRG 133 ==
LOC: ANHED 19:09 → ANH3MEDSUR 22:37 → ANHICU 04-18 02:33 → ANHIMU 04-18 21:56 → ANH3MEDSUR 04-21 17:39
PROVIDERS: Emergency Medicine; Internal Medicine; Internal Medicine Critical Care Medicine; Internal Medicine Pulmonary Disease; Student in an Organized Health Care Education/Training Program; Admitting Provider Internal Medicine; Emergency Provider Emergency Medicine; Visit Provider Student in an Organized Health Care Education/Training Program
DX: J96.02 Acute respiratory failure with hypercapnia (principal); I50.33 Acute on chronic diastolic (congestive) heart failure; I27.20 Pulmonary hypertension, unspecified; E11.649 Type 2 diabetes mellitus with hypoglycemia without coma; J18.9 Pneumonia, unspecified organism; N17.9 Acute kidney failure, unspecified; I13.0 Hypertensive heart and chronic kidney disease with heart failure and stage 1 through stage 4 chronic kidney disease, or unspecified chronic kidney disease; E66.2 Morbid (severe) obesity with alveolar hypoventilation; L97.419 Non-pressure chronic ulcer of right heel and midfoot with unspecified severity; L97.429 Non-pressure chronic ulcer of left heel and midfoot with unspecified severity; E11.621 Type 2 diabetes mellitus with foot ulcer; E11.22 Type 2 diabetes mellitus with diabetic chronic kidney disease; N18.30 Chronic kidney disease, stage 3 unspecified; E78.5 Hyperlipidemia, unspecified; F32.A Depression, unspecified; R41.89 Other symptoms and signs involving cognitive functions and awareness; I89.0 Lymphedema, not elsewhere classified; F41.9 Anxiety disorder, unspecified; Z20.822 Contact with and (suspected) exposure to COVID-19; Z79.01 Long term (current) use of anticoagulants; Z11.52 Encounter for screening for COVID-19; Z86.711 Personal history of pulmonary embolism; Z79.82 Long term (current) use of aspirin; Z68.43 Body mass index [BMI] 50.0-59.9, adult; D50.9 Iron deficiency anemia, unspecified; S42.302K Unspecified fracture of shaft of humerus, left arm, subsequent encounter for fracture with nonunion; W19.XXXD Unspecified fall, subsequent encounter
CPT/HCPCS: 36415; 36430; 36600; 70450; 71045; 71250; 73030; 76705; 80048; 80053; 80074; 80202; 81001; 82085; 82104; 82375; 82595; 82607; 82728; 82746; 82805; 82948; 83050; 83520; 83540; 83550; 83605; 83690; 83735; 83880; 84100; 84182; 84443; 84466; 84484; 85014; 85018; 85025; 85027; 85597; 85598; 85610; 85613; 85670; 85730; 86036; 86038; 86146; 86160; 86200; 86225; 86331; 86430; 86606; 86609; 86703; 86704; 86706; 86803; 86850; 86900; 86901; 86923; 87040; 87086; 87340; 87633; 87635; 87636; 87637; 87641; 92610; 93005; 94002; 94003; 94640; 94660; 96365; 96367; 96374; 96375; 96376; 97110; 97161; 97166; 97530; 99285; A4565; A9270; C9113; G0378; G0379; G0432; J0456; J0692; J0696; J1815; J1940; J2270; J2405; J3370; J3420; J7042; J7050; J7060; J7070; P9016; P9047

== ENCOUNTER 2023-04-27 11:00 | Emergency (ER) | payer MEDICAID, SELFPAY ==
[2023-04-27] VITALS (18 sets, daily range): BP systolic 100–135; BP diastolic 44–68; PULSE 62–71; RESP 12–21; TEMP 36.4–36.7; O2SAT 98–100
--- NOTE | ~2023-04-27 | US_ITS ---
EXAMINATION: US venous doppler UE DATE: 04/27/2023 14:34 INDICATION: Unilateral left upper limb swelling post recent humeral fracture TECHNIQUE: Grayscale images without and with compression and Doppler images of the right upper extrem ity veins were obtained. COMPARISON: None. FINDINGS: The right internal jugular vein, subclavian vein, axillary vein, brachial vein, basilic vein and ceph alic vein are patent. The contralateral left internal jugular vein is also patent. IMPRESSION: 1. Patent right upper extremity veins. No evidence of venous thrombosis. Reviewed, dictated and finalized at location A. ENT FINANCIAL REPRESENTATIVE
--- NOTE | 2023-04-27 12:00 | ED.SKABFB ---
HPI - Skin/Abscess/Foreign Bdy General Chief complaint: Skin/Abscess/Foreign Body Stated complaint: LUE pain/swelling Time Seen by Provider: 04/27/23 11:15 Source: patient History of Present Illness HPI narrative: This is a 58 year old female who presents with left upper extremity swelling noticed starting today. Patient recently sustained a left humeral fracture after a fall while in the [place] It was deemed non-operable but she has been [facility] a [facility] for the past few days as a result for PT/range of motion/strengthening exercises. She states she awoke today with pain and swelling throughout the entire left arm. She denies any paresthesias. Related Data Home Medications Medication Instructions Recorded Confirmed allopurinol 100 mg tablet 100 mg PO DAILY 02/27/23 04/15/23 amlodipine 5 mg tablet 5 mg PO DAILY 02/27/23 04/15/23 apixaban 5 mg tablet (Eliquis) 5 mg PO BID 02/27/23 04/15/23 aspirin 81 mg tablet,delayed 81 mg PO DAILY 02/27/23 04/15/23 release bupropion HCl 100 mg tablet,12 hr 100 mg PO DAILY 02/27/23 04/15/23 sustained-release cariprazine 3 mg capsule (Vraylar) 3 mg PO DAILY 02/27/23 04/15/23 ferrous sulfate 325 mg (65 mg 325 mg PO DAILY 02/27/23 04/15/23 iron) tablet furosemide 40 mg tablet 80 mg PO DAILY 02/27/23 04/15/23 gabapentin 600 mg tablet 600 mg PO BID 02/27/23 04/15/23 glimepiride 2 mg tablet 2 mg PO BID 02/27/23 04/15/23 tamsulosin 0.4 mg capsule 0.4 mg PO HS 02/27/23 04/15/23 atorvastatin 40 mg tablet 40 mg PO HS 04/15/23 04/15/23 ergocalciferol (vitamin D2) 1,250 1,250 mcg PO WEEKLY 04/15/23 04/16/23 mcg (50,000 unit) capsule (Vitamin D2) Allergies Allergy/AdvReac Type Severity Reaction Status Date / Time No Known Allergies Allergy Verified 02/27/23 00:38 [facility] Past Medical History Medical History Chronic anemia Chronic anticoagulation Chronic kidney disease Comminuted left humeral fracture with nonunion Depression with anxiety Diastolic congestive heart failure Hyperlipidemia Hypertension Lymphedema Pulmonary embolism (2018) Pulmonary hypertension Type 2 diabetes mellitus Surgical History Surgical History History of cholecystectomy History of hernia repair History of tonsillectomy History of tubal ligation Family History Family History Other Family history unknown Social History Social History Social History: 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 Code status: Full code. Smoking status: Never smoker Second hand tobacco smoke exposure: No Alcohol intake: never Substance use: never Substance use type: does not use Lack of Transportation: No Lack of Food: Never True Current Housing: I Have Housing Concerned About Future Housing: No Difficulty Paying Gas/Electric Bills: No Difficulty Paying for Meds: No Currently Unemployed: No Education: High School Diploma/GED Difficulty w/ Childcare or Family Care: No Spiritual care concerns: No Exam Const: General: no acute distress; No confusion or diaphoretic Nutritional Appearance: obese Other: hirsuit HENMT: Head: normal to inspection Other: gross auditory acuity intact Neck: Other: supple Resp: Effort & Inspection: normal respiratory effort, not labored and not tachypneic Cardio: Rate: regular rate Rhythm: regular rhythm Other: palpable radial pulse left upper extremity. Capillary refill throughout left hand fingers GI: Inspection: distended GI Palp: Yes Soft to palpation and No Tenderness to palpation present (GI) Skin: General skin exam: normal color and no jaundice Other: scattered ecchymoses across bi
[2023-04-27] MEDS: HYDROcodone/acetaminophen (*CRX) 5-325 MG TABLET 1 TAB PO (14:30)
--- NOTE | 2023-04-27 17:34 | PC.NURSE ---
transported back to [place] at this time by
== END 2023-04-27 17:36 ==
PROVIDERS: Emergency Provider Student in an Organized Health Care Education/Training Program
DX: S42.302S Unspecified fracture of shaft of humerus, left arm, sequela (principal); R60.0 Localized edema; E78.5 Hyperlipidemia, unspecified; I13.0 Hypertensive heart and chronic kidney disease with heart failure and stage 1 through stage 4 chronic kidney disease, or unspecified chronic kidney disease; E11.22 Type 2 diabetes mellitus with diabetic chronic kidney disease; N18.9 Chronic kidney disease, unspecified; I50.30 Unspecified diastolic (congestive) heart failure; W19.XXXA Unspecified fall, initial encounter
CPT/HCPCS: 93971; 99284; A9270

== ENCOUNTER 2023-04-28 15:37 | Inpatient (IN) | payer MEDICAID, SELFPAY ==
[2023-04-28] VITALS (9 sets, daily range): BP systolic 112–125; BP diastolic 47–62; PULSE 69–80; RESP 18–20; TEMP 36.8; O2SAT 95–98; BMI 47.7
--- NOTE | ~2023-04-28 | XR_ITS ---
EXAMINATION: XR chest 1V portable Exam Date/Time: 04/28/2023 16:14 MANAGER SAP HISTORY: dysnpea, COUGHING UP BLOOD, FEVER Comparison: 04/25/2023; CT chest 04/21/2023. RESULT: Lines, tubes, and devices: None. Lungs and pleura: Moderate diffuse reticular opacities, with patchy subsegmental groundglass and con solidative opacities, slightly worse than the prior study. Cardiomediastinal silhouette: Stable. Other: No acute osseous or upper abdominal finding. Subacute left proximal humeral fracture. IMPRESSION: Moderate interstitial edema, versus edema with infection to include chronic finding such as bronchiol itis obliterans. Overall findings have worsened slightly in the interval. Reviewed, dictated and finalized at location K. GER SAP IMPRESSION: Moderate interstitial edema, versus edema with infection to include chronic fin ding such as bronchiolitis obliterans. Overall findings have worsened slightly in the interval.
--- NOTE | ~2023-04-28 | CT_ITS ---
EXAMINATION: CT chest abdomen wo con DATE: 04/29/2023 16:52 INDICATION: Hemoptysis . TECHNIQUE: Computed tomography (CT) of the chest, and abdomen was performed with 100 mL Omnipaque-350 intravenous contrast. Automated exposure control and iterative reconstruction technique were employe d. The dose-length product was 1516.78 mGy-cm. COMPARISON: None FINDINGS: CHEST: Thoracic aorta: No significant dilation or calcification. Lung parenchyma and airways: Unchanged pulmonary opacities. Thoracic inlet, axillae and chest wall: Stable left axillary lymphadenopathy. Unchanged focus of subc utaneous gas and stranding in the right upper chest. Mediastinum: Stable lymphadenopathy. Heart and pericardium: Normal heart size. No pericardial effusion. Coronary artery calcifications: Mild. Pleura: stable pleural effusions. Thoracic bones: No acute osseous finding in the chest. Subacute left humeral fracture. ABDOMEN/PELVIS: Liver: Normal. Biliary/Gallbladder: Gallbladder is absent. No bile duct dilation. Pancreas: No mass or duct dilation. Spleen: Normal. Adrenals:No mass. Kidneys: Mild left hydronephrosis. No suspicious mass, obstructing stone, or right. hydronephrosis. GI tract: No small or large bowel dilation. S/P appendectomy. Mesentery/Peritoneum: No ascites, mass, or free air. Retroperitoneum: No mass Soft Tissues: Moderate body wall edema, with a more focal subcutaneous collection at the left iliac w ing. Abdominal bones: No acute osseous finding in the abdomen/pelvis. IMPRESSION: Diffuse bilateral pneumonia and/or moderate edema. Stable small bilateral pleural effusions. Stable l ymphadenopathy. Mild left hydronephrosis. May be chronic or related to distal obstruction out of the field of view. Possible left hip contusion. Reviewed, dictated and finalized at location K. PEDIATRIC ALLERGIST IMPRESSION: Diffuse bilateral pneumonia and/or moderate edema. Stable small bilateral pleur al effusions. Stable lymphadenopathy. Mild left hydronephrosis. May be chronic or related to distal obstruction out o f the field of view. Possible left hip contusion.
--- NOTE | ~2023-04-28 | XR_ITS ---
EXAMINATION: XR chest 1V portable DATE: 05/03/2023 11:09 INDICATION: Pneumonia. TECHNIQUE: A single frontal view of the chest was obtained. COMPARISON: Chest single view 04/28/2023, chest CT 04/29/2023 FINDINGS: There are interstitial and patchy airspace opacities throughout the lungs bilaterally. No p leural effusion or pneumothorax. The heart size is normal. Again seen is a two-part fracture of proxi mal left humerus. IMPRESSION: 1. Diffuse lung disease with mild improvement, consistent with pulmonary edema versus pneumonia. Reviewed, dictated and finalized at location A. PROOF REPRODUCER
--- NOTE | ~2023-04-28 | CT_ITS ---
EXAMINATION: CTA chest PE protocol DATE: 04/28/2023 17:16 INDICATION: hypoxic with hemoptysis; PE vs poss fat embolism TECHNIQUE: Computed tomography angiography (CTA) of the chest was performed with 200 mL Omnipaque-350 intravenous contrast timed to evaluate the pulmonary arteries. Coronal maximum intensity projection 3D-reconstructions were created by the technologist. The dose-length product (DLP) was 2232.43 mGy-cm . Automated exposure control and iterative reconstruction technique were employed. COMPARISON: X-ray chest same date; high-resolution chest CT 04/21/2023. FINDINGS: Lung parenchyma and airways: Similar degree of patchy subsegmental consolidative and groundglass opac ities diffusely and bilaterally. Increasing, now moderate septal thickening. Pleura: Stable small left and slightly improved small right pleural effusions. Thoracic inlet, axillae and chest wall: Worsening left axillary lymphadenopathy. Subcutaneous edema o michael the right upper chest with mild subcutaneous stranding. Thoracic aorta: Mild arch calcification. Mediastinum: Mediastinal lymphadenopathy, increased since the prior study. Heart and pericardium: Mild cardiomegaly. No pericardial effusion. Coronary artery calcifications: Absent. Upper abdomen: No significant finding. Bones: No acute osseous finding. Subacute left humeral fracture. Pulmonary arteries: Study quality: Evaluation for nonocclusive segmental and visualization of the mor e distal subsegmental arteries limited by mild motion artifact, quantum mottle, and beam hardening fr om body habitus and arm positioning. No central or occlusive segmental pulmonary emboli detected. IMPRESSION: Limited study, as detailed above. No central or occlusive segmental emboli detected. Pulmonary findings consistent with pneumonia, overlying worsening, now moderate interstitial edema. Worsening mediastinal and left axillary lymphadenopathy. Stable small left and slightly decreased small right pleural effusions. Subcutaneous emphysema and stranding in the right upper chest, correlate with physical examination fi ndings and any recent procedures. Reviewed, dictated and finalized at location K. EDUCATOR IMPRESSION: Limited study, as detailed above. No central or occlusive segmental emboli dete cted. Pulmonary findings consistent with pneumonia, overlying worsening, now moderate interstitial edema. Worsening mediastinal and left axillary lymphadenopathy. Stable small left and slightly decreased small right pleural effusions. Subcutaneous emphysema and stranding in the right upper chest, correlate with p hysical examination findings and any recent procedures.
[2023-04-28 16:32] LABS: Basophils Percent Auto 0.5 % (0.2-1.2); Eosinophils Absolute Auto 0.3 K/mm3 (0-0.3); Eosinophils Percent Auto 4.6 % (0-4.4); Hematocrit 27.4 % (37.0-47.0); Immature Granulocyte Absolute 0.04 K/mm3 (0.00-0.031); Immature Granulocyte Percent A 0.6 % (0-0.5); Lymphocytes Absolute Auto 0.99 K/mm3 (0.9-3.2); Lymphocytes Percent Auto 15.6 % (18.3-44.2); Mean Corpuscular HGB Conc 29.2 g/dl (32-36); Mean Corpuscular Hemoglobin 28.1 pg (26-34); Mean Corpuscular Volume 96.1 fl (80-100); Mean Platelet Volume 9.8 fl (7.4-10.4); Monocytes Absolute Auto 0.5 K/mm3 (0.1-0.6); Monocytes Percent Auto 8.5 % (2.6-8.5); Neutrophils Absolute Auto 4.5 K/mm3 (1.3-6.7); Neutrophils Percent Auto 70.2 % (45.5-73.1); Platelet Count Result 188 k/mm3 (150-375); Red Blood Count 2.85 M/mm3 (4.2-5.4); Red Cell Distribution Width 16.3 % (11.5-14.5); White Blood Count 6.4 K/mm3 (4.5-10.0)
[2023-04-28 16:52] LABS: Alanine Aminotransferase 53 U/L (6-35); Albumin Level 3.3 g/dL (3.5-5.1); Alkaline Phosphatase 94 U/L (38-126); Aspartate Amino Transferase 42 U/L (14-36); Bilirubin,Total 0.5 mg/dL (0.2-1.3); Blood Urea Nitrogen 35 mg/dL (7-17); Carbon Dioxide > 40 mmol/L (22-30); Chloride 94 mmol/L (98-107); Estimated CRCL calculation 54 ml/min; Estimated Glomerular Filt Rate 39; Glucose 58 mg/dL (65-110); Sodium 140 mmol/L (137-145)
[2023-04-28 17:02] LABS: Platelet Estimate Adequate (Adequate)
[2023-04-28 17:03] LABS: Anisocytosis 2+ (NORMAL); Hypochromasia 1+ (NORMAL); Schistocytes None Seen (NORMAL)
--- NOTE | 2023-04-28 17:19 | ED.SOB ---
HPI - SOB/Dyspnea General Chief Complaint: Shortness of Breath/Dyspnea Stated Complaint: sob/low o2 / coughing up blood Time Seen by Provider: 04/28/23 16:04 History of Present Illness HPI Narrative: This is a 58-year-old female with past medical history congestive heart failure who presents to the emergency department with shortness of breath. 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 Ultrasound was performed and did not demonstrate any VTE. Patient was discharged back to facility. It was reported that you patient experience shortness of breath today, she states this occurred suddenly. She was noted by nursing facility to have an oxygen saturation in the low 80s. She states she has been having a dry cough recently but then she started to experience jo mopped assist. She was placed on nasal cannula and was noted to have an SPO2 of 84%. Patient states she has been feeling warm. Her blood glucose was noted to be 62. Prior to my assessment of patient, she had been placed on a nonrebreather at 15 L/min and given a DuoNeb and then subsequently de-escalated back to nasal cannula and maintaining SPO2 greater than 94% on this. Patient's only complaint is of pain associated with the bedding at her buttocks. Related Data Home Medications Medication Instructions Recorded Confirmed allopurinol 100 mg tablet 100 mg PO DAILY 02/27/23 04/15/23 amlodipine 5 mg tablet 5 mg PO DAILY 02/27/23 04/15/23 apixaban 5 mg tablet (Eliquis) 5 mg PO BID 02/27/23 04/15/23 aspirin 81 mg tablet,delayed 81 mg PO DAILY 02/27/23 04/15/23 release bupropion HCl 100 mg tablet,12 hr 100 mg PO DAILY 02/27/23 04/15/23 sustained-release cariprazine 3 mg capsule (Vraylar) 3 mg PO DAILY 02/27/23 04/15/23 ferrous sulfate 325 mg (65 mg 325 mg PO DAILY 02/27/23 04/15/23 iron) tablet furosemide 40 mg tablet 80 mg PO DAILY 02/27/23 04/15/23 gabapentin 600 mg tablet 600 mg PO BID 02/27/23 04/15/23 glimepiride 2 mg tablet 2 mg PO BID 02/27/23 04/15/23 tamsulosin 0.4 mg capsule 0.4 mg PO HS 02/27/23 04/15/23 atorvastatin 40 mg tablet 40 mg PO HS 04/15/23 04/15/23 ergocalciferol (vitamin D2) 1,250 1,250 mcg PO WEEKLY 04/15/23 04/16/23 mcg (50,000 unit) capsule (Vitamin D2) Allergies Allergy/AdvReac Type Severity Reaction Status Date / Time No Known Allergies Allergy Verified 02/27/23 00:38 [facility] Past Medical History Medical History (Updated 04/28/23 @ 21:29 by Ruth Marshall MD) Chronic anemia Chronic anticoagulation Chronic kidney disease Comminuted left humeral fracture with nonunion Depression with anxiety Diastolic congestive heart failure Hyperlipidemia Hypertension Lymphedema Pneumonia Pulmonary embolism (2018) Pulmonary hypertension Type 2 diabetes mellitus Surgical History Surgical History History of cholecystectomy History of hernia repair History of tonsillectomy History of tubal ligation Family History Family History Other Family history unknown Social History Social History Social History: Resides at [facility] facility Surrogate medical decision maker: Farhan Avalos (brother). Code status: Full code. Smoking status: Never smoker Second hand tobacco smoke exposure: No Alcohol intake: never Substance use: never Substance use type: does not use Lack of Transportation: No Lack of Food: Never True Current Housing: I Have Housing Concerned About Future Housing: No Difficulty Paying Gas/Electric Bills: No Difficulty Paying for Meds: No Currently Unemployed: No Education: High School Diploma/GED Difficulty w/ Childcare or Family Care: No Spiritual care concerns: No Exam Const: General: ill appe
[2023-04-28 17:40] LABS: Alveolar/Arterial O2 Gradient 55.2 mmHg; Base Excess ABG 13.3 mEq/l (+/-2.0); Fractional Inspired Oxygen 28 %; HCO3 ABG 38.4 mEq/l (22.0-26.0); Oxygen Content ABG 11.6 %vol (16.0-22.0); Oxygen Saturation ABG 96.4 % (95.0-100.0); Oxyhemoglobin 94.1 % THb (90.0-100.0); PCO2 ABG 53.3 mmHg (35.0-45.0); PO2 ABG 81.5 mmHg (80.0-100.0); PO2 FiO2 Ratio Arterial Blood 2.91 %; Total Hemoglobin 8.7 g/dL (12.0-18.0); pH ABG 7.476 (7.350-7.450)
[2023-04-28 17:41] LABS: Device NASAL CANNULA; Modified Allen's Test Pass; Site Drawn RIGHT RADIAL
[2023-04-28 18:12] LABS: Glucose Point of Care 82 mg/dl (65-105)
[2023-04-28 19:07] LABS: NT Pro B Type Natriuretic Pept 1060 pg/mL (19.9-100)
--- NOTE | 2023-04-28 19:22 | PC.NURSE ---
Assumed care of pt from WILLIE Melgar at this time.
[2023-04-28] MEDS: DOXYCYCLINE HYCLATE 100 MG TABLET PO (19:27)
[2023-04-28 19:33] LABS: Influenza A QL RT-PCR Negative (Negative); Influenza B QL RT-PCR Negative (Negative); RSV RNA, RT-PCR Negative (Negative); SARS-CoV-2 RNA PCR Negative (Negative)
--- NOTE | 2023-04-28 19:35 | PM.IMHP ---
H&P: HPI History of Present Illness Date/Time: 04/28/23 19:35 Chief Complaint: Shortness of breath Narrative: This is a 58-year-old female with past medical history significant for morbid obesity, gout, hypertension, dyslipidemia, bed ridden. Patient presents [facility] emergency [facility] local [facility] due to low pulse ox, cough. Patient denies any chills fevers but has had night sweats. Denies any nausea, vomiting, abdominal pain, diarrhea, according to emergency room patient has had hemoptysis. Preliminary workup was significant for checks x-ray was reported as: EXAMINATION:? XR chest 1V portable Exam Date/Time:? 04/28/2023 16:14 [facility] HISTORY: dysnpea, COUGHING UP BLOOD, FEVER ? Comparison:? 04/25/2023; CT chest 04/21/2023. RESULT: Lines, tubes, and devices:? None. Lungs and pleura:? Moderate diffuse reticular opacities, with patchy subsegmental groundglass and consolidative opacities, slightly worse than the prior study. Cardiomediastinal silhouette:? Stable. Other:? No acute osseous or upper abdominal finding. Subacute left proximal humeral fracture. ? IMPRESSION: Moderate interstitial edema, versus edema with infection to include chronic finding such as bronchiolitis obliterans. Overall findings have worsened slightly in the interval. EXAMINATION: CTA chest PE protocol DATE: 04/28/2023 17:16 INDICATION: hypoxic with hemoptysis; PE vs poss fat embolism TECHNIQUE: Computed tomography angiography (CTA) of the chest was performed with 200 mL Omnipaque-350 intravenous contrast timed to evaluate the pulmonary arteries. Coronal maximum intensity projection 3D-reconstructions were created by the technologist. The dose-length product (DLP) was 2232.43 mGy-cm. Automated exposure control and iterative reconstruction technique were employed. COMPARISON: X-ray chest same date; high-resolution chest CT 04/21/2023. ? FINDINGS:? Lung parenchyma and airways: Similar degree of patchy subsegmental consolidative and groundglass opacities diffusely and bilaterally. Increasing, now moderate septal thickening. Pleura: Stable small left and slightly improved small right pleural effusions. Thoracic inlet, axillae and chest wall: Worsening left axillary lymphadenopathy. Subcutaneous edema over the right upper chest with mild subcutaneous stranding. Thoracic aorta: Mild arch calcification. Mediastinum: Mediastinal lymphadenopathy, increased since the prior study. Heart and pericardium: Mild cardiomegaly. No pericardial effusion. Coronary artery calcifications: Absent. Upper abdomen: No significant finding. Bones: No acute osseous finding. Subacute left humeral fracture. Pulmonary arteries: Study quality: Evaluation for nonocclusive segmental and visualization of the more distal subsegmental arteries limited by mild motion artifact, quantum mottle, and beam hardening from body habitus and arm positioning. No central or occlusive segmental pulmonary emboli detected. IMPRESSION: Limited study, as detailed above. No central or occlusive segmental emboli detected. Pulmonary findings consistent with pneumonia, overlying worsening, now moderate interstitial edema. Worsening mediastinal and left axillary lymphadenopathy. Stable small left and slightly decreased small right pleural effusions. Subcutaneous emphysema and stranding in the right upper chest, correlate with physical examination findings and any recent procedures. Review of Systems Review of Systems: Shortness of breath Constitutional: Constitutional: Reports chills, Denies fever(s), Reports night sweats and Reports weakness Eyes: Eyes: Denies change in vision ENT: Denies dysphagia and Denies odynophagia Cardiovascular: Cardiovascular: Denies chest pain, Denies radiating jaw, neck or arm pain and Denies palpitations Respiratory: Respiratory: Reports cough, Reports hemoptysis and Reports dyspnea Gastrointestinal: Gastrointestinal: Denies abdomin
[2023-04-28] MEDS: DEXTROSE 50% 25 GM/50 ML SYRINGE IV PUSH (23:13)
[2023-04-28] MEDS: DEXTROSE 5% 1,000 ML 1,000 ML 100 ML IVPB (23:20)
--- NOTE | 2023-04-28 23:51 | ADMGEN ---
This patient, Talia Peralta, was admitted to [facility] Surg Room 316-02. Patient/family oriented to hospital policies and general routines including ID bracelet, bed and alarms, visiting hours, pain management, procedures, bathroom and other care routines, personal items, smoking policy, room service/diet, and visiting hours. Information on how to activate the Rapid Response Team has been discussed. Patient/Family are encouraged to report perceived risks to care and to ask questions if they do not understand what they are told or what they should do.
[2023-04-29] VITALS (21 sets, daily range): BP systolic 104–139; BP diastolic 46–61; PULSE 64–102; RESP 18–24; TEMP 36.2–37.9; O2SAT 92–100
[2023-04-29 00:20] LABS: Glucose Point of Care 23 mg/dl (65-105)
[2023-04-29 00:20] LABS: Glucose Point of Care 36 mg/dl (65-105)
[2023-04-29 00:20] LABS: Glucose Point of Care 128 mg/dl (65-105)
[2023-04-29 00:20] LABS: Glucose Point of Care 134 mg/dl (65-105)
[2023-04-29 00:20] LABS: Glucose Point of Care 138 mg/dl (65-105)
[2023-04-29 00:36] LABS: Glucose Point of Care 171 mg/dl (65-105)
[2023-04-29] MEDS: FUROSEMIDE INJ 40 MG/4 ML VIAL IV PUSH (01:36)
[2023-04-29] MEDS: MUPIROCIN 2% OINT 22 GM TUBE 1 APPLIC TOPICAL ×4 (01:36→16:05)
[2023-04-29 02:17] LABS: Glucose Point of Care 166 mg/dl (65-105)
[2023-04-29] MEDS: CEFEPIME 2 GM/NS 50 ML 2 GM/50 ML BAG IVPB ×2 (02:44→16:05)
[2023-04-29] MEDS: VANCOMYCIN 1,250 MG/NS 250 ML 1,250 MG/250 ML BAG 166.67 MG IVPB ×2 (03:00→05:45)
[2023-04-29 04:20] LABS: Glucose Point of Care 128 mg/dl (65-105)
[2023-04-29 08:31] LABS: MRSA (PCR) NOT DETECTED (NOT DETECTE)
[2023-04-29 09:02] LABS: Glucose Point of Care 91 mg/dl (65-105)
[2023-04-29] MEDS: amLODIPine BESYLATE 5 MG TABLET PO (09:10)
[2023-04-29] MEDS: allopurinoL 100 MG TABLET PO (09:10)
[2023-04-29] MEDS: ASPIRIN 81 MG ENTERIC TABLET PO (09:10)
[2023-04-29] MEDS: GABAPENTIN 300 MG CAPSULE 600 MG PO (09:11)
[2023-04-29] MEDS: buPROPion HCL SR (12HR) 100 MG TABCR PO (09:11)
[2023-04-29] MEDS: FERROUS SULFATE 325 MG TABLET DR PO (09:11)
[2023-04-29 09:20] LABS: Hematocrit 26.9 % (37.0-47.0); Hemoglobin 7.8 g/dL (12.0-15.0); Mean Corpuscular Hemoglobin 27.9 pg (26-34); Mean Corpuscular Volume 96.1 fl (80-100); Mean Platelet Volume 9.1 fl (7.4-10.4); Platelet Count Result 143 k/mm3 (150-375); Red Cell Distribution Width 16.6 % (11.5-14.5); White Blood Count 4.9 K/mm3 (4.5-10.0)
[2023-04-29 09:41] LABS: Alanine Aminotransferase 68 U/L (6-35); Albumin Level 3.1 g/dL (3.5-5.1); Alkaline Phosphatase 91 U/L (38-126); Aspartate Amino Transferase 52 U/L (14-36); Bilirubin,Total 0.4 mg/dL (0.2-1.3); Blood Urea Nitrogen 32 mg/dL (7-17); Calcium 8.5 mg/dL (8.4-10.2); Carbon Dioxide > 40 mmol/L (22-30); Chloride 93 mmol/L (98-107); Estimated CRCL calculation 57 ml/min; Estimated Glomerular Filt Rate 39; Glucose 94 mg/dL (65-110); Potassium 4.5 mmol/L (3.4-5.0); Sodium 137 mmol/L (137-145)
--- NOTE | 2023-04-29 10:15 | PM.IMPN ---
Progress Note: A&P Assessment and Plan (1) Pneumonia: Qualifiers: Pneumonia type: due to unspecified organism Code(s): J18.9 - Pneumonia, unspecified organism Status: Acute Assessment and Plan: Started on cefepime and vancomycin Holding anticoagulation due to hemoptysis Cultures in progress Supportive care Continue to monitor (2) Fluid overload: Code(s): E87.70 - Fluid overload, unspecified Status: Acute Assessment and Plan: Brain natriuretic peptide minimally elevated at 1060 Bicarb is 40 Holding Lasix Strict daily intake and output Start Diamox 250 mg b.i.d. p.o. (3) Obesity hypoventilation syndrome: Code(s): E66.2 - Morbid (severe) obesity with alveolar hypoventilation Status: Acute Assessment and Plan: BiPAP at nighttime (4) Acute respiratory failure: Code(s): J96.00 - Acute respiratory failure, unspecified whether with hypoxia or hypercapnia Status: Acute Assessment and Plan: Currently on supplemental oxygen by nasal cannula (5) Diabetic ulcer of heel: Code(s): E11.621 - Type 2 diabetes mellitus with foot ulcer; L97.409 - Non-pressure chronic ulcer of unspecified heel and midfoot with unspecified severity Status: Acute Assessment and Plan: Local care (6) Type 2 diabetes mellitus: Code(s): E11.9 - Type 2 diabetes mellitus without complications Status: Acute Assessment and Plan: Holding glimepiride Patient had episode of hypoglycemia corrected Start insulin sliding scale a.c. q.h.s. Subjective Date/time seen: 04/29/23 10:15 Interval history: Patient feels better today, denies chest pain, shortness a breath is improving. Hypoglycemia improves Exam Narrative: GENERAL: Pleasant, in no acute distress. Well-nourished. - EYES: EOMI. Anicteric. - HENT: Moist mucous membranes. - LUNGS: Clear to auscultation bilaterally, no wheezing, rhonchi, or rales. - CARDIOVASCULAR: Regular rate and rhythm. No murmur. No JVD. - ABDOMEN: Soft, non-tender and non-distended. No palpable masses. - EXTREMITIES: No edema. Peripheral pulses 2+. Non-tender. - NEUROLOGIC: No focal neurological deficits. CN II-XII grossly intact. - PSYCHIATRIC: Awake, Alert and oriented x 3. Appropriate mood and affect. - SKIN: No rashes or lesions. Warm. - LYMPH: No cervical lymphadenopathy. Objective Data Vital Signs Vital Signs: Vital Signs - 24 hr 04/28/23 15:41 04/28/23 16:29 04/28/23 16:30 Temperature 98.2 F Pulse Rate 75 80 Respiratory Rate 18 Blood Pressure 125/62 Pulse Oximetry 95 98 Oxygen Delivery Non-Rebreather Mask Nasal Cannula Oxygen Flow Rate 15 2 Fraction of Inspired Oxygen 04/28/23 19:32 04/28/23 20:32 04/28/23 20:47 Temperature Pulse Rate 73 70 70 Respiratory Rate 20 20 18 Blood Pressure 119/47 L 119/51 L 113/50 L Pulse Oximetry 95 96 95 Oxygen Delivery Oxygen Flow Rate Fraction of Inspired Oxygen 04/28/23 21:02 04/28/23 21:32 04/28/23 22:02 Temperature Pulse Rate 69 71 71 Respiratory Rate 18 19 18 Blood Pressure 114/53 L 123/57 L 112/60 Pulse Oximetry 95 97 95 Oxygen Delivery Oxygen Flow Rate Fraction of Inspired Oxygen 04/29/23 00:53 04/29/23 01:45 04/29/23 04:00 Temperature 97.8 F 97.6 F Pulse Rate 70 68 Respiratory Rate 20 18 22 H Blood Pressure 104/46 L 113/49 L Pulse Oximetry 95 97 100 Oxygen Delivery BiPAP Oxygen Flow Rate Fraction of Inspired Oxygen 04/29/23 04:00 04/29/23 04:51 04/29/23 02:00 Temperature Pulse Rate 66 Respiratory Rate 19 Blood Pressure Pulse Oximetry 98 Oxygen Delivery BiPAP BiPAP Oxygen Flow Rate Fraction of Inspired Oxygen 45 04/29/23 04:00 04/29/23 06:00 04/29/23 08:27 Temperature 97.1 F L Pulse Rate 69 69 65 Respiratory Rate 24 H Blood Pressure 120/52 L Pulse Oximetry 97 Oxygen Delivery Oxygen Flow Rate Fraction of Inspired Oxyge
[2023-04-29 12:29] LABS: Glucose Point of Care 145 mg/dl (65-105)
[2023-04-29 17:19] LABS: Glucose Point of Care 95 mg/dl (65-105)
--- NOTE | 2023-04-29 18:19 | PC.NURSE ---
2243-Spoke with speech therapy about patients last bedside swallow eval for her last diet order. ST recommended pt be NPO for barium swallow study tomorrow. Will update hospitalist.
--- NOTE | 2023-04-29 18:20 | PC.NURSE ---
1616-Spoke with hospitalist about ST recommendation, gave new orders. Updated on pt's condition, received further orders. Will continue to update per orders.
--- NOTE | 2023-04-29 18:22 | PC.NURSE ---
1743-Updated hospitalist on results from CT scan, received orders for pulmonary consult.
[2023-04-29] MEDS: acetaZOLAMIDE TAB 250 MG TABLET PO (18:51)
[2023-04-29 19:47] LABS: Glucose Point of Care 79 mg/dl (65-105)
[2023-04-29] MEDS: DEXTROSE 5% 1,000 ML 1,000 ML 100 ML IVPB (19:51)
[2023-04-29 20:41] LABS: Glucose Point of Care 93 mg/dl (65-105)
[2023-04-30] VITALS (28 sets, daily range): BP systolic 108–136; BP diastolic 45–84; PULSE 71–96; RESP 16–24; TEMP 36.1–37.2; O2SAT 95–100
[2023-04-30] MEDS: ALBUTEROL SULFATE NEB 2.5 MG/3 ML INH INHALATION ×6 (00:27→20:29)
[2023-04-30] MEDS: IPRATROPIUM BR 0.02% INH SOLN 0.5 MG/2.5 ML VIAL INHALATION ×6 (00:28→20:28)
[2023-04-30 00:57] LABS: Glucose Point of Care 136 mg/dl (65-105)
[2023-04-30] MEDS: CEFEPIME 2 GM/NS 50 ML 2 GM/50 ML BAG IVPB ×2 (02:29→13:55)
[2023-04-30 06:32] LABS: Glucose Point of Care 131 mg/dl (65-105)
--- NOTE | 2023-04-30 08:33 | PC.NURSE ---
Pt has been yelling out she wants to kill her self and she suicidal and she gets like this when the MD do not lopez to see her are take care of her needs, she told this nurse I will take drugs to hurt myself that is the plan for her to hurt her self, pt dose not have access to meds at this hospital but does have a lot of lines such as O2 and IV lines, this nurse notified Dr Delacruz and Denies charge nurse of this issue, stated he will have pulm come see her and he will speak to her.
--- NOTE | 2023-04-30 08:44 | PM.IMPN ---
Progress Note: A&P Assessment and Plan (1) Pneumonia: Qualifiers: Pneumonia type: due to unspecified organism Code(s): J18.9 - Pneumonia, unspecified organism Status: Acute Assessment and Plan: Started on cefepime and vancomycin Holding anticoagulation due to hemoptysis Cultures in progress Supportive care Continue to monitor (2) Fluid overload: Code(s): E87.70 - Fluid overload, unspecified Status: Acute Assessment and Plan: Brain natriuretic peptide minimally elevated at 1060 Bicarb is 40 Holding Lasix Strict daily intake and output Start Diamox 250 mg b.i.d. p.o. (3) Obesity hypoventilation syndrome: Code(s): E66.2 - Morbid (severe) obesity with alveolar hypoventilation Status: Acute Assessment and Plan: BiPAP at nighttime (4) Acute respiratory failure: Code(s): J96.00 - Acute respiratory failure, unspecified whether with hypoxia or hypercapnia Status: Acute Assessment and Plan: Currently on supplemental oxygen by nasal cannula Continue nebulizer Likely resulting from pneumonia and hypoventilation syndrome (5) Diabetic ulcer of heel: Code(s): E11.621 - Type 2 diabetes mellitus with foot ulcer; L97.409 - Non-pressure chronic ulcer of unspecified heel and midfoot with unspecified severity Status: Acute Assessment and Plan: Local care (6) Type 2 diabetes mellitus: Code(s): E11.9 - Type 2 diabetes mellitus without complications Status: Acute Assessment and Plan: Holding glimepiride Patient had episode of hypoglycemia corrected Start insulin sliding scale a.c. q.h.s. (7) Hemoptysis: Code(s): R04.2 - Hemoptysis Status: Acute Assessment and Plan: Patient continue to have bloody phlegm with the cough No obvious however obstruction Aspirin and Eliquis on hold, patient has history of pulmonary embolism in her right lung CT reveals Diffuse bilateral pneumonia and/or moderate edema. Stable small bilateral pleural effusions. Stable lymphadenopathy.on 04/29 Consult pot feeder for evaluation and treatment (8) Suicide ideation: Code(s): R45.851 - Suicidal ideations Status: Acute Assessment and Plan: Patient has history of depression on 04/30 Patient told nurses that she wanted to kill herself. When I talked to the patient at bedside with the nurse and student nurse, patient said she was frustrated but she did really mean to hurt herself. Later on patient stated she was attempting to kill herself with a knife before. now she is on Abilify [address] a sitter at bedside monitor patient closely Will consult psychiatrist when patient medically stable, and may need to move patient to mental health department for further evaluation and management at discharge Plan Anemia Patient has issue of chronic anemia Hemoglobin close to baseline Stool guaiac positive Patient has hemoptysis, positive guaiac possible from swallowing blood from mouth Patient on blood thinner Need to rule out GI bleeding Consult GI for evaluation treatment Subjective Date/time seen: 04/30/23 08:44 Interval history: I saw on exam patient today. Patient still has short of breath, continue cough with right blood is phlegm. Patient denies nausea vomiting, but was noticed to have black stools. Patient need oxygen via nasal cannula 3 L per minutes. Patient told nurses that she wanted to kill herself. When I talked to the patient at bedside with the nurse and student nurse, patient said she was frustrated but she did really mean to hurt herself. Later on patient stated she was attempting to kill herself with a knife before. Exam Narrative: GENERAL: Pleasant, in no acute distress. Well-nourished. - EYES: EOMI. Anicteric. - HENT: Moist mucous membranes. - LUNGS: Clear to auscultation bilaterally, no wheezing, rhonchi, or rales. - CARDIOVASCULAR: Regular rate and r
[2023-04-30 09:11] LABS: Glucose Point of Care 128 mg/dl (65-105)
[2023-04-30] MEDS: amLODIPine BESYLATE 5 MG TABLET PO (09:41)
[2023-04-30] MEDS: MUPIROCIN 2% OINT 22 GM TUBE 1 APPLIC TOPICAL ×3 (09:42→18:33)
[2023-04-30] MEDS: TOLNAFTATE 1% POWDER 45 GM BTL 1 APPLIC TOPICAL ×2 (09:42→20:56)
--- NOTE | 2023-04-30 09:59 | PC.NURSE ---
Pt is bed reden from [facility] is physically impaired no meds in room pt is on 02 at 3 L NC and suction, pt is being closely monitored by nursing staff and nursing students, Dr Delacruz made aware.
--- NOTE | 2023-04-30 10:52 | PM.CNPUL ---
Assessment and Plan Assessment and plan (1) Respiratory failure with hypoxia: Qualifiers: Chronicity: unspecified Qualified Code(s): J96.91 - Respiratory failure, unspecified with hypoxia Code(s): J96.91 - Respiratory failure, unspecified with hypoxia Status: Acute Assessment and Plan: This patient was re-admitted with apparent hemoptysis, significant drop in her H and H, hemoglobin 5.5 hematocrit 18.7, which is not seen with hemoptysis. This large drop in H&H with significant coughing blood is likely GI source. Her CT of the chest is not that different from the previous 1. She has no history of tuberculosis, cancer, chest trauma, has not had epistaxis. She has had multiple rounds of antibiotics recently. Her white blood cell count is normal. I do not think she has pneumonia. I agree with Dr. Delacruz, this may be another source, not her lungs. She has had hypercapnic hypoxemic respiratory failure, was on BiPAP at [facility]. I think she would benefit more from a noninvasive device but this was not permitted at the last admission. I believe an Astral was considered but her blood gases did not allow her to leave the hospital with that. (2) Obesity hypoventilation syndrome: Code(s): E66.2 - Morbid (severe) obesity with alveolar hypoventilation Status: Acute Assessment and Plan: Patient is morbidly obes, BMI 47. Seh has had intermittent fluid overload, managed with diuresis. The patient has no smoking history, no emphysema on CT. The patient has obesity hypoventilation syndrome with chronic hypercarbic respiratory failure and would benefit from noninvasive ventilation, but has not qualified due to insurance guidelines. Last admission, she tried BiPAP but the pressures was uncomfortable and she could not sleep at night. Plan Last admission, serologies for connective tissue disease and autoimmune disease were sent; also sent CPK, aldolase level, anti CCP antibody, hypersensitivity pneumonitis panel and MyoMarker 3 panel- these results are still pending. I will follow with you. I am not convinced she has hemoptysis. History of Present Illness History of Present Illness Consult date: 05/01/23 Requesting physician: Adarsh Delacruz MD Chief complaint: Hemoptysis, Pneumonia, Heart Failure, CO2 Retentio Narrative: patient was seen Room 203 in IMU Apr 30 at 11:15 a.m. NEW: Talia Peralta is a chronically ill 58-year-old female in Room 203, readmitted overnight from [facility] for apparent hemoptysis, increased shortness of breath, and new chest CT = diffuse infiltrates with ground glass opacities and small effusions. She is on 3 L/min, same O2 she was on at rehab, . She has had a large drop in her H and H, hemoglobin today 5.5 hematocrit 18.7%. She was transfused with 2 units of blood. Her oxygenation has not significantly worsen. A large drop of this magnitude is not seen in hemoptysis. This is likely another source such as GI. She did not have any blood in her nares. She does not have an underlying history of lung disease. The CTA 04/28 was a limited study however was negative for any large pulmonary embolus. She has infiltrates which are worse, may be due to pulmonary edema. Was here for similar presentation Apr 19 through Apr 25, treated with ceftriaxone and azithromycin, worsened 04/18, changed to cefepime, vanco, continued azithromycin; wento [facility] on doxycycline and Augmentin. all micro studies were negative. She went to [facility] for rehab on Augmentin and doxycycline. She was not allowed to have a non-invasive positive pressure device- AVAPS with settings rate 20, TV 500, EPAP 5, minimal inspiratory pressure 6, maximal inspiratory pressure 25, I time 1.0, rise of 5 and 32% FiO2. However was allowed to have a BiPAP 08/10 with back up rate 20 and she was using it until
--- NOTE | 2023-04-30 11:51 | PCSTNOTE ---
MBS scheduled and attempted but cancelled due to pt size.
[2023-04-30 12:21] LABS: IFOB Positive Control Positive; Immunochemical Fecal Occult Bl Positive (N)
[2023-04-30 13:46] LABS: Glucose Point of Care 131 mg/dl (65-105)
--- NOTE | 2023-04-30 14:16 | PC.NURSE ---
Addendum entered by Clara Watkins RN 04/30/23 17:18: Pt was seen by Dr Delacruz to evaluate pt for suicide thoughts, and yelling out that she was going to kill her self, upon MD assessment pt told MD she did not mean what she said about killing her self today but she has tried in the past to do so was placed in psych unit and this time did not really mean she wanted to kill her self, I just needed someone to help me today Dr Delacruz did not give any straight verbal orders on the next step. Original Note: Pt was seen by Dr Delacruz to evaluate pt for suiside thoughts this am and she told MD she did not mean what she said and does really want to kill her self.
[2023-04-30 18:05] LABS: Glucose Point of Care 130 mg/dl (65-105)
[2023-04-30 18:06] LABS: Basophils Percent Auto 0.5 % (0.2-1.2); Eosinophils Absolute Auto 0.3 K/mm3 (0-0.3); Eosinophils Percent Auto 4.1 % (0-4.4); Immature Granulocyte Absolute 0.03 K/mm3 (0.00-0.031); Immature Granulocyte Percent A 0.5 % (0-0.5); Lymphocytes Absolute Auto 0.93 K/mm3 (0.9-3.2); Lymphocytes Percent Auto 14.7 % (18.3-44.2); Mean Corpuscular HGB Conc 29.4 g/dl (32-36); Mean Corpuscular Hemoglobin 27.9 pg (26-34); Mean Corpuscular Volume 94.9 fl (80-100); Mean Platelet Volume 9.9 fl (7.4-10.4); Monocytes Absolute Auto 0.6 K/mm3 (0.1-0.6); Neutrophils Absolute Auto 4.5 K/mm3 (1.3-6.7); Neutrophils Percent Auto 70.2 % (45.5-73.1); Platelet Count Result 174 k/mm3 (150-375); Red Blood Count 1.97 M/mm3 (4.2-5.4); Red Cell Distribution Width 16.7 % (11.5-14.5); White Blood Count 6.3 K/mm3 (4.5-10.0)
[2023-04-30 18:25] LABS: Anion Gap 0 mmol/L (8-16); Blood Urea Nitrogen 67 mg/dL (7-17); Calcium 8.6 mg/dL (8.4-10.2); Carbon Dioxide 37 mmol/L (22-30); Chloride 101 mmol/L (98-107); Estimated CRCL calculation 47 ml/min; Estimated Glomerular Filt Rate 31; Glucose 136 mg/dL (65-110); Potassium 3.9 mmol/L (3.4-5.0); Sodium 138 mmol/L (137-145)
[2023-04-30] MEDS: OXYMETAZOLINE HCL 0.05% NAS 15 ML BTL (*BKC) 1 SPRAY NASAL (18:33)
--- NOTE | 2023-04-30 18:36 | PC.NURSE ---
Addendum entered by Clara Watkins RN 04/30/23 18:39: Pt had an order to keep NPO till speech therapy eval for swallowing. Original Note: This nurse made Dr Delacruz aware that all PO meds held today he was ok with this till Speech could do bedside swallow eval.
[2023-04-30 18:53] LABS: Hemoglobin 5.5 g/dL (12.0-15.0)
[2023-04-30 18:54] LABS: Hematocrit 18.7 % (37.0-47.0)
[2023-04-30 19:24] LABS: Hypochromasia 1+ (NORMAL); Platelet Estimate Adequate (Adequate); Schistocytes None Seen (NORMAL)
[2023-04-30 19:25] LABS: Anisocytosis 2+ (NORMAL)
[2023-04-30] MEDS: GABAPENTIN 300 MG CAPSULE 600 MG PO (20:54)
[2023-04-30] MEDS: ATORVASTATIN 40 MG TABLET PO (20:54)
[2023-04-30] MEDS: TAMSULOSIN HCL 0.4 MG CAPSULE PO (20:55)
[2023-05-01] VITALS (30 sets, daily range): BP systolic 106–139; BP diastolic 41–73; PULSE 62–88; RESP 18–22; TEMP 35.7–37.1; O2SAT 95–100
[2023-05-01 00:07] LABS: Glucose Point of Care 110 mg/dl (65-105)
[2023-05-01] MEDS: ALBUTEROL SULFATE NEB 2.5 MG/3 ML INH INHALATION ×5 (00:18→20:41)
[2023-05-01] MEDS: IPRATROPIUM BR 0.02% INH SOLN 0.5 MG/2.5 ML VIAL INHALATION ×5 (00:18→20:41)
[2023-05-01 00:58] LABS: Hematocrit 21.6 % (37.0-47.0)
[2023-05-01 01:06] LABS: Hemoglobin 6.5 g/dL (12.0-15.0)
[2023-05-01] MEDS: FUROSEMIDE INJ 40 MG/4 ML VIAL 10 MG IV PUSH (01:40)
[2023-05-01] MEDS: CEFEPIME 2 GM/NS 50 ML 2 GM/50 ML BAG IVPB ×2 (01:41→14:03)
[2023-05-01 06:55] LABS: Glucose Point of Care 113 mg/dl (65-105)
[2023-05-01 07:21] LABS: Hematocrit 25.4 % (37.0-47.0); Hemoglobin 7.6 g/dL (12.0-15.0)
--- NOTE | 2023-05-01 08:32 | PM.IMPN ---
Progress Note: A&P Assessment and Plan (1) Pneumonia: Qualifiers: Pneumonia type: due to unspecified organism Code(s): J18.9 - Pneumonia, unspecified organism Status: Acute Assessment and Plan: Started on cefepime and vancomycin Holding anticoagulation due to hemoptysis MRSA screening negative, dc vancomycin April 30 c/w cefepime IV Cultures in progress Supportive care Continue to monitor (2) Fluid overload: Code(s): E87.70 - Fluid overload, unspecified Status: Acute Assessment and Plan: Brain natriuretic peptide minimally elevated at 1060 Bicarb is 40 Holding Lasix Strict daily intake and output Start Diamox 250 mg b.i.d. p.o. (3) Obesity hypoventilation syndrome: Code(s): E66.2 - Morbid (severe) obesity with alveolar hypoventilation Status: Acute Assessment and Plan: BiPAP at nighttime (4) Acute respiratory failure: Code(s): J96.00 - Acute respiratory failure, unspecified whether with hypoxia or hypercapnia Status: Acute Assessment and Plan: Currently on supplemental oxygen by nasal cannula Continue nebulizer Likely resulting from pneumonia and hypoventilation syndrome (5) Diabetic ulcer of heel: Code(s): E11.621 - Type 2 diabetes mellitus with foot ulcer; L97.409 - Non-pressure chronic ulcer of unspecified heel and midfoot with unspecified severity Status: Acute Assessment and Plan: Local care (6) Type 2 diabetes mellitus: Code(s): E11.9 - Type 2 diabetes mellitus without complications Status: Acute Assessment and Plan: Holding glimepiride Patient had episode of hypoglycemia corrected Start insulin sliding scale a.c. q.h.s. (7) Hemoptysis: Code(s): R04.2 - Hemoptysis Status: Acute Assessment and Plan: Patient continue to have bloody phlegm with the cough No obvious however obstruction Aspirin and Eliquis on hold, patient has history of pulmonary embolism in her right lung CT reveals Diffuse bilateral pneumonia and/or moderate edema. Stable small bilateral pleural effusions. Stable lymphadenopathy.on 04/29 Consult beaver trapper for evaluation and treatment (8) Suicide ideation: Code(s): R45.851 - Suicidal ideations Status: Acute Assessment and Plan: Patient has history of depression on 04/30 Patient told nurses that she wanted to kill herself. When I talked to the patient at bedside with the nurse and student nurse, patient said she was frustrated but she did really mean to hurt herself. Later on patient stated she was attempting to kill herself with a knife before. now she is on Abilify [address] a sitter at bedside monitor patient closely Will consult psychiatrist when patient medically stable, and may need to move patient to mental health department for further evaluation and management at discharge 05/01 I saw and examined the patient with patient's nurse, ICU charge nurse, child care assistant. Patient feels comfortable today, patient feels shortness breath improved significantly, denies chest pain, palpitation, abdomen pain. Hemoptysis stopped. Patient also denies nausea vomiting. Patient has no obvious distress, patient states she was frustrated yesterday she did mean to kill herself yesterday, and today she feels comfortable and no thought of suicidal ideas or plans. Patient states she does have remote history of suicide attempt, and consulted the psychiatrist. Since then patient does not have suicide attempt or ideation. We don't think pt has risk of suicide now. Patient will continue psychiatrists evaluation and treatment after patient going back to his [facility] Plan Acute on chronic blood-loss anemia Patient has hx chronic anemia drops below to 5.5 Stool guaiac positive Patient has hemoptysis, positive guaiac Received pack RBC transfusion Patient on blood thinner Need to rule out GI bleeding Consult GI for sebas
[2023-05-01 08:50] LABS: Basophils Percent Auto 0.6 % (0.2-1.2); Eosinophils Absolute Auto 0.4 K/mm3 (0-0.3); Eosinophils Percent Auto 6.2 % (0-4.4); Immature Granulocyte Absolute 0.03 K/mm3 (0.00-0.031); Immature Granulocyte Percent A 0.4 % (0-0.5); Lymphocytes Absolute Auto 0.96 K/mm3 (0.9-3.2); Lymphocytes Percent Auto 14.2 % (18.3-44.2); Mean Corpuscular Hemoglobin 28.5 pg (26-34); Mean Corpuscular Volume 95.2 fl (80-100); Mean Platelet Volume 10.2 fl (7.4-10.4); Monocytes Absolute Auto 0.7 K/mm3 (0.1-0.6); Monocytes Percent Auto 10.7 % (2.6-8.5); Neutrophils Absolute Auto 4.6 K/mm3 (1.3-6.7); Neutrophils Percent Auto 67.9 % (45.5-73.1); Platelet Count Result 162 k/mm3 (150-375); Red Cell Distribution Width 16.1 % (11.5-14.5); White Blood Count 6.7 K/mm3 (4.5-10.0)
[2023-05-01 09:06] LABS: Glucose Point of Care 110 mg/dl (65-105)
[2023-05-01 09:10] LABS: Blood Urea Nitrogen 67 mg/dL (7-17); Calcium 8.7 mg/dL (8.4-10.2); Carbon Dioxide 31 mmol/L (22-30); Estimated CRCL calculation 53 ml/min; Estimated Glomerular Filt Rate 36; Glucose 108 mg/dL (65-110); Potassium 4.9 mmol/L (3.4-5.0); Sodium 141 mmol/L (137-145)
[2023-05-01 09:52] LABS: Anion Gap 4 mmol/L (8-16); Chloride 106 mmol/L (98-107)
[2023-05-01] MEDS: FERROUS SULFATE 325 MG TABLET DR PO (10:00)
[2023-05-01] MEDS: allopurinoL 100 MG TABLET PO (10:00)
[2023-05-01] MEDS: GABAPENTIN 300 MG CAPSULE 600 MG PO ×2 (10:00→20:25)
[2023-05-01] MEDS: buPROPion HCL SR (12HR) 100 MG TABCR PO (10:00)
[2023-05-01] MEDS: amLODIPine BESYLATE 5 MG TABLET PO (10:00)
[2023-05-01 10:01] LABS: Iron 63 ug/dL (37-170)
[2023-05-01] MEDS: acetaZOLAMIDE TAB 250 MG TABLET PO ×2 (10:01→17:54)
[2023-05-01] MEDS: ARIPiprazole 2 MG TABLET PO (10:01)
[2023-05-01] MEDS: TOLNAFTATE 1% POWDER 45 GM BTL 1 APPLIC TOPICAL ×2 (10:02→20:28)
[2023-05-01] MEDS: MUPIROCIN 2% OINT 22 GM TUBE 1 APPLIC TOPICAL ×3 (10:03→17:55)
[2023-05-01 10:20] LABS: Percent Iron Saturation 26 % (20-50)
[2023-05-01 12:40] LABS: Glucose Point of Care 132 mg/dl (65-105)
--- NOTE | 2023-05-01 13:25 | PC.NURSE ---
1030- Nabila Peck, Care Coordination, Kamala Reddy RN, and Moyn RN at bedside to evaluate patient. Patient states that she does not currently have any thoughts of harming herself. She states that she was frustrated yesterday because she wasn't allowed to eat. She states she feels great today and denies any suicidal thoughts or plans. Care Coordination will have alf psychologist follow up with patient.
--- NOTE | 2023-05-01 15:26 | WPDGICN ---
Assessment and Plan Assessment and plan (1) Anemia: Qualifiers: Anemia type: iron deficiency Iron deficiency anemia type: inadequate dietary iron intake Qualified Code(s): D50.8 - Other iron deficiency anemias Code(s): D64.9 - Anemia, unspecified Status: Acute Assessment and Plan: Patient with a chronic anemia. Admitted with a decline in hemoglobin associated with massive hemoptysis. I suspect she has a chronic anemia aggravated by her hemoptysis. She was found to have Hemoccult-positive stools and for this reason GI lesion cannot be definitively excluded. Given her general medical condition invasive testing such as endoscopy will not be feasible at this time. Would recommend covering for possible peptic ulcer disease with Protonix. It should be noted iron studies are most consistent with anemia of chronic disease. Caution should be given should she require anticoagulation. (2) Hemoptysis: Code(s): R04.2 - Hemoptysis Status: Acute Assessment and Plan: Pulmonary Service following for her hemoptysis. (3) Obesity hypoventilation syndrome: Code(s): E66.2 - Morbid (severe) obesity with alveolar hypoventilation Status: Acute (4) Suicide ideation: Code(s): R45.851 - Suicidal ideations Status: Acute (5) Occult blood in stools: Code(s): R19.5 - Other fecal abnormalities Status: Acute Assessment and Plan: Occult blood in stool potentially related to ingested blood after hemoptysis. Cannot exclude other organic disease of the GI tract. Continue monitor hemoglobin and can close observation and courage. We will keep her on Protonix for now. GI Consult Note Consult date/time: 05/01/23 15:26 Reason for consult: Occult blood in stool HPI: Talia Peralta is a 58 year old female I am asked to see this patient at the request of the hospitalist service. Patient has chronic medical problems. She is morbidly obese and bed ridden at home. She has been treated for diabetes mellitus and depression. She developed rather massive hemoptysis. She describes this is rather large amount may have actually swallowed some of the blood. For this reason she was admitted to the hospital on 04/28/2023. Patient actually was readmitted having been in the hospital for some time prior to this. Patient's initial hemoglobin on presentation was 5.5 which was a drop from her baseline of approximately 7.8. Patient has a chronic anemia that has remained relatively stable during hospital stay. His stool Hemoccult was obtained and found to be positive today. No obvious prior history of GI bleeding has been described. Review of Systems Review of Systems: Review of systems noncontributory. [facility] Past Medical History Medical History (Updated 05/01/23 @ 15:36 by Anoop Mckee MD) Anemia Chronic anemia Chronic anticoagulation Chronic kidney disease Comminuted left humeral fracture with nonunion Depression with anxiety Diastolic congestive heart failure Hyperlipidemia Hypertension Lymphedema Pneumonia Pulmonary embolism (2018) Pulmonary hypertension Type 2 diabetes mellitus Surgical History Surgical History History of cholecystectomy History of hernia repair History of tonsillectomy History of tubal ligation Family History Family History Other Family history unknown Social History Social History Social History: Resides at Residential/long term facility Surrogate medical decision maker: Farhan Avalos (brother). Code status: Full code. Smoking status: Never smoker Second hand tobacco smoke exposure: No Alcohol intake: never Substance use: never Substance use type: does not use Lack of Transportation: No Lack of Food: Never True Current H
--- NOTE | 2023-05-01 15:29 | PM.PNPUL ---
Progress Note: A&P Assessment and Plan (1) Respiratory failure with hypoxia: Qualifiers: Chronicity: unspecified Qualified Code(s): J96.91 - Respiratory failure, unspecified with hypoxia Code(s): J96.91 - Respiratory failure, unspecified with hypoxia Status: Acute Assessment and Plan: She was re-admitted with apparent hemoptysis, significant drop in her H and H, hemoglobin 5.5 hematocrit 18.7, which is not seen with hemoptysis. This large drop in H&H with significant coughing blood is likely GI source becasue she would have had a higher O2 requirement with a significant episode of hemoptysis. Her CT of the chest is not that different from the previous one. She has no history of tuberculosis, cancer, chest trauma, has not had epistaxis. She has had multiple rounds of antibiotics recently. Her white blood cell count is normal. I do not think she has pneumonia. I agree with Dr. Delacruz, this may be another source, not her lungs. She has had hypercapnic hypoxemic respiratory failure, was on BiPAP at [place]. I think she would benefit more from a noninvasive device but this was not permitted at the last admission. I believe an Astral was considered but her blood gases did not allow her to leave the hospital with that. (2) Obesity hypoventilation syndrome: Code(s): E66.2 - Morbid (severe) obesity with alveolar hypoventilation Status: Acute Assessment and Plan: Patient is morbidly obese, BMI 47. Seh has had intermittent fluid overload, managed with diuresis. The patient has no smoking history, no emphysema on CT. The patient has obesity hypoventilation syndrome with chronic hypercarbic respiratory failure and would benefit from noninvasive ventilation, but has not qualified due to insurance guidelines. Last admission, she tried BiPAP but the pressures was uncomfortable and she could not sleep at night. Plan Still penidng serologies for connective tissue disease and autoimmune disease were sent; also sent CPK, aldolase level, anti CCP antibody, hypersensitivity pneumonitis panel and MyoMarker 3 panel- Subjective Date/time seen: 05/01/23 15:29 Interval history: hospital follow up May 01 : no more blood from airway/stomach. This has stopped. She received 2 units blood and H/H improved. She is on nasal cannula, feels better. Apr 30 - new consult Talia Peralta is a chronically ill 58-year-old female in Room 203, readmitted overnight from [place] for apparent hemoptysis, increased shortness of breath, and new chest CT = diffuse infiltrates with ground glass opacities and small effusions. She is on 3 L/min, same O2 she was on at rehab, . She has had a large drop in her H and H, hemoglobin today 5.5 hematocrit 18.7%.? She was transfused with 2 units of blood.? Her oxygenation has not significantly worsen.? A large drop of this magnitude is not seen in hemoptysis.? This is likely another source such as GI.? She did not have any blood in her nares.? She does not have an underlying history of lung disease.? The CTA 04/28 was a limited study however was negative for any large pulmonary embolus. She has infiltrates which are worse, may be due to pulmonary edema. Was here for similar presentation Apr 19 through Apr 25, treated with ceftriaxone and azithromycin, worsened 04/18, changed to cefepime, vanco, continued azithromycin; wento [facility] on doxycycline and Augmentin. all micro studies were negative. She went to [facility] for rehab on Augmentin and doxycycline. She was not allowed to have a non-invasive positive pressure device- AVAPS with settings rate 20, TV 500, EPAP 5, minimal inspiratory pressure 6, maximal inspiratory pressure 25, I time? 1.0, rise of 5 and 32% FiO2.? However was allowed to have a BiPAP 08/10 with back up rate 20 and she was using it until she starting coughing up blood.?
[2023-05-01 17:31] LABS: Glucose Point of Care 145 mg/dl (65-105)
[2023-05-01] MEDS: TAMSULOSIN HCL 0.4 MG CAPSULE PO (20:26)
[2023-05-01] MEDS: ATORVASTATIN 40 MG TABLET PO (20:26)
[2023-05-01] MEDS: OXYMETAZOLINE HCL 0.05% NAS 15 ML BTL (*BKC) 1 SPRAY NASAL (20:27)
[2023-05-01 20:28] LABS: Basophils Percent Auto 0.6 % (0.2-1.2); Eosinophils Absolute Auto 0.5 K/mm3 (0-0.3); Eosinophils Percent Auto 6.6 % (0-4.4); Hematocrit 23.6 % (37.0-47.0); Hemoglobin 7.1 g/dL (12.0-15.0); Immature Granulocyte Absolute 0.03 K/mm3 (0.00-0.031); Immature Granulocyte Percent A 0.4 % (0-0.5); Lymphocytes Absolute Auto 0.94 K/mm3 (0.9-3.2); Lymphocytes Percent Auto 13.5 % (18.3-44.2); Mean Corpuscular HGB Conc 30.1 g/dl (32-36); Mean Corpuscular Hemoglobin 28.4 pg (26-34); Mean Corpuscular Volume 94.4 fl (80-100); Mean Platelet Volume 9.8 fl (7.4-10.4); Monocytes Absolute Auto 0.5 K/mm3 (0.1-0.6); Monocytes Percent Auto 7.7 % (2.6-8.5); Neutrophils Percent Auto 71.2 % (45.5-73.1); Platelet Count Result 157 k/mm3 (150-375)
[2023-05-01 20:47] LABS: Glucose Point of Care 158 mg/dl (65-105)
[2023-05-01 20:59] LABS: Anion Gap 4 mmol/L (8-16); Blood Urea Nitrogen 53 mg/dL (7-17); Carbon Dioxide 34 mmol/L (22-30); Chloride 105 mmol/L (98-107); Estimated CRCL calculation 50 ml/min; Estimated Glomerular Filt Rate 33; Glucose 170 mg/dL (65-110); Potassium 4.2 mmol/L (3.4-5.0); Sodium 143 mmol/L (137-145)
[2023-05-02] VITALS (25 sets, daily range): BP systolic 92–121; BP diastolic 45–59; PULSE 57–72; RESP 18–26; TEMP 36–36.3; O2SAT 96–100
[2023-05-02] MEDS: CEFEPIME 2 GM/NS 50 ML 2 GM/50 ML BAG IVPB ×2 (02:08→13:55)
--- NOTE | 2023-05-02 02:08 | PCRCNOTE ---
Patient did not want to be awakened twice. Therefore, RT did not administer pt's 0000 updraft treatment and will give her 0400 treatment early.
[2023-05-02] MEDS: IPRATROPIUM BR 0.02% INH SOLN 0.5 MG/2.5 ML VIAL INHALATION ×5 (02:26→20:27)
[2023-05-02] MEDS: ALBUTEROL SULFATE NEB 2.5 MG/3 ML INH INHALATION ×5 (02:26→20:27)
[2023-05-02 07:32] LABS: Glucose Point of Care 97 mg/dl (65-105)
[2023-05-02 09:15] LABS: Basophils Percent Auto 0.7 % (0.2-1.2); Eosinophils Absolute Auto 0.5 K/mm3 (0-0.3); Eosinophils Percent Auto 8.1 % (0-4.4); Hematocrit 24.6 % (37.0-47.0); Hemoglobin 7.2 g/dL (12.0-15.0); Immature Granulocyte Absolute 0.03 K/mm3 (0.00-0.031); Immature Granulocyte Percent A 0.5 % (0-0.5); Lymphocytes Absolute Auto 0.73 K/mm3 (0.9-3.2); Lymphocytes Percent Auto 12.6 % (18.3-44.2); Mean Corpuscular HGB Conc 29.3 g/dl (32-36); Mean Corpuscular Hemoglobin 28.8 pg (26-34); Mean Corpuscular Volume 98.4 fl (80-100); Mean Platelet Volume 10.1 fl (7.4-10.4); Monocytes Absolute Auto 0.5 K/mm3 (0.1-0.6); Monocytes Percent Auto 8.5 % (2.6-8.5); Neutrophils Percent Auto 69.6 % (45.5-73.1); Platelet Count Result 146 k/mm3 (150-375); Red Cell Distribution Width 16.2 % (11.5-14.5); White Blood Count 5.8 K/mm3 (4.5-10.0)
[2023-05-02 09:24] LABS: Anion Gap 3 mmol/L (8-16); Blood Urea Nitrogen 45 mg/dL (7-17); Calcium 8.9 mg/dL (8.4-10.2); Carbon Dioxide 33 mmol/L (22-30); Chloride 106 mmol/L (98-107); Estimated CRCL calculation 50 ml/min; Estimated Glomerular Filt Rate 33; Glucose 109 mg/dL (65-110); Potassium 4.1 mmol/L (3.4-5.0); Sodium 142 mmol/L (137-145)
--- NOTE | 2023-05-02 10:07 | PM.IMPN ---
Progress Note: A&P Assessment and Plan (1) Pneumonia: Qualifiers: Pneumonia type: due to unspecified organism Code(s): J18.9 - Pneumonia, unspecified organism Status: Acute Assessment and Plan: Started on cefepime and vancomycin Holding anticoagulation due to hemoptysis MRSA screening negative, dc vancomycin April 30 c/w cefepime IV Cultures in progress Supportive care Continue to monitor (2) Fluid overload: Code(s): E87.70 - Fluid overload, unspecified Status: Acute Assessment and Plan: Brain natriuretic peptide minimally elevated at 1060 Bicarb was >40 04/29, Holding Lasix Strict daily intake and output Start Diamox 250 mg b.i.d. p.o. now becomes a trending down Restart Lasix 40 mg IV daily (3) Obesity hypoventilation syndrome: Code(s): E66.2 - Morbid (severe) obesity with alveolar hypoventilation Status: Acute Assessment and Plan: BiPAP at nighttime (4) Acute respiratory failure: Code(s): J96.00 - Acute respiratory failure, unspecified whether with hypoxia or hypercapnia Status: Acute Assessment and Plan: Currently on supplemental oxygen by nasal cannula Continue nebulizer Likely resulting from pneumonia and hypoventilation syndrome (5) Diabetic ulcer of heel: Code(s): E11.621 - Type 2 diabetes mellitus with foot ulcer; L97.409 - Non-pressure chronic ulcer of unspecified heel and midfoot with unspecified severity Status: Acute Assessment and Plan: Local care (6) Type 2 diabetes mellitus: Code(s): E11.9 - Type 2 diabetes mellitus without complications Status: Acute Assessment and Plan: Holding glimepiride Patient had episode of hypoglycemia corrected Start insulin sliding scale a.c. q.h.s. (7) Hemoptysis: Code(s): R04.2 - Hemoptysis Status: Acute Assessment and Plan: Patient continue to have bloody phlegm with the cough No obvious however obstruction Aspirin and Eliquis on hold, patient has history of pulmonary embolism in her right lung CT reveals Diffuse bilateral pneumonia and/or moderate edema. Stable small bilateral pleural effusions. Stable lymphadenopathy.on 04/29 Consult structural metal fabricator apprentice for evaluation and treatment (8) Suicide ideation: Code(s): R45.851 - Suicidal ideations Status: Acute Assessment and Plan: Patient has history of depression on 04/30 Patient told nurses that she wanted to kill herself. When I talked to the patient at bedside with the nurse and student nurse, patient said she was frustrated but she did really mean to hurt herself. Later on patient stated she was attempting to kill herself with a knife before. now she is on Abilify [address] a sitter at bedside monitor patient closely Will consult psychiatrist when patient medically stable, and may need to move patient to mental health department for further evaluation and management at discharge 05/01 I saw and examined the patient with patient's nurse, ICU charge nurse, animal care technician. Patient feels comfortable today, patient feels shortness breath improved significantly, denies chest pain, palpitation, abdomen pain. Hemoptysis stopped. Patient also denies nausea vomiting. Patient has no obvious distress, patient states she was frustrated yesterday she did mean to kill herself yesterday, and today she feels comfortable and no thought of suicidal ideas or plans. Patient states she does have remote history of suicide attempt, and consulted the psychiatrist. Since then patient does not have suicide attempt or ideation. We don't think pt has risk of suicide now. Patient will continue psychiatrists evaluation and treatment after patient going back to his snf Plan Acute on chronic blood-loss anemia Patient has hx chronic anemia drops below to 5.5 Stool guaiac positive Patient has hemoptysis, positive guaiac Received pack RBC transfusion Patient
[2023-05-02 10:51] LABS: Anisocytosis 1+ (NORMAL); Platelet Estimate Adequate (Adequate); Schistocytes None Seen (NORMAL)
[2023-05-02] MEDS: PANTOPRAZOLE SODIUM IV 40 MG VIAL IV PUSH (11:33)
[2023-05-02] MEDS: FUROSEMIDE INJ 40 MG/4 ML VIAL IV PUSH (11:33)
[2023-05-02] MEDS: GABAPENTIN 300 MG CAPSULE 600 MG PO ×2 (11:34→20:58)
[2023-05-02] MEDS: ARIPiprazole 2 MG TABLET PO (11:34)
[2023-05-02] MEDS: FERROUS SULFATE 325 MG TABLET DR PO (11:34)
[2023-05-02] MEDS: acetaZOLAMIDE TAB 250 MG TABLET PO ×2 (11:35→16:34)
[2023-05-02] MEDS: allopurinoL 100 MG TABLET PO (11:35)
[2023-05-02] MEDS: buPROPion HCL SR (12HR) 100 MG TABCR PO (11:35)
[2023-05-02] MEDS: amLODIPine BESYLATE 5 MG TABLET PO (11:36)
[2023-05-02] MEDS: TOLNAFTATE 1% POWDER 45 GM BTL 1 APPLIC TOPICAL ×2 (11:39→20:59)
[2023-05-02] MEDS: MUPIROCIN 2% OINT 22 GM TUBE 1 APPLIC TOPICAL ×3 (11:39→16:34)
--- NOTE | 2023-05-02 11:41 | WPDGIPROGNO ---
Progress Note: A&P Assessment and Plan (1) Acute on chronic blood loss anemia: Code(s): D62 - Acute posthemorrhagic anemia Status: Acute Assessment and Plan: she states that she was coughing up blood at home and this morning blood was coming out her nostrils. It appears to be respiratory source. Will hold off on any gastrointestinal investigation at this time (2) Occult blood in stools: Code(s): R19.5 - Other fecal abnormalities Status: Acute Assessment and Plan: stools are occult blood positive but brown. (3) Hemoptysis: Code(s): R04.2 - Hemoptysis Status: Acute Assessment and Plan: the patient states that she was coughing up blood but was not actually vomiting. (4) Epistaxis: Code(s): R04.0 - Epistaxis Status: Acute Assessment and Plan: This morning the nurses extracted a large blood clot from her nostrils Plan Will continue to follow. No endoscopic investigation schedule at this moment. Subjective Date/time seen: 05/02/23 11:41 the patient recently expectorated a large blood clot nasally. She is denying any gastrointestinal symptoms. She is hungry wishes to eat. Currently she is on a pureed diet and she does not feel she needs that. I told her that we could give it a try with regular and liquids. Although she had a positive stool Hemoccult, her stools have been brown and she has had no melena or rectal bleeding since admission. Review of Systems Review of Systems: All systems reviewed & are unremarkable except as noted in HPI and below Exam Const: General: alert Nutritional Appearance: obese Orientation/consciousness: patient oriented x3 Resp: Auscultation: clear to auscultation bilaterally Cardio: Rhythm: regular rhythm GI: Inspection: obesity GI Palp: Yes Soft to palpation, No Tenderness to palpation present (GI) and Yes No hepatosplenomegaly present Auscultation: normal bowel sounds Neuro: General: patient oriented x3 Objective Data Vital Signs Vital Signs: Vital Signs - 24 hr 05/01/23 12:00 05/01/23 13:30 05/01/23 13:47 Temperature 36.4 C L Pulse Rate 88 70 67 Respiratory Rate 22 H 18 18 Blood Pressure 139/73 Pulse Oximetry 98 Oxygen Delivery Oxygen Flow Rate 05/01/23 12:00 05/01/23 12:00 05/01/23 14:00 Temperature Pulse Rate 81 73 Respiratory Rate Blood Pressure Pulse Oximetry 98 Oxygen Delivery Nasal Cannula Oxygen Flow Rate 2 05/01/23 16:00 05/01/23 17:00 05/01/23 17:15 Temperature 36.3 C L Pulse Rate 69 74 72 Respiratory Rate 18 18 18 Blood Pressure 109/50 L Pulse Oximetry 98 Oxygen Delivery Oxygen Flow Rate 05/01/23 16:00 05/01/23 16:00 05/01/23 18:00 Temperature Pulse Rate 73 73 Respiratory Rate Blood Pressure Pulse Oximetry 98 Oxygen Delivery Nasal Cannula Oxygen Flow Rate 2 05/01/23 20:00 05/01/23 20:41 05/01/23 20:49 Temperature 36.3 C L Pulse Rate 66 64 64 Respiratory Rate 18 18 Blood Pressure 108/41 L Pulse Oximetry 96 98 Oxygen Delivery Nasal Cannula Oxygen Flow Rate 2 05/01/23 20:50 05/01/23 20:00 05/01/23 23:48 Temperature 36.5 C Pulse Rate 64 69 66 Respiratory Rate 18 18 Blood Pressure 106/43 L Pulse Oximetry 100 Oxygen Delivery Oxygen Flow Rate 05/01/23 22:00 05/02/23 00:00 05/02/23 02:00 Temperature Pulse Rate 72 64 72 Respiratory Rate Blood Pressure Pulse Oximetry Oxygen Delivery Oxygen Flow Rate 05/02/23 02:26 05/02/23 02:34 05/02/23 04:00 Temperature 36.3 C L Pulse Rate 64 60 59 L Respiratory Rate 18 18 18 Blood Pressure 99/47 L Pulse Oximetry 99 Oxygen Delivery Oxygen Flow Rate 05/02/23 04:00 05/02/23 06:00 05/02/23 08:00 Temperature 36.3 C L Pulse Rate 65 72 62 Respiratory Rate 24 H Blood Pressure 114/54 L Pulse Oximetry 100 Oxygen Delivery Oxygen Flow Rate 05/02/23 08:37 04/23
[2023-05-02 12:17] LABS: Glucose Point of Care 122 mg/dl (65-105)
--- NOTE | 2023-05-02 15:40 | PM.PNPUL ---
Progress Note: A&P Assessment and Plan (1) Respiratory failure with hypoxia: Qualifiers: Chronicity: unspecified Qualified Code(s): J96.91 - Respiratory failure, unspecified with hypoxia Code(s): J96.91 - Respiratory failure, unspecified with hypoxia Status: Acute Assessment and Plan: She was re-admitted with apparent hemoptysis, significant drop in her H and H, hemoglobin 5.5 hematocrit 18.7, which is not seen with hemoptysis. This large drop in H&H with significant coughing blood is likely GI source becasue she would have had a higher O2 requirement with a significant episode of hemoptysis. Her CT of the chest is not that different from the previous one. She has no history of tuberculosis, cancer, chest trauma, has not had epistaxis. She has had multiple rounds of antibiotics recently. Her white blood cell count is normal. I do not think she has pneumonia. I agree with Dr. Delacruz, this may be another source, not her lungs. She has had hypercapnic hypoxemic respiratory failure, was on BiPAP at [place]. I think she would benefit more from a noninvasive device but this was not permitted at the last admission. I believe an Astral was considered but her blood gases did not allow her to leave the hospital with that. (2) Obesity hypoventilation syndrome: Code(s): E66.2 - Morbid (severe) obesity with alveolar hypoventilation Status: Acute Assessment and Plan: Patient is morbidly obese, BMI 47. Seh has had intermittent fluid overload, managed with diuresis. The patient has no smoking history, no emphysema on CT. The patient has obesity hypoventilation syndrome with chronic hypercarbic respiratory failure and would benefit from noninvasive ventilation, but has not qualified due to insurance guidelines. Last admission, she tried BiPAP but the pressures was uncomfortable and she could not sleep at night. Plan Serologies for connective tissue disease/ autoimmune disease are negative, also sent CPK, aldolase 3.8, normal level, anti CCP antibody - looking for result, hypersensitivity pneumonitis - pending still, MyoMarker 3 panel-negative. Subjective Date/time seen: 05/02/23 15:40 Interval history: hospital follow up May 02: May 02 :feels much better, getting a regular diet, on 2 L/min. No more expectorating blood. This presentation is not consistent with hemoptysis. She is high risk for any endoscopy, and GI is not impressed that she has a gastrointestinal bleed. The patient told other staff members that she wanted to kill herself, raising concern that she might have swallowed something. Overall, better, acute respiratory failure resolved. May 01 : no more blood from airway/stomach. This has stopped. She received 2 units blood and H/H improved. She is on nasal cannula, feels better. Apr 30 - new consult Talia Peralta is a chronically ill 58-year-old female in Room 203, readmitted overnight from [place] [facility] for apparent hemoptysis, increased shortness of breath, and new chest CT = diffuse infiltrates with ground glass opacities and small effusions. She is on 3 L/min, same O2 she was on at rehab, . She has had a large drop in her H and H, hemoglobin today 5.5 hematocrit 18.7%.? She was transfused with 2 units of blood.? Her oxygenation has not significantly worsen.? A large drop of this magnitude is not seen in hemoptysis.? This is likely another source such as GI.? She did not have any blood in her nares.? She does not have an underlying history of lung disease.? The CTA 04/28 was a limited study however was negative for any large pulmonary embolus. She has infiltrates which are worse, may be due to pulmonary edema. Was here for similar presentation Apr 19 through Apr 25, treated with ceftriaxone and azithromycin, worsened 04/18, changed to cefepime, vanco, continued azithromycin; mika [facility]
[2023-05-02 17:23] LABS: Basophils Percent Auto 0.7 % (0.2-1.2); Eosinophils Absolute Auto 0.5 K/mm3 (0-0.3); Hemoglobin 7.4 g/dL (12.0-15.0); Immature Granulocyte Absolute 0.03 K/mm3 (0.00-0.031); Immature Granulocyte Percent A 0.5 % (0-0.5); Immature Platelet Fraction Pct 3.7 % (0.9-11.2); Lymphocytes Percent Auto 16.7 % (18.3-44.2); Mean Corpuscular HGB Conc 28.5 g/dl (32-36); Mean Corpuscular Hemoglobin 27.9 pg (26-34); Mean Corpuscular Volume 98.1 fl (80-100); Mean Platelet Volume 10.3 fl (7.4-10.4); Monocytes Absolute Auto 0.5 K/mm3 (0.1-0.6); Monocytes Percent Auto 8.5 % (2.6-8.5); Neutrophils Absolute Auto 3.9 K/mm3 (1.3-6.7); Neutrophils Percent Auto 64.6 % (45.5-73.1); Platelet Count Result 162 k/mm3 (150-375); Red Blood Count 2.65 M/mm3 (4.2-5.4); Red Cell Distribution Width 16.2 % (11.5-14.5)
[2023-05-02 17:33] LABS: Anion Gap 6 mmol/L (8-16); Blood Urea Nitrogen 43 mg/dL (7-17); Calcium 8.6 mg/dL (8.4-10.2); Carbon Dioxide 30 mmol/L (22-30); Chloride 105 mmol/L (98-107); Estimated CRCL calculation 53 ml/min; Estimated Glomerular Filt Rate 36; Glucose 141 mg/dL (65-110); Potassium 4.4 mmol/L (3.4-5.0); Sodium 141 mmol/L (137-145)
[2023-05-02 18:26] LABS: Glucose Point of Care 136 mg/dl (65-105)
[2023-05-02 19:55] LABS: Glucose Point of Care 165 mg/dl (65-105)
[2023-05-02] MEDS: ATORVASTATIN 40 MG TABLET PO (20:59)
[2023-05-02] MEDS: TAMSULOSIN HCL 0.4 MG CAPSULE PO (20:59)
[2023-05-03] VITALS (34 sets, daily range): BP systolic 93–122; BP diastolic 40–70; PULSE 55–88; RESP 16–21; TEMP 35.6–36.8; O2SAT 95–100
[2023-05-03] MEDS: ALBUTEROL SULFATE NEB 2.5 MG/3 ML INH INHALATION ×4 (01:26→11:23)
[2023-05-03] MEDS: IPRATROPIUM BR 0.02% INH SOLN 0.5 MG/2.5 ML VIAL INHALATION ×4 (01:26→11:23)
[2023-05-03] MEDS: CEFEPIME 2 GM/NS 50 ML 2 GM/50 ML BAG IVPB ×2 (01:50→14:49)
[2023-05-03 07:33] LABS: Basophils Percent Auto 0.5 % (0.2-1.2); Eosinophils Absolute Auto 0.5 K/mm3 (0-0.3); Eosinophils Percent Auto 9.2 % (0-4.4); Hematocrit 24.1 % (37.0-47.0); Immature Granulocyte Absolute 0.03 K/mm3 (0.00-0.031); Immature Granulocyte Percent A 0.5 % (0-0.5); Lymphocytes Absolute Auto 0.93 K/mm3 (0.9-3.2); Lymphocytes Percent Auto 16.7 % (18.3-44.2); Mean Corpuscular Hemoglobin 28.7 pg (26-34); Mean Corpuscular Volume 98.8 fl (80-100); Mean Platelet Volume 10.2 fl (7.4-10.4); Monocytes Absolute Auto 0.6 K/mm3 (0.1-0.6); Monocytes Percent Auto 10.4 % (2.6-8.5); Neutrophils Absolute Auto 3.5 K/mm3 (1.3-6.7); Neutrophils Percent Auto 62.7 % (45.5-73.1); Platelet Count Result 154 k/mm3 (150-375); Red Blood Count 2.44 M/mm3 (4.2-5.4); Red Cell Distribution Width 15.9 % (11.5-14.5); White Blood Count 5.6 K/mm3 (4.5-10.0)
[2023-05-03 07:41] LABS: Anion Gap 4 mmol/L (8-16); Blood Urea Nitrogen 40 mg/dL (7-17); Calcium 8.6 mg/dL (8.4-10.2); Carbon Dioxide 33 mmol/L (22-30); Chloride 106 mmol/L (98-107); Estimated CRCL calculation 42 ml/min; Estimated Glomerular Filt Rate 27; Glucose 107 mg/dL (65-110); Potassium 3.9 mmol/L (3.4-5.0); Sodium 143 mmol/L (137-145)
[2023-05-03 07:55] LABS: Glucose Point of Care 106 mg/dl (65-105)
--- NOTE | 2023-05-03 08:55 | PC.NURSE ---
Spoke to Dr. Hammer regarding the critical Hgb of 7.0. He will come and see the patient today for possible EGD Friday
--- NOTE | 2023-05-03 09:40 | WPDGIPROGNO ---
Progress Note: A&P Assessment and Plan (1) Acute on chronic blood loss anemia: Code(s): D62 - Acute posthemorrhagic anemia Status: Acute Assessment and Plan: she states that she was coughing up blood at home and this morning blood was coming out her nostrils. It appears to be respiratory source. Will hold off on any gastrointestinal investigation at this time (2) Occult blood in stools: Code(s): R19.5 - Other fecal abnormalities Status: Acute Assessment and Plan: stools are occult blood positive but brown. There is in other words no evidence of lower gastrointestinal bleeding. She has never had a colonoscopy and I told her that she should do that at some point. (3) Hemoptysis: Code(s): R04.2 - Hemoptysis Status: Acute Assessment and Plan: the patient states that she was coughing up blood but was not actually vomiting. Because of continued drop in her blood counts will perform EGD on Friday to rule out upper gastrointestinal source for her bleeding. (4) Epistaxis: Code(s): R04.0 - Epistaxis Status: Acute Assessment and Plan: Friday the nurses extracted a large blood clot from her nostrils Plan because of slow gradual drop her counts and no definite known source for bleeding, will schedule for EGD Friday. Subjective Date/time seen: 05/03/23 09:40 No further nose bleeds or hematemesis, hemoptysis. The patient is tolerating her diet I explained to her that her counts continue to slowly drop, presently 7.0. Exam Const: General: alert and obese Nutritional Appearance: obese Orientation/consciousness: patient oriented x3 Resp: Auscultation: clear to auscultation bilaterally Cardio: Rhythm: regular rhythm GI: Inspection: obesity Auscultation: normal bowel sounds Neuro: General: patient oriented x3 Objective Data Vital Signs Vital Signs: Vital Signs - 24 hr 05/02/23 10:00 05/02/23 12:00 05/02/23 12:00 Temperature 36.0 C L Pulse Rate 70 63 64 Respiratory Rate 26 H Blood Pressure 121/59 L Pulse Oximetry 100 Oxygen Delivery Oxygen Flow Rate Fraction of Inspired Oxygen 05/02/23 13:37 05/02/23 12:00 05/02/23 13:50 Temperature Pulse Rate 60 67 Respiratory Rate 18 18 Blood Pressure Pulse Oximetry 97 Oxygen Delivery Nasal Cannula Oxygen Flow Rate 2 Fraction of Inspired Oxygen 05/02/23 16:00 05/02/23 16:08 05/02/23 16:00 Temperature Pulse Rate 69 66 Respiratory Rate 18 18 Blood Pressure Pulse Oximetry 98 Oxygen Delivery BiPAP Oxygen Flow Rate Fraction of Inspired Oxygen 05/02/23 14:00 05/02/23 16:00 05/02/23 16:00 Temperature 36.1 C L Pulse Rate 59 L 59 L 63 Respiratory Rate 18 Blood Pressure 113/52 L Pulse Oximetry 100 Oxygen Delivery Oxygen Flow Rate Fraction of Inspired Oxygen 05/02/23 18:00 05/02/23 20:24 05/02/23 20:28 Temperature 36.2 C L Pulse Rate 72 63 Respiratory Rate 18 Blood Pressure 92/45 L Pulse Oximetry 100 100 Oxygen Delivery Nasal Cannula Oxygen Flow Rate 2 Fraction of Inspired Oxygen 05/02/23 20:29 05/03/23 00:12 05/03/23 01:25 Temperature 36.2 C L Pulse Rate 60 55 L 59 L Respiratory Rate 18 20 21 H Blood Pressure 109/49 L Pulse Oximetry 100 Oxygen Delivery Oxygen Flow Rate Fraction of Inspired Oxygen 05/02/23 22:55 05/02/23 20:43 05/03/23 01:15 Temperature Pulse Rate 57 L 63 59 L Respiratory Rate 20 18 21 H Blood Pressure Pulse Oximetry 99 99 Oxygen Delivery BiPAP BiPAP Oxygen Flow Rate Fraction of Inspired Oxygen 05/02/23 20:00 05/03/23 00:00 05/03/23 04:24 Temperature 36.2 C L Pulse Rate 56 L Respiratory Rate 20 Blood Pressure 101/63 Pulse Oximetry 100 100 99 Oxygen Delivery Nasal Cannula BiPAP Oxygen Flow Rate 2 Fraction of Inspired Oxygen 30 05/03/23 04:52 05/03/23 04:52 05/03/23 01:38
[2023-05-03] MEDS: SODIUM CHLORIDE 0.9% IV 250 ML 30 ML IV CONT (09:45)
--- NOTE | 2023-05-03 09:59 | PM.IMPN ---
Progress Note: A&P Assessment and Plan (1) Pneumonia: Qualifiers: Pneumonia type: due to unspecified organism Code(s): J18.9 - Pneumonia, unspecified organism Status: Acute Assessment and Plan: Started on cefepime and vancomycin Holding anticoagulation due to hemoptysis MRSA screening negative, dc vancomycin April 30 c/w cefepime IV Cultures in progress Supportive care Continue to monitor (2) Fluid overload: Code(s): E87.70 - Fluid overload, unspecified Status: Acute Assessment and Plan: Brain natriuretic peptide minimally elevated at 1060 Bicarb was >40 04/29, Holding Lasix Strict daily intake and output Start Diamox 250 mg b.i.d. p.o. now becomes a trending down Restart Lasix 40 mg IV daily (3) Obesity hypoventilation syndrome: Code(s): E66.2 - Morbid (severe) obesity with alveolar hypoventilation Status: Acute Assessment and Plan: BiPAP at nighttime (4) Acute respiratory failure: Code(s): J96.00 - Acute respiratory failure, unspecified whether with hypoxia or hypercapnia Status: Acute Assessment and Plan: Currently on supplemental oxygen by nasal cannula Continue nebulizer Likely resulting from pneumonia and hypoventilation syndrome (5) Diabetic ulcer of heel: Code(s): E11.621 - Type 2 diabetes mellitus with foot ulcer; L97.409 - Non-pressure chronic ulcer of unspecified heel and midfoot with unspecified severity Status: Acute Assessment and Plan: Local care (6) Type 2 diabetes mellitus: Code(s): E11.9 - Type 2 diabetes mellitus without complications Status: Acute Assessment and Plan: Holding glimepiride Patient had episode of hypoglycemia corrected Start insulin sliding scale a.c. q.h.s. (7) Hemoptysis: Code(s): R04.2 - Hemoptysis Status: Acute Assessment and Plan: Patient continue to have bloody phlegm with the cough No obvious however obstruction Aspirin and Eliquis on hold, patient has history of pulmonary embolism in her right lung CT reveals Diffuse bilateral pneumonia and/or moderate edema. Stable small bilateral pleural effusions. Stable lymphadenopathy.on 04/29 Consult oil transport driver for evaluation and treatment (8) Suicide ideation: Code(s): R45.851 - Suicidal ideations Status: Acute Assessment and Plan: Patient has history of depression on 04/30 Patient told nurses that she wanted to kill herself. When I talked to the patient at bedside with the nurse and student nurse, patient said she was frustrated but she did really mean to hurt herself. Later on patient stated she was attempting to kill herself with a knife before. now she is on Abilify [address] a sitter at bedside monitor patient closely Will consult psychiatrist when patient medically stable, and may need to move patient to mental health department for further evaluation and management at discharge 05/01 I saw and examined the patient with patient's nurse, ICU charge nurse, personal care home administrator. Patient feels comfortable today, patient feels shortness breath improved significantly, denies chest pain, palpitation, abdomen pain. Hemoptysis stopped. Patient also denies nausea vomiting. Patient has no obvious distress, patient states she was frustrated yesterday she did mean to kill herself yesterday, and today she feels comfortable and no thought of suicidal ideas or plans. Patient states she does have remote history of suicide attempt, and consulted the psychiatrist. Since then patient does not have suicide attempt or ideation. We don't think pt has risk of suicide now. Patient will continue psychiatrists evaluation and treatment after patient going back to his group home Plan Acute on chronic blood-loss anemia Patient has hx chronic anemia drops below to 5.5 received 2 pack RBC, hemoglobin dropped to 7 on May 03 Stool guaiac positive Patient has hemoptys
[2023-05-03 10:13] LABS: Iron 53 ug/dL (37-170)
[2023-05-03 10:22] LABS: Percent Iron Saturation 21 % (20-50)
[2023-05-03] MEDS: ARIPiprazole 2 MG TABLET PO (10:22)
[2023-05-03] MEDS: amLODIPine BESYLATE 5 MG TABLET PO (10:22)
[2023-05-03] MEDS: GABAPENTIN 300 MG CAPSULE 600 MG PO ×2 (10:22→20:38)
[2023-05-03] MEDS: buPROPion HCL SR (12HR) 100 MG TABCR PO (10:23)
[2023-05-03] MEDS: allopurinoL 100 MG TABLET PO (10:23)
[2023-05-03] MEDS: FERROUS SULFATE 325 MG TABLET DR PO (10:23)
[2023-05-03] MEDS: MUPIROCIN 2% OINT 22 GM TUBE 1 APPLIC TOPICAL ×3 (10:24→16:24)
[2023-05-03] MEDS: TOLNAFTATE 1% POWDER 45 GM BTL 1 APPLIC TOPICAL ×2 (10:24→20:38)
[2023-05-03 10:46] LABS: NT Pro B Type Natriuretic Pept 564 pg/mL (19.9-100)
--- NOTE | 2023-05-03 12:06 | PM.PNPUL ---
Progress Note: A&P Assessment and Plan (1) Pulmonary infiltrates: Code(s): R91.8 - Other nonspecific abnormal finding of lung field Status: Acute Assessment and Plan: Patient was admitted to the hospital on 04/15/2023 and treated for pneumonia, fluid overload. Her CT scan showed diffuse patchy diffuse ground-glass infiltrates with no evidence of bullous emphysema, bronchiectasis, honeycombing or reticulations. She was treated with antibiotics, diuretics, and obesity hypoventilation with noninvasive ventilation with BiPAP mode and was discharged after completing 10 days of antibiotics on 04/25/2023 on 2 L nasal cannula. Her weight was 137 kilos. Workup during that it [facility] demonstrated COVID, influenza, RSV RT PCR negative, rheumatoid factor less than 12, normal C3 and C4 complements. Since discharge her lupus anticoagulant is positive. Her aldolase is normal at 3.8. Her anti CCP peptide antibody is negative, her [place] screen for 11 auto antibodies is negative, her Anca screen is negative, her anti proteinase 3 antibody is negative, anti-myeloperoxidase antibody is negative, her MyoMarker 3+ screen is negative for 11 auto antibodies her anti-GBM antibody is negative. Her respiratory pathogen panel is negative for 21 pathogens. Her anticardiolipin, Phospha till searing antibodies and beta 2 GP I antibodies are pending. Her hypersensitivity pneumonitis panel is pending. 04/30/23: This patient was re-admitted with apparent hemoptysis, significant drop in her H and H, hemoglobin 5.5 hematocrit 18.7, which is not seen with hemoptysis.? This large drop in H&H with significant coughing blood is likely GI source.? Her CT of the chest is not that different from the previous 1.? She has no history of tuberculosis, cancer, chest trauma, has not had epistaxis.? She has had multiple rounds of antibiotics recently.? Her white blood cell count is normal.? I do not think she has pneumonia.? I agree with Dr. Delacruz, this may be another source, not her lungs. She has had hypercapnic hypoxemic respiratory failure, was on BiPAP at [place].? I think she would benefit more from a noninvasive device but this was not permitted at the last admission.? I believe an Astral was considered but her blood gases did not allow her to leave the hospital with that. 05/03: Patient and daytime nurse who took care of her yesterday said she had had no further hemoptysis or nosebleeds. The patient tells me she is breathing much better than she was when she entered the hospital. Overall she states she is 80% back to her normal, she remains with a dry cough. When she blew her nose this morning she had clear nasal discharge. When I enter the room the patient was on 2 L nasal cannula with saturations 100%. I decreased her to room air and after 5 minutes her saturations were 96%. She is afebrile. Hemoglobin 7.0 and she is being transfused 1 unit of blood. Creatinine is 1.90, she has diuresed 9.4 L since admission and Lasix and spironolactone were held. Chest x-ray with mild improvement of her bilateral interstitial infiltrates. She received doxycycline and ceftriaxone on 04/28. She received vancomycin on 04/29 (DC as MRSA swab negative) and cefepime on 04/29. Plan: Patient continues to improve clinically from a respiratory viewpoint (80% back to normal). Her chest x-ray is improved, her oxygenation is improved and not tolerating room air rest. She has been treated with discontinuation of her Eliquis, for fluid overload with diuresis and for possible bacterial pneumonia with cefepime, day 5. I will plan on giving a total of 7 days of cefepime. She has not received inhaled or systemic steroids. She has also received bronchodilators and last admission I discontinued her bronchodilators and she remained clinically stable and she currently has no wheezing and I will discontinue her nebulized albuterol and ipratropium today. Will follow with you. (2) Hemoptysis: Code(s)
[2023-05-03 12:27] LABS: Glucose Point of Care 213 mg/dl (65-105)
[2023-05-03 16:13] LABS: Glucose Point of Care 258 mg/dl (65-105)
[2023-05-03 20:27] LABS: Glucose Point of Care 224 mg/dl (65-105)
[2023-05-03] MEDS: PANTOPRAZOLE SODIUM IV 40 MG VIAL IV PUSH (20:38)
[2023-05-03] MEDS: ATORVASTATIN 40 MG TABLET PO (20:38)
[2023-05-03] MEDS: TAMSULOSIN HCL 0.4 MG CAPSULE PO (20:38)
[2023-05-04] VITALS (13 sets, daily range): BP systolic 113–130; BP diastolic 50–59; PULSE 60–71; RESP 16–24; TEMP 36.3–36.9; O2SAT 94–99
[2023-05-04] MEDS: CEFEPIME 2 GM/NS 50 ML 2 GM/50 ML BAG IVPB ×2 (01:29→14:55)
[2023-05-04 05:08] LABS: Alveolar/Arterial O2 Gradient 41.5 mmHg; Base Excess ABG 4.2 mEq/l (+/-2.0); Fractional Inspired Oxygen 28 %; HCO3 ABG 30.3 mEq/l (22.0-26.0); Oxygen Content ABG 17.4 %vol (16.0-22.0); Oxygen Saturation ABG 97.2 % (95.0-100.0); Oxyhemoglobin 95.5 % THb (90.0-100.0); PCO2 ABG 51.5 mmHg (35.0-45.0); PO2 ABG 97.4 mmHg (80.0-100.0); PO2 FiO2 Ratio Arterial Blood 3.48 %; Total Hemoglobin 12.9 g/dL (12.0-18.0); pH ABG 7.387 (7.350-7.450)
[2023-05-04 06:34] LABS: Site Drawn RIGHT RADIAL
[2023-05-04 06:35] LABS: Device NON-INVASIVE VENT; Modified Allen's Test Pass; Non-Invasive Expiratory Pressure 4 CMH2O; Non-Invasive Inspiratory Pressure 12 CMH2O; Non-Invasive Vent Rate 20 /MIN
[2023-05-04 08:25] LABS: Glucose Point of Care 129 mg/dl (65-105)
--- NOTE | 2023-05-04 08:40 | PM.IMPN ---
Progress Note: A&P Assessment and Plan (1) Pneumonia: Qualifiers: Pneumonia type: due to unspecified organism Code(s): J18.9 - Pneumonia, unspecified organism Status: Acute Assessment and Plan: Started on cefepime and vancomycin Holding anticoagulation due to hemoptysis MRSA screening negative, dc vancomycin April 30 c/w cefepime IV Cultures in progress Supportive care Continue to monitor (2) Fluid overload: Code(s): E87.70 - Fluid overload, unspecified Status: Acute Assessment and Plan: Brain natriuretic peptide minimally elevated at 1060 Strict daily intake and output Discontinue diamox 250 mg b.i.d. p.o. Discontinue lasix 40 mg IV daily Compensated (3) Obesity hypoventilation syndrome: Code(s): E66.2 - Morbid (severe) obesity with alveolar hypoventilation Status: Acute Assessment and Plan: BiPAP at nighttime (4) Acute respiratory failure: Code(s): J96.00 - Acute respiratory failure, unspecified whether with hypoxia or hypercapnia Status: Acute Assessment and Plan: Currently on supplemental oxygen by nasal cannula Continue nebulizer Likely resulting from pneumonia and hypoventilation syndrome (5) Diabetic ulcer of heel: Code(s): E11.621 - Type 2 diabetes mellitus with foot ulcer; L97.409 - Non-pressure chronic ulcer of unspecified heel and midfoot with unspecified severity Status: Acute Assessment and Plan: Local care (6) Type 2 diabetes mellitus: Code(s): E11.9 - Type 2 diabetes mellitus without complications Status: Acute Assessment and Plan: Holding glimepiride Patient had episode of hypoglycemia corrected Start insulin sliding scale a.c. q.h.s. (7) Hemoptysis: Code(s): R04.2 - Hemoptysis Status: Acute Assessment and Plan: Patient continue to have bloody phlegm with the cough No obvious however obstruction Aspirin and Eliquis on hold, patient has history of pulmonary embolism in her right lung CT reveals Diffuse bilateral pneumonia and/or moderate edema. Stable small bilateral pleural effusions. Stable lymphadenopathy.on 04/29 Consult director dental services for evaluation and treatment (8) Suicide ideation: Code(s): R45.851 - Suicidal ideations Status: Acute Assessment and Plan: Patient has history of depression on 04/30 Patient told nurses that she wanted to kill herself. When I talked to the patient at bedside with the nurse and student nurse, patient said she was frustrated but she did really mean to hurt herself. Later on patient stated she was attempting to kill herself with a knife before. now she is on Abilify [address] a sitter at bedside monitor patient closely Will consult psychiatrist when patient medically stable, and may need to move patient to mental health department for further evaluation and management at discharge 05/01 I saw and examined the patient with patient's nurse, ICU charge nurse, patient care nursing assistant. Patient feels comfortable today, patient feels shortness breath improved significantly, denies chest pain, palpitation, abdomen pain. Hemoptysis stopped. Patient also denies nausea vomiting. Patient has no obvious distress, patient states she was frustrated yesterday she did mean to kill herself yesterday, and today she feels comfortable and no thought of suicidal ideas or plans. Patient states she does have remote history of suicide attempt, and consulted the psychiatrist. Since then patient does not have suicide attempt or ideation. We don't think pt has risk of suicide now. Patient will continue psychiatrists evaluation and treatment after patient going back to his long-term Plan Acute on chronic blood-loss anemia Patient has hx chronic anemia drops below to 5.5 received 2 pack RBC, hemoglobin dropped to 7 on May 03 Stool guaiac positive Patient has hemoptysis, positive guaiac Received pack RBC umana
--- NOTE | 2023-05-04 08:42 | P.PNPL_ITS ---
Progress Note: A&P Assessment and Plan (1) Pulmonary infiltrates: Code(s): R91.8 - Other nonspecific abnormal finding of lung field Status: Acute Assessment and Plan: Patient was admitted to the hospital on 04/15/2023 and treated for pneumonia, fluid overload. Her CT scan showed diffuse patchy diffuse ground-glass infiltrates with no evidence of bullous emphysema, bronchiectasis, honeycombing or reticulations. She was treated with antibiotics, diuretics, and obesity hypoventilation with noninvasive ventilation with BiPAP mode and was discharged after completing 10 days of antibiotics on 04/25/2023 on 2 L nasal cannula. Her weight was 137 kilos. Workup during that it [facility] demonstrated COVID, influenza, RSV RT PCR negative, rheumatoid factor less than 12, normal C3 and C4 complements. Since discharge her lupus anticoagulant is positive. Her aldolase is normal at 3.8. Her anti CCP peptide antibody is negative, her [place] screen for 11 auto antibodies is negative, her Anca screen is negative, her anti proteinase 3 antibody is negative, anti-myeloperoxidase antibody is negative, her MyoMarker 3+ screen is negative for 11 auto antibodies her anti-GBM antibody is negative. Her respir atory pathogen panel is negative for 21 pathogens. Her anticardiolipin, Phospha till searing antibodies and beta 2 GP I antibodies are pending. Her hypersensitivity pneumonitis panel is pending. 04/30/23: This patient was re-admitted with apparent hemoptysis, significant drop in her H and H, hemoglobin 5.5 hematocrit 18.7, which is not seen with hemoptysis.? This large drop in H&H with significant coughing blood is likely GI source.? Her CT of the chest is not that different from the previous 1.? She has no history of tuberculosis, cancer, chest trauma, has not had epistaxis.? She has had multiple rounds of antibiotics recently.? Her white blood cell count is normal.? I do not think she has pneumonia.? I agree with Dr. Delacruz, this may be another source, not her lungs. She has had hypercapnic hypoxemic respiratory failure, was on BiPAP at [place].? I think she would benefit more from a noninvasive device but this was not permitted at the last admission.? I believe an Astral was considered but her blood gases did not allow her to leave the hospital with that. 05/03: Patient and daytime nurse who took care of her yesterday said she had had no further hemoptysis or nosebleeds. The patient tells me she is breathing much better than she was when she entered the hospital. Overall she states she is 80% back to her normal, she remains with a dry cough. When she blew her nose this morning she had clear nasal discharge. When I enter the room the patient was on 2 L nasal cannula with saturations 100%. I decreased her to room air and after 5 minutes her saturations were 96%. She is afebrile. Hemoglobin 7.0 and she is being transfused 1 unit of blood. Creatinine is 1.90, she has diuresed 9.4 L since admission and Lasix and spironolactone were held. Chest x-ray with mild improvement of her bilateral interstitial infiltrates. She received doxycycline and ceftriaxone on 04/28. She received vancomycin on 04/29 (DC as MRSA swab negative) and cefepime on 04/29. Plan: Patient continues to improve clinically from a respiratory viewpoint (80% back to normal). Her chest x-ray is improved, her oxygenation is improved and not tolerating room air rest. She has been treated with discontinuation of her Eliquis, for fluid overload with diuresis and for possible bacterial pneumonia with cefepime, day 5. I will plan on giving a total of 7 days of cefepime. She has not received inhaled or systemic steroids. She has also received bronchodilators and last admission I discontinued her bronchodilators
[2023-05-04 09:04] LABS: Basophils Percent Auto 0.5 % (0.2-1.2); Eosinophils Absolute Auto 0.5 K/mm3 (0-0.3); Eosinophils Percent Auto 7.9 % (0-4.4); Hematocrit 26.5 % (37.0-47.0); Hemoglobin 7.9 g/dL (12.0-15.0); Immature Granulocyte Absolute 0.03 K/mm3 (0.00-0.031); Immature Granulocyte Percent A 0.5 % (0-0.5); Lymphocytes Percent Auto 16.8 % (18.3-44.2); Mean Corpuscular HGB Conc 29.8 g/dl (32-36); Mean Corpuscular Hemoglobin 28.7 pg (26-34); Mean Corpuscular Volume 96.4 fl (80-100); Mean Platelet Volume 10.3 fl (7.4-10.4); Monocytes Absolute Auto 0.7 K/mm3 (0.1-0.6); Monocytes Percent Auto 10.9 % (2.6-8.5); Neutrophils Absolute Auto 3.8 K/mm3 (1.3-6.7); Neutrophils Percent Auto 63.4 % (45.5-73.1); Platelet Count Result 172 k/mm3 (150-375); Red Blood Count 2.75 M/mm3 (4.2-5.4); Red Cell Distribution Width 16.9 % (11.5-14.5); White Blood Count 5.9 K/mm3 (4.5-10.0)
[2023-05-04 09:17] LABS: Anion Gap 9 mmol/L (8-16); Blood Urea Nitrogen 35 mg/dL (7-17); Calcium 8.9 mg/dL (8.4-10.2); Carbon Dioxide 28 mmol/L (22-30); Chloride 105 mmol/L (98-107); Estimated CRCL calculation 47 ml/min; Estimated Glomerular Filt Rate 31; Glucose 167 mg/dL (65-110); Potassium 3.8 mmol/L (3.4-5.0); Sodium 142 mmol/L (137-145)
[2023-05-04 09:58] LABS: Anisocytosis 1+ (NORMAL); Hypochromasia 1+ (NORMAL); Platelet Estimate Adequate (Adequate)
[2023-05-04 09:59] LABS: Schistocytes None Seen (NORMAL)
[2023-05-04] MEDS: ARIPiprazole 2 MG TABLET PO (10:35)
[2023-05-04] MEDS: FERROUS SULFATE 325 MG TABLET DR PO (10:35)
[2023-05-04] MEDS: buPROPion HCL SR (12HR) 100 MG TABCR PO (10:35)
[2023-05-04] MEDS: allopurinoL 100 MG TABLET PO (10:35)
[2023-05-04] MEDS: PANTOPRAZOLE SODIUM IV 40 MG VIAL IV PUSH ×2 (10:36→20:32)
[2023-05-04] MEDS: amLODIPine BESYLATE 5 MG TABLET PO (10:36)
[2023-05-04] MEDS: GABAPENTIN 300 MG CAPSULE 600 MG PO ×2 (10:36→20:31)
[2023-05-04] MEDS: TOLNAFTATE 1% POWDER 45 GM BTL 1 APPLIC TOPICAL ×2 (10:37→20:32)
[2023-05-04] MEDS: MUPIROCIN 2% OINT 22 GM TUBE 1 APPLIC TOPICAL ×3 (10:37→14:56)
[2023-05-04 12:59] LABS: Glucose Point of Care 239 mg/dl (65-105)
[2023-05-04] MEDS: INSULIN ASPART (*BKC) 100 UNITS/ML SUB-Q (16:43)
[2023-05-04 17:12] LABS: Hemoglobin A1C 5.6 % (<5.7)
[2023-05-04 17:17] LABS: Glucose Point of Care 215 mg/dl (65-105)
[2023-05-04] MEDS: INSULIN GLARGINE (*BKC) 100 UNITS/ML 10 UNITS SUB-Q (20:28)
[2023-05-04] MEDS: TAMSULOSIN HCL 0.4 MG CAPSULE PO (20:31)
[2023-05-04] MEDS: ATORVASTATIN 40 MG TABLET PO (20:31)
[2023-05-04 21:17] LABS: Glucose Point of Care 187 mg/dl (65-105)
[2023-05-05] VITALS (10 sets, daily range): BP systolic 114–148; BP diastolic 52–91; PULSE 63–70; RESP 16–22; TEMP 36.2–36.8; O2SAT 93–100
[2023-05-05] MEDS: CEFEPIME 2 GM/NS 50 ML 2 GM/50 ML BAG IVPB ×2 (02:02→16:50)
[2023-05-05 05:27] LABS: Glucose Point of Care 144 mg/dl (65-105)
--- NOTE | 2023-05-05 07:42 | PM.IMPN ---
Progress Note: A&P Assessment and Plan (1) Pneumonia: Qualifiers: Pneumonia type: due to unspecified organism Code(s): J18.9 - Pneumonia, unspecified organism Status: Acute Assessment and Plan: Started on cefepime and vancomycin Holding anticoagulation due to hemoptysis MRSA screening negative, dc vancomycin April 30 c/w cefepime IV Cultures in progress Supportive care Continue to monitor (2) Fluid overload: Code(s): E87.70 - Fluid overload, unspecified Status: Acute Assessment and Plan: Brain natriuretic peptide minimally elevated at 1060 Strict daily intake and output Discontinue diamox 250 mg b.i.d. p.o. Discontinue lasix 40 mg IV daily Compensated (3) Obesity hypoventilation syndrome: Code(s): E66.2 - Morbid (severe) obesity with alveolar hypoventilation Status: Acute Assessment and Plan: BiPAP at nighttime (4) Acute respiratory failure: Code(s): J96.00 - Acute respiratory failure, unspecified whether with hypoxia or hypercapnia Status: Acute Assessment and Plan: Currently on supplemental oxygen by nasal cannula Continue nebulizer Likely resulting from pneumonia and hypoventilation syndrome (5) Diabetic ulcer of heel: Code(s): E11.621 - Type 2 diabetes mellitus with foot ulcer; L97.409 - Non-pressure chronic ulcer of unspecified heel and midfoot with unspecified severity Status: Acute Assessment and Plan: Local care (6) Type 2 diabetes mellitus: Code(s): E11.9 - Type 2 diabetes mellitus without complications Status: Acute Assessment and Plan: Holding glimepiride Patient had episode of hypoglycemia corrected Start insulin sliding scale a.c. q.h.s. (7) Hemoptysis: Code(s): R04.2 - Hemoptysis Status: Acute Assessment and Plan: Patient continue to have bloody phlegm with the cough No obvious however obstruction Aspirin and Eliquis on hold, patient has history of pulmonary embolism in her right lung CT reveals Diffuse bilateral pneumonia and/or moderate edema. Stable small bilateral pleural effusions. Stable lymphadenopathy.on 04/29 Consult design engineer for evaluation and treatment (8) Suicide ideation: Code(s): R45.851 - Suicidal ideations Status: Acute Assessment and Plan: Patient has history of depression on 04/30 Patient told nurses that she wanted to kill herself. When I talked to the patient at bedside with the nurse and student nurse, patient said she was frustrated but she did really mean to hurt herself. Later on patient stated she was attempting to kill herself with a knife before. now she is on Abilify [address] a sitter at bedside monitor patient closely Will consult psychiatrist when patient medically stable, and may need to move patient to mental health department for further evaluation and management at discharge 05/01 I saw and examined the patient with patient's nurse, ICU charge nurse, career development specialist. Patient feels comfortable today, patient feels shortness breath improved significantly, denies chest pain, palpitation, abdomen pain. Hemoptysis stopped. Patient also denies nausea vomiting. Patient has no obvious distress, patient states she was frustrated yesterday she did mean to kill herself yesterday, and today she feels comfortable and no thought of suicidal ideas or plans. Patient states she does have remote history of suicide attempt, and consulted the psychiatrist. Since then patient does not have suicide attempt or ideation. We don't think pt has risk of suicide now. Patient will continue psychiatrists evaluation and treatment after patient going back to his retirement Plan Acute on chronic blood-loss anemia Patient has hx chronic anemia drops below to 5.5 received 2 pack RBC, hemoglobin dropped to 7 on May 03 Stool guaiac positive Patient has hemoptysis, positive guaiac Received pack RBC umana
[2023-05-05 07:55] LABS: Glucose Point of Care 129 mg/dl (65-105)
[2023-05-05 08:46] LABS: Anion Gap 9 mmol/L (8-16); Blood Urea Nitrogen 33 mg/dL (7-17); Calcium 8.7 mg/dL (8.4-10.2); Carbon Dioxide 22 mmol/L (22-30); Chloride 108 mmol/L (98-107); Estimated CRCL calculation 55 ml/min; Estimated Glomerular Filt Rate 39; Glucose 128 mg/dL (65-110); Potassium 4.4 mmol/L (3.4-5.0); Sodium 139 mmol/L (137-145)
--- NOTE | 2023-05-05 09:16 | PM.PNPUL ---
Progress Note: A&P Assessment and Plan (1) Pulmonary infiltrates: Code(s): R91.8 - Other nonspecific abnormal finding of lung field Status: Acute Assessment and Plan: Patient was admitted to the hospital on 04/15/2023 and treated for pneumonia, fluid overload. Her CT scan showed diffuse patchy diffuse ground-glass infiltrates with no evidence of bullous emphysema, bronchiectasis, honeycombing or reticulations. She was treated with antibiotics, diuretics, and obesity hypoventilation with noninvasive ventilation with BiPAP mode and was discharged after completing 10 days of antibiotics on 04/25/2023 on 2 L nasal cannula. Her weight was 137 kilos. Workup during that it [facility] demonstrated COVID, influenza, RSV RT PCR negative, rheumatoid factor less than 12, normal C3 and C4 complements. Since discharge her lupus anticoagulant is positive. Her aldolase is normal at 3.8. Her anti CCP peptide antibody is negative, her [place] screen for 11 auto antibodies is negative, her Anca screen is negative, her anti proteinase 3 antibody is negative, anti-myeloperoxidase antibody is negative, her MyoMarker 3+ screen is negative for 11 auto antibodies her anti-GBM antibody is negative. Her respiratory pathogen panel is negative for 21 pathogens. Her anticardiolipin, Phospha till searing antibodies and beta 2 GP I antibodies are pending. Her hypersensitivity pneumonitis panel is pending. 04/30/23: This patient was re-admitted with apparent hemoptysis, significant drop in her H and H, hemoglobin 5.5 hematocrit 18.7, which is not seen with hemoptysis.? This large drop in H&H with significant coughing blood is likely GI source.? Her CT of the chest is not that different from the previous 1.? She has no history of tuberculosis, cancer, chest trauma, has not had epistaxis.? She has had multiple rounds of antibiotics recently.? Her white blood cell count is normal.? I do not think she has pneumonia.? I agree with Dr. Delarcuz, this may be another source, not her lungs. She has had hypercapnic hypoxemic respiratory failure, was on BiPAP at [place].? I think she would benefit more from a noninvasive device but this was not permitted at the last admission.? I believe an Astral was considered but her blood gases did not allow her to leave the hospital with that. 05/03: Patient and daytime nurse who took care of her yesterday said she had had no further hemoptysis or nosebleeds. The patient tells me she is breathing much better than she was when she entered the hospital. Overall she states she is 80% back to her normal, she remains with a dry cough. When she blew her nose this morning she had clear nasal discharge. When I enter the room the patient was on 2 L nasal cannula with saturations 100%. I decreased her to room air and after 5 minutes her saturations were 96%. She is afebrile. Hemoglobin 7.0 and she is being transfused 1 unit of blood. Creatinine is 1.90, she has diuresed 9.4 L since admission and Lasix and spironolactone were held. Chest x-ray with mild improvement of her bilateral interstitial infiltrates. She received doxycycline and ceftriaxone on 04/28. She received vancomycin on 04/29 (DC as MRSA swab negative) and cefepime on 04/29. Plan: Patient continues to improve clinically from a respiratory viewpoint (80% back to normal). Her chest x-ray is improved, her oxygenation is improved and not tolerating room air rest. She has been treated with discontinuation of her Eliquis, for fluid overload with diuresis and for possible bacterial pneumonia with cefepime, day 5. I will plan on giving a total of 7 days of cefepime. She has not received inhaled or systemic steroids. She has also received bronchodilators and last admission I discontinued her bronchodilators and she remained clinically stable and she currently has no wheezing and I will discontinue her nebulized albuterol and ipratropium today. 05/04: Patient states her breathing continues to impro
[2023-05-05] MEDS: amLODIPine BESYLATE 5 MG TABLET PO (09:20)
[2023-05-05] MEDS: FERROUS SULFATE 325 MG TABLET DR PO (09:20)
[2023-05-05] MEDS: allopurinoL 100 MG TABLET PO (09:20)
[2023-05-05] MEDS: GABAPENTIN 300 MG CAPSULE 600 MG PO ×2 (09:20→21:05)
[2023-05-05] MEDS: buPROPion HCL SR (12HR) 100 MG TABCR PO (09:21)
[2023-05-05] MEDS: TOLNAFTATE 1% POWDER 45 GM BTL 1 APPLIC TOPICAL ×2 (09:21→21:06)
[2023-05-05] MEDS: ARIPiprazole 2 MG TABLET PO (09:21)
[2023-05-05] MEDS: PANTOPRAZOLE SODIUM IV 40 MG VIAL IV PUSH ×2 (09:25→21:05)
[2023-05-05 10:27] LABS: Basophils Percent Auto 0.5 % (0.2-1.2); Eosinophils Absolute Auto 0.4 K/mm3 (0-0.3); Eosinophils Percent Auto 7.6 % (0-4.4); Hematocrit 29.2 % (37.0-47.0); Hemoglobin 8.4 g/dL (12.0-15.0); Immature Granulocyte Absolute 0.02 K/mm3 (0.00-0.031); Immature Granulocyte Percent A 0.4 % (0-0.5); Lymphocytes Percent Auto 18.1 % (18.3-44.2); Mean Corpuscular HGB Conc 28.8 g/dl (32-36); Mean Corpuscular Hemoglobin 28.2 pg (26-34); Mean Platelet Volume 9.8 fl (7.4-10.4); Monocytes Absolute Auto 0.6 K/mm3 (0.1-0.6); Neutrophils Absolute Auto 3.5 K/mm3 (1.3-6.7); Neutrophils Percent Auto 62.4 % (45.5-73.1); Platelet Count Result 173 k/mm3 (150-375); Red Blood Count 2.98 M/mm3 (4.2-5.4); Red Cell Distribution Width 17.1 % (11.5-14.5); White Blood Count 5.5 K/mm3 (4.5-10.0)
[2023-05-05 10:56] LABS: Anisocytosis 1+ (NORMAL); Hypochromasia 1+ (NORMAL); Ovalocytes 1+ (NORMAL); Platelet Estimate Adequate (Adequate); Schistocytes None Seen (NORMAL)
--- NOTE | 2023-05-05 11:24 | PCNWS ---
Weekly nutritional screen. Patient is NPO for a procedure but was tolerating a diabetic consistent carb diet with adequate intake at 100%. No weight loss reported. No nutritional needs at this time. Resume diet post procedure.
[2023-05-05 11:30] LABS: Glucose Point of Care 131 mg/dl (65-105)
[2023-05-05] MEDS: LACTATED RINGERS 1,000 ML 150 ML IV CONT (13:00)
[2023-05-05 13:03] LABS: Glucose Point of Care 125 mg/dl (65-105)
--- NOTE | 2023-05-05 13:16 | WPDANESEPPF ---
Anes - Initial Pre Proc Eval Procedure: Operation Date: 05/05/23 14:00 Proposed Procedures p Esophagogastroduodenoscopy - Anil Hammer MD Date/Time: 05/05/23 13:16 Surgeon: Asher Agee MD Pre Op Diagnosis: Hemoptysis, Pneumonia, Heart Failure, CO2 Retentio Patient Data Age: 58 Gender: F Height: 1.68 m Weight: 128 kg Last Vital Signs Temp 97.3 F L 05/05/23 12:57 Pulse 70 05/05/23 12:57 Resp 18 05/05/23 12:57 BP 134/60 05/05/23 12:57 Pulse Ox 93 05/05/23 12:57 O2 Del Method Room Air 05/05/23 12:57 O2 Flow Rate 2 05/03/23 07:34 FiO2 28 05/04/23 20:00 Allergies Allergy/AdvReac Type Severity Reaction Status Date / Time No Known Allergies Allergy Verified 05/05/23 12:56 Home Medications Medication Instructions Recorded Confirmed Type allopurinol 100 mg tablet 100 mg PO DAILY 02/27/23 04/28/23 History amlodipine 5 mg tablet 5 mg PO DAILY 02/27/23 04/28/23 History apixaban 5 mg tablet (Eliquis) 5 mg PO BID 02/27/23 04/28/23 History aspirin 81 mg tablet,delayed 81 mg PO DAILY 02/27/23 04/28/23 History release bupropion HCl 100 mg tablet,12 hr 100 mg PO DAILY 02/27/23 04/28/23 History sustained-release cariprazine 3 mg capsule (Vraylar) 3 mg PO DAILY 02/27/23 04/28/23 History ferrous sulfate 325 mg (65 mg 325 mg PO DAILY 02/27/23 04/28/23 History iron) tablet furosemide 40 mg tablet 80 mg PO DAILY 02/27/23 04/28/23 History gabapentin 600 mg tablet 600 mg PO BID 02/27/23 04/28/23 History glimepiride 2 mg tablet 2 mg PO BID 02/27/23 04/28/23 History tamsulosin 0.4 mg capsule 0.4 mg PO HS 02/27/23 04/28/23 History blood sugar diagnostic (OneTouch #1 pkg 03/25/23 04/28/23 Rx Verio test strips) blood-glucose meter (OneTouch #1 pkg 03/25/23 04/28/23 Rx Verio Flex Meter) lancets 30 gauge (OneTouch Delica #1 pkg 03/25/23 04/28/23 Rx Plus Lancet) silver 200 mcg/gram topical gel 1 applic topical DAILY #3 grams 03/25/23 04/28/23 Rx (Silver-Sept) atorvastatin 40 mg tablet 40 mg PO HS 04/15/23 04/28/23 History ergocalciferol (vitamin D2) 1,250 1,250 mcg PO WEEKLY 04/15/23 04/28/23 History mcg (50,000 unit) capsule (Vitamin D2) doxycycline hyclate 100 mg tablet 100 mg PO Q12HR 5 days #10 tabs 04/25/23 04/28/23 Rx Laboratory Tests 05/04/23 05/04/23 05/04/23 08:38 16:18 19:58 WBC RBC Hgb Hct MCV MCH MCHC RDW Plt Count MPV Immature Gran % (Auto) Neut % (Auto) Lymph % (Auto) [place]im[place] % (Auto) Eos % (Auto) Baso % (Auto) Lymph # (Auto) [place] # (Auto) Eos # (Auto) Baso # (Auto) Abs Immat Gran (auto) Absolute Neuts (auto) Absolute Nucleated RBC Nucleated RBC % Platelet Estimate Hypochromasia Anisocytosis Ovalocytes Schistocytes Sodium Potassium Chloride Carbon Dioxide Anion Gap BUN Creatinine Estim Creat Clear Calc Estimated GFR Glucose POC Capillary Glucose 215 H mg/dl 187 H mg/dl (65-105) (65-105) Hemoglobin A1c 5.6 % (<5.7) Calcium 05/05/23 05/05/23 05/05/23 05:22 07:52 08:12 WBC RBC Hgb Hct MCV MCH MCHC RDW Plt Count MPV Immature Gran % (Auto) Neut % (Auto) Lymph % (Auto) Tr[place] % (Auto) Eos % (Auto) Baso % (Auto) Lymph # (Auto) Trimble # (Auto) Eos # (Auto) Baso # (Auto) Abs Immat Gran (au
[2023-05-05 16:29] LABS: Glucose Point of Care 146 mg/dl (65-105)
--- NOTE | 2023-05-05 17:50 | WPDPROCEDUR ---
Procedures Other Procedures Procedure 1: Other Procedure: bilateral nasal endoscopy verbal consent obtained. Adult rigid endoscope passed in the bilateral nasal passages right side looks okay few telangiectatic vessels anteriorly, no stigmata of recent bleeding. Left-sided stigmata of recent bleeding very anteriorly. The left posterior middle meatus had a clot as well. It appeared old no active bleeding noted. Patient tolerated the procedure well.
--- NOTE | 2023-05-05 17:51 | WPDCN ---
Assessment and Plan Assessment and plan (1) Epistaxis: Code(s): R04.0 - Epistaxis Status: Acute Assessment and Plan: Would recommend b.i.d. mupirocin in the anterior nasal passages , finger works well. should try to get it back as far as possible, and gently spread / applied throughout the nasal passage. would also recommend nasal saline spray 3-4 times per day. Orders placed. With any bleeding would call me and also apply 1 large squirt of Afrin on the side that is bleeding as well as lean the patient forward and pinch off the soft tissue of the nose. Once the patient is discharged, and with any persistent bleeding, would have her follow up in the office. HPI Data of Consult Date/Time: 05/05/23 17:51 Requesting Physician: Asher Agee MD Primary Care Provider: Rico Fall, Consult Narrative Narrative: Talia Peralta is a 58 year old female With recent nose bleed. The patient reports she has frequent nose bleeds with temperature changes. She reports the blood was coming from her anterior left nasal passages well as down her throat. Review of Systems Review of Systems: All systems reviewed & are unremarkable except as noted in HPI and below PMFSH Past Medical History Medical History (Updated 05/03/23 @ 12:17 by David Masterson MD) Anemia Chronic anemia Chronic anticoagulation Chronic kidney disease Comminuted left humeral fracture with nonunion Depression with anxiety Diastolic congestive heart failure Hyperlipidemia Hypertension Lymphedema Pneumonia Pulmonary embolism (2018) Pulmonary hypertension Type 2 diabetes mellitus Surgical History Surgical History History of cholecystectomy History of hernia repair History of tonsillectomy History of tubal ligation Family History Family History Other Family history unknown Social History Social History Social History: Resides at [facility] facility Surrogate medical decision maker: Farhan Avalos (brother). Code status: Full code. Smoking status: Never smoker Second hand tobacco smoke exposure: No Alcohol intake: never Substance use: never Substance use type: does not use Lack of Transportation: No Lack of Food: Never True Current Housing: I Have Housing Concerned About Future Housing: No Difficulty Paying Gas/Electric Bills: No Difficulty Paying for Meds: No Currently Unemployed: No Education: High School Diploma/GED Difficulty w/ Childcare or Family Care: No Spiritual care concerns: No Meds Home Medications and Allergies Home Medications Medication Instructions Recorded Confirmed Type allopurinol 100 mg tablet 100 mg PO DAILY 02/27/23 04/28/23 History amlodipine 5 mg tablet 5 mg PO DAILY 02/27/23 04/28/23 History apixaban 5 mg tablet (Eliquis) 5 mg PO BID 02/27/23 04/28/23 History aspirin 81 mg tablet,delayed 81 mg PO DAILY 02/27/23 04/28/23 History release bupropion HCl 100 mg tablet,12 hr 100 mg PO DAILY 02/27/23 04/28/23 History sustained-release cariprazine 3 mg capsule (Vraylar) 3 mg PO DAILY 02/27/23 04/28/23 History ferrous sulfate 325 mg (65 mg 325 mg PO DAILY 02/27/23 04/28/23 History iron) tablet furosemide 40 mg tablet 80 mg PO DAILY 02/27/23 04/28/23 History gabapentin 600 mg tablet 600 mg PO BID 02/27/23 04/28/23 History glimepiride 2 mg tablet 2 mg PO BID 02/27/23 04/28/23 History tamsulosin 0.4 mg capsule 0.4 mg PO HS 02/27/23 04/28/23 History blood sugar diagnostic (OneTouch #1 pkg 03/25/23 04/28/23 Rx Verio test strips) blood-glucose meter (OneTouch #1 pkg 03/25/23 04/28/23 Rx Verio Flex Meter) lancets 30 gauge (OneTouch Delica #1 pkg 03/25/23 04/28/23 Rx Plus Lancet) silver 200 mcg/gram topical gel 1 applic topical DAILY #3 grams
[2023-05-05] MEDS: INSULIN GLARGINE (*BKC) 100 UNITS/ML 10 UNITS SUB-Q (20:46)
[2023-05-05] MEDS: TAMSULOSIN HCL 0.4 MG CAPSULE PO (21:05)
[2023-05-05] MEDS: ATORVASTATIN 40 MG TABLET PO (21:05)
[2023-05-05] MEDS: MUPIROCIN 2% OINT 22 GM TUBE 1 APPLIC EACH NARE (21:06)
[2023-05-05 21:26] LABS: Glucose Point of Care 182 mg/dl (65-105)
[2023-05-06 03:55] LABS: Glucose Point of Care 156 mg/dl (65-105)
[2023-05-06 06:00] VITALS: BP 100/49; PULSE 64; RESP 20; TEMP 36.6; O2SAT 93
[2023-05-06 06:10] LABS: Basophils Percent Auto 0.5 % (0.2-1.2); Eosinophils Absolute Auto 0.4 K/mm3 (0-0.3); Eosinophils Percent Auto 7.5 % (0-4.4); Hematocrit 29.9 % (37.0-47.0); Hemoglobin 8.6 g/dL (12.0-15.0); Immature Granulocyte Absolute 0.04 K/mm3 (0.00-0.031); Immature Granulocyte Percent A 0.7 % (0-0.5); Lymphocytes Absolute Auto 0.91 K/mm3 (0.9-3.2); Lymphocytes Percent Auto 15.8 % (18.3-44.2); Mean Corpuscular HGB Conc 28.8 g/dl (32-36); Mean Corpuscular Hemoglobin 28.6 pg (26-34); Mean Corpuscular Volume 99.3 fl (80-100); Mean Platelet Volume 10.3 fl (7.4-10.4); Monocytes Absolute Auto 0.6 K/mm3 (0.1-0.6); Monocytes Percent Auto 10.2 % (2.6-8.5); Neutrophils Absolute Auto 3.8 K/mm3 (1.3-6.7); Neutrophils Percent Auto 65.3 % (45.5-73.1); Platelet Count Result 211 k/mm3 (150-375); Red Blood Count 3.01 M/mm3 (4.2-5.4); Red Cell Distribution Width 16.8 % (11.5-14.5); White Blood Count 5.8 K/mm3 (4.5-10.0)
[2023-05-06 06:23] LABS: Anion Gap 5 mmol/L (8-16); Blood Urea Nitrogen 30 mg/dL (7-17); Calcium 8.9 mg/dL (8.4-10.2); Carbon Dioxide 29 mmol/L (22-30); Chloride 106 mmol/L (98-107); Estimated CRCL calculation 52 ml/min; Estimated Glomerular Filt Rate 36; Glucose 160 mg/dL (65-110); Potassium 4.4 mmol/L (3.4-5.0); Sodium 140 mmol/L (137-145)
[2023-05-06 07:41] LABS: Anisocytosis 1+ (NORMAL); Hypochromasia 1+ (NORMAL); Platelet Estimate Adequate (Adequate); Poikilocytosis 1+ (NORMAL)
[2023-05-06 07:42] LABS: Schistocytes None Seen (NORMAL)
[2023-05-06 08:25] LABS: Glucose Point of Care 154 mg/dl (65-105)
[2023-05-06] MEDS: buPROPion HCL SR (12HR) 100 MG TABCR PO (08:52)
[2023-05-06] MEDS: allopurinoL 100 MG TABLET PO (08:52)
[2023-05-06] MEDS: GABAPENTIN 300 MG CAPSULE 600 MG PO (08:52)
[2023-05-06] MEDS: ARIPiprazole 2 MG TABLET PO (08:52)
[2023-05-06] MEDS: FERROUS SULFATE 325 MG TABLET DR PO (08:52)
[2023-05-06] MEDS: amLODIPine BESYLATE 5 MG TABLET PO (08:53)
[2023-05-06] MEDS: TOLNAFTATE 1% POWDER 45 GM BTL 1 APPLIC TOPICAL (08:54)
[2023-05-06] MEDS: MUPIROCIN 2% OINT 22 GM TUBE 1 APPLIC EACH NARE (08:55)
[2023-05-06] MEDS: PANTOPRAZOLE SODIUM IV 40 MG VIAL IV PUSH (09:02)
[2023-05-06 12:22] LABS: Glucose Point of Care 185 mg/dl (65-105)
[2023-05-06 14:00] VITALS: BP 130/50; PULSE 70; RESP 20; TEMP 36.2; O2SAT 93
--- NOTE | 2023-05-06 15:06 | PM.DS ---
DS: Admitting Diagnosis Discharge Date 05/06/2023 Admitting Diagnosis Shortness of breath DS: Discharge Diagnosis Discharge Diagnosis (1) Pneumonia: Qualifiers: Pneumonia type: due to unspecified organism Code(s): J18.9 - Pneumonia, unspecified organism Status: Acute Assessment and Plan: Started on cefepime and vancomycin Holding anticoagulation due to hemoptysis MRSA screening negative, dc vancomycin April 30 c/w cefepime IV Cultures in progress Supportive care Continue to monitor (2) Fluid overload: Code(s): E87.70 - Fluid overload, unspecified Status: Acute Assessment and Plan: Brain natriuretic peptide minimally elevated at 1060 Strict daily intake and output Discontinue diamox 250 mg b.i.d. p.o. Discontinue lasix 40 mg IV daily Compensated (3) Obesity hypoventilation syndrome: Code(s): E66.2 - Morbid (severe) obesity with alveolar hypoventilation Status: Acute Assessment and Plan: BiPAP at nighttime (4) Acute respiratory failure: Code(s): J96.00 - Acute respiratory failure, unspecified whether with hypoxia or hypercapnia Status: Acute Assessment and Plan: Currently on supplemental oxygen by nasal cannula Continue nebulizer Likely resulting from pneumonia and hypoventilation syndrome (5) Diabetic ulcer of heel: Code(s): E11.621 - Type 2 diabetes mellitus with foot ulcer; L97.409 - Non-pressure chronic ulcer of unspecified heel and midfoot with unspecified severity Status: Acute Assessment and Plan: Local care (6) Type 2 diabetes mellitus: Code(s): E11.9 - Type 2 diabetes mellitus without complications Status: Acute Assessment and Plan: Holding glimepiride Patient had episode of hypoglycemia corrected Start insulin sliding scale a.c. q.h.s. (7) Hemoptysis: Code(s): R04.2 - Hemoptysis Status: Acute Assessment and Plan: Patient continue to have bloody phlegm with the cough No obvious however obstruction Aspirin and Eliquis on hold, patient has history of pulmonary embolism in her right lung CT reveals Diffuse bilateral pneumonia and/or moderate edema. Stable small bilateral pleural effusions. Stable lymphadenopathy.on 04/29 Consult paralegal supervisor for evaluation and treatment (8) Suicide ideation: Code(s): R45.851 - Suicidal ideations Status: Acute Assessment and Plan: Patient has history of depression on 04/30 Patient told nurses that she wanted to kill herself. When I talked to the patient at bedside with the nurse and student nurse, patient said she was frustrated but she did really mean to hurt herself. Later on patient stated she was attempting to kill herself with a knife before. now she is on Abilify [address] a sitter at bedside monitor patient closely Will consult psychiatrist when patient medically stable, and may need to move patient to mental health department for further evaluation and management at discharge 05/01 I saw and examined the patient with patient's nurse, ICU charge nurse, career consultant. Patient feels comfortable today, patient feels shortness breath improved significantly, denies chest pain, palpitation, abdomen pain. Hemoptysis stopped. Patient also denies nausea vomiting. Patient has no obvious distress, patient states she was frustrated yesterday she did mean to kill herself yesterday, and today she feels comfortable and no thought of suicidal ideas or plans. Patient states she does have remote history of suicide attempt, and consulted the psychiatrist. Since then patient does not have suicide attempt or ideation. We don't think pt has risk of suicide now. Patient will continue psychiatrists evaluation and treatment after patient going back to his long-term Plan Acute on chronic blood-loss anemia Patient has hx chronic anemia drops below to 5.5 received 2 pack RBC, hemoglobin dropped to 7
[2023-05-06 16:25] LABS: Glucose Point of Care 257 mg/dl (65-105)
[2023-05-06] MEDS: INSULIN ASPART (*BKC) 100 UNITS/ML SUB-Q (17:01)
[2023-05-06 17:02] LABS: SARS-CoV-2 RNA PCR Negative (Negative)
== END 2023-05-06 17:45 | DRG 139 ==
LOC: ANHED 21:29 → ANH3MEDSUR 21:42 → ANHIMU 04-29 00:54 → ANH3MEDSUR 05-04 14:00
PROVIDERS: Hospitalist; Internal Medicine Gastroenterology; Internal Medicine Pulmonary Disease; Admitting Provider Internal Medicine; Emergency Provider Student in an Organized Health Care Education/Training Program; PCP Internal Medicine; Visit Provider Family Medicine
PROC: 0DJ08ZZ Inspection of Upper Intestinal Tract, Via Natural or Artificial Opening Endoscopic (ICD-10-PCS; CPT 43235; principal; 2023-05-05 14:00)
DX: J18.9 Pneumonia, unspecified organism (principal); J96.01 Acute respiratory failure with hypoxia; I50.33 Acute on chronic diastolic (congestive) heart failure; E11.649 Type 2 diabetes mellitus with hypoglycemia without coma; E66.2 Morbid (severe) obesity with alveolar hypoventilation; D62 Acute posthemorrhagic anemia; J90 Pleural effusion, not elsewhere classified; R04.0 Epistaxis; I13.0 Hypertensive heart and chronic kidney disease with heart failure and stage 1 through stage 4 chronic kidney disease, or unspecified chronic kidney disease; R45.851 Suicidal ideations; E11.22 Type 2 diabetes mellitus with diabetic chronic kidney disease; R04.2 Hemoptysis; R19.5 Other fecal abnormalities; E87.70 Fluid overload, unspecified; E11.621 Type 2 diabetes mellitus with foot ulcer; L97.429 Non-pressure chronic ulcer of left heel and midfoot with unspecified severity; L97.419 Non-pressure chronic ulcer of right heel and midfoot with unspecified severity; K21.9 Gastro-esophageal reflux disease without esophagitis; N18.9 Chronic kidney disease, unspecified; F41.8 Other specified anxiety disorders; L01.00 Impetigo, unspecified; E78.5 Hyperlipidemia, unspecified; Z20.822 Contact with and (suspected) exposure to COVID-19; Z68.42 Body mass index [BMI] 45.0-49.9, adult; Z79.01 Long term (current) use of anticoagulants; Z86.711 Personal history of pulmonary embolism; Z90.49 Acquired absence of other specified parts of digestive tract; Z74.01 Bed confinement status
CPT/HCPCS: 36415; 36430; 36600; 71045; 71250; 71275; 74150; 80048; 80053; 82274; 82728; 82805; 82948; 83036; 83540; 83550; 83880; 85014; 85018; 85025; 85027; 85055; 86850; 86900; 86901; 86923; 87040; 87635; 87637; 87641; 92526; 92610; 94002; 94003; 94640; 94762; 97110; 97161; 97165; 97530; 99285; A9270; C9113; J0692; J0696; J1815; J1940; J2704; J3370; J7050; J7070; J7120; P9016; Q9967

== ENCOUNTER 2023-05-15 01:45 | Emergency (ER) | payer MEDICAID, SELFPAY ==
[2023-05-15] VITALS (7 sets, daily range): BP systolic 122–138; BP diastolic 50–78; PULSE 64–71; RESP 12–17; TEMP 37.1; O2SAT 95–100
--- NOTE | ~2023-05-15 | XR_ITS ---
EXAMINATION: XR chest 2V DATE: 05/15/2023 04:03 INDICATION: Shortness of breath TECHNIQUE: AP and lateral views of the chest are obtained. COMPARISON: 05/03/2023 FINDINGS: There are interstitial and airspace opacities which demonstrate interval worsening on the l eft and in the right upper lung zone. No pleural effusion or pneumothorax. There is a displaced fract ure of the proximal left humerus. The cardiomediastinal silhouette is normal. There is mild thoracic spondylosis. IMPRESSION: 1. Diffuse lung disease with interval worsening, consistent with pulmonary edema and/or pneumonia. Reviewed, dictated and finalized at location F. ROOM WORKER IMPRESSION: 1. Diffuse lung disease with interval worsening, consistent with pulmonary lia a and/or pneumonia.
--- NOTE | 2023-05-15 01:58 | ED.RECABL ---
HPI - Recheck/Abnormal Lab/Rx General Chief Complaint: Recheck/Abnormal Lab/Rx Stated Complaint: PNEUMONIA dx'd AT FACILITY Time Seen by Provider: 05/15/23 01:55 Source: patient Mode of arrival: EMS Limitations: no limitations History of Present Illness HPI narrative: This is a 58-year-old female who presents to the emergency from the halfway. As reported patient chest x-ray performed Friday evening which was noted to show a pneumonia. The patient has no Complaints. She does not know if she has been coughing. She denies being short of breath. She states she has been wearing a nasal cannula with supplemental oxygen at the facility. She denies any recent episodes of choking on food. She states she was woken up and told she had to go to the emergency department. She denies any fevers. She states she has felt a little warm lately but that is because her roommate at the facility likes the heat in the room to be up higher than Ms Peralta normally prefers the room temperature to be. of note, patient had presented to the emergency department and been seen by myself 3 times the past 6 weeks so I am very familiar with her. Related Data Home Medications Medication Instructions Recorded Confirmed allopurinol 100 mg tablet 100 mg PO DAILY 02/27/23 04/28/23 amlodipine 5 mg tablet 5 mg PO DAILY 02/27/23 04/28/23 apixaban 5 mg tablet (Eliquis) 5 mg PO BID 02/27/23 04/28/23 aspirin 81 mg tablet,delayed 81 mg PO DAILY 02/27/23 04/28/23 release bupropion HCl 100 mg tablet,12 hr 100 mg PO DAILY 02/27/23 04/28/23 sustained-release cariprazine 3 mg capsule (Vraylar) 3 mg PO DAILY 02/27/23 04/28/23 ferrous sulfate 325 mg (65 mg 325 mg PO DAILY 02/27/23 04/28/23 iron) tablet gabapentin 600 mg tablet 600 mg PO BID 02/27/23 04/28/23 tamsulosin 0.4 mg capsule 0.4 mg PO HS 02/27/23 04/28/23 atorvastatin 40 mg tablet 40 mg PO HS 04/15/23 04/28/23 ergocalciferol (vitamin D2) 1,250 1,250 mcg PO WEEKLY 04/15/23 04/28/23 mcg (50,000 unit) capsule (Vitamin D2) Allergies Allergy/AdvReac Type Severity Reaction Status Date / Time No Known Allergies Allergy Verified 05/05/23 12:56 [facility] Past Medical History Medical History (Updated 05/15/23 @ 05:24 by Ruth Marshall MD) Anemia Chronic anemia Chronic anticoagulation Chronic kidney disease Comminuted left humeral fracture with nonunion Depression with anxiety Diastolic congestive heart failure Hyperlipidemia Hypertension Lymphedema Pneumonia Pulmonary embolism (2018) Pulmonary hypertension Type 2 diabetes mellitus Surgical History Surgical History History of cholecystectomy History of hernia repair History of tonsillectomy History of tubal ligation Family History Family History Other Family history unknown Social History Social History Social History: Resides at [facility] Surrogate medical decision maker: Farhan Avalos (brother). Code status: Full code. Smoking status: Never smoker Second hand tobacco smoke exposure: No Alcohol intake: never Substance use: never Substance use type: does not use Lack of Transportation: No Lack of Food: Never True Current Housing: I Have Housing Concerned About Future Housing: No Difficulty Paying Gas/Electric Bills: No Difficulty Paying for Meds: No Currently Unemployed: No Education: High School Diploma/GED Difficulty w/ Childcare or Family Care: No Spiritual care concerns: No Exam Narrative: GENERAL: in no acute distress. Alert and interactive. HEAD: Normocephalic, atraumatic. ENT: Nares clear, no rhinorrhea or epistaxis. NECK: Supple. CHEST: Clear to auscultation bilaterally without wheezes, stridor. No respiratory distress. speaking in full sentences. HEART: Regular rate
--- NOTE | 2023-05-15 02:21 | ECG_ITS ---
Measurements Intervals [place] Rate: 67 P: 48 DC: 193 QRS: 5 QRSD: 110 T: 33 QT: 407 QTc: 430 Interpretive Statements SINUS RHYTHM BASELINE ARTIFACT- I, II, AVR, AVL, AVF, V4-V6 NORMAL ECG COMPARED TO ECG 04/15/2023 18:44:50 NO SIGNIFICANT CHANGES Electronically Signed On 05-15-2023 8:50:05 ROLL SCALE MAN by Foster Argueta D.O.
[2023-05-15 03:44] LABS: Basophils Percent Auto 0.6 % (0.2-1.2); Eosinophils Absolute Auto 0.5 K/mm3 (0-0.3); Eosinophils Percent Auto 9.2 % (0-4.4); Hematocrit 31.8 % (37.0-47.0); Hemoglobin 9.4 g/dL (12.0-15.0); Immature Granulocyte Absolute 0.02 K/mm3 (0.00-0.031); Immature Granulocyte Percent A 0.4 % (0-0.5); Lymphocytes Absolute Auto 1.34 K/mm3 (0.9-3.2); Lymphocytes Percent Auto 26.2 % (18.3-44.2); Mean Corpuscular HGB Conc 29.6 g/dl (32-36); Mean Corpuscular Hemoglobin 28.5 pg (26-34); Mean Corpuscular Volume 96.4 fl (80-100); Mean Platelet Volume 9.7 fl (7.4-10.4); Monocytes Absolute Auto 0.4 K/mm3 (0.1-0.6); Monocytes Percent Auto 8.2 % (2.6-8.5); Neutrophils Absolute Auto 2.8 K/mm3 (1.3-6.7); Neutrophils Percent Auto 55.4 % (45.5-73.1); Platelet Count Result 208 k/mm3 (150-375); Red Cell Distribution Width 16.8 % (11.5-14.5); White Blood Count 5.1 K/mm3 (4.5-10.0)
[2023-05-15 03:58] LABS: Alanine Aminotransferase 25 U/L (6-35); Albumin Level 3.1 g/dL (3.5-5.1); Alkaline Phosphatase 81 U/L (38-126); Aspartate Amino Transferase 30 U/L (14-36); Bilirubin,Total 0.6 mg/dL (0.2-1.3); Blood Urea Nitrogen 41 mg/dL (7-17); Calcium 8.9 mg/dL (8.4-10.2); Carbon Dioxide > 40 mmol/L (22-30); Chloride 97 mmol/L (98-107); Estimated CRCL calculation 61 ml/min; Estimated Glomerular Filt Rate 42; Glucose 217 mg/dL (65-110); Potassium 4.5 mmol/L (3.4-5.0); Sodium 140 mmol/L (137-145)
[2023-05-15 04:08] LABS: Anisocytosis 1+ (NORMAL); Hypochromasia 1+ (NORMAL); NT Pro B Type Natriuretic Pept 377 pg/mL (19.9-100); Platelet Estimate Adequate (Adequate); Poikilocytosis 1+ (NORMAL); Schistocytes None Seen (NORMAL); Troponin I < 0.012 ng/mL (0.000-0.034)
[2023-05-15 04:48] LABS: Alveolar/Arterial O2 Gradient 56.7 mmHg; Base Excess ABG 9.1 mEq/l (+/-2.0); Fractional Inspired Oxygen 28 %; HCO3 ABG 34.1 mEq/l (22.0-26.0); Oxygen Content ABG 13.5 %vol (16.0-22.0); Oxygen Saturation ABG 96.7 % (95.0-100.0); PCO2 ABG 49.3 mmHg (35.0-45.0); PO2 ABG 84.8 mmHg (80.0-100.0); PO2 FiO2 Ratio Arterial Blood 3.03 %; Total Hemoglobin 10.1 g/dL (12.0-18.0); pH ABG 7.458 (7.350-7.450)
[2023-05-15 04:49] LABS: Device NASAL CANNULA; Modified Allen's Test Pass; Site Drawn RIGHT RADIAL
--- NOTE | 2023-05-15 05:54 | PC.NURSE ---
Report given to Roxi Giron at [facility] @[phone]. [facility] is updated on pts discharge instructions.
[2023-05-15] MEDS: DOXYCYCLINE 100 MG/NS 100 ML 100 MG/100 ML BAG IVPB (06:00)
== END 2023-05-15 09:30 ==
PROVIDERS: Emergency Provider Student in an Organized Health Care Education/Training Program; PCP Internal Medicine
DX: J18.9 Pneumonia, unspecified organism (principal); N18.9 Chronic kidney disease, unspecified; D64.9 Anemia, unspecified; I13.0 Hypertensive heart and chronic kidney disease with heart failure and stage 1 through stage 4 chronic kidney disease, or unspecified chronic kidney disease; E11.22 Type 2 diabetes mellitus with diabetic chronic kidney disease; I50.30 Unspecified diastolic (congestive) heart failure; I27.20 Pulmonary hypertension, unspecified; E78.5 Hyperlipidemia, unspecified; Z86.711 Personal history of pulmonary embolism; Z90.49 Acquired absence of other specified parts of digestive tract; Z79.01 Long term (current) use of anticoagulants; Z79.82 Long term (current) use of aspirin; Z79.4 Long term (current) use of insulin
CPT/HCPCS: 36415; 36600; 71046; 80053; 82805; 83880; 84484; 85025; 93005; 96365; 96367; 99284; J0696

== ENCOUNTER 2023-05-16 01:22 | Emergency (ER) | payer MEDICAID, SELFPAY ==
[2023-05-16] VITALS (11 sets, daily range): BP systolic 113–154; BP diastolic 53–98; PULSE 60–70; RESP 12–21; TEMP 36.6; O2SAT 98–100
--- NOTE | ~2023-05-16 | XR_ITS ---
EXAMINATION: XR chest 1V portable INDICATION: Left-sided chest pain TECHNIQUE: Portable AP chest at 0156 hours COMPARISON: 05/15/2023 FINDINGS: Interstitial and airspace opacities of the left lung and in the right upper lung zone persi st but have improved. No pleural effusion or pneumothorax. The cardiomediastinal silhouette is stable . A displaced fracture of the proximal left humerus is again noted. IMPRESSION: 1. Diffuse lung disease with interval improvement, consistent with pulmonary edema and/or pneumonia. Reviewed, dictated and finalized at location F. ISH FINISHER IMPRESSION: 1. Diffuse lung disease with interval improvement, consistent with pulmonary ed lenny and/or pneumonia.
--- NOTE | 2023-05-16 01:28 | ECG_ITS ---
Measurements Intervals [place] Rate: 68 P: 33 LA: 203 QRS: -5 QRSD: 104 T: 32 QT: 399 QTc: 427 Interpretive Statements SINUS RHYTHM BASELINE ARTIFACT- I, II, III, AVR, AVL, AVF, V1 NORMAL ECG COMPARED TO ECG 05/15/2023 02:37:36 NO SIGNIFICANT CHANGES Electronically Signed On 05-19-2023 13:12:10 ELEMENTARY SUPERVISOR by Foster Argueta D.O.
[2023-05-16 01:47] LABS: Basophils Percent Auto 0.6 % (0.2-1.2); Eosinophils Absolute Auto 0.5 K/mm3 (0-0.3); Eosinophils Percent Auto 9.1 % (0-4.4); Hematocrit 32.6 % (37.0-47.0); Hemoglobin 9.9 g/dL (12.0-15.0); Immature Granulocyte Absolute 0.02 K/mm3 (0.00-0.031); Immature Granulocyte Percent A 0.4 % (0-0.5); Lymphocytes Absolute Auto 1.34 K/mm3 (0.9-3.2); Mean Corpuscular HGB Conc 30.4 g/dl (32-36); Mean Corpuscular Hemoglobin 28.5 pg (26-34); Mean Corpuscular Volume 93.9 fl (80-100); Mean Platelet Volume 9.8 fl (7.4-10.4); Monocytes Absolute Auto 0.5 K/mm3 (0.1-0.6); Monocytes Percent Auto 9.5 % (2.6-8.5); Neutrophils Percent Auto 55.4 % (45.5-73.1); Platelet Count Result 210 k/mm3 (150-375); Red Blood Count 3.47 M/mm3 (4.2-5.4); Red Cell Distribution Width 16.9 % (11.5-14.5); White Blood Count 5.4 K/mm3 (4.5-10.0)
[2023-05-16 02:10] LABS: NT Pro B Type Natriuretic Pept 805 pg/mL (19.9-100); Troponin I < 0.012 ng/mL (0.000-0.034)
[2023-05-16 02:14] LABS: Alanine Aminotransferase 23 U/L (6-35); Albumin Level 3.3 g/dL (3.5-5.1); Alkaline Phosphatase 95 U/L (38-126); Aspartate Amino Transferase 24 U/L (14-36); Bilirubin,Total 0.5 mg/dL (0.2-1.3); Blood Urea Nitrogen 33 mg/dL (7-17); Calcium 9.2 mg/dL (8.4-10.2); Carbon Dioxide > 40 mmol/L (22-30); Chloride 95 mmol/L (98-107); Estimated CRCL calculation 55 ml/min; Estimated Glomerular Filt Rate 39; Glucose 191 mg/dL (65-110); Potassium 4.2 mmol/L (3.4-5.0); Sodium 140 mmol/L (137-145)
[2023-05-16 02:23] LABS: Influenza A QL RT-PCR Negative (Negative); Influenza B QL RT-PCR Negative (Negative); RSV RNA, RT-PCR Negative (Negative); SARS-CoV-2 RNA PCR Negative (Negative)
[2023-05-16 03:07] LABS: Fractional Inspired Oxygen 21 %; HCO3 VBG 37.7 mEq/l (24.0-30.0); PCO2 VBG 50.9 mmHg (42.0-48.0); PO2 VBG 57.3 mmHg (35.0-45.0)
[2023-05-16 03:08] LABS: pH VBG 7.488 (7.300-7.400)
[2023-05-16 03:09] LABS: Device ROOM AIR
--- NOTE | 2023-05-16 03:23 | ED.GENADULT ---
HPI - General Adult General Chief complaint: Shortness of Breath/Dyspnea Stated complaint: SOB, RECENT PNE Dx Time Seen by Provider: 05/16/23 01:26 History of Present Illness HPI narrative: This is a 58-year-old female who is well known to our emergency department presenting with chest pain. Patient says that earlier today she does still left-sided squeezing chest pain that is nonradiating, 7 out 10 intensity constant. The patient says has been evaluated multiple times for chest pain at multiple hospitals in [place]. she says that they do not do anything until her anxiety. She has no increased shortness of breath from her baseline. No fevers chills cough or other complaints. Related Data Home Medications Medication Instructions Recorded Confirmed allopurinol 100 mg tablet 100 mg PO DAILY 02/27/23 04/28/23 amlodipine 5 mg tablet 5 mg PO DAILY 02/27/23 04/28/23 apixaban 5 mg tablet (Eliquis) 5 mg PO BID 02/27/23 04/28/23 aspirin 81 mg tablet,delayed 81 mg PO DAILY 02/27/23 04/28/23 release bupropion HCl 100 mg tablet,12 hr 100 mg PO DAILY 02/27/23 04/28/23 sustained-release cariprazine 3 mg capsule (Vraylar) 3 mg PO DAILY 02/27/23 04/28/23 ferrous sulfate 325 mg (65 mg 325 mg PO DAILY 02/27/23 04/28/23 iron) tablet gabapentin 600 mg tablet 600 mg PO BID 02/27/23 04/28/23 tamsulosin 0.4 mg capsule 0.4 mg PO HS 02/27/23 04/28/23 atorvastatin 40 mg tablet 40 mg PO HS 04/15/23 04/28/23 ergocalciferol (vitamin D2) 1,250 1,250 mcg PO WEEKLY 04/15/23 04/28/23 mcg (50,000 unit) capsule (Vitamin D2) Allergies Allergy/AdvReac Type Severity Reaction Status Date / Time No Known Allergies Allergy Verified 05/16/23 01:40 [facility] Past Medical History Medical History Anemia Chronic anemia Chronic anticoagulation Chronic kidney disease Comminuted left humeral fracture with nonunion Depression with anxiety Diastolic congestive heart failure Hyperlipidemia Hypertension Lymphedema Pneumonia Pulmonary embolism (2018) Pulmonary hypertension Type 2 diabetes mellitus Surgical History Surgical History History of cholecystectomy History of hernia repair History of tonsillectomy History of tubal ligation Family History Family History Other Family history unknown Social History Social History Social History: [facility] Surrogate medical decision maker: Farhan Avalos (brother). Code status: Full code. Smoking status: Never smoker Second hand tobacco smoke exposure: No Alcohol intake: never Substance use: never Substance use type: does not use Lack of Transportation: No Lack of Food: Never True Current Housing: I Have Housing Concerned About Future Housing: No Difficulty Paying Gas/Electric Bills: No Difficulty Paying for Meds: No Currently Unemployed: No Education: High School Diploma/GED Difficulty w/ Childcare or Family Care: No Spiritual care concerns: No Exam Narrative: APPEARANCE: appears chronically unwell but no apparent distress Head: atraumatic. EYES: EOMI, NOSE: Atraumatic NECK: Trachea midline RESPIRATORY: No increased rate of breathing, CTAB CARDIOVASCULAR: RRR, ABDOMINAL: Non-distended MUSCULOSKELETAl: No obvious deformities NEURO: Alert. Moving 4/4 extremities SKIN:: Warm, dry. Normal color PSYCHIATRIC: Normal affect Course Vital Signs Vital signs: Vital Signs Temperature 97.9 F 05/16/23 01:22 Pulse Rate 60 05/16/23 01:22 Respiratory Rate 19 05/16/23 01:22 Blood Pressure 129/57 L 05/16/23 01:22 Pulse Oximetry 100 05/16/23 01:22 Oxygen Delivery Room Air 05/16/23 01:22 Temperature 97.9 F 05/16/23 01:22 Pulse Rate 63 05/16/23 03:44 Respiratory
[2023-05-16 05:16] LABS: Glucose Point of Care 89 mg/dl (65-105)
[2023-05-16 05:16] LABS: Glucose Point of Care 192 mg/dl (65-105)
--- NOTE | 2023-05-16 05:21 | PC.NURSE ---
This RN checked pt BG which was 89mg/dL. Notified provider. Provided pt with orange juice and socrates crackers. Pt states she has not missed any doses of insulin yesterday.
--- NOTE | 2023-05-16 05:32 | PC.NURSE ---
ARTIS Neil from [place] called for update on pt. This RN notified Jolynn we were waiting on one last lab result and we will call back w update.
[2023-05-16 05:36] LABS: Troponin I < 0.012 ng/mL (0.000-0.034)
[2023-05-16 07:05] LABS: Glucose Point of Care 219 mg/dl (65-105)
== END 2023-05-16 07:05 ==
PROVIDERS: Emergency Provider Emergency Medicine; PCP Internal Medicine
DX: R07.9 Chest pain, unspecified (principal); Z20.822 Contact with and (suspected) exposure to COVID-19; I13.0 Hypertensive heart and chronic kidney disease with heart failure and stage 1 through stage 4 chronic kidney disease, or unspecified chronic kidney disease; E11.22 Type 2 diabetes mellitus with diabetic chronic kidney disease; N18.9 Chronic kidney disease, unspecified; I50.30 Unspecified diastolic (congestive) heart failure; I27.20 Pulmonary hypertension, unspecified; I89.0 Lymphedema, not elsewhere classified; D64.9 Anemia, unspecified; E78.5 Hyperlipidemia, unspecified; Z86.711 Personal history of pulmonary embolism; Z90.49 Acquired absence of other specified parts of digestive tract; Z79.82 Long term (current) use of aspirin; Z79.01 Long term (current) use of anticoagulants; R91.8 Other nonspecific abnormal finding of lung field
CPT/HCPCS: 36415; 71045; 80053; 82803; 82948; 83880; 84484; 85025; 87637; 93005; 99284

== ENCOUNTER 2023-07-31 20:58 | Inpatient (IN) | payer BC, SELFPAY ==
--- NOTE | ~2023-07-31 | US_ITS ---
Duplex Sonography of the bilateral lower extremities: Indication: Edema Sagittal and transverse B-mode images as well as color-flow imaging were performed on the right and l eft femoral and popliteal veins. B-mode examination was done without and with compression in the tra nsverse plane. There is good visualization of the bilateral common femoral, proximal profunda femora l, superficial femoral, greater saphenous, and popliteal veins. Normal flow was seen on color-flow im aging. Normal compressibility was demonstrated. Visualized calf veins are also patent. Impression: No evidence of deep vein thrombosis involving either lower extremity. Reviewed, dictated and finalized at location M. NSED CLINICIAN Impression: No evidence of deep vein thrombosis involving either lower extremit y.
--- NOTE | ~2023-07-31 | XR_ITS ---
EXAMINATION: XR chest 1V portable DATE: 08/07/2023 12:03 INDICATION: Shortness of breath. Chest pain. TECHNIQUE: A single frontal view of the chest was obtained. COMPARISON: Chest single view 08/01/2023, chest CT 04/29/2023 FINDINGS: There is a diffuse interstitial pattern in the lungs. No pleural effusion or pneumothorax. The heart size is normal. There is a healing fracture of proximal left humerus. IMPRESSION: 1. Persistent diffuse interstitial pattern in the lungs, consistent with mild pulmonary edema versus pneumonia. Reviewed, dictated and finalized at location A. SE CONSULTANT IMPRESSION: 1. Persistent diffuse interstitial pattern in the lungs, consistent with mild p ulmonary edema versus pneumonia.
--- NOTE | ~2023-07-31 | CT_ITS ---
CT scan of the right foot CLINICAL HISTORY: Ulcer TECHNIQUE: Following intravenous administration of 100 cc of Omnipaque 350 contrast material, axial i maging of the right foot were performed. Sagittal and coronal reformatted images were constructed. Do se reduction technique was used on this scan by utilizing automated exposure control and iterative re construction technique. The dose-length product (DLP) was 316.44 mGy-cm. Findings: No acute fracture evident. No definite evidence for osteomyelitis or bony destructive carvalho e. There is plantar flexion and mild plantar subluxation of the second through fifth PIP joints in th e toes. Remaining joint spaces are preserved without significant degenerative change. There is marked, diffuse soft tissue swelling of the foot and visualized ankle/distal calf. No defini te focal fluid collection identified. There is probable focal thickening of the midportion of the Ach illes tendon. There is a soft tissue ulcer at the plantar aspect of the heel. IMPRESSION: Soft tissue ulcer to plantar aspect of the heel. No abscess evident. Marked, diffuse soft tissue swelling of the foot and ankle. Correlate for cellulitis and/or bland leigh ann ma. No evidence for osteomyelitis or acute fracture. Possible focal thickening of the midportion of the Achilles tendon. Tendinosis and/or partial tearing are considerations. Consider MR as indicated to further evaluate the tendon. Plantar flexion and subluxation of the second through fifth PIP joints. Reviewed, dictated and finalized at [facility]. [employer] PRACTITIONER IMPRESSION: Soft tissue ulcer to plantar aspect of the heel. No abscess evident. Marked, diffuse soft tissue swelling of the foot and ankle. Correlate for cellu litis and/or bland edema. No evidence for osteomyelitis or acute fracture. Possible focal thickening of the midportion of the Achilles tendon. Tendinosis and/or partial tearing are considerations. Consider MR as indicated to further evaluate the tendon. Plantar flexion and subluxation of the second through fifth PIP joints.
--- NOTE | ~2023-07-31 | XR_ITS ---
EXAMINATION: XR chest 2V DATE: 08/10/2023 08:49 INDICATION: Congestive heart failure TECHNIQUE: frontal and lateral views of the chest were obtained. COMPARISON: Chest radiograph dated 08/07/2023 FINDINGS: Mild perihilar increased interstitial pattern consistent with minimal pulmonary edema. No other airsp jeri opacities, pulmonary edema, pleural effusion or pneumothorax. The cardiomediastinal silhouette is within normal limits for AP technique. The lines or other two-part fracture the proximal left humeru s with prominent callus formation, not definitively enlarging and with increasing displacement and co mpared with study dated 05/03/2023. IMPRESSION: 1. Perihilar increased interstitial pattern and would favor minimal pulmonary edema over pneumonia. Reviewed, dictated and finalized at location A. GE MASTER ANALYST IMPRESSION: 1. Perihilar increased interstitial pattern and would favor minimal pulmonary e saurav over pneumonia.
--- NOTE | ~2023-07-31 | XR_ITS ---
Right foot Technique: AP, oblique, and lateral views were obtained. Clinical History: Ulcer Findings: No acute fracture or dislocation is seen. Osseous alignment is anatomic. Joint spaces are p reserved without erosive or degenerative change there is marked, diffuse soft tissue swelling the enedina t and distal ankle. Probable soft tissue ulcer to plantar aspect of the heel.. Impression: No gross radiographic evidence for osteomyelitis. Marked, diffuse soft tissue swelling with ulcer at the plantar aspect of the heel. Reviewed, dictated and finalized at location M. [facility]ULLER Impression: No gross radiographic evidence for osteomyelitis. Marked, diffuse soft tissue swelling with ulcer at the plantar aspect of the he el.
--- NOTE | ~2023-07-31 | US_ITS ---
EXAMINATION: US arterial ankle brachial ind DATE: 08/04/2023 12:02 INDICATION: Arterial occlusive disease. TECHNIQUE: Segmental pressures and plethysmographic and Doppler waveforms of the brachial and lower e xtremity arteries were obtained. COMPARISON: None. FINDINGS: Right and left brachial artery pressures of 132 mm Hg and 156 mm Hg, respectively, are concordant (no rmal difference <= 30 mmHg). The right ankle-brachial index (EMILY) is 0.79 (normal >= 0.9-1.0). The right great toe-brachial index (TBI) is 0.62 (normal >= 0.65). Arterial Doppler waveforms are at least biphasic at the ankle. The left EMILY is 0.91. The left TBI is 0.61. Arterial Doppler waveforms are biphasic at the ankle. IMPRESSION: 1. Mildly decreased ABIs, consistent with arterial occlusive disease. Reviewed, dictated and finalized at location A. HYSICAL PARTY CHIEF
--- NOTE | ~2023-07-31 | MR_ITS ---
EXAMINATION: MR foot RT wo con DATE: 08/01/2023 09:51 INDICATION: Right foot ulcer. Assess for osteomyelitis. TECHNIQUE: Magnetic resonance imaging (MRI) of the right mid and hindfoot was performed without intra venous contrast. Sequences included sagittal T1-weighted FSE, sagittal fluid sensitive FSE STIR, zaria nal PD-weighted FS FSE, coronal T1-weighted FSE, axial PD-weighted FS FSE, and axial PD-weighted FSE. COMPARISON: CT dated 08/11/2023 FINDINGS: There is a 5 mm deep ulceration plantar to the calcaneus which measures 3.1 medial collateral and 2.2 cm proximal to distal. There appears be a small sinus tract extending to a small collection of fluid along the superficial margin of the proximal plantar aponeurosis. The fluid collection extends 3.3 s imilar proximal to distal, 2.3 cm medial collateral and measures up to 5 mm in thickness. There is mi nimal marrow edema such with a small plantar calcaneal spur. There is however no evident cortical ero rafaela on the prior CT or geographic loss of T1 marrow fat signal on the current study to more specific ally suggest osteomyelitis. There is mild enthesopathy at the proximal plantar aponeurosis. Moderate-sized plantar calcaneal spur. There is moderate Achilles tendinosis with fusiform thickening of the tendon centered approximately 5 cm from the calcaneal insertion and with at least partial thi ckness tear which involves approximately 50% of the resection area of the tendon beginning approximat zeynep 6 cm proximal to the calcaneal insertion. On the sagittal and coronal images, residual intact por tions of the tendon extent an additional 4 cm proximally to the cephalad most margin of the field of imaging. Chronic partial tears of the anterior talofibular and calcaneofibular ligaments of which appear mildl y thickened with increased signal. There is also scarring consistent with sequela of chronic sprain o f the deep deltoid ligament with loss of the normally well-defined striated appearance. Thickening of the anterior superficial deltoid ligament and superomedial component of the spring ligament complex consistent with additional scarring related to chronic sprains. The remaining flexor and extensor ten dons of the foot and ankle are normal. Bone alignment is normal. No fracture or pathologic marrow rep lacing process. Mild osteoarthritis at the right ankle and multiple joints in the mid and hindfoot. S ubarticular edema-like signal change likely related to osteoarthritis along the inferior head of the talus and the dorsal/medial margin of the cuboid. No joint effusions. There is prominent diffuse soft tissue edema in the subcutaneous tissues about the foot and ankle. There is moderate fatty atrophy a nd mild increased fluid signal in the intrinsic musculature of the foot which could be due to either disuse or denervation changes in the setting of diabetes. IMPRESSION: 1. Skin ulceration plantar to the posterior tuberosity of the calcaneus with sinus tract extending to a small fluid collection suspicious for abscess along the superficial margin of the proximal plantar aponeurosis. 2. Mild edema-like signal change in the immediately underlying inferior margin of the calcaneal tuber osity which could osteomyelitis or more likely reactive edema with no geographic loss of T1 fat signa l or cortical erosion on prior CT to more specifically suggest osteomyelitis. 3. Moderate Achilles tendinosis with partial-thickness tear approximately 6 cm proximal to the calcan eal insertion. 4. Mild polyarticular osteoarthritis at the right ankle and visualized mid and hindfoot. 5. Associated severe subcutaneous edema the right foot and ankle. 6. Scarring consistent with chronic sprains of the ligaments at the medial and lateral ankle. 7. Fatty atrophy of the intrinsic musculature of the foot which could be due to disuse or denervation change since in the setting of diabetic neuropathy. __
--- NOTE | ~2023-07-31 | XR_ITS ---
Portable chest x-ray Comparison: 05/16/2023 Clinical History: CHF Findings: There is mild haziness in the central left lung, possibly minimally the right lung base. N o pleural effusion or pneumothorax. Cardiomediastinal silhouette is stable. Bones and soft tissues a re unremarkable. Impression: Possible mild pulmonary edema, asymmetric to the left side. Correlate currently for infection. Reviewed, dictated and finalized at location . [facility] Impression: Possible mild pulmonary edema, asymmetric to the left side. Correlate currently for infection.
[2023-07-31 21:42] VITALS: BP 96/65; PULSE 75; RESP 18; TEMP 36.6; O2SAT 93
[2023-07-31 23:58] VITALS: BP 115/55; PULSE 65; RESP 16; TEMP 35.8; O2SAT 98
[2023-08-01] VITALS (40 sets, daily range): BP systolic 98–137; BP diastolic 55–80; PULSE 70–90; RESP 13–23; TEMP 36.3–36.9; O2SAT 88–100; BMI 47.3
--- NOTE | 2023-08-01 02:54 | PC.NURSE ---
blood cultures x 2 drawn before starting abx.
[2023-08-01] MEDS: CEFEPIME 2 GM/NS 50 ML 2 GM/50 ML BAG IVPB (02:55)
[2023-08-01] MEDS: metroNIDAZOLE 500 MG/ISO 100ML 500 MG/100 ML BAG 100 MG IVPB ×3 (02:55→18:16)
[2023-08-01 03:04] LABS: Basophils Absolute Auto 0.1 K/mm3 (0.0-0.1); Basophils Percent Auto 0.5 % (0.2-1.2); Eosinophils Absolute Auto 0.6 K/mm3 (0-0.3); Eosinophils Percent Auto 5.7 % (0-4.4); Hematocrit 38.1 % (37.0-47.0); Hemoglobin 11.5 g/dL (12.0-15.0); Immature Granulocyte Absolute 0.04 K/mm3 (0.00-0.031); Immature Granulocyte Percent A 0.4 % (0-0.5); Lymphocytes Absolute Auto 1.61 K/mm3 (0.9-3.2); Lymphocytes Percent Auto 16.3 % (18.3-44.2); Mean Corpuscular HGB Conc 30.2 g/dl (32-36); Mean Corpuscular Hemoglobin 27.8 pg (26-34); Mean Platelet Volume 10.1 fl (7.4-10.4); Monocytes Absolute Auto 0.7 K/mm3 (0.1-0.6); Monocytes Percent Auto 7.2 % (2.6-8.5); Neutrophils Absolute Auto 6.9 K/mm3 (1.3-6.7); Neutrophils Percent Auto 69.9 % (45.5-73.1); Platelet Count Result 290 k/mm3 (150-375); Red Blood Count 4.14 M/mm3 (4.2-5.4); Red Cell Distribution Width 16.2 % (11.5-14.5); White Blood Count 9.9 K/mm3 (4.5-10.0)
[2023-08-01 03:08] LABS: Prothrombin Time 13.8 Seconds (11.1-14.7)
[2023-08-01 03:09] LABS: Partial Thromboplastin Time 29.7 SECONDS (22.3-36.8)
[2023-08-01 03:13] LABS: Alanine Aminotransferase 21 U/L (6-35); Albumin Level 3.6 g/dL (3.5-5.1); Alkaline Phosphatase 143 U/L (38-126); Anion Gap 8 mmol/L (8-16); Aspartate Amino Transferase 27 U/L (14-36); Bilirubin,Total 0.4 mg/dL (0.2-1.3); Blood Urea Nitrogen 42 mg/dL (7-17); Calcium 9.4 mg/dL (8.4-10.2); Carbon Dioxide 27 mmol/L (22-30); Chloride 103 mmol/L (98-107); Estimated CRCL calculation 49 ml/min; Estimated Glomerular Filt Rate 36; Glucose 231 mg/dL (65-110); Magnesium 2.5 mg/dL (1.6-2.3); Potassium 4.6 mmol/L (3.4-5.0); Sodium 138 mmol/L (137-145)
[2023-08-01 03:17] LABS: CRP 5.2 mg/dL (<1.0)
[2023-08-01 03:32] LABS: Procalcitonin 0.5 ng/mL
[2023-08-01 03:39] LABS: Lactic Acid Reflex 2.2 mmol/L (0.7-2.0)
[2023-08-01 03:51] LABS: Hemoglobin A1C 8.1 % (<5.7)
--- NOTE | 2023-08-01 03:53 | ED.GENADULT ---
HPI - General Adult General Chief complaint: Extremity Injury, Lower Stated complaint: R heel wound, bilat weeping legs Time Seen by Provider: 08/01/23 01:58 History of Present Illness HPI narrative: Patient is a 58-year-old female who presents emergency department with chief complaint of wound to right gloria and increased lower extremity edema. The patient reports that she has had difficulty new doctor since she recently moved to room with purulent back in February. The patient reports that showed ulceration right fibula head showed the appropriate complaining now of patient reports the use of bloating worse and has a lot of debris in the wound. Patient reports several other drainage is well Related Data Home Medications Medication Instructions Recorded Confirmed allopurinol 100 mg tablet 100 mg PO DAILY 02/27/23 04/28/23 amlodipine 5 mg tablet 5 mg PO DAILY 02/27/23 04/28/23 apixaban 5 mg tablet (Eliquis) 5 mg PO BID 02/27/23 04/28/23 aspirin 81 mg tablet,delayed 81 mg PO DAILY 02/27/23 04/28/23 release bupropion HCl 100 mg tablet,12 hr 100 mg PO DAILY 02/27/23 04/28/23 sustained-release cariprazine 3 mg capsule (Vraylar) 3 mg PO DAILY 02/27/23 04/28/23 ferrous sulfate 325 mg (65 mg 325 mg PO DAILY 02/27/23 04/28/23 iron) tablet gabapentin 600 mg tablet 600 mg PO BID 02/27/23 04/28/23 tamsulosin 0.4 mg capsule 0.4 mg PO HS 02/27/23 04/28/23 atorvastatin 40 mg tablet 40 mg PO HS 04/15/23 04/28/23 ergocalciferol (vitamin D2) 1,250 1,250 mcg PO WEEKLY 04/15/23 04/28/23 mcg (50,000 unit) capsule (Vitamin D2) Allergies Allergy/AdvReac Type Severity Reaction Status Date / Time No Known Allergies Allergy Verified 05/16/23 01:40 Review of Systems Review of Systems: A 10 system review of systems was completed on the patient and is negative except for what is stated in the HPI. Nursing and ancillary documentation was reviewed. [facility] Past Medical History Medical History Anemia Chronic anemia Chronic anticoagulation Chronic kidney disease Comminuted left humeral fracture with nonunion Depression with anxiety Diastolic congestive heart failure Hyperlipidemia Hypertension Lymphedema Pneumonia Pulmonary embolism (2018) Pulmonary hypertension Type 2 diabetes mellitus Surgical History Surgical History History of cholecystectomy History of hernia repair History of tonsillectomy History of tubal ligation Family History Family History Other Family history unknown Social History Social History Social History: Resides at [facility] Surrogate medical decision maker: Farhan Avalos (brother). Code status: Full code. Smoking status: Never smoker Second hand tobacco smoke exposure: No Alcohol intake: never Substance use: never Substance use type: does not use Lack of Transportation: No Lack of Food: Never True Current Housing: I Have Housing Concerned About Future Housing: No Difficulty Paying Gas/Electric Bills: No Difficulty Paying for Meds: No Currently Unemployed: No Education: High School Diploma/GED Difficulty w/ Childcare or Family Care: No Spiritual care concerns: No Exam Narrative: GENERAL: Well-appearing, well-nourished, and in no acute distress. HEAD: Normocephalic, atraumatic. EYES: PERRLA and EOMI. ENT: Nares clear, no rhinorrhea or epistaxis. Mucous membranes moist. NECK: Supple. CHEST: Clear to auscultation. No respiratory distress. HEART: Regular rate and rhythm. No murmur heard. Normal peripheral pulses. ABDOMEN: Soft, nontender, nondistended, normal active bowel sounds. EXTREMITIES: Normal range of motion. 3+ edema. SKIN: Warm, dry, no rash. There is a half-dollar si
[2023-08-01 04:06] LABS: Erythrocyte Sedimentation Rate 23 mm/hr (0-20)
[2023-08-01 04:20] LABS: Appearance Urine Cloudy (Clear); Bacteria Urine 4+ /hpf; Bilirubin Urine Negative (Negative); Blood Urine Negative (Negative); Color Urine Yellow (Yellow); Glucose Urine UA Trace mg/dL (Negative); Ketones Urine Negative (Negative); Leukocyte Esterase Ur Trace LEU/UL (Negative); Mucus Urine Present /lpf; Need Manual Microscopic Reviewed; Nitrate Urine Positive (Negative); Protein Urine 2+ mg/dL (Negative); RBC Urine 0-2 /hpf (0-2); Specific Grav Ur 1.013 (1.001-1.035); Squamous Epithelial Cell Urine None seen /hpf (Few); Urobilinogen Urine 0.2 mg/dL (<2.0); WBC Clumps Urine Present /HPF; WBC Urine 21-50 /hpf
[2023-08-01 04:21] LABS: Add Urine Microscopic? YES
[2023-08-01 04:41] LABS: MRSA (PCR) NOT DETECTED (NOT DETECTE)
[2023-08-01] MEDS: VANCOMYCIN 1,250 MG/NS 250 ML 1,250 MG/250 ML BAG 166.67 MG IVPB ×2 (04:41→05:44)
[2023-08-01 06:29] LABS: Reflex Lactic Acid Yes or No Add Lactic
[2023-08-01 07:36] LABS: Lactic Acid 1.1 mmol/L (0.7-2.0)
--- NOTE | 2023-08-01 10:10 | PC.NURSE ---
This patient, Talia Peralta, was admitted to [address] [facility] Surg Room 301-01. Patient/family oriented to hospital policies and general routines including ID bracelet, bed and alarms, visiting hours, pain management, procedures, bathroom and other care routines, personal items, smoking policy, room service/diet, and visiting hours. Information on how to activate the Rapid Response Team has been discussed. Patient/Family are encouraged to report perceived risks to care and to ask questions if they do not understand what they are told or what they should do.
[2023-08-01 11:38] LABS: Glucose Point of Care 250 mg/dl (65-105)
[2023-08-01] MEDS: CEFEPIME 1 GM/NS 50 ML 1 GM/50 ML BAG IVPB (16:13)
[2023-08-01 16:28] LABS: Glucose Point of Care 271 mg/dl (65-105)
--- NOTE | 2023-08-01 16:35 | PM.IMHP ---
H&P: HPI History of Present Illness Date/Time: 08/01/23 17:35 Chief Complaint: Right heel wound. Narrative: This is a 58-year-old female with diastolic congestive heart failure, pulmonary hypertension, hypertension, hyperlipidemia, type 2 diabetes mellitus, pulmonary embolism, chronic lymphedema, depression, and anxiety who presented to the emergency department via EMS for evaluation of a right heel wound. The patient provides the following history. She has chronic lymphedema however her swelling has increasingly worsened over the past several months. She has a chronic right foot ulcer and more recently she has developed pain with weight-bearing and she is now notice that is draining serosanguineous fluid. She reports having difficulties finding a new primary care provider and reports that she has not been on several of the medication she was previously prescribed. She believes this is the reason for her worsening swelling. She is otherwise feeling well and denies fever, chills, sweats, cold and flu symptoms, chest pain, pleuritic pain, palpitations, shortness of breath, nausea, vomiting, diarrhea, and dysuria. She was afebrile on arrival to the ED with stable vital signs. WBC count was normal, ESR was a bit elevated 23, and CRP was 5.2. Procalcitonin was 0.5. She was started on broad-spectrum antibiotics for suspected infected ulcer. An MRI of the right foot showed an ulcerated area with a sinus tract extending to a small fluid collection suspicious for abscess along the superficial margin of the proximal plantar aponeurosis. She was seen by the wound nurse who gave recommendations which are being followed. Review of Systems Review of Systems: Twelve systems were reviewed and are negative except for as per HPI. [facility] Past Medical History Medical History (Updated 08/01/23 @ 22:52 by Ester Vital PA-C) Chronic anemia Chronic kidney disease Comminuted left humeral fracture with nonunion Depression with anxiety Diastolic congestive heart failure Hyperlipidemia Hypertension Lymphedema Pulmonary embolism (2018) Pulmonary hypertension Type 2 diabetes mellitus Surgical History Surgical History History of cholecystectomy History of hernia repair History of tonsillectomy History of tubal ligation Family History Family History Sibling Lung cancer Diabetes mellitus Pancreatic cancer Mother Heart disease Social History Social History Social History: Surrogate medical decision maker: Farhan Avalos (brother). Code status: Full code. Smoking status: Never smoker Second hand tobacco smoke exposure: No Alcohol intake: never Substance use: never Substance use type: does not use Do You Feel Safe in your Home?: Yes Lack of Transportation: YES Lack of Food: Never True Current Housing: I Have Housing Concerned About Future Housing: No Difficulty Paying Gas/Electric Bills: No Difficulty Paying for Meds: No Currently Unemployed: No Education: Don't Know Difficulty w/ Childcare or Family Care: No Spiritual care concerns: No Meds Home Medications and Allergies Home Medications Medication Instructions Recorded Confirmed Type allopurinol 100 mg tablet 100 mg PO DAILY 02/27/23 08/01/23 History amlodipine 5 mg tablet 5 mg PO DAILY 02/27/23 08/01/23 History aspirin 81 mg tablet,delayed 81 mg PO DAILY 02/27/23 08/01/23 History release ferrous sulfate 325 mg (65 mg 325 mg PO DAILY 02/27/23 08/01/23 History iron) tablet tamsulosin 0.4 mg capsule 0.4 mg PO HS 02/27/23 08/01/23 History blood sugar diagnostic (OneTouch #1 pkg 03/25/23 08/01/23 Rx Verio test strips) blood-glucose meter (OneTouch #1 pkg 03/25/23 08/01/23 Rx Verio Flex Meter) lancets 30 gauge (OneTouch Delica #1 pkg 03/25/23 08/01/23 Rx Plus Lanc
[2023-08-01] MEDS: INSULIN ASPART (*BKC) 100 UNITS/ML SUB-Q ×2 (17:43→20:43)
[2023-08-01 20:57] LABS: Glucose Point of Care 232 mg/dl (65-105)
[2023-08-01] MEDS: TAMSULOSIN HCL 0.4 MG CAPSULE PO (23:41)
[2023-08-01] MEDS: QUEtiapine FUMARATE XR 50 MG TAB.ER.24H PO (23:41)
[2023-08-01] MEDS: ATORVASTATIN 40 MG TABLET PO (23:41)
[2023-08-01] MEDS: GABAPENTIN 100 MG CAPSULE PO (23:42)
[2023-08-01] MEDS: INSULIN GLARGINE (*BKC) 100 UNITS/ML 30 UNITS SUB-Q (23:42)
[2023-08-02] VITALS (7 sets, daily range): BP systolic 115–132; BP diastolic 55–67; PULSE 65–86; RESP 18–20; TEMP 35.7–36.5; O2SAT 93–95
[2023-08-02] MEDS: CEFEPIME 1 GM/NS 50 ML 1 GM/50 ML BAG IVPB ×2 (02:34→15:15)
[2023-08-02] MEDS: metroNIDAZOLE 500 MG/ISO 100ML 500 MG/100 ML BAG 100 MG IVPB ×3 (03:06→18:10)
[2023-08-02] MEDS: VANCOMYCIN 1,500 MG/NS 500 ML 1,500 MG/500 ML BAG 250 MG IVPB (04:05)
[2023-08-02 07:21] LABS: Hematocrit 28.4 % (37.0-47.0); Hemoglobin 8.8 g/dL (12.0-15.0); Mean Corpuscular Hemoglobin 27.9 pg (26-34); Mean Corpuscular Volume 90.2 fl (80-100); Mean Platelet Volume 9.8 fl (7.4-10.4); Platelet Count Result 245 k/mm3 (150-375); Red Blood Count 3.15 M/mm3 (4.2-5.4); Red Cell Distribution Width 16.5 % (11.5-14.5); White Blood Count 7.2 K/mm3 (4.5-10.0)
[2023-08-02 08:08] LABS: Glucose Point of Care 92 mg/dl (65-105)
[2023-08-02 08:11] LABS: Anion Gap 2 mmol/L (8-16); Blood Urea Nitrogen 31 mg/dL (7-17); Calcium 7.9 mg/dL (8.4-10.2); Carbon Dioxide 27 mmol/L (22-30); Chloride 106 mmol/L (98-107); Estimated CRCL calculation 50 ml/min; Estimated Glomerular Filt Rate 36; Glucose 84 mg/dL (65-110); Magnesium 2.2 mg/dL (1.6-2.3); Potassium 4.3 mmol/L (3.4-5.0); Sodium 135 mmol/L (137-145)
[2023-08-02] MEDS: FERROUS SULFATE 325 MG TABLET DR PO (08:30)
[2023-08-02] MEDS: ASPIRIN 81 MG ENTERIC TABLET PO (08:30)
[2023-08-02] MEDS: FAMOTIDINE 20 MG TABLET PO (08:30)
[2023-08-02] MEDS: FUROSEMIDE 40 MG TABLET PO (08:30)
[2023-08-02] MEDS: amLODIPine BESYLATE 5 MG TABLET PO (08:33)
[2023-08-02] MEDS: allopurinoL 100 MG TABLET PO (08:34)
[2023-08-02] MEDS: GABAPENTIN 100 MG CAPSULE PO ×2 (08:34→16:38)
[2023-08-02] MEDS: INSULIN ASPART (*BKC) 100 UNITS/ML 6 UNITS SUB-Q ×3 (08:40→17:01)
--- NOTE | 2023-08-02 09:42 | PM.CNOR ---
Assessment and Plan Assessment and plan (1) Diabetic foot ulcer: Qualifiers: Diabetic foot ulcer location: heel Diabetes mellitus type: type 2 Laterality: right Non-pressure ulcer stage: with muscle involvement without evidence of necrosis Qualified Code(s): E11.621 - Type 2 diabetes mellitus with foot ulcer; L97.415 - 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 involvement without evidence of necrosis Code(s): E11.621 - Type 2 diabetes mellitus with foot ulcer; L97.509 - Non-pressure chronic ulcer of other part of unspecified foot with unspecified severity Status: Acute Assessment and Plan: chronic ulcer of right plantar heel. Patient medically noncompliant and undertreated. Ulcer dates back to at least April 2023. MRI, CT scan, x-ray reviewed. No surgical indication at this time. Agree with wound care nursing assessment and plan for silver gel and dressing changes. Recommend nonweightbearing. (2) Lymphedema: Code(s): I89.0 - Lymphedema, not elsewhere classified Status: Acute (3) Cellulitis: Qualifiers: Site of cellulitis: extremity Site of cellulitis of extremity: lower extremity Laterality: unspecified laterality Qualified Code(s): L03.119 - Cellulitis of unspecified part of limb Code(s): L03.90 - Cellulitis, unspecified Status: Acute (4) Arterial insufficiency of lower extremity: Code(s): I73.9 - Peripheral vascular disease, unspecified Status: Acute Assessment and Plan: blood flow studies with EMILY/ TBIs ordered History of Present Illness HPI Consult date: 08/02/23 Requesting physician: Ester Vital PA-C Chief complaint: Infected Diabetic Foot Ulcer/Cellulitis/Lymphedema Narrative: 58-year-old woman with poor medical compliance and uncontrolled diabetes admitted through the emergency room with chronic ulceration right plantar heel. Patient in the hospital end of last year with heel ulcer. Treated with dressing changes. Evaluated by surgery at that time. Patient states she went home and has not had any medical follow-up. She has been doing dressing changes with the help of her sister. Pain plantar heel although insensate foot. History of left ankle trauma treated with intramedullary fusion In [place] 5 years ago. Review of Systems Constitutional: Constitutional: Denies fever(s) Eyes: Eyes: Denies blurry vision ENT: Reports Normal hearing present Cardiovascular: Cardiovascular: Denies chest pain and Denies dyspnea Respiratory: Respiratory: Denies dyspnea and Denies wheezing Gastrointestinal: Gastrointestinal: Denies abdominal pain Genitourinary: Genitourinary: Denies urinary urgency Musculoskeletal: Musculoskeletal: Reports as per HPI and Denies numbness Integumentary/Breasts: Skin/Breast: Denies changing lesions and Denies sores Neurologic: Reports Normal hearing present, Denies behavioral changes, Denies confusion, Denies numbness and Denies convulsions Psychiatric: Psychiatric: Denies behavioral changes, Denies confusion and Denies hallucinations Endocrine: Endocrine: Denies heat intolerance Hematologic/Lymphatic: Hematologic/Lymphatic: Denies easy bleeding Allergic/Immunologic: Allergic/Immunologic: Denies wheezing PMF Past Medical History Medical History (Updated 08/02/23 @ 09:50 by Mando Singh MD) Arterial insufficiency of lower extremity Chronic anemia Chronic kidney disease Comminuted left humeral fracture with nonunion Depression with anxiety Diastolic congestive heart failure Hyperlipidemia Hypertension Lymphedema Pulmonary embolism (2018) Pulmonary hypertension Type 2 diabetes mellitus Surgical History Surgical History History of cholecystectomy History of hernia repair History of tonsillectomy History of tubal ligation Family History Family History (Reviewed 08/02/23 @ 09:43 b
[2023-08-02 11:26] LABS: Glucose Point of Care 93 mg/dl (65-105)
--- NOTE | 2023-08-02 15:27 | PM.IMPN ---
Progress Note: A&P Assessment and Plan (1) Diabetic foot ulcer: Qualifiers: Diabetes mellitus type: type 2 Diabetic foot ulcer location: heel Laterality: right Non-pressure ulcer stage: with muscle involvement without evidence of necrosis Qualified Code(s): E11.621 - Type 2 diabetes mellitus with foot ulcer; L97.415 - 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 involvement without evidence of necrosis Code(s): E11.621 - Type 2 diabetes mellitus with foot ulcer; L97.509 - Non-pressure chronic ulcer of other part of unspecified foot with unspecified severity Status: Acute (2) Lymphedema: Code(s): I89.0 - Lymphedema, not elsewhere classified Status: Acute Plan This is a 58-year-old white female who is very chronically ill and noncompliant with therapy. She has a history of morbid obesity, obesity hypoventilation syndrome, chronic anemia history of hemoptysis/epistaxis, nonerosive flux disease, insulin-dependent diabetes mellitus chronic diabetic ulcers, CKD stage 3A, depression with anxiety, hypertension, hyperlipidemia, lymphedema, history of pulmonary embolism, pulmonary hypertension, diastolic congestive heart failure. She presents for worsening of her chronic right heel wound. It has been becoming more painful and now draining serosanguineous fluid she has also had increasing lymphedema. She has not been taking her medications. She was admitted on 08/02/2023 for surgical workup by Dr. Singh on 08/01/2023. #Insulin-dependent diabetes mellitus -HbA1c on admission 8.1%. -continue 6 units t.i.d. and 30 units q.h.s.. Titrate for good control. Counseled and educated #Diabetic foot ulcer/cellulitis/abscess -orthopedic surgeon consulted. Appreciate recommendations. No surgical management for now. -wound care consulted -MRI demonstrating small fluid collections suspicious of abscess with findings consistent with ulcer and cellulitis. -continue vancomycin cefepime and metronidazole #Abnormal urinalysis -continue antibiotics. Follow-up urine culture. #Chronic anemia -stable continue to monitor #Obesity hypoventilation syndrome -CPAP at night #CKD stage IIIA -stable continue to monitor #Diastolic congestive heart failure/lymphedema -continue Lasix 40 mg p.o. q.day FEN: Cardiac diabetic diet. Saline lock IV. GI prophylaxis: Continue home dose Pepcid 20 mg p.o. q.day DVT prophylaxis: Heparin subQ t.i.d. Lines: Peripheral IV Code Status: Full code Dispo: Stable Subjective Date/time seen: 08/02/23 15:27 Interval history: No acute overnight events. Patient quite unwilling to participate with exam as she is sleepy. She does not elicit complaints. Review of Systems Review of Systems: All systems reviewed & are unremarkable except as noted in HPI and below (Subjective) Exam Const: General: comfortable and no acute distress Other: Morbidly obese. Eyes: Pupils: Equal, round and reactive pupils present Neck: Neck: supple Resp: Effort & Inspection: normal respiratory effort Auscultation: clear to auscultation bilaterally Cardio: Rate: regular rate Rhythm: regular rhythm GI: GI Palp: Yes Soft to palpation Extrem: General: edema Objective Data Vital Signs Vital Signs: Vital Signs - 24 hr 08/01/23 16:00 08/01/23 19:53 08/01/23 20:00 Temperature Pulse Rate 89 86 Respiratory Rate Blood Pressure Pulse Oximetry Oxygen Delivery Room Air 08/01/23 21:43 08/02/23 00:00 08/02/23 04:00 Temperature 98.4 F Pulse Rate 87 86 78 Respiratory Rate 18 Blood Pressure 136/61 Pulse Oximetry 93 Oxygen Delivery 08/02/23 06:00 08/02/23 08:30 08/02/23 08:00 Temperature 97.7 F Pulse Rate 72 65 Respiratory Rate 20 Blood Pressure 132/62 Pulse Oximetry 94 Oxygen Delivery Room Air 08/02/23 12:00 08/02/23 14:00 Temperature 96.3 F L Pulse Rate 67 72 Respiratory Rate 18 Blood Pressure 115/55
[2023-08-02 16:38] LABS: Glucose Point of Care 133 mg/dl (65-105)
[2023-08-02 16:38] LABS: Glucose Point of Care 217 mg/dl (65-105)
[2023-08-02] MEDS: INSULIN GLARGINE (*BKC) 100 UNITS/ML 30 UNITS SUB-Q (20:25)
[2023-08-02] MEDS: ATORVASTATIN 40 MG TABLET PO (20:25)
[2023-08-02] MEDS: QUEtiapine FUMARATE XR 50 MG TAB.ER.24H PO (20:25)
[2023-08-02] MEDS: TAMSULOSIN HCL 0.4 MG CAPSULE PO (20:25)
[2023-08-02 20:59] LABS: Glucose Point of Care 132 mg/dl (65-105)
[2023-08-02] MEDS: HEPARIN SODIUM 5,000 UNITS/ML VIAL 5000 UNITS SUB-Q (21:28)
[2023-08-03] MEDS: metroNIDAZOLE 500 MG/ISO 100ML 500 MG/100 ML BAG 100 MG IVPB ×3 (02:50→17:56)
[2023-08-03] MEDS: CEFEPIME 1 GM/NS 50 ML 1 GM/50 ML BAG IVPB ×2 (02:50→14:46)
[2023-08-03 04:26] LABS: Basophils Percent Auto 0.4 % (0.2-1.2); Eosinophils Absolute Auto 0.6 K/mm3 (0-0.3); Eosinophils Percent Auto 6.9 % (0-4.4); Hematocrit 30.9 % (37.0-47.0); Hemoglobin 9.2 g/dL (12.0-15.0); Immature Granulocyte Absolute 0.03 K/mm3 (0.00-0.031); Immature Granulocyte Percent A 0.4 % (0-0.5); Immature Platelet Fraction Pct 2.6 % (0.9-11.2); Lymphocytes Absolute Auto 1.58 K/mm3 (0.9-3.2); Lymphocytes Percent Auto 19.9 % (18.3-44.2); Mean Corpuscular HGB Conc 29.8 g/dl (32-36); Mean Corpuscular Hemoglobin 27.5 pg (26-34); Mean Corpuscular Volume 92.2 fl (80-100); Monocytes Absolute Auto 0.7 K/mm3 (0.1-0.6); Monocytes Percent Auto 8.2 % (2.6-8.5); Neutrophils Absolute Auto 5.1 K/mm3 (1.3-6.7); Neutrophils Percent Auto 64.2 % (45.5-73.1); Platelet Count Result 235 k/mm3 (150-375); Red Blood Count 3.35 M/mm3 (4.2-5.4); Red Cell Distribution Width 16.5 % (11.5-14.5)
[2023-08-03 04:38] LABS: Anion Gap 1 mmol/L (8-16); Blood Urea Nitrogen 31 mg/dL (7-17); Calcium 8.3 mg/dL (8.4-10.2); Carbon Dioxide 31 mmol/L (22-30); Chloride 106 mmol/L (98-107); Estimated CRCL calculation 50 ml/min; Estimated Glomerular Filt Rate 36; Glucose 98 mg/dL (65-110); Magnesium 2.2 mg/dL (1.6-2.3); Potassium 4.4 mmol/L (3.4-5.0); Sodium 138 mmol/L (137-145)
[2023-08-03 04:42] LABS: Vancomycin Trough 17.9 ug/mL (10.0-20.0)
[2023-08-03 04:51] LABS: Platelet Estimate Adequate (Adequate)
[2023-08-03 04:52] LABS: Anisocytosis 1+ (NORMAL); Burr Cells 1+ (NORMAL); Hypochromasia 1+ (NORMAL); Schistocytes None Seen (NORMAL)
[2023-08-03 04:54] LABS: Procalcitonin 0.5 ng/mL
[2023-08-03] MEDS: VANCOMYCIN 1,500 MG/NS 500 ML 1,500 MG/500 ML BAG 150 MG IVPB (05:00)
[2023-08-03] MEDS: HEPARIN SODIUM 5,000 UNITS/ML VIAL 5000 UNITS SUB-Q ×3 (05:01→21:07)
[2023-08-03 05:44] VITALS: BP 108/61; PULSE 75; RESP 20; TEMP 36.8; O2SAT 95
[2023-08-03 07:31] LABS: Glucose Point of Care 109 mg/dl (65-105)
[2023-08-03] MEDS: FAMOTIDINE 20 MG TABLET PO (08:22)
[2023-08-03] MEDS: amLODIPine BESYLATE 5 MG TABLET PO (08:22)
[2023-08-03] MEDS: GABAPENTIN 100 MG CAPSULE PO (08:22)
[2023-08-03] MEDS: allopurinoL 100 MG TABLET PO (08:22)
[2023-08-03] MEDS: FERROUS SULFATE 325 MG TABLET DR PO (08:22)
[2023-08-03] MEDS: FUROSEMIDE 40 MG TABLET PO (08:22)
[2023-08-03] MEDS: ASPIRIN 81 MG ENTERIC TABLET PO (08:22)
[2023-08-03 11:44] LABS: Glucose Point of Care 162 mg/dl (65-105)
[2023-08-03] MEDS: INSULIN ASPART (*BKC) 100 UNITS/ML 6 UNITS SUB-Q ×2 (11:55→17:16)
[2023-08-03 14:00] VITALS: BP 136/55; PULSE 83; RESP 20; TEMP 36.7; O2SAT 95
--- NOTE | 2023-08-03 14:06 | PM.IMPN ---
Progress Note: A&P Assessment and Plan (1) Diabetic foot ulcer: Qualifiers: Diabetes mellitus type: type 2 Diabetic foot ulcer location: heel Laterality: right Non-pressure ulcer stage: with muscle involvement without evidence of necrosis Qualified Code(s): E11.621 - Type 2 diabetes mellitus with foot ulcer; L97.415 - 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 involvement without evidence of necrosis Code(s): E11.621 - Type 2 diabetes mellitus with foot ulcer; L97.509 - Non-pressure chronic ulcer of other part of unspecified foot with unspecified severity Status: Acute (2) Lymphedema: Code(s): I89.0 - Lymphedema, not elsewhere classified Status: Acute Plan This is a 58-year-old white female who is very chronically ill and noncompliant with therapy. She has a history of morbid obesity, obesity hypoventilation syndrome, chronic anemia history of hemoptysis/epistaxis, nonerosive flux disease, insulin-dependent diabetes mellitus chronic diabetic ulcers, CKD stage 3A, depression with anxiety, hypertension, hyperlipidemia, lymphedema, history of pulmonary embolism, pulmonary hypertension, diastolic congestive heart failure. She presents for worsening of her chronic right heel wound. It has been becoming more painful and now draining serosanguineous fluid she has also had increasing lymphedema. She has not been taking her medications. She was admitted on 08/02/2023 for surgical workup by Dr. Singh on 08/01/2023. #Insulin-dependent diabetes mellitus -HbA1c on admission 8.1%. -continue 6 units t.i.d. and 30 units q.h.s.. Titrate for good control. Counseled and educated -she reports she actually does take metformin so we restart that on discharge. #Diabetic foot ulcer/cellulitis/abscess -orthopedic surgeon consulted. Appreciate recommendations. No surgical management for now. -wound care consulted. I have also ordered an offloading boot. -MRI demonstrating small fluid collections suspicious of abscess with findings consistent with ulcer and cellulitis. -continue vancomycin cefepime and metronidazole -blood cultures no growth today. #Abnormal urinalysis -continue antibiotics. -urine culture growing E coli. Consider this and the sensitivities when deescalating for discharge. #Chronic anemia -stable continue to monitor #Obesity hypoventilation syndrome -CPAP at night #CKD stage IIIA -stable continue to monitor #Diastolic congestive heart failure/lymphedema -continue Lasix 40 mg p.o. 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 This has never been worked up and she would like further evaluation. Due to insurance issues she has much trouble getting into doctors as an outpatient. Consult [facility] for further assistance which is greatly appreciated. -denies vision changes, headache, weight change recently, hair loss, postmenopausal bleeding. FEN: Cardiac diabetic diet. Saline lock IV. GI prophylaxis: Continue home dose Pepcid 20 mg p.o. q.day DVT prophylaxis: Heparin subQ t.i.d. Lines: Peripheral IV Code Status: Full code Dispo: Stable. Patient has not had a PCP in some time and she reports that it due to insurance issues. She has not been taking her insulin or other medications. She will need close follow-up for wound care orthopedic care and PCP/diabetes care along with other things. She certainly seems amenable but it appears insurance is a limiting factor. Will ask care coordination help out. Subjective Date/time seen: 08/03/23 14:06 Interval history: No acute overnight events. Patient reports her gabapentin is actually 600 mg twice daily and will like it placed back on the dosing for neuropathic pain. She otherwise denies any pain at the site of the diabetic ulcer. Her legs are much less swollen than when she was admitted. Denies any other complaints. Review of Systems Review of Systems: Raymond guzman
--- NOTE | 2023-08-03 15:29 | PM.GYNPNOP ---
LEARNING COORDINATOR - A/P Time Spent With Patient Time: Total time spent is greater than 50% in coordination of care (as documented) at patient's floor/unit and/or counseling patient: Time with patient: less than 15 minutes LEARNING COORDINATOR- PN:Von Post-Op Subjective Date/time seen: 08/03/23 15:29 Interval history: I called the floor regarding a consult on this patient to specify the obgyn hospitalist physician indication. I talked to Aniket and he informed me that the consult was for evaluation of PCOS. I informed that PCOS is not an indication for a obgyn hospitalist physician consult in a postmenopausal patient. I asked if there was postmenopausal bleeding and he said that was not mentioned to him. I will decline the consult request at this time. If there is an appropriate indication, i.e. postmenopausal bleeding, then I will be happy to see the patient. LEARNING COORDINATOR - PN: Obj Data Vital Signs Vital Signs: Vital Signs - 24 hr 08/02/23 21:28 08/03/23 05:44 08/03/23 14:00 Temperature 97.7 F 98.2 F 98.0 F Pulse Rate 73 75 83 Respiratory Rate 18 20 20 Blood Pressure 132/67 108/61 136/55 L Pulse Oximetry 93 95 95 Intake/Output Intake/Output: Intake & Output 07/31/23 08/01/23 08/02/23 08/03/23 23:59 23:59 23:59 23:59 Intake Total 2482 2190 762 Output Total 2100 3150 2850 Balance 020 -717 -3560 Meds/Results Medications: Active Medications Generic Name Dose Route Start Last Admin Trade Name Freq PRN Reason Stop Dose Admin Acetaminophen 650 mg 08/01/23 07:31 Acetaminophen 325 Mg Tablet PO Q4H PRN Mild Pain (1-3) or Fever Albuterol 2 puff 08/01/23 22:53 Albuterol Sulfate (*Sp) Aerosol 1 Puff INHALATION QID PRN Shortness Of Breath Allopurinol 100 mg 08/02/23 09:00 08/03/23 08:22 Allopurinol 100 Mg Tablet PO 100 mg DAILY ANGELIA Administration Amlodipine Besylate 5 mg 08/02/23 09:00 08/03/23 08:22 Amlodipine Besylate 5 Mg Tablet PO 5 mg DAILY ANGELIA Administration Aspirin 81 mg 08/02/23 09:00 08/03/23 08:22 Aspirin 81 Mg Enteric Tablet PO 81 mg DAILY ANGELIA Administration Atorvastatin Calcium 40 mg 08/01/23 23:00 08/02/23 20:25 Atorvastatin 40 Mg Tablet PO 40 mg HS ANGELIA Administration Dextrose 12.5 gm 08/01/23 16:41 Dextrose 50% 25 Gm/50 Ml Syringe IV PUSH PRN PRN Hypoglycemia Protocol Famotidine 20 mg 08/02/23 09:00 08/03/23 08:22 Famotidine 20 Mg Tablet PO 20 mg DAILY ANGELIA Administration Ferrous Sulfate 325 mg 08/02/23 09:00 08/03/23 08:22 Ferrous Sulfate [address] PO 325 mg DAILY ANGELIA Administration Furosemide 40 mg 08/02/23 09:00 08/03/23 08:22 Furosemide 40 Mg Tablet PO 40 mg DAILY ANGELIA Administration Gabapentin 600 mg 08/03/23 17:00 Gabapentin 300 Mg Capsule PO BID ANGELIA Glucagon 1 mg 08/01/23 16:41 Glucagon For Inj 1 Mg Vial IM PRN PRN Hypoglycemia Protocol Glucose 15 gm 08/01/23 16:41 Glucose Oral Gel 15 Gm Of Glucse In 37.5 Gm Tube PO PRN PRN Hypoglycemia Protocol Heparin Sodium (Porcine) 5,000 units 08/02/23 22:00 08/03/23 13:34 Heparin Sodium 5,000 Units/Ml Vial SUB-Q 5,000 units Q8HR ANGELIA Administration Metronidazole 500 mg in 100 mls @ 100 mls/hr 08/01/23 11:00 08/03/23 11:59 Flagyl 500 Mg/Iso Soln 100 Ml IVPB Infused Q8H ANGELIA Infusion Vancomycin HCl 1,500 mg in 500 mls @ 250 mls/hr 08/02/23 04:00 08/03/23 05:00 Vancomycin 1,500 Mg/Ns 500 Ml IVPB 150 mls/hr Q24H ANGELIA Administration Cefepime HCl 1 gm in 50 mls @ 100 mls/hr 08/01/23 15:00 08/03/23 14:46 Maxipime 1 Gm/Ns 50 Ml IVPB 100 mls/hr Q12H ANGELIA Administration Dextrose 1,000 mls @ 100 mls/hr 08/01/23 16:41 Dextrose 5% 1,000 Ml IVPB PRN PRN Hypoglycemia Protocol Insulin Aspart 2 - 4 units 08/01/23 21:00 08/02/23 20:27 Insulin Aspart (*Bkc) 100 Units/Ml SUB-Q Not Given HS [facility] Protocol Insulin Aspart 4 - 8 units 08/01/23 17:00 08/03/23 11:55 Insulin As
[2023-08-03 16:50] LABS: Glucose Point of Care 157 mg/dl (65-105)
[2023-08-03] MEDS: GABAPENTIN 300 MG CAPSULE 600 MG PO (17:55)
[2023-08-03 21:06] LABS: Glucose Point of Care 173 mg/dl (65-105)
[2023-08-03] MEDS: TAMSULOSIN HCL 0.4 MG CAPSULE PO (21:07)
[2023-08-03] MEDS: QUEtiapine FUMARATE XR 50 MG TAB.ER.24H PO (21:07)
[2023-08-03] MEDS: ATORVASTATIN 40 MG TABLET PO (21:07)
[2023-08-03] MEDS: INSULIN GLARGINE (*BKC) 100 UNITS/ML 30 UNITS SUB-Q (21:09)
[2023-08-03 21:34] VITALS: BP 120/50; PULSE 73; RESP 19; TEMP 36.4; O2SAT 92
[2023-08-04] MEDS: metroNIDAZOLE 500 MG/ISO 100ML 500 MG/100 ML BAG 100 MG IVPB ×3 (03:09→18:25)
[2023-08-04] MEDS: CEFEPIME 1 GM/NS 50 ML 1 GM/50 ML BAG IVPB ×2 (03:09→15:37)
[2023-08-04] MEDS: VANCOMYCIN 1,500 MG/NS 500 ML 1,500 MG/500 ML BAG 150 MG IVPB (04:05)
[2023-08-04] MEDS: HEPARIN SODIUM 5,000 UNITS/ML VIAL 5000 UNITS SUB-Q ×3 (05:24→19:55)
[2023-08-04 06:00] VITALS: BP 103/62; PULSE 68; RESP 19; TEMP 36.9; O2SAT 90
[2023-08-04 06:48] LABS: Basophils Percent Auto 0.3 % (0.2-1.2); Eosinophils Absolute Auto 0.7 K/mm3 (0-0.3); Eosinophils Percent Auto 9.6 % (0-4.4); Hematocrit 31.1 % (37.0-47.0); Hemoglobin 9.4 g/dL (12.0-15.0); Immature Granulocyte Absolute 0.02 K/mm3 (0.00-0.031); Immature Granulocyte Percent A 0.3 % (0-0.5); Lymphocytes Absolute Auto 1.53 K/mm3 (0.9-3.2); Mean Corpuscular HGB Conc 30.2 g/dl (32-36); Mean Corpuscular Hemoglobin 27.9 pg (26-34); Mean Corpuscular Volume 92.3 fl (80-100); Mean Platelet Volume 10.1 fl (7.4-10.4); Monocytes Absolute Auto 0.6 K/mm3 (0.1-0.6); Monocytes Percent Auto 8.6 % (2.6-8.5); Neutrophils Absolute Auto 4.1 K/mm3 (1.3-6.7); Neutrophils Percent Auto 59.2 % (45.5-73.1); Platelet Count Result 252 k/mm3 (150-375); Red Blood Count 3.37 M/mm3 (4.2-5.4); Red Cell Distribution Width 16.5 % (11.5-14.5)
[2023-08-04 07:06] LABS: Anion Gap 3 mmol/L (8-16); Blood Urea Nitrogen 29 mg/dL (7-17); Calcium 8.2 mg/dL (8.4-10.2); Carbon Dioxide 34 mmol/L (22-30); Chloride 104 mmol/L (98-107); Estimated CRCL calculation 47 ml/min; Estimated Glomerular Filt Rate 33; Glucose 130 mg/dL (65-110); Magnesium 2.2 mg/dL (1.6-2.3); Potassium 3.7 mmol/L (3.4-5.0); Sodium 141 mmol/L (137-145)
[2023-08-04 07:31] LABS: Glucose Point of Care 125 mg/dl (65-105)
[2023-08-04] MEDS: INSULIN ASPART (*BKC) 100 UNITS/ML 6 UNITS SUB-Q ×3 (08:27→17:27)
[2023-08-04] MEDS: GABAPENTIN 300 MG CAPSULE 600 MG PO ×2 (08:41→17:27)
[2023-08-04] MEDS: allopurinoL 100 MG TABLET PO (08:41)
[2023-08-04] MEDS: FERROUS SULFATE 325 MG TABLET DR PO (08:41)
[2023-08-04] MEDS: FAMOTIDINE 20 MG TABLET PO (08:42)
[2023-08-04] MEDS: amLODIPine BESYLATE 5 MG TABLET PO (08:42)
[2023-08-04] MEDS: FUROSEMIDE 40 MG TABLET PO (08:42)
[2023-08-04] MEDS: ASPIRIN 81 MG ENTERIC TABLET PO (08:42)
[2023-08-04 11:14] LABS: Glucose Point of Care 141 mg/dl (65-105)
[2023-08-04 13:48] VITALS: BP 102/51; PULSE 71; RESP 18; TEMP 36; O2SAT 91
--- NOTE | 2023-08-04 14:02 | PM.IMPN ---
Progress Note: A&P Assessment and Plan (1) Diabetic foot ulcer: Qualifiers: Diabetes mellitus type: type 2 Diabetic foot ulcer location: heel Laterality: right Non-pressure ulcer stage: with muscle involvement without evidence of necrosis Qualified Code(s): E11.621 - Type 2 diabetes mellitus with foot ulcer; L97.415 - 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 involvement without evidence of necrosis Code(s): E11.621 - Type 2 diabetes mellitus with foot ulcer; L97.509 - Non-pressure chronic ulcer of other part of unspecified foot with unspecified severity Status: Acute (2) Lymphedema: Code(s): I89.0 - Lymphedema, not elsewhere classified Status: Acute Plan This is a 58-year-old white female who is very chronically ill and noncompliant with therapy. She has a history of morbid obesity, obesity hypoventilation syndrome, chronic anemia history of hemoptysis/epistaxis, nonerosive flux disease, insulin-dependent diabetes mellitus chronic diabetic ulcers, CKD stage 3A, depression with anxiety, hypertension, hyperlipidemia, lymphedema, history of pulmonary embolism, pulmonary hypertension, diastolic congestive heart failure. She presents for worsening of her chronic right heel wound. It has been becoming more painful and now draining serosanguineous fluid she has also had increasing lymphedema. She has not been taking her medications. She was admitted on 08/02/2023 for surgical workup by Dr. Singh on 08/01/2023. #Insulin-dependent diabetes mellitus -HbA1c on admission 8.1%. -continue 6 units t.i.d. and 30 units q.h.s.. Titrate for good control. Counseled and educated -she reports she actually does take metformin so we restart that on discharge. #Diabetic foot ulcer/cellulitis/abscess -orthopedic surgeon consulted. Appreciate recommendations. No surgical management for now. -wound care consulted. I have also ordered an offloading boot. -MRI demonstrating small fluid collections suspicious of abscess with findings consistent with ulcer and cellulitis. -continue vancomycin cefepime and metronidazole -blood cultures no growth today. -hopefully home tomorrow if the wound is improving. Will have to decide IV versus p.o. antibiotics #Abnormal urinalysis -continue antibiotics. -urine culture growing E coli. Consider this and the sensitivities when deescalating for discharge. #Chronic anemia -stable continue to monitor #Obesity hypoventilation syndrome -CPAP at night #CKD stage IIIA -stable continue to monitor #Diastolic congestive heart failure/lymphedema -continue Lasix 40 mg p.o. 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 This has never been worked up and she would like further evaluation. Due to insurance issues she has much trouble getting into doctors as an outpatient. Consult ObGyne for further assistance which is greatly appreciated. Ob Gyne declined to see. Will order routine biochemical workup and have her follow-up as an outpatient. -denies vision changes, headache, weight change recently, hair loss, postmenopausal bleeding. FEN: Cardiac diabetic diet. Saline lock IV. GI prophylaxis: Continue home dose Pepcid 20 mg p.o. q.day DVT prophylaxis: Heparin subQ t.i.d. Lines: Peripheral IV Code Status: Full code Dispo: Stable. Patient has not had a PCP in some time and she reports that it due to insurance issues. She has not been taking her insulin or other medications. She will need close follow-up for wound care orthopedic care and PCP/diabetes care along with other things. She certainly seems amenable but it appears insurance is a limiting factor. Care coordination consulted. Subjective Date/time seen: 08/04/23 14:02 Interval history: No acute overnight events. He does not have any complaints to elicit. Review of Systems Review of Systems: All systems reviewed & are unremarkable except as
--- NOTE | 2023-08-04 16:00 | PM.PNORT ---
Progress Note: A&P Assessment and Plan (1) Diabetic foot ulcer: Qualifiers: Diabetes mellitus type: type 2 Diabetic foot ulcer location: heel Laterality: right Non-pressure ulcer stage: with muscle involvement without evidence of necrosis Qualified Code(s): E11.621 - Type 2 diabetes mellitus with foot ulcer; L97.415 - 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 involvement without evidence of necrosis Code(s): E11.621 - Type 2 diabetes mellitus with foot ulcer; L97.509 - Non-pressure chronic ulcer of other part of unspecified foot with unspecified severity Status: Acute Assessment and Plan: Chronic ulcer of right plantar heel. Patient medically noncompliant and undertreated. Ulcer dates back to at least April 2023. MRI, CT scan, x-ray reviewed. No surgical indication at this time. Agree with wound care nursing assessment and plan for silver gel and dressing changes. Recommend nonweightbearing. Patient to be fit with reverse post op shoe. [facility] to provide, nursing notified. Continue daily dressing changes. Antibiotics per medicine team. Needs established care with PCP, [facility], Podiatry and Endocrinology as an outpatient. Would recommend referral to vascular surgery given recent EMILY results. Continue conservative wound care at this time. (2) Lymphedema: Code(s): I89.0 - Lymphedema, not elsewhere classified Status: Acute (3) Cellulitis: Qualifiers: Laterality: unspecified laterality Site of cellulitis: extremity Site of cellulitis of extremity: lower extremity Qualified Code(s): L03.119 - Cellulitis of unspecified part of limb Code(s): L03.90 - Cellulitis, unspecified Status: Acute (4) Arterial insufficiency of lower extremity: Code(s): I73.9 - Peripheral vascular disease, unspecified Status: Acute Assessment and Plan: ABIs performed today revealing evidence of arterial occlusive disease. Patient would benefit from vascular referral. Subjective Subjective Date/Time Seen: 08/04/23 16:00 Interval history: Patient resting comfortably in chair. No new concerns. Review of Systems Review of Systems: All systems reviewed & are unremarkable except as noted in HPI and below Exam Const: General: No in distress or confusion Orientation/consciousness: oriented to person, oriented to place, oriented to time and No confusion HENMT: Head: normal to inspection, normocephalic and atraumatic Eyes: Conjunctivae: conjunctivae normal Sclera: sclerae normal Neck: Neck: supple and nontender Resp: Effort & Inspection: normal respiratory effort and no audible wheezes Cardio: Rhythm: regular rhythm Skin: Lesions: other ( color change distal lower leg bilaterally consistent with ch venous stasis) Neuro: General: oriented to person, oriented to place, oriented to time and No confusion Extrem: Right upper extremity: normal to inspection Left upper extremity: normal to inspection Right lower extremity: ankle Details: abnormal to inspection ( pitting edema), swelling Details: diffusely, abnormal ROM Details: with range as follows (ankle dorsiflexion -10 degrees, plantar flexion 40?, inversion 15?, eversion 15?) and other ( good stability all directions); no tenderness and no ecchymosis and foot Details: abnormal to inspection, abnormal ROM of toe ( hallux MTP dorsiflexion 40, plantar flexion 20?), vascular exam Details: abnormal capillary refill Location: of all toes; dorsalis pedis pulse absent, posterior tibial pulse absent and capillary refill abnormal, tendon exam Details: active flexion abnormal and active extension abnormal, motor-sensory exam Details: two point discrimination abnormal Location: in all toes and light-touch abnormal Location: in all toes and other (Hallux metatarsophalangeal motion 20? dorsiflexion/10? plantar flexion) Left lower extremity: ankle Details: abnormal to inspection Details: other ( Pitting
[2023-08-04 16:23] LABS: Glucose Point of Care 126 mg/dl (65-105)
--- NOTE | 2023-08-04 16:30 | PC.NURSE ---
Reverse post op shoe placed on patient right foot
[2023-08-04] MEDS: ATORVASTATIN 40 MG TABLET PO (19:54)
[2023-08-04] MEDS: QUEtiapine FUMARATE XR 50 MG TAB.ER.24H PO (19:55)
[2023-08-04] MEDS: TAMSULOSIN HCL 0.4 MG CAPSULE PO (19:56)
[2023-08-04] MEDS: INSULIN GLARGINE (*BKC) 100 UNITS/ML 30 UNITS SUB-Q (20:06)
[2023-08-04 21:16] LABS: Glucose Point of Care 175 mg/dl (65-105)
[2023-08-04 21:21] VITALS: BP 126/74; PULSE 71; RESP 18; TEMP 36.3; O2SAT 92
[2023-08-05] MEDS: CEFEPIME 1 GM/NS 50 ML 1 GM/50 ML BAG IVPB ×2 (03:10→15:59)
[2023-08-05] MEDS: metroNIDAZOLE 500 MG/ISO 100ML 500 MG/100 ML BAG 100 MG IVPB ×3 (03:11→18:19)
[2023-08-05] MEDS: VANCOMYCIN 1,500 MG/NS 500 ML 1,500 MG/500 ML BAG 200 MG IVPB (04:22)
[2023-08-05] MEDS: HEPARIN SODIUM 5,000 UNITS/ML VIAL 5000 UNITS SUB-Q ×3 (05:42→20:23)
[2023-08-05 06:00] VITALS: BP 125/57; PULSE 74; RESP 17; TEMP 36.3; O2SAT 93
[2023-08-05 07:25] LABS: Basophils Percent Auto 0.3 % (0.2-1.2); Eosinophils Absolute Auto 0.7 K/mm3 (0-0.3); Eosinophils Percent Auto 10.4 % (0-4.4); Hematocrit 30.2 % (37.0-47.0); Immature Granulocyte Absolute 0.03 K/mm3 (0.00-0.031); Immature Granulocyte Percent A 0.5 % (0-0.5); Lymphocytes Absolute Auto 1.88 K/mm3 (0.9-3.2); Lymphocytes Percent Auto 28.4 % (18.3-44.2); Mean Corpuscular HGB Conc 29.8 g/dl (32-36); Mean Corpuscular Volume 94.1 fl (80-100); Mean Platelet Volume 9.8 fl (7.4-10.4); Monocytes Absolute Auto 0.7 K/mm3 (0.1-0.6); Monocytes Percent Auto 10.4 % (2.6-8.5); Neutrophils Absolute Auto 3.3 K/mm3 (1.3-6.7); Platelet Count Result 239 k/mm3 (150-375); Red Blood Count 3.21 M/mm3 (4.2-5.4); Red Cell Distribution Width 16.5 % (11.5-14.5); White Blood Count 6.6 K/mm3 (4.5-10.0)
[2023-08-05 07:45] LABS: Anion Gap 1 mmol/L (8-16); Blood Urea Nitrogen 31 mg/dL (7-17); Calcium 8.2 mg/dL (8.4-10.2); Carbon Dioxide 34 mmol/L (22-30); Chloride 104 mmol/L (98-107); Estimated CRCL calculation 47 ml/min; Estimated Glomerular Filt Rate 33; Glucose 106 mg/dL (65-110); Magnesium 2.2 mg/dL (1.6-2.3); Sodium 139 mmol/L (137-145)
[2023-08-05 07:58] LABS: Glucose Point of Care 103 mg/dl (65-105)
[2023-08-05 08:00] VITALS: BP 112/53; PULSE 59; RESP 14; TEMP 35.9; O2SAT 92
[2023-08-05 09:23] VITALS: BP 106/60; PULSE 64; RESP 14; O2SAT 94
[2023-08-05] MEDS: ASPIRIN 81 MG ENTERIC TABLET PO (09:25)
[2023-08-05] MEDS: INSULIN ASPART (*BKC) 100 UNITS/ML 6 UNITS SUB-Q ×3 (09:25→17:36)
[2023-08-05] MEDS: GABAPENTIN 300 MG CAPSULE 600 MG PO ×2 (09:25→17:36)
[2023-08-05] MEDS: FERROUS SULFATE 325 MG TABLET DR PO (09:26)
[2023-08-05] MEDS: FUROSEMIDE 40 MG TABLET PO (09:26)
[2023-08-05] MEDS: allopurinoL 100 MG TABLET PO (09:26)
[2023-08-05] MEDS: FAMOTIDINE 20 MG TABLET PO (09:26)
[2023-08-05] MEDS: amLODIPine BESYLATE 5 MG TABLET PO (09:26)
--- NOTE | 2023-08-05 09:54 | PCPTNOTE ---
Attempted PT evaluation, pt on the phone. Will follow.
[2023-08-05 11:15] LABS: Glucose Point of Care 166 mg/dl (65-105)
[2023-08-05 14:00] VITALS: BP 105/50; PULSE 63; RESP 15; TEMP 36.3; O2SAT 97
--- NOTE | 2023-08-05 15:53 | PM.IMPN ---
Progress Note: A&P Assessment and Plan (1) Diabetic foot ulcer: Qualifiers: Diabetes mellitus type: type 2 Diabetic foot ulcer location: heel Laterality: right Non-pressure ulcer stage: with muscle involvement without evidence of necrosis Qualified Code(s): E11.621 - Type 2 diabetes mellitus with foot ulcer; L97.415 - 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 involvement without evidence of necrosis Code(s): E11.621 - Type 2 diabetes mellitus with foot ulcer; L97.509 - Non-pressure chronic ulcer of other part of unspecified foot with unspecified severity Status: Acute (2) Lymphedema: Code(s): I89.0 - Lymphedema, not elsewhere classified Status: Acute Plan This is a 58-year-old white female who is very chronically ill and noncompliant with therapy. She has a history of morbid obesity, obesity hypoventilation syndrome, chronic anemia history of hemoptysis/epistaxis, nonerosive flux disease, insulin-dependent diabetes mellitus chronic diabetic ulcers, CKD stage 3A, depression with anxiety, hypertension, hyperlipidemia, lymphedema, history of pulmonary embolism, pulmonary hypertension, diastolic congestive heart failure. She presents for worsening of her chronic right heel wound. It has been becoming more painful and now draining serosanguineous fluid she has also had increasing lymphedema. She has not been taking her medications. She was admitted on 08/02/2023 for surgical workup by Dr. Singh on 08/01/2023. #Insulin-dependent diabetes mellitus -HbA1c on admission 8.1%. -continue 6 units t.i.d. and 30 units q.h.s.. Titrate for good control. Counseled and educated -she reports she actually does take metformin so we can restart that on discharge. #Diabetic foot ulcer/cellulitis/abscess -orthopedic surgeon consulted. Appreciate recommendations. No surgical management for now. -wound care consulted. I have also ordered an offloading boot. She is wearing that well. -MRI demonstrating small fluid collections suspicious of abscess with findings consistent with ulcer and cellulitis. -continue vancomycin cefepime and metronidazole -blood cultures no growth to date. -the wound is no longer draining purulence, looking healthier and only with copious serous drainage. Suspect we could send the patient home on oral antibiotics tomorrow if this is still the case. She still had some pain today. Spoke with Wilmer of Clinical Pharmacy and he suggested ciprofloxacin 500-750 mg p.o. b.i.d. and doxycycline 100 mg p.o. b.i.d. to cover for MRSA and Pseudomonas as well. Pending clearance from Orthopedic surgery as well. #Abnormal urinalysis -continue antibiotics. -urine culture growing E coli. Consider this and the sensitivities when deescalating for discharge. #Chronic anemia -stable continue to monitor #Obesity hypoventilation syndrome -CPAP at night #CKD stage IIIA -stable continue to monitor #Diastolic congestive heart failure/lymphedema -continue Lasix 40 mg p.o. 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 This has never been worked up and she would like further evaluation. Due to insurance issues she has much trouble getting into doctors as an outpatient. Consult ObGyne for further assistance which is greatly appreciated. Ob Gyne declined to see. Will order routine biochemical workup and have her follow-up as an outpatient. -pending prolactin total testosterone and 17 hydroxyprogesterone. We do not have a DHEAS test and that can be done as outpatient. None the less I educated the patient that she should follow up with her primary care and or fork lift mechanic on this. -denies vision changes, headache, weight change recently, hair loss, postmenopausal bleeding. # peripheral artery disease -mildly decreased ABIs consistent with arterial occlusive disease on 08/04. She is on aspirin 81 mg daily already. Advised follow-up with subhash
--- NOTE | 2023-08-05 16:03 | PC.NURSE ---
On 08/05/23, the student,Marlin Persaud, provided care and completed [facility] documentation on this patient. I have reviewed the student's documentation and agree with the findings.
[2023-08-05 16:21] LABS: Glucose Point of Care 167 mg/dl (65-105)
[2023-08-05] MEDS: ATORVASTATIN 40 MG TABLET PO (20:16)
[2023-08-05] MEDS: QUEtiapine FUMARATE XR 50 MG TAB.ER.24H PO (20:16)
[2023-08-05] MEDS: TAMSULOSIN HCL 0.4 MG CAPSULE PO (20:16)
[2023-08-05] MEDS: INSULIN GLARGINE (*BKC) 100 UNITS/ML 30 UNITS SUB-Q (20:16)
[2023-08-05 20:55] LABS: Glucose Point of Care 261 mg/dl (65-105)
[2023-08-05 21:14] VITALS: BP 98/78; PULSE 71; RESP 19; TEMP 36.1; O2SAT 93
[2023-08-06] MEDS: metroNIDAZOLE 500 MG/ISO 100ML 500 MG/100 ML BAG 100 MG IVPB ×2 (02:21→11:55)
[2023-08-06] MEDS: CEFEPIME 1 GM/NS 50 ML 1 GM/50 ML BAG IVPB (02:21)
[2023-08-06 03:57] LABS: Basophils Percent Auto 0.4 % (0.2-1.2); Eosinophils Absolute Auto 0.6 K/mm3 (0-0.3); Eosinophils Percent Auto 9.2 % (0-4.4); Hematocrit 30.7 % (37.0-47.0); Hemoglobin 9.1 g/dL (12.0-15.0); Immature Granulocyte Absolute 0.04 K/mm3 (0.00-0.031); Immature Granulocyte Percent A 0.6 % (0-0.5); Lymphocytes Absolute Auto 1.69 K/mm3 (0.9-3.2); Lymphocytes Percent Auto 24.6 % (18.3-44.2); Mean Corpuscular HGB Conc 29.6 g/dl (32-36); Mean Corpuscular Hemoglobin 27.7 pg (26-34); Mean Corpuscular Volume 93.3 fl (80-100); Monocytes Absolute Auto 0.8 K/mm3 (0.1-0.6); Monocytes Percent Auto 11.2 % (2.6-8.5); Neutrophils Absolute Auto 3.7 K/mm3 (1.3-6.7); Platelet Count Result 242 k/mm3 (150-375); Red Blood Count 3.29 M/mm3 (4.2-5.4); Red Cell Distribution Width 16.4 % (11.5-14.5); White Blood Count 6.9 K/mm3 (4.5-10.0)
[2023-08-06 04:10] LABS: Anion Gap 2 mmol/L (8-16); Blood Urea Nitrogen 32 mg/dL (7-17); Calcium 8.2 mg/dL (8.4-10.2); Carbon Dioxide 32 mmol/L (22-30); Chloride 103 mmol/L (98-107); Estimated CRCL calculation 47 ml/min; Estimated Glomerular Filt Rate 33; Glucose 234 mg/dL (65-110); Magnesium 2.3 mg/dL (1.6-2.3); Potassium 4.2 mmol/L (3.4-5.0); Sodium 137 mmol/L (137-145)
[2023-08-06 04:54] LABS: Vancomycin Trough 21.8 ug/mL (10.0-20.0)
[2023-08-06 06:00] VITALS: BP 110/76; PULSE 66; RESP 17; TEMP 36.6; O2SAT 92
[2023-08-06] MEDS: HEPARIN SODIUM 5,000 UNITS/ML VIAL 5000 UNITS SUB-Q ×3 (06:03→21:35)
[2023-08-06 07:21] LABS: Glucose Point of Care 175 mg/dl (65-105)
[2023-08-06 09:06] VITALS: BP 117/62; PULSE 66; RESP 14; O2SAT 93
[2023-08-06] MEDS: FERROUS SULFATE 325 MG TABLET DR PO (09:10)
[2023-08-06] MEDS: FAMOTIDINE 20 MG TABLET PO (09:11)
[2023-08-06] MEDS: amLODIPine BESYLATE 5 MG TABLET PO (09:11)
[2023-08-06] MEDS: allopurinoL 100 MG TABLET PO (09:11)
[2023-08-06] MEDS: ASPIRIN 81 MG ENTERIC TABLET PO (09:11)
[2023-08-06] MEDS: FUROSEMIDE 40 MG TABLET PO (09:11)
[2023-08-06] MEDS: GABAPENTIN 300 MG CAPSULE 600 MG PO ×2 (09:11→17:59)
[2023-08-06] MEDS: INSULIN ASPART (*BKC) 100 UNITS/ML 6 UNITS SUB-Q ×3 (09:12→18:00)
[2023-08-06 11:26] LABS: Glucose Point of Care 144 mg/dl (65-105)
[2023-08-06] MEDS: CIPROFLOXACIN 500 MG TAB PO ×2 (13:30→21:36)
[2023-08-06] MEDS: DOXYCYCLINE HYCLATE 100 MG TABLET PO ×2 (13:30→21:35)
[2023-08-06 14:00] VITALS: BP 121/45; PULSE 65; RESP 14; TEMP 36.3; O2SAT 96
--- NOTE | 2023-08-06 16:21 | PM.IMPN ---
Progress Note: A&P Assessment and Plan (1) Diabetic foot ulcer: Qualifiers: Diabetes mellitus type: type 2 Diabetic foot ulcer location: heel Laterality: right Non-pressure ulcer stage: with muscle involvement without evidence of necrosis Qualified Code(s): E11.621 - Type 2 diabetes mellitus with foot ulcer; L97.415 - 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 involvement without evidence of necrosis Code(s): E11.621 - Type 2 diabetes mellitus with foot ulcer; L97.509 - Non-pressure chronic ulcer of other part of unspecified foot with unspecified severity Status: Acute (2) Lymphedema: Code(s): I89.0 - Lymphedema, not elsewhere classified Status: Acute (3) Type 2 diabetes mellitus: Code(s): E11.9 - Type 2 diabetes mellitus without complications Status: Acute (4) Chronic kidney disease: Qualifiers: Chronic kidney disease stage: unspecified stage Qualified Code(s): N18.9 - Chronic kidney disease, unspecified Code(s): N18.9 - Chronic kidney disease, unspecified Status: Chronic (5) Anemia: Qualifiers: Anemia type: iron deficiency Iron deficiency anemia type: inadequate dietary iron intake Qualified Code(s): D50.8 - Other iron deficiency anemias Code(s): D64.9 - Anemia, unspecified Status: Acute Plan This is a 58-year-old white female who is very chronically ill and noncompliant with therapy. She has a history of morbid obesity, obesity hypoventilation syndrome, chronic anemia history of hemoptysis/epistaxis, nonerosive flux disease, insulin-dependent diabetes mellitus chronic diabetic ulcers, CKD stage 3A, depression with anxiety, hypertension, hyperlipidemia, lymphedema, history of pulmonary embolism, pulmonary hypertension, diastolic congestive heart failure. She presents for worsening of her chronic right heel wound. It has been becoming more painful and now draining serosanguineous fluid she has also had increasing lymphedema. She has not been taking her medications. She was admitted on 08/02/2023 for surgical workup by Dr. Singh on 08/01/2023. #Insulin-dependent diabetes mellitus -HbA1c on admission 8.1%. -continue 6 units t.i.d. and 30 units q.h.s.. Titrate for good control. Counseled and educated -she reports she actually does take metformin so we can restart that on discharge. #Diabetic foot ulcer/cellulitis/abscess -orthopedic surgeon consulted. Appreciate recommendations. No surgical management for now. -wound care consulted. I have also ordered an offloading boot. She is wearing that well. -MRI demonstrating small fluid collections suspicious of abscess with findings consistent with ulcer and cellulitis. -treated vancomycin cefepime and metronidazole -blood cultures no growth to date. -the wound is no longer draining purulence, looking healthier and only with copious serous drainage. Suspect we could send the patient home on oral antibiotics tomorrow if this is still the case. She still had some pain today. Spoke with Wilmer of Clinical Pharmacy and he suggested ciprofloxacin 500-750 mg p.o. b.i.d. and doxycycline 100 mg p.o. b.i.d. to cover for MRSA and Pseudomonas as well. Pending clearance from Orthopedic surgery as well. #Abnormal urinalysis -urine culture growing E coli sensitive to Rocephin. She completed 5 days of Cefepime #Chronic anemia -stable continue to monitor #Obesity hypoventilation syndrome -CPAP at night #CKD stage IIIA -stable continue to monitor #Diastolic congestive heart failure/lymphedema -continue Lasix 40 mg p.o. 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 This has never been worked up and she would like further evaluation. Due to insurance issues she has much trouble getting into doctors as an outpatient. Consult [facility] for further assistance which is greatly appreciated. Ob [facility]ne declined to see. Will ord
[2023-08-06 16:41] LABS: Glucose Point of Care 210 mg/dl (65-105)
[2023-08-06] MEDS: INSULIN ASPART (*BKC) 100 UNITS/ML SUB-Q ×2 (18:00→21:36)
[2023-08-06 21:19] VITALS: BP 111/81; PULSE 67; RESP 16; TEMP 36.1; O2SAT 94
[2023-08-06] MEDS: QUEtiapine FUMARATE XR 50 MG TAB.ER.24H PO (21:35)
[2023-08-06] MEDS: TAMSULOSIN HCL 0.4 MG CAPSULE PO (21:36)
[2023-08-06] MEDS: ATORVASTATIN 40 MG TABLET PO (21:36)
[2023-08-06] MEDS: INSULIN GLARGINE (*BKC) 100 UNITS/ML 30 UNITS SUB-Q (21:37)
--- NOTE | 2023-08-07 | ECG_ITS ---
Measurements Intervals [place] Rate: 61 P: 3 GA: 161 QRS: 9 QRSD: 110 T: 46 QT: 439 QTc: 445 Interpretive Statements SINUS RHYTHM MODERATE INTRAVENTRICULAR CONDUCTION DELAY [105+ ms QRS DURATION, 80+ ms Q/S IN V1/V2, NO Q AND 60+ ms R IN I/aVL/V5/V6] COMPARED TO ECG 05/16/2023 01:38:46 INTRAVENTRICULAR CONDUCTION DELAY NOW PRESENT Electronically Signed On 08-07-2023 12:39:49 [facility] [place] by Venessa Araya M.D.
[2023-08-07 01:41] LABS: Glucose Point of Care 289 mg/dl (65-105)
[2023-08-07] MEDS: HEPARIN SODIUM 5,000 UNITS/ML VIAL 5000 UNITS SUB-Q ×3 (05:23→20:30)
[2023-08-07 06:00] VITALS: BP 117/59; PULSE 62; RESP 16; TEMP 36.2; O2SAT 93
[2023-08-07 08:06] VITALS: O2SAT 92
[2023-08-07 08:12] LABS: Glucose Point of Care 166 mg/dl (65-105)
[2023-08-07] MEDS: FUROSEMIDE 40 MG TABLET PO (08:27)
[2023-08-07] MEDS: CIPROFLOXACIN 500 MG TAB PO ×2 (08:27→20:30)
[2023-08-07] MEDS: DOXYCYCLINE HYCLATE 100 MG TABLET PO ×2 (08:27→20:30)
[2023-08-07] MEDS: FAMOTIDINE 20 MG TABLET PO (08:27)
[2023-08-07] MEDS: ASPIRIN 81 MG ENTERIC TABLET PO (08:27)
[2023-08-07] MEDS: FERROUS SULFATE 325 MG TABLET DR PO (08:27)
[2023-08-07] MEDS: GABAPENTIN 300 MG CAPSULE 600 MG PO ×2 (08:27→16:45)
[2023-08-07] MEDS: allopurinoL 100 MG TABLET PO (08:27)
[2023-08-07] MEDS: amLODIPine BESYLATE 5 MG TABLET PO (08:27)
[2023-08-07] MEDS: INSULIN ASPART (*BKC) 100 UNITS/ML 6 UNITS SUB-Q ×3 (08:28→17:22)
[2023-08-07 12:15] LABS: Glucose Point of Care 198 mg/dl (65-105)
[2023-08-07 14:00] VITALS: BP 101/58; PULSE 64; RESP 18; TEMP 36.6; O2SAT 95
--- NOTE | 2023-08-07 15:39 | PM.IMPN ---
Progress Note: A&P Assessment and Plan (1) Diabetic foot ulcer: Qualifiers: Diabetes mellitus type: type 2 Diabetic foot ulcer location: heel Laterality: right Non-pressure ulcer stage: with muscle involvement without evidence of necrosis Qualified Code(s): E11.621 - Type 2 diabetes mellitus with foot ulcer; L97.415 - 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 involvement without evidence of necrosis Code(s): E11.621 - Type 2 diabetes mellitus with foot ulcer; L97.509 - Non-pressure chronic ulcer of other part of unspecified foot with unspecified severity Status: Acute Assessment and Plan: #Diabetic foot ulcer/cellulitis/abscess -orthopedic surgeon consulted. Appreciate recommendations. No surgical management for now. -wound care consulted. I have also ordered an offloading boot. She is wearing that well. -MRI demonstrating small fluid collections suspicious of abscess with findings consistent with ulcer and cellulitis. -treated vancomycin cefepime and metronidazole -blood cultures negative Seth of Clinical Pharmacy suggested cipro 500-750 mg b.i.d. and doxycycline 100 mg b.i.d. to cover MRSA and Pseudomonas Check EKG given that she is also on Seroquel Pending clearance from Orthopedic surgery as well. (2) Acute on chronic diastolic congestive heart failure: Code(s): I50.33 - Acute on chronic diastolic (congestive) heart failure Status: Acute Assessment and Plan: #Diastolic congestive heart failure/lymphedema Patient with more SOB and awoke SOB this morning. CXR today showing pulmonary edema. Extra lasix IV today. Change to IV lasix scheduled. (3) Type 2 diabetes mellitus: Code(s): E11.9 - Type 2 diabetes mellitus without complications Status: Acute Assessment and Plan: #Insulin-dependent diabetes mellitus -HbA1c on admission 8.1%. -On novolog 6 units t.i.d. and lantus 30 units q.h.s.. Titrate for good control. Counseled and educated -she reports she actually does take metformin so we can restart that on discharge. Advance Lantus (4) Lymphedema: Code(s): I89.0 - Lymphedema, not elsewhere classified Status: Acute Assessment and Plan: As above (5) Chronic kidney disease: Qualifiers: Chronic kidney disease stage: unspecified stage Qualified Code(s): N18.9 - Chronic kidney disease, unspecified Code(s): N18.9 - Chronic kidney disease, unspecified Status: Chronic Assessment and Plan: Was having trouble voiding today but able to void large volume now without issue Monitor for now. Cr stable yesterday continue to monitor (6) Anemia: Qualifiers: Anemia type: iron deficiency Iron deficiency anemia type: inadequate dietary iron intake Qualified Code(s): D50.8 - Other iron deficiency anemias Code(s): D64.9 - Anemia, unspecified Status: Acute Assessment and Plan: Patient with chronic anemia -stable in the 9 range continue to monitor (7) UTI (urinary tract infection): Qualifiers: Urinary tract infection type: acute cystitis Hematuria presence: without hematuria Qualified Code(s): N30.00 - Acute cystitis without hematuria Code(s): N39.0 - Urinary tract infection, site not specified Status: Acute Assessment and Plan: #Abnormal urinalysis -urine culture growing E coli sensitive to Rocephin. She completed 5 days of Cefepime (8) Arterial insufficiency of lower extremity: Code(s): I73.9 - Peripheral vascular disease, unspecified Status: Acute Assessment and Plan: # peripheral artery disease-mildly decreased ABIs consistent with arterial occlusive disease on 08/04. She is on aspirin and high dose Lipitor already. Advised follow-up with outpatient vascular. 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
[2023-08-07] MEDS: FUROSEMIDE INJ 40 MG/4 ML VIAL IV PUSH (16:45)
[2023-08-07 17:06] LABS: Glucose Point of Care 258 mg/dl (65-105)
[2023-08-07] MEDS: INSULIN ASPART (*BKC) 100 UNITS/ML SUB-Q ×2 (17:21→20:30)
--- NOTE | 2023-08-07 18:29 | PC.NURSE ---
Patient retaining >667mls on bladder scan around 1330 today. Called provider and received order to straight cath X1. Patient then was able to urinate on her own a large unmeasurable amount. Post void bladder scan delayed roughly one hour later showed only 50mls in bladder. No straight cath needed at this time
[2023-08-07] MEDS: ATORVASTATIN 40 MG TABLET PO (20:30)
[2023-08-07] MEDS: TAMSULOSIN HCL 0.4 MG CAPSULE PO (20:30)
[2023-08-07] MEDS: QUEtiapine FUMARATE XR 50 MG TAB.ER.24H PO (20:30)
[2023-08-07] MEDS: INSULIN GLARGINE (*BKC) 100 UNITS/ML 34 UNITS SUB-Q (20:33)
[2023-08-07 21:12] LABS: Glucose Point of Care 218 mg/dl (65-105)
[2023-08-07 21:28] VITALS: BP 106/62; PULSE 60; RESP 15; TEMP 36.1; O2SAT 98
[2023-08-08] VITALS (7 sets, daily range): BP systolic 124–146; BP diastolic 55–80; PULSE 61–74; RESP 12–16; TEMP 35.8–36.1; O2SAT 92–98; BMI 42.0
[2023-08-08] MEDS: HEPARIN SODIUM 5,000 UNITS/ML VIAL 5000 UNITS SUB-Q ×3 (05:43→20:18)
[2023-08-08 06:46] LABS: Hematocrit 32.3 % (37.0-47.0); Hemoglobin 9.7 g/dL (12.0-15.0); Mean Corpuscular Hemoglobin 27.7 pg (26-34); Mean Corpuscular Volume 92.3 fl (80-100); Mean Platelet Volume 9.5 fl (7.4-10.4); Platelet Count Result 284 k/mm3 (150-375); Red Cell Distribution Width 16.6 % (11.5-14.5); White Blood Count 7.4 K/mm3 (4.5-10.0)
[2023-08-08 07:02] LABS: NT Pro B Type Natriuretic Pept 566 pg/mL (19.9-100)
[2023-08-08 07:03] LABS: Prolactin 7.8 ng/mL (***)
[2023-08-08 07:07] LABS: Albumin Level 2.9 g/dL (3.5-5.1); Anion Gap 1 mmol/L (8-16); Blood Urea Nitrogen 31 mg/dL (7-17); Calcium 8.6 mg/dL (8.4-10.2); Carbon Dioxide 35 mmol/L (22-30); Chloride 101 mmol/L (98-107); Estimated CRCL calculation 44 ml/min; Estimated Glomerular Filt Rate 31; Glucose 154 mg/dL (65-110); Phosphorus 3.3 mg/dL (2.5-4.5); Potassium 4.1 mmol/L (3.4-5.0); Sodium 137 mmol/L (137-145)
[2023-08-08 07:53] LABS: Glucose Point of Care 150 mg/dl (65-105)
[2023-08-08] MEDS: INSULIN ASPART (*BKC) 100 UNITS/ML 6 UNITS SUB-Q ×3 (08:57→16:41)
[2023-08-08] MEDS: GABAPENTIN 300 MG CAPSULE 600 MG PO ×2 (08:57→16:41)
[2023-08-08] MEDS: amLODIPine BESYLATE 5 MG TABLET PO (08:57)
[2023-08-08] MEDS: FERROUS SULFATE 325 MG TABLET DR PO (08:57)
[2023-08-08] MEDS: ASPIRIN 81 MG ENTERIC TABLET PO (08:57)
[2023-08-08] MEDS: allopurinoL 100 MG TABLET PO (08:57)
[2023-08-08] MEDS: DOXYCYCLINE HYCLATE 100 MG TABLET PO ×2 (08:57→20:16)
[2023-08-08] MEDS: FUROSEMIDE INJ 40 MG/4 ML VIAL IV PUSH ×2 (08:57→16:41)
[2023-08-08] MEDS: CIPROFLOXACIN 500 MG TAB PO ×2 (08:57→20:16)
[2023-08-08] MEDS: FAMOTIDINE 20 MG TABLET PO (08:57)
[2023-08-08 11:34] LABS: Glucose Point of Care 159 mg/dl (65-105)
[2023-08-08 13:19] LABS: Testosterone Total 11 ng/dL (2-45)
--- NOTE | 2023-08-08 13:46 | PM.IMPN ---
Progress Note: A&P Assessment and Plan (1) Diabetic foot ulcer: Qualifiers: Diabetes mellitus type: type 2 Diabetic foot ulcer location: heel Laterality: right Non-pressure ulcer stage: with muscle involvement without evidence of necrosis Qualified Code(s): E11.621 - Type 2 diabetes mellitus with foot ulcer; L97.415 - 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 involvement without evidence of necrosis Code(s): E11.621 - Type 2 diabetes mellitus with foot ulcer; L97.509 - Non-pressure chronic ulcer of other part of unspecified foot with unspecified severity Status: Acute Assessment and Plan: Patient prsents with complaints of right heel wound and found to have a diabetic foot ulcer with cellulitis and abscess WBC normal and remaining normal. Foot xray showing marked diffuse swelling with ulcer right plantar aspect of the heel MR right foot showing sinus tract extending to a small fluid collection suspicious for abscess. Mild signal changes inferior margin of the calcaneal tuberosity consider osteomyelitis vs more likely reactive edema. Achilles tendinosis with partial tear noted. Started on vancomycin cefepime and metronidazole Orthopedic surgeon consulted and appreciate their recommendations. No surgical management for now. Wound care consulted. Offloading boot ordered. BCx negative. Clinical Pharmacy suggested Cipro 500-750 mg b.i.d. and doxycycline 100 mg b.i.d. and abx changed over Checked EKG given that she is also on Seroquel but QTc okay. Continue abx and dressing changes. (2) Acute on chronic diastolic congestive heart failure: Code(s): I50.33 - Acute on chronic diastolic (congestive) heart failure Status: Acute Assessment and Plan: Patient with acute on chronic diastolic CHF and with lymphedema CXR on admission showing possible mild pulmonary edema vs left sided PNA. Echo Feb 2023: EF 60-65%, Grade I diastolic dysfunction, Biatrial enlargement, mild valve dz and moderate pHTN. Patient was more SOB and CXR 08/07 showing pulmonary edema vs PNA. Lasix IV BID started. I/O's inaccurate. Weight has trended down. Monitor renal function. Add empagliflozin (3) Type 2 diabetes mellitus: Code(s): E11.9 - Type 2 diabetes mellitus without complications Status: Acute Assessment and Plan: A1c 8.1. The patient's blood glucose was reviewed on 08/08 Glucose remains better controlled. Continue AccuCheks covering with sliding scale. Hypoglycemia protocol available as needed. Continue Novolog 6 units t.i.d. and Lantus 34 units q.h.s.. Titrate for good control. Counseled and educated She reports she take metformin so we can restart that on discharge. (4) Lymphedema: Code(s): I89.0 - Lymphedema, not elsewhere classified Status: Acute Assessment and Plan: As above (5) Chronic kidney disease: Qualifiers: Chronic kidney disease stage: unspecified stage Qualified Code(s): N18.9 - Chronic kidney disease, unspecified Code(s): N18.9 - Chronic kidney disease, unspecified Status: Chronic Assessment and Plan: Patient with stage 3 chronic kidney disease. Baseline Cr 1.6-2.0. Was having trouble voiding 2/ but able to void large volume now without issue Cr up slightly felt related to lasix Continue to monitor (6) Anemia: Qualifiers: Anemia type: iron deficiency Iron deficiency anemia type: inadequate dietary iron intake Qualified Code(s): D50.8 - Other iron deficiency anemias Code(s): D64.9 - Anemia, unspecified Status: Acute Assessment and Plan: Has chronic anemia with Hgb 7-8 normally. Related to CKD? Iron 53 with TIBC 250 and TSat 21%. Ferritin 160 Apr 2023 B12 262 and Folate 9.2, MMA high over the Fall Continue iron supplementation. Resume B12 replacement Continue pepcid Transfuse as needed. (7) UTI (urinary tract infection): Qualifie
[2023-08-08 16:22] LABS: Glucose Point of Care 168 mg/dl (65-105)
[2023-08-08] MEDS: CYANOCOBALAMIN INJ 1,000 MCG/ML VIAL 1000 MCG IM (18:09)
[2023-08-08 19:47] LABS: Glucose Point of Care 243 mg/dl (65-105)
[2023-08-08] MEDS: QUEtiapine FUMARATE XR 50 MG TAB.ER.24H PO (20:16)
[2023-08-08] MEDS: INSULIN ASPART (*BKC) 100 UNITS/ML SUB-Q (20:16)
[2023-08-08] MEDS: ATORVASTATIN 40 MG TABLET PO (20:16)
[2023-08-08] MEDS: TAMSULOSIN HCL 0.4 MG CAPSULE PO (20:16)
[2023-08-08] MEDS: INSULIN GLARGINE (*BKC) 100 UNITS/ML 34 UNITS SUB-Q (20:17)
[2023-08-09 05:33] VITALS: BP 108/60; PULSE 60; RESP 12; TEMP 36.2; O2SAT 94
[2023-08-09] MEDS: HEPARIN SODIUM 5,000 UNITS/ML VIAL 5000 UNITS SUB-Q ×3 (05:47→19:43)
[2023-08-09 06:42] LABS: Basophils Percent Auto 0.6 % (0.2-1.2); Eosinophils Absolute Auto 0.5 K/mm3 (0-0.3); Eosinophils Percent Auto 8.3 % (0-4.4); Hematocrit 34.8 % (37.0-47.0); Hemoglobin 10.2 g/dL (12.0-15.0); Immature Granulocyte Absolute 0.05 K/mm3 (0.00-0.031); Immature Granulocyte Percent A 0.8 % (0-0.5); Lymphocytes Absolute Auto 1.91 K/mm3 (0.9-3.2); Lymphocytes Percent Auto 29.2 % (18.3-44.2); Mean Corpuscular HGB Conc 29.3 g/dl (32-36); Mean Corpuscular Hemoglobin 27.7 pg (26-34); Mean Corpuscular Volume 94.6 fl (80-100); Mean Platelet Volume 10.4 fl (7.4-10.4); Monocytes Absolute Auto 0.6 K/mm3 (0.1-0.6); Monocytes Percent Auto 8.6 % (2.6-8.5); Neutrophils Absolute Auto 3.4 K/mm3 (1.3-6.7); Neutrophils Percent Auto 52.5 % (45.5-73.1); Platelet Count Result 317 k/mm3 (150-375); Red Blood Count 3.68 M/mm3 (4.2-5.4); Red Cell Distribution Width 16.9 % (11.5-14.5); White Blood Count 6.5 K/mm3 (4.5-10.0)
[2023-08-09 06:57] LABS: Albumin Level 3.3 g/dL (3.5-5.1); Blood Urea Nitrogen 37 mg/dL (7-17); Carbon Dioxide > 40 mmol/L (22-30); Chloride 96 mmol/L (98-107); Estimated CRCL calculation 36 ml/min; Estimated Glomerular Filt Rate 24; Glucose 246 mg/dL (65-110); Magnesium 2.2 mg/dL (1.6-2.3); Phosphorus 3.7 mg/dL (2.5-4.5); Potassium 3.9 mmol/L (3.4-5.0); Sodium 139 mmol/L (137-145)
[2023-08-09 07:42] LABS: Anisocytosis 1+ (NORMAL); Hypochromasia 1+ (NORMAL); Platelet Estimate Adequate (Adequate); Schistocytes None Seen (NORMAL)
[2023-08-09 07:49] LABS: Glucose Point of Care 285 mg/dl (65-105)
[2023-08-09] MEDS: INSULIN ASPART (*BKC) 100 UNITS/ML SUB-Q ×3 (08:28→19:43)
[2023-08-09] MEDS: FERROUS SULFATE 325 MG TABLET DR PO (08:28)
[2023-08-09] MEDS: INSULIN ASPART (*BKC) 100 UNITS/ML 6 UNITS SUB-Q ×2 (08:28→12:57)
[2023-08-09] MEDS: FAMOTIDINE 20 MG TABLET PO (08:28)
[2023-08-09] MEDS: CIPROFLOXACIN 500 MG TAB PO ×2 (08:28→19:42)
[2023-08-09] MEDS: DOXYCYCLINE HYCLATE 100 MG TABLET PO ×2 (08:28→19:42)
[2023-08-09] MEDS: EMPAGLIFLOZIN 10 MG TABLET PO (08:28)
[2023-08-09] MEDS: ASPIRIN 81 MG ENTERIC TABLET PO (08:28)
[2023-08-09] MEDS: allopurinoL 100 MG TABLET PO (08:28)
[2023-08-09] MEDS: amLODIPine BESYLATE 5 MG TABLET PO (08:28)
[2023-08-09] MEDS: GABAPENTIN 300 MG CAPSULE 600 MG PO ×2 (08:28→17:03)
[2023-08-09] MEDS: CYANOCOBALAMIN 1,000 MCG TABLET 1000 MCG PO (08:28)
[2023-08-09 11:43] LABS: Glucose Point of Care 261 mg/dl (65-105)
--- NOTE | 2023-08-09 13:51 | PM.IMPN ---
Progress Note: A&P Assessment and Plan (1) Chest pain: Code(s): R07.9 - Chest pain, unspecified Status: Inactive Assessment and Plan: Patient having persistent complaints of chest pain. Mostly sounds atypical and musculoskeletal possibly related to her being more active and using the walker (and straining her chest muscles). Repeat EKG showing no change. Check serial Troponins. Place on tele (2) Diabetic foot ulcer: Qualifiers: Diabetes mellitus type: type 2 Diabetic foot ulcer location: heel Laterality: right Non-pressure ulcer stage: with muscle involvement without evidence of necrosis Qualified Code(s): E11.621 - Type 2 diabetes mellitus with foot ulcer; L97.415 - 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 involvement without evidence of necrosis Code(s): E11.621 - Type 2 diabetes mellitus with foot ulcer; L97.509 - Non-pressure chronic ulcer of other part of unspecified foot with unspecified severity Status: Acute Assessment and Plan: Patient prsents with complaints of right heel wound and found to have a diabetic foot ulcer with cellulitis and abscess WBC normal and remaining normal. Foot xray showing marked diffuse swelling with ulcer right plantar aspect of the heel MR right foot showing sinus tract extending to a small fluid collection suspicious for abscess. Mild signal changes inferior margin of the calcaneal tuberosity consider osteomyelitis vs more likely reactive edema. Achilles tendinosis with partial tear noted. Started on vancomycin cefepime and metronidazole Orthopedic surgeon consulted and appreciate their recommendations. No surgical management for now. Wound care consulted. Offloading boot ordered. BCx negative. Clinical Pharmacy suggested Cipro 500-750 mg b.i.d. and doxycycline 100 mg b.i.d. and abx changed over Checked EKG given that she is also on Seroquel but QTc okay. Continue abx and dressing changes. (3) Acute on chronic diastolic congestive heart failure: Code(s): I50.33 - Acute on chronic diastolic (congestive) heart failure Status: Acute Assessment and Plan: Patient with acute on chronic diastolic CHF and with lymphedema CXR on admission showing possible mild pulmonary edema vs left sided PNA. Echo Feb 2023: EF 60-65%, Grade I diastolic dysfunction, Biatrial enlargement, mild valve dz and moderate pHTN. Patient was more SOB and CXR 08/07 showing pulmonary edema vs PNA. Lasix IV BID started. I/O's inaccurate. Weight has trended down. Renal function worse so Lasix held. Follow (4) Type 2 diabetes mellitus: Code(s): E11.9 - Type 2 diabetes mellitus without complications Status: Acute Assessment and Plan: A1c 8.1. The patient's blood glucose was reviewed on 08/08 Glucose remains better controlled. Continue AccuCheks covering with sliding scale. Hypoglycemia protocol available as needed. Continue Novolog 6 units t.i.d. and Lantus 34 units q.h.s.. Titrate for good control. Counseled and educated Empagliflozin started but renal function worse so will hold (5) Lymphedema: Code(s): I89.0 - Lymphedema, not elsewhere classified Status: Acute Assessment and Plan: As above (6) Chronic kidney disease: Qualifiers: Chronic kidney disease stage: unspecified stage Qualified Code(s): N18.9 - Chronic kidney disease, unspecified Code(s): N18.9 - Chronic kidney disease, unspecified Status: Chronic Assessment and Plan: Patient with stage 3 chronic kidney disease. Baseline Cr 1.6-2.0. Was having trouble voiding 2 but able to void large volume now without issue Cr increased felt related to lasix. lasix held Continue to monitor (7) Anemia: Qualifiers: Anemia type: iron deficiency Iron deficiency anemia type: inadequate dietary iron intake Qualified Code(s): D50.8 - Other iron deficiency anemias Code(s): D64.
--- NOTE | 2023-08-09 13:59 | ECG_ITS ---
Measurements Intervals [place] Rate: 57 P: 18 MN: 186 QRS: 9 QRSD: 107 T: 30 QT: 456 QTc: 448 Interpretive Statements SINUS BRADYCARDIA INTERVENTRICULAR CONDUCTION DELAY CONSIDER PREVIOUS sEPTAL MYOCARDIAL INFARCTION , ABNORMAL ECG COMPARED TO ECG 08/07/2023 07:46:04 NO SIGNIFICANT CHANGE Electronically Signed On 08-09-2023 19:18:10 [employer] by David Graves M.D.
[2023-08-09 14:00] VITALS: BP 108/83; PULSE 59; RESP 20; TEMP 36.8; O2SAT 94
[2023-08-09 16:00] VITALS: PULSE 58
[2023-08-09 16:15] LABS: Troponin I < 0.012 ng/mL (0.000-0.034)
[2023-08-09 17:01] LABS: Glucose Point of Care 191 mg/dl (65-105)
[2023-08-09] MEDS: INSULIN ASPART (*BKC) 100 UNITS/ML 8 UNITS SUB-Q (17:03)
[2023-08-09 19:33] LABS: Troponin I < 0.012 ng/mL (0.000-0.034)
[2023-08-09] MEDS: TAMSULOSIN HCL 0.4 MG CAPSULE PO (19:42)
[2023-08-09] MEDS: QUEtiapine FUMARATE XR 50 MG TAB.ER.24H PO (19:42)
[2023-08-09] MEDS: ATORVASTATIN 40 MG TABLET PO (19:43)
[2023-08-09] MEDS: INSULIN GLARGINE (*BKC) 100 UNITS/ML 38 UNITS SUB-Q (19:43)
[2023-08-09 20:00] VITALS: PULSE 58; PULSE 66; RESP 20; O2SAT 94
[2023-08-09 20:29] LABS: Glucose Point of Care 224 mg/dl (65-105)
[2023-08-09 21:28] LABS: Troponin I < 0.012 ng/mL (0.000-0.034)
[2023-08-09 22:00] VITALS: BP 135/54; PULSE 60; RESP 18; TEMP 36.7; O2SAT 90
[2023-08-10] VITALS (9 sets, daily range): BP systolic 104–119; BP diastolic 59–69; PULSE 64–78; RESP 16–20; TEMP 36.5–37.1; O2SAT 93–98
[2023-08-10] MEDS: HEPARIN SODIUM 5,000 UNITS/ML VIAL 5000 UNITS SUB-Q ×3 (05:23→20:26)
[2023-08-10 06:37] LABS: Anion Gap 3 mmol/L (8-16); Blood Urea Nitrogen 35 mg/dL (7-17); Calcium 9.1 mg/dL (8.4-10.2); Carbon Dioxide 37 mmol/L (22-30); Chloride 100 mmol/L (98-107); Estimated CRCL calculation 41 ml/min; Estimated Glomerular Filt Rate 29; Glucose 188 mg/dL (65-110); Potassium 4.3 mmol/L (3.4-5.0); Sodium 140 mmol/L (137-145)
[2023-08-10 07:38] LABS: Glucose Point of Care 199 mg/dl (65-105)
[2023-08-10] MEDS: INSULIN ASPART (*BKC) 100 UNITS/ML 8 UNITS SUB-Q ×3 (09:28→17:28)
[2023-08-10] MEDS: allopurinoL 100 MG TABLET PO (09:29)
[2023-08-10] MEDS: ASPIRIN 81 MG ENTERIC TABLET PO (09:29)
[2023-08-10] MEDS: DOXYCYCLINE HYCLATE 100 MG TABLET PO ×2 (09:29→20:26)
[2023-08-10] MEDS: CYANOCOBALAMIN 1,000 MCG TABLET 1000 MCG PO (09:29)
[2023-08-10] MEDS: FAMOTIDINE 20 MG TABLET PO (09:29)
[2023-08-10] MEDS: CIPROFLOXACIN 500 MG TAB PO ×2 (09:29→20:26)
[2023-08-10] MEDS: GABAPENTIN 300 MG CAPSULE 600 MG PO ×2 (09:29→17:27)
[2023-08-10] MEDS: FERROUS SULFATE 325 MG TABLET DR PO (09:30)
[2023-08-10] MEDS: amLODIPine BESYLATE 5 MG TABLET PO (09:40)
[2023-08-10] MEDS: FUROSEMIDE 40 MG TABLET PO (09:41)
[2023-08-10 11:30] LABS: Glucose Point of Care 373 mg/dl (65-105)
[2023-08-10] MEDS: INSULIN ASPART (*BKC) 100 UNITS/ML SUB-Q ×3 (12:18→20:27)
[2023-08-10] MEDS: ACETAMINOPHEN 325 MG TABLET 650 MG PO (15:43)
--- NOTE | 2023-08-10 16:17 | PM.IMPN ---
Progress Note: A&P Assessment and Plan (1) Chest pain: Code(s): R07.9 - Chest pain, unspecified Status: Inactive Assessment and Plan: Patient having persistent complaints of chest pain. Repeat EKG showing no change. Troponins x3 negative Mostly sounds atypical and musculoskeletal possibly related to her being more active and using the walker (and straining her chest muscles). Doubt cardiac etiology. Okay to stop tele now (2) Diabetic foot ulcer: Qualifiers: Diabetes mellitus type: type 2 Diabetic foot ulcer location: heel Laterality: right Non-pressure ulcer stage: with muscle involvement without evidence of necrosis Qualified Code(s): E11.621 - Type 2 diabetes mellitus with foot ulcer; L97.415 - 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 involvement without evidence of necrosis Code(s): E11.621 - Type 2 diabetes mellitus with foot ulcer; L97.509 - Non-pressure chronic ulcer of other part of unspecified foot with unspecified severity Status: Acute Assessment and Plan: Patient presents with complaints of right heel wound and found to have a diabetic foot ulcer with cellulitis and abscess WBC normal and remaining normal. Foot xray showing marked diffuse swelling with ulcer right plantar aspect of the heel MR right foot showing sinus tract extending to a small fluid collection suspicious for abscess. Mild signal changes inferior margin of the calcaneal tuberosity consider osteomyelitis vs more likely reactive edema. Achilles tendinosis with partial tear noted. Started on vancomycin cefepime and metronidazole Orthopedic surgeon consulted and appreciate their recommendations. No surgical management for now. Wound care consulted. Offloading boot ordered. BCx negative. Clinical Pharmacy suggested Cipro 500 mg b.i.d. and doxycycline 100 mg b.i.d. and abx changed over Checked EKG given that she is also on Seroquel but QTc okay. Continue abx and dressing changes. (3) Acute on chronic diastolic congestive heart failure: Code(s): I50.33 - Acute on chronic diastolic (congestive) heart failure Status: Acute Assessment and Plan: Patient with acute on chronic diastolic CHF and with lymphedema CXR on admission showing possible mild pulmonary edema vs left sided PNA. Echo Feb 2023: EF 60-65%, Grade I diastolic dysfunction, Biatrial enlargement, mild valve dz and moderate pHTN. Patient was more SOB and CXR 08/07 showing pulmonary edema vs PNA. Lasix IV BID started. I/O's inaccurate. Weight has trended down. Renal function worse so Lasix IV held. Cr better today so will resume Lasix orally and advance dose. Follow (4) Type 2 diabetes mellitus: Code(s): E11.9 - Type 2 diabetes mellitus without complications Status: Acute Assessment and Plan: A1c 8.1. The patient's blood glucose was reviewed on 08/08 Glucose remains better controlled. Continue AccuCheks covering with sliding scale. Hypoglycemia protocol available as needed. Continue Novolog 6 units t.i.d. and Lantus 34 units q.h.s.. Titrate for good control. Counseled and educated Empagliflozin started but renal function worse so held (5) Lymphedema: Code(s): I89.0 - Lymphedema, not elsewhere classified Status: Acute Assessment and Plan: As above (6) Chronic kidney disease: Qualifiers: Chronic kidney disease stage: unspecified stage Qualified Code(s): N18.9 - Chronic kidney disease, unspecified Code(s): N18.9 - Chronic kidney disease, unspecified Status: Chronic Assessment and Plan: Patient with stage 3 chronic kidney disease. Baseline Cr 1.6-2.0. Was having trouble voiding 2 but able to void large volume now without issue Cr increased felt related to lasix IV so stopped. Cr better and oral Lasix resumed. Continue to monitor (7) Anemia: Qualifiers: Anemia type: iron deficiency Iron de
[2023-08-10 16:54] LABS: Glucose Point of Care 223 mg/dl (65-105)
[2023-08-10] MEDS: FUROSEMIDE 20 MG TABLET PO (17:30)
[2023-08-10] MEDS: TAMSULOSIN HCL 0.4 MG CAPSULE PO (20:26)
[2023-08-10] MEDS: QUEtiapine FUMARATE XR 50 MG TAB.ER.24H PO (20:26)
[2023-08-10] MEDS: ATORVASTATIN 40 MG TABLET PO (20:26)
[2023-08-10] MEDS: INSULIN GLARGINE (*BKC) 100 UNITS/ML 38 UNITS SUB-Q (20:27)
[2023-08-10 20:49] LABS: Glucose Point of Care 233 mg/dl (65-105)
[2023-08-11] MEDS: HEPARIN SODIUM 5,000 UNITS/ML VIAL 5000 UNITS SUB-Q ×2 (05:47→15:24)
[2023-08-11 05:52] VITALS: BP 117/55; PULSE 64; RESP 16; TEMP 36.3; O2SAT 100
[2023-08-11 06:11] LABS: Basophils Percent Auto 0.6 % (0.2-1.2); Eosinophils Absolute Auto 0.5 K/mm3 (0-0.3); Hematocrit 32.4 % (37.0-47.0); Hemoglobin 9.6 g/dL (12.0-15.0); Immature Granulocyte Absolute 0.08 K/mm3 (0.00-0.031); Immature Granulocyte Percent A 1.2 % (0-0.5); Lymphocytes Absolute Auto 1.98 K/mm3 (0.9-3.2); Lymphocytes Percent Auto 28.8 % (18.3-44.2); Mean Corpuscular HGB Conc 29.6 g/dl (32-36); Mean Corpuscular Hemoglobin 27.6 pg (26-34); Mean Corpuscular Volume 93.1 fl (80-100); Mean Platelet Volume 9.9 fl (7.4-10.4); Monocytes Absolute Auto 0.5 K/mm3 (0.1-0.6); Monocytes Percent Auto 7.4 % (2.6-8.5); Neutrophils Absolute Auto 3.8 K/mm3 (1.3-6.7); Nucleated Red Blood Cells Perc 0.3 % (0.0-0.2); Platelet Count Result 312 k/mm3 (150-375); Red Blood Count 3.48 M/mm3 (4.2-5.4); Red Cell Distribution Width 17.4 % (11.5-14.5); White Blood Count 6.9 K/mm3 (4.5-10.0)
[2023-08-11 06:29] LABS: Albumin Level 3.1 g/dL (3.5-5.1); Anion Gap 4 mmol/L (8-16); Blood Urea Nitrogen 38 mg/dL (7-17); Calcium 8.8 mg/dL (8.4-10.2); Carbon Dioxide 36 mmol/L (22-30); Chloride 99 mmol/L (98-107); Estimated CRCL calculation 40 ml/min; Estimated Glomerular Filt Rate 27; Glucose 125 mg/dL (65-110); Magnesium 2.2 mg/dL (1.6-2.3); Phosphorus 4.2 mg/dL (2.5-4.5); Potassium 4.5 mmol/L (3.4-5.0); Sodium 139 mmol/L (137-145)
[2023-08-11 06:58] LABS: Hypochromasia 2+ (NORMAL); Ovalocytes 1+ (NORMAL); Platelet Estimate Adequate (Adequate); Schistocytes None Seen (NORMAL); Stomatocytes 1+ (NORMAL); Target Cells 1+ (NORMAL)
[2023-08-11 07:18] LABS: Glucose Point of Care 125 mg/dl (65-105)
[2023-08-11] MEDS: amLODIPine BESYLATE 5 MG TABLET PO (09:24)
[2023-08-11] MEDS: FAMOTIDINE 20 MG TABLET PO (09:24)
[2023-08-11] MEDS: FUROSEMIDE 40 MG TABLET PO (09:24)
[2023-08-11] MEDS: FERROUS SULFATE 325 MG TABLET DR PO (09:24)
[2023-08-11] MEDS: GABAPENTIN 300 MG CAPSULE 600 MG PO ×2 (09:24→17:04)
[2023-08-11] MEDS: CYANOCOBALAMIN 1,000 MCG TABLET 1000 MCG PO (09:24)
[2023-08-11] MEDS: CIPROFLOXACIN 500 MG TAB PO (09:24)
[2023-08-11] MEDS: ASPIRIN 81 MG ENTERIC TABLET PO (09:25)
[2023-08-11] MEDS: allopurinoL 100 MG TABLET PO (09:25)
[2023-08-11] MEDS: DOXYCYCLINE HYCLATE 100 MG TABLET PO (09:25)
[2023-08-11] MEDS: INSULIN ASPART (*BKC) 100 UNITS/ML 8 UNITS SUB-Q ×3 (09:26→17:05)
[2023-08-11 11:24] LABS: Glucose Point of Care 157 mg/dl (65-105)
[2023-08-11 14:00] VITALS: BP 117/62; PULSE 74; RESP 16; TEMP 36.1; O2SAT 97
--- NOTE | 2023-08-11 15:10 | PM.DS ---
DS: Admitting Diagnosis Discharge Date 08/11/23 Admitting Diagnosis Right heel wound DS: Discharge Diagnosis Discharge Diagnosis (1) Chest pain: Code(s): R07.9 - Chest pain, unspecified Status: Inactive (2) Diabetic foot ulcer: Qualifiers: Diabetes mellitus type: type 2 Diabetic foot ulcer location: heel Laterality: right Non-pressure ulcer stage: with muscle involvement without evidence of necrosis Qualified Code(s): E11.621 - Type 2 diabetes mellitus with foot ulcer; L97.415 - 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 involvement without evidence of necrosis Code(s): E11.621 - Type 2 diabetes mellitus with foot ulcer; L97.509 - Non-pressure chronic ulcer of other part of unspecified foot with unspecified severity Status: Acute (3) Acute on chronic diastolic congestive heart failure: Code(s): I50.33 - Acute on chronic diastolic (congestive) heart failure Status: Acute (4) Type 2 diabetes mellitus: Code(s): E11.9 - Type 2 diabetes mellitus without complications Status: Acute (5) Lymphedema: Code(s): I89.0 - Lymphedema, not elsewhere classified Status: Acute (6) Chronic kidney disease: Qualifiers: Chronic kidney disease stage: unspecified stage Qualified Code(s): N18.9 - Chronic kidney disease, unspecified Code(s): N18.9 - Chronic kidney disease, unspecified Status: Chronic (7) Anemia: Qualifiers: Anemia type: iron deficiency Iron deficiency anemia type: inadequate dietary iron intake Qualified Code(s): D50.8 - Other iron deficiency anemias Code(s): D64.9 - Anemia, unspecified Status: Acute (8) UTI (urinary tract infection): Qualifiers: Urinary tract infection type: acute cystitis Hematuria presence: without hematuria Qualified Code(s): N30.00 - Acute cystitis without hematuria Code(s): N39.0 - Urinary tract infection, site not specified Status: Acute (9) Arterial insufficiency of lower extremity: Code(s): I73.9 - Peripheral vascular disease, unspecified Status: Acute DS: Summary Hospital Course Reason for hospitalization: 58yo female with dCHF, pulm HTN, HTN, DM and chronic lymphedema here for right heel wound. Please see H&P for details. Hospital Course: Patient presents with complaints of right heel wound and found to have a diabetic foot ulcer with cellulitis and abscess. WBC normal and remained normal. Foot xray showing marked diffuse swelling with ulcer right plantar aspect of the heel. MR right foot showing sinus tract extending to a small fluid collection suspicious for abscess. Mild signal changes inferior margin of the calcaneal tuberosity consider osteomyelitis vs more likely reactive edema. Achilles tendinosis with partial tear noted. She was started on vancomycin, cefepime and metronidazole. Orthopedic surgeon consulted and appreciate their recommendations.? No surgical management for now. Wound care consulted. Offloading boot ordered. BCx negative. Abx adjusted by Clinical Pharmacist to Cipro 500 mg b.i.d. and doxycycline 100 mg b.i.d. Checked EKG given that she is also on Seroquel and QTc okay. Patient with acute on chronic diastolic CHF and with lymphedema. CXR on admission showing possible mild pulmonary edema vs left sided PNA. Echo Feb 2023: EF 60-65%, Grade I diastolic dysfunction, biatrial enlargement, mild valve dz and moderate pHTN. Patient was more SOB and CXR 08/07 showing pulmonary edema vs PNA. Lasix 40mg IV BID started. She was on Lasix in the past (40mg BID) but has been off Lasix recently. This probably contributed to her heart failure symptoms. Weight has trended down. Patient was having persistent complaints of chest pain. Repeat EKG showing no change. Troponins x3 negative. Chest pain was atypical and musculoskeletal possibly related to her being more active and using the walker (and straining her chest mus
[2023-08-11 16:36] LABS: Glucose Point of Care 249 mg/dl (65-105)
[2023-08-11] MEDS: INSULIN ASPART (*BKC) 100 UNITS/ML SUB-Q (17:05)
[2023-08-11] MEDS: FUROSEMIDE 20 MG TABLET PO (17:08)
--- NOTE | 2023-08-14 09:29 | PC.NURSE ---
[address] Fermin aware of findings.
== END 2023-08-11 18:30 | disposition home or self-care (01) | DRG 380 ==
LOC: ANHED 08-01 07:31 → ANH3MEDSUR 08-01 08:04
PROVIDERS: General Practice; Physician Assistant; Admitting Provider Internal Medicine; Emergency Provider Emergency Medicine; PCP Internal Medicine; Visit Provider Internal Medicine
DX: E11.621 Type 2 diabetes mellitus with foot ulcer (principal); L97.415 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 involvement without evidence of necrosis; I13.0 Hypertensive heart and chronic kidney disease with heart failure and stage 1 through stage 4 chronic kidney disease, or unspecified chronic kidney disease; N18.31 Chronic kidney disease, stage 3a; I50.33 Acute on chronic diastolic (congestive) heart failure; L02.611 Cutaneous abscess of right foot; L03.115 Cellulitis of right lower limb; N39.0 Urinary tract infection, site not specified; E11.51 Type 2 diabetes mellitus with diabetic peripheral angiopathy without gangrene; E11.65 Type 2 diabetes mellitus with hyperglycemia; E11.22 Type 2 diabetes mellitus with diabetic chronic kidney disease; I89.0 Lymphedema, not elsewhere classified; I27.20 Pulmonary hypertension, unspecified; E78.5 Hyperlipidemia, unspecified; E66.2 Morbid (severe) obesity with alveolar hypoventilation; D64.9 Anemia, unspecified; R07.89 Other chest pain; F32.A Depression, unspecified; F41.9 Anxiety disorder, unspecified; Z79.01 Long term (current) use of anticoagulants; Z86.711 Personal history of pulmonary embolism; Z79.82 Long term (current) use of aspirin; Z91.199 Patient's noncompliance with other medical treatment and regimen due to unspecified reason; Z68.41 Body mass index [BMI] 40.0-44.9, adult; Z79.4 Long term (current) use of insulin
CPT/HCPCS: 36415; 71045; 71046; 73630; 73701; 73718; 80048; 80053; 80069; 80202; 81001; 82948; 83036; 83498; 83605; 83735; 83880; 84145; 84146; 84403; 84484; 85025; 85027; 85055; 85610; 85652; 85730; 86140; 87040; 87086; 87186; 87641; 93005; 93922; 93970; 96365; 96366; 96367; 97110; 97116; 97161; 97165; 97530; 97535; 99285; A9270; G0378; G0379; J0692; J1644; J1815; J1836; J1940; J3370; J3420; Q9967

== ENCOUNTER 2023-08-13 23:37 | Emergency (ER) | payer BC, SELFPAY ==
[2023-08-13 23:38] VITALS: BP 115/79; PULSE 87; RESP 22; TEMP 36.4; O2SAT 95
--- NOTE | 2023-08-14 00:37 | ED.FEMALEGU ---
HPI - Female Genitourinary General Chief complaint: Urogenital-Female Stated complaint: edema Time Seen by Provider: 08/14/23 00:02 Source: patient and old records reviewed Mode of arrival: EMS Limitations: no limitations History of Present Illness HPI Narrative: Patient is a 58 y/o female who presents to the ED via EMS from home with report of difficulty urinating. Patient is a poor historian. Patient reports she has not been able to urinate since 6:00 a.m. this morning (08/13). States she has had previous issues with urinary retention in the past, has required catheters the past. Patient denies significant abdominal or back pain. Denies nausea, vomiting, fevers. Patient also reports having swelling throughout her lower extremities. She does have history of CHF and lymphedema. She is on Lasix 40 mg daily. She states at times the swelling causes her to have difficulty ambulating, though she is able to perform ADLs independently. She states the swelling is at her baseline currently. Denies chest pain or shortness breath. Related Data Home Medications Medication Instructions Recorded Confirmed allopurinol 100 mg tablet 100 mg PO DAILY 02/27/23 08/01/23 amlodipine 5 mg tablet 5 mg PO DAILY 02/27/23 08/01/23 aspirin 81 mg tablet,delayed 81 mg PO DAILY 02/27/23 08/01/23 release ferrous sulfate 325 mg (65 mg 325 mg PO DAILY 02/27/23 08/01/23 iron) tablet tamsulosin 0.4 mg capsule 0.4 mg PO HS 02/27/23 08/01/23 atorvastatin 40 mg tablet 40 mg PO HS 04/15/23 08/01/23 acetaminophen 325 mg tablet 650 mg PO Q4H PRN Pain 08/01/23 08/01/23 albuterol sulfate 90 mcg/actuation 2 puff inhalation QID PRN 08/01/23 08/01/23 aerosol inhaler Shortness Of Breath famotidine 20 mg tablet (Pepcid) 20 mg PO DAILY 08/01/23 08/01/23 quetiapine 50 mg tablet,extended 50 mg PO HS 08/01/23 08/01/23 release 24 hr (Seroquel XR) Allergies Allergy/AdvReac Type Severity Reaction Status Date / Time No Known Allergies Allergy Verified 08/01/23 11:22 Review of Systems Review of Systems: CONSTITUTIONAL: Denies fever, chills, or sweats. CARDIOVASCULAR: See HPI. RESPIRATORY: Denies cough or dyspnea. GASTROINTESTINAL: See HPI. GENITOURINARY: See HPI. MUSCULOSKELETAL: Denies back pain. All systems reviewed & are unremarkable except as noted in HPI and below PMFSH Past Medical History Medical History Arterial insufficiency of lower extremity Chronic anemia Chronic kidney disease Comminuted left humeral fracture with nonunion Depression with anxiety Diastolic congestive heart failure Hyperlipidemia Hypertension Lymphedema Pulmonary embolism (2018) Pulmonary hypertension Type 2 diabetes mellitus Surgical History Surgical History History of cholecystectomy History of hernia repair History of tonsillectomy History of tubal ligation Family History Family History Sibling Lung cancer Diabetes mellitus Pancreatic cancer Mother Heart disease Social History Social History Social History: Surrogate medical decision maker: Farhan Avalos (brother). Code status: Full code. Smoking status: Never smoker Second hand tobacco smoke exposure: No Alcohol intake: never Substance use: never Substance use type: does not use Do You Feel Safe in your Home?: Yes Lack of Transportation: YES Lack of Food: Never True Current Housing: I Have Housing Concerned About Future Housing: No Difficulty Paying Gas/Electric Bills: No Difficulty Paying for Meds: No Currently Unemployed: No Education: Don't Know Difficulty w/ Childcare or Family Care: No Spiritual care concerns: No Exam Narrative: GENERAL: Chronically ill-appearing, morbidly obese with BMI of 44.2, non-toxic, i
[2023-08-14 00:43] LABS: Basophils Percent Auto 0.4 % (0.2-1.2); Eosinophils Absolute Auto 0.5 K/mm3 (0-0.3); Eosinophils Percent Auto 6.3 % (0-4.4); Hematocrit 32.9 % (37.0-47.0); Hemoglobin 10.2 g/dL (12.0-15.0); Immature Granulocyte Absolute 0.02 K/mm3 (0.00-0.031); Immature Granulocyte Percent A 0.2 % (0-0.5); Lymphocytes Absolute Auto 1.74 K/mm3 (0.9-3.2); Lymphocytes Percent Auto 21.5 % (18.3-44.2); Mean Corpuscular Hemoglobin 28.4 pg (26-34); Mean Corpuscular Volume 91.6 fl (80-100); Mean Platelet Volume 10.5 fl (7.4-10.4); Monocytes Absolute Auto 0.7 K/mm3 (0.1-0.6); Monocytes Percent Auto 8.4 % (2.6-8.5); Neutrophils Absolute Auto 5.1 K/mm3 (1.3-6.7); Neutrophils Percent Auto 63.2 % (45.5-73.1); Platelet Count Result 339 k/mm3 (150-375); Red Blood Count 3.59 M/mm3 (4.2-5.4); Red Cell Distribution Width 18.1 % (11.5-14.5); White Blood Count 8.1 K/mm3 (4.5-10.0)
[2023-08-14 01:02] LABS: Appearance Urine Clear (Clear); Bacteria Urine None Seen /hpf; Bilirubin Urine Negative (Negative); Blood Urine Negative (Negative); Color Urine Yellow (Yellow); Glucose Urine UA 3+ mg/dL (Negative); Ketones Urine Negative (Negative); Leukocyte Esterase Ur Negative LEU/UL (Negative); Nitrate Urine Negative (Negative); Non Pathogenic Casts 0-2; Protein Urine 2+ mg/dL (Negative); RBC Urine 0-2 /hpf (0-2); Squamous Epithelial Cell Urine None seen /hpf (Few); Urobilinogen Urine 0.2 mg/dL (<2.0); WBC Urine 0-5 /hpf; pH Urine 6.5 (5.0-9.0)
[2023-08-14 01:13] LABS: Add Urine Microscopic? YES
[2023-08-14 01:30] VITALS: BP 108/62; PULSE 72; RESP 14; O2SAT 94
[2023-08-14 02:32] LABS: Alanine Aminotransferase 27 U/L (6-35); Albumin Level 3.4 g/dL (3.5-5.1); Alkaline Phosphatase 108 U/L (38-126); Anion Gap 5 mmol/L (8-16); Aspartate Amino Transferase 31 U/L (14-36); Bilirubin,Total 0.4 mg/dL (0.2-1.3); Blood Urea Nitrogen 52 mg/dL (7-17); Calcium 9.1 mg/dL (8.4-10.2); Carbon Dioxide 36 mmol/L (22-30); Chloride 96 mmol/L (98-107); Estimated CRCL calculation 40 ml/min; Estimated Glomerular Filt Rate 27; Glucose 371 mg/dL (65-110); Potassium 4.4 mmol/L (3.4-5.0); Sodium 137 mmol/L (137-145)
[2023-08-14 02:40] LABS: NT Pro B Type Natriuretic Pept 137 pg/mL (19.9-100)
[2023-08-14 02:47] VITALS: BP 107/70; PULSE 80; RESP 18; O2SAT 98
[2023-08-14 04:30] VITALS: BP 108/62; PULSE 72; RESP 18; O2SAT 94
[2023-08-14 05:40] VITALS: BP 106/50; PULSE 75; RESP 15; O2SAT 100
== END 2023-08-14 06:38 | disposition home or self-care (01) ==
PROVIDERS: Emergency Provider Physician Assistant
DX: R33.9 Retention of urine, unspecified (principal); I89.0 Lymphedema, not elsewhere classified; I13.0 Hypertensive heart and chronic kidney disease with heart failure and stage 1 through stage 4 chronic kidney disease, or unspecified chronic kidney disease; E11.22 Type 2 diabetes mellitus with diabetic chronic kidney disease; N18.9 Chronic kidney disease, unspecified; I50.30 Unspecified diastolic (congestive) heart failure; F41.9 Anxiety disorder, unspecified; F32.A Depression, unspecified; I27.20 Pulmonary hypertension, unspecified
CPT/HCPCS: 36415; 51702; 80053; 81001; 83880; 85025; 99283

== ENCOUNTER 2023-08-20 14:20 | Emergency (ER) | payer BC, SELFPAY ==
[2023-08-20] VITALS (10 sets, daily range): BP systolic 121–147; BP diastolic 56–120; PULSE 53–65; RESP 15–17; TEMP 36.9; O2SAT 92–100
--- NOTE | ~2023-08-20 | XR_ITS ---
EXAMINATION: XR ankle LT min 3V DATE: 08/20/2023 15:26 INDICATION: Cellulitis and sweeping skin TECHNIQUE: Anteroposterior, oblique, mortise, and lateral views of the left ankle were obtained. COMPARISON: None. FINDINGS: Left ankle and hindfoot arthrodesis with retrograde intramedullary ryann extending from the plantar asp ect of the anterior calcaneus across the talus and through the majority of the left tibia the level o f the proximal metadiaphyseal region. There are proximal and distal interlocking screws. There appear s be solid fusion between the distal tibia, distal fibula, talus and calcaneus. The tip of the caudal -most calcaneal screw projects over the proximal margin of the cuboid where there appears to be a chr onic corticated erosion likely related to impaction against the tip of the screw. No acute fracture. Mild polyarticular osteoarthritis in the visualized foot. Small Achilles and plantar calcaneal spurs and small enthesopathic ossicle along the proximal plantar aponeurosis. No cortical erosions or osteo lysis to suggest osteomyelitis. Extensive soft tissue swelling with prominent subcutaneous edema abou t the left foot and lower leg. IMPRESSION: 1. No cortical erosions to suggest ostomy myelitis or other acute osseous abnormality. 2. Instrumented left ankle and hindfoot arthrodesis with retrograde intramedullary ryann and proximal a nd distal interlocking screws. 3. Chronic appearing erosion at the proximal cuboid which appears to abut the tip of the distalmost i nterlocking screw associated with the internal fixation. Reviewed, dictated and finalized at location B. E TV INSTALLER IMPRESSION: 1. No cortical erosions to suggest ostomy myelitis or other acute osseous abnor mality. 2. Instrumented left ankle and hindfoot arthrodesis with retrograde intramedull millie ryann and proximal and distal interlocking screws. 3. Chronic appearing erosion at the proximal cuboid which appears to abut the t ip of the distalmost interlocking screw associated with the internal fixation.
--- NOTE | ~2023-08-20 | XR_ITS ---
EXAMINATION: XR foot RT min 3V, XR ankle RT min 3V DATE: 08/20/2023 15:24 INDICATION: Diabetic ulcer at the right heel TECHNIQUE: 1. Anteroposterior, mortise, additional oblique and lateral view of the right ankle were obtained. 2. Dorsoplantar, two oblique and lateral views of the right foot were obtained. COMPARISON: None. FINDINGS: The dose of the right foot are clot. Otherwise normal alignment at the right foot and ankle. No fract ure. No fracture. No cortical erosions or periosteal reaction to suggest osteomyelitis. Mild polyarti cular osteoarthritis at the right ankle and multiple joints in the right foot. Small Achilles and helene ntar calcaneal spurs. Soft tissue swelling about the right foot and more prominently at the right low er leg were there is extensive subcutaneous edema. No soft tissue gas or radiopaque foreign bodies. IMPRESSION: 1. No cortical erosions or periosteal reaction to suggest osteomyelitis. No other acute osseous abnor mality. 2. Mild polyarticular osteoarthritis at the right ankle and throughout the foot. Reviewed, dictated and finalized at location B. CLIENT SERVICES IMPRESSION: 1. No cortical erosions or periosteal reaction to suggest osteomyelitis. No oth er acute osseous abnormality. 2. Mild polyarticular osteoarthritis at the right ankle and throughout the foot .
--- NOTE | 2023-08-20 14:51 | ED.FEMALEGU ---
HPI - Female Genitourinary General Chief complaint: Urogenital-Female <Hilary Dumont PA-C - Last Filed: 08/20/23 17:11> Stated complaint: urinary cath removal request <Hilary Dumont PA-C - Last Filed: 08/20/23 17:11> History of Present Illness HPI Narrative: 58-year-old female who is well known to our hospital with a history of a known diabetic foot ulcer to her right calcaneus, chronic lymphedema, CHF on Lasix, type 2 diabetes reports for evaluation for Seth catheter removal. Patient was seen in our ER on 08/14/2023 for urinary retention. She had Seth catheter placed at that time and was advised to follow-up with urology. States she called the urologist and was told that they do not accept Medicaid. She was advised of go to the hospital who placed the Seth catheter which prompted her to come to the ED today. She denies chest pain, abdominal pain, nausea vomiting, diarrhea, fevers, dysuria or hematuria. States her lower extremities are not more edematous when compared to her baseline. She does have some erythema surrounding her ankles. She is unable to tell me if this is new. Her diabetic foot ulcer is wrapped and dressed. Patient states she lives at home with her [id number] a brother who help care for her. States her [id number] stressing her ulcer bandages daily and thinks it is improving. <Hilary Dumont PA-C - Last Filed: 08/20/23 17:11> Related Data Home medications: Home Medications Medication Instructions Recorded Confirmed allopurinol 100 mg tablet 100 mg PO DAILY 02/27/23 08/01/23 amlodipine 5 mg tablet 5 mg PO DAILY 02/27/23 08/01/23 aspirin 81 mg tablet,delayed 81 mg PO DAILY 02/27/23 08/01/23 release ferrous sulfate 325 mg (65 mg 325 mg PO DAILY 02/27/23 08/01/23 iron) tablet tamsulosin 0.4 mg capsule 0.4 mg PO HS 02/27/23 08/01/23 atorvastatin 40 mg tablet 40 mg PO HS 04/15/23 08/01/23 acetaminophen 325 mg tablet 650 mg PO Q4H PRN Pain 08/01/23 08/01/23 albuterol sulfate 90 mcg/actuation 2 puff inhalation QID PRN 08/01/23 08/01/23 aerosol inhaler Shortness Of Breath famotidine 20 mg tablet (Pepcid) 20 mg PO DAILY 08/01/23 08/01/23 quetiapine 50 mg tablet,extended 50 mg PO HS 08/01/23 08/01/23 release 24 hr (Seroquel XR) <Hilary Dumont PA-C - Last Filed: 08/20/23 17:11> Allergies/Adverse reactions: Allergies Allergy/AdvReac Type Severity Reaction Status Date / Time No Known Allergies Allergy Verified 08/20/23 14:33 <Hilary Dumont PA-C - Last Filed: 08/20/23 17:11> Review of Systems Review of Systems: CONSTITUTIONAL: Denies fever, chills, or sweats. EYES: Denies visual changes, redness, or discharge. ENT: Denies rhinorrhea, congestion, sore throat, or otalgia. CARDIOVASCULAR: Denies chest pain, palpitations, or edema. RESPIRATORY: Denies cough or dyspnea. GASTROINTESTINAL: Denies abdominal pain, nausea, vomiting, or diarrhea. GENITOURINARY: Denies dysuria or hematuria. SKIN: See HPI MUSCULOSKELETAL: Denies back pain, joint pain, or myalgia. NEUROLOGIC: Denies headache, numbness, or weakness. PSYCHIATRIC: Denies anxiety or depression. <Hilary Dumont PA-C - Last Filed: 08/20/23 17:11> [facility] Past Medical History Medical History: Medical History Arterial insufficiency of lower extremity Chronic anemia Chronic kidney disease Comminuted left humeral fracture with nonunion Depression with anxiety Diastolic congestive heart failure Hyperlipidemia Hypertension Lymphedema Pulmonary embolism (2018) Pulmonary hypertension Type 2 diabetes mellitus <Hilary Dumont PA-C - Last Filed: 08/20/23 17:11> Surgical History Surgical History: Surgical History History of cholecystectomy History of hernia repair History of tonsillectomy History of tubal ligation <Hilary Dumont PA-C - Last Filed:
--- NOTE | 2023-08-20 15:48 | PC.NURSE ---
removed indwelling marques cath per provider verbal order. removed stabilization sticker as well
[2023-08-20 15:51] LABS: Basophils Percent Auto 0.6 % (0.2-1.2); Eosinophils Absolute Auto 0.4 K/mm3 (0-0.3); Eosinophils Percent Auto 6.9 % (0-4.4); Hematocrit 37.9 % (37.0-47.0); Hemoglobin 11.5 g/dL (12.0-15.0); Immature Granulocyte Absolute 0.02 K/mm3 (0.00-0.031); Immature Granulocyte Percent A 0.3 % (0-0.5); Lymphocytes Absolute Auto 1.66 K/mm3 (0.9-3.2); Lymphocytes Percent Auto 26.5 % (18.3-44.2); Mean Corpuscular HGB Conc 30.3 g/dl (32-36); Mean Corpuscular Hemoglobin 28.5 pg (26-34); Monocytes Absolute Auto 0.6 K/mm3 (0.1-0.6); Monocytes Percent Auto 9.6 % (2.6-8.5); Neutrophils Absolute Auto 3.5 K/mm3 (1.3-6.7); Neutrophils Percent Auto 56.1 % (45.5-73.1); Platelet Count Result 256 k/mm3 (150-375); Red Blood Count 4.03 M/mm3 (4.2-5.4); Red Cell Distribution Width 18.1 % (11.5-14.5); White Blood Count 6.3 K/mm3 (4.5-10.0)
[2023-08-20 15:56] LABS: Lactic Acid Reflex 1.8 mmol/L (0.7-2.0)
[2023-08-20 15:58] LABS: Alanine Aminotransferase 28 U/L (6-35); Albumin Level 3.7 g/dL (3.5-5.1); Alkaline Phosphatase 97 U/L (38-126); Anion Gap 4 mmol/L (8-16); Aspartate Amino Transferase 32 U/L (14-36); Bilirubin,Total 0.6 mg/dL (0.2-1.3); Blood Urea Nitrogen 47 mg/dL (7-17); CRP < 0.5 mg/dL (<1.0); Calcium 9.3 mg/dL (8.4-10.2); Carbon Dioxide 29 mmol/L (22-30); Chloride 103 mmol/L (98-107); Estimated CRCL calculation 39 ml/min; Estimated Glomerular Filt Rate 27; Glucose 259 mg/dL (65-110); Sodium 136 mmol/L (137-145)
[2023-08-20 16:04] LABS: NT Pro B Type Natriuretic Pept 153 pg/mL (19.9-100)
[2023-08-20 16:17] LABS: Erythrocyte Sedimentation Rate 53 mm/hr (0-20)
[2023-08-20] MEDS: CEPHALEXIN 500 MG CAPSULE PO (16:39)
--- NOTE | 2023-08-20 20:36 | PC.NURSE ---
pt requested to have right foot re-dressed before discharge. dressed heel ulcer, cms intact after intervention
== END 2023-08-20 22:30 | disposition home or self-care (01) ==
PROVIDERS: Emergency Provider Physician Assistant
DX: Z46.6 Encounter for fitting and adjustment of urinary device (principal); E11.621 Type 2 diabetes mellitus with foot ulcer; L97.419 Non-pressure chronic ulcer of right heel and midfoot with unspecified severity; L03.115 Cellulitis of right lower limb; I77.1 Stricture of artery; I13.0 Hypertensive heart and chronic kidney disease with heart failure and stage 1 through stage 4 chronic kidney disease, or unspecified chronic kidney disease; I50.9 Heart failure, unspecified; E11.22 Type 2 diabetes mellitus with diabetic chronic kidney disease; N18.9 Chronic kidney disease, unspecified; D64.9 Anemia, unspecified; I89.0 Lymphedema, not elsewhere classified; I27.20 Pulmonary hypertension, unspecified; Z86.711 Personal history of pulmonary embolism; Z90.49 Acquired absence of other specified parts of digestive tract; Z79.82 Long term (current) use of aspirin; Z79.4 Long term (current) use of insulin; M19.071 Primary osteoarthritis, right ankle and foot
CPT/HCPCS: 36415; 73610; 73630; 80053; 83605; 83880; 85025; 85652; 86140; 99284; A9270

== ENCOUNTER 2023-09-19 15:13 | Inpatient (IN) | payer BC, SELFPAY ==
[2023-09-19] VITALS (17 sets, daily range): BP systolic 95–115; BP diastolic 46–69; PULSE 57–69; RESP 12–18; TEMP 36.4–36.9; O2SAT 96–100; BMI 39.6
--- NOTE | 2023-09-19 | ECG_ITS ---
Measurements Intervals [place] Rate: 66 P: 56 MS: 201 QRS: 3 QRSD: 109 T: 35 QT: 419 QTc: 442 Interpretive Statements SINUS RHYTHM VOLTAGE CRITERIA FOR LVH BORDERLINE ECG COMPARED TO ECG 08/09/2023 15:01:42 SINUS RHYTHM NOW PRESENT Electronically Signed On 09-19-2023 15:50:07 CDT by Foster Argueta D.O.
--- NOTE | ~2023-09-19 | XR_ITS ---
EXAMINATION: XR chest 1V portable DATE: 09/19/2023 15:49 INDICATION: Weakness. Lethargy. TECHNIQUE: A single frontal view of the chest was obtained. COMPARISON: Chest 2 views 08/10/2023, chest CT 04/29/2023 FINDINGS: There is a diffuse interstitial pattern in the lungs. There are airspace opacities in perih ilar left lung. No pleural effusion or pneumothorax. Cardiomegaly is noted. There is an old healed fr acture of proximal left humerus. IMPRESSION: 1. Diffuse lung disease, consistent with pulmonary edema versus pneumonia. 2. Cardiomegaly. Reviewed, dictated and finalized at location A.
--- NOTE | ~2023-09-19 | XR_ITS ---
EXAMINATION: XR chest 1V portable DATE: 09/22/2023 06:11 INDICATION: Pneumonia. TECHNIQUE: A single frontal view of the chest was obtained. COMPARISON: Chest single view 09/21/2023 FINDINGS: There are mild airspace opacities in left lower lung zone. No pleural effusion or pneumotho rax. The heart size is normal. Partially visualized is an old fracture deformity of proximal left hum erus. IMPRESSION: 1. Mild airspace opacities in left lower lung zone, consistent with atelectasis versus pneumonia. Reviewed, dictated and finalized at location A.
--- NOTE | ~2023-09-19 | CT_ITS ---
EXAMINATION: CT brain wo con DATE: 09/19/2023 17:46 INDICATION: ams . TECHNIQUE: Computed tomography (CT) of the head was performed without intravenous contrast. The mA wa s adjusted according to patient size. Iterative reconstruction technique was employed. The dose-lengt h product was 605.33 mGy-cm. COMPARISON: 04/18/2023. FINDINGS: Motion artifact. No acute intracranial hemorrhage or extra-axial fluid collection. No hydrocephalus, mass, or herniation. No acute ischemic infarct. Unremarkable dural venous sinus attenuation. No acute osseous abnormality. The aerated spaces are clear. Mild atrophy and moderate chronic white matter change. Atherosclerotic intracranial calcification. Bi lateral lens replacements. IMPRESSION: No acute intracranial process. Reviewed, dictated and finalized at location K.
--- NOTE | ~2023-09-19 | XR_ITS ---
XR chest 1V portable DATE: 09/21/2023 06:51 INDICATION: Pneumonia TECHNIQUE: Portable AP chest on 09/21/2023 0550 hours COMPARISON: 09/19/2023 portable AP chest at 1541 hours FINDINGS: There is pulmonary vascular congestion and redistribution. There are diffuse pulmonary inte rstitial mild infiltrates, mildly improved since 09/19/2023 suggesting diminished pulmonary edema, les s likely pneumonia. Clinical correlation is advised. There is severe pleural effusion or pneumothorax is noted. Diffuse osteopenia. Left proximal humeral fracture. IMPRESSION: Pulmonary vascular congestion or redistribution but diminished bilateral pulmonary infilt rates suggesting improving pulmonary edema since 09/19/2023 Reviewed, dictated and finalized at location A. IMPRESSION: Pulmonary vascular congestion or redistribution but diminished bila teral pulmonary infiltrates suggesting improving pulmonary edema since 4
--- NOTE | 2023-09-19 15:40 | PC.NURSE ---
kelly Britton from vascular access [id number] for assistance getting IV and blood work
[2023-09-19 16:11] LABS: Basophils Percent Auto 0.5 % (0.2-1.2); Eosinophils Absolute Auto 0.3 K/mm3 (0-0.3); Eosinophils Percent Auto 4.1 % (0-4.4); Hematocrit 31.1 % (37.0-47.0); Hemoglobin 9.5 g/dL (12.0-15.0); Immature Granulocyte Absolute 0.03 K/mm3 (0.00-0.031); Immature Granulocyte Percent A 0.4 % (0-0.5); Lymphocytes Absolute Auto 1.69 K/mm3 (0.9-3.2); Lymphocytes Percent Auto 20.8 % (18.3-44.2); Mean Corpuscular HGB Conc 30.5 g/dl (32-36); Mean Corpuscular Hemoglobin 28.5 pg (26-34); Mean Corpuscular Volume 93.4 fl (80-100); Mean Platelet Volume 9.4 fl (7.4-10.4); Monocytes Absolute Auto 0.7 K/mm3 (0.1-0.6); Monocytes Percent Auto 8.6 % (2.6-8.5); Neutrophils Absolute Auto 5.3 K/mm3 (1.3-6.7); Neutrophils Percent Auto 65.6 % (45.5-73.1); Platelet Count Result 290 k/mm3 (150-375); Red Blood Count 3.33 M/mm3 (4.2-5.4); White Blood Count 8.1 K/mm3 (4.5-10.0)
[2023-09-19 16:20] LABS: Alanine Aminotransferase 22 U/L (6-35); Albumin Level 3.6 g/dL (3.5-5.1); Alkaline Phosphatase 75 U/L (38-126); Anion Gap 6 mmol/L (4-12); Aspartate Amino Transferase 19 U/L (14-36); Bilirubin,Total 0.3 mg/dL (0.2-1.3); Blood Urea Nitrogen 47 mg/dL (7-17); Calcium 9.1 mg/dL (8.4-10.2); Carbon Dioxide 28 mmol/L (22-30); Chloride 104 mmol/L (98-107); Estimated CRCL calculation 29 ml/min; Estimated Glomerular Filt Rate 19; Glucose 147 mg/dL (65-110); Potassium 4.2 mmol/L (3.4-5.0); Sodium 138 mmol/L (137-145)
--- NOTE | 2023-09-19 16:20 | ED.GENADULT ---
HPI - General Adult General Chief complaint: Weakness Stated complaint: feeling confused per patient Time Seen by Provider: 09/19/23 15:31 History of Present Illness HPI narrative: 58-year-old female presenting to the emergency department for evaluation of altered mental status. Patient became less responsive after lunch. Upon arrival to the emergency department patient denies any complaints. Patient is somnolent but does awake to verbal stimuli. Patient does have access to narcotic pain medication but patient had no response to Narcan. Related Data Home Medications Medication Instructions Recorded Confirmed allopurinol 100 mg tablet 100 mg PO DAILY 02/27/23 08/01/23 amlodipine 5 mg tablet 5 mg PO DAILY 02/27/23 08/01/23 aspirin 81 mg tablet,delayed 81 mg PO DAILY 02/27/23 08/01/23 release ferrous sulfate 325 mg (65 mg 325 mg PO DAILY 02/27/23 08/01/23 iron) tablet tamsulosin 0.4 mg capsule 0.4 mg PO HS 02/27/23 08/01/23 atorvastatin 40 mg tablet 40 mg PO HS 04/15/23 08/01/23 acetaminophen 325 mg tablet 650 mg PO Q4H PRN Pain 08/01/23 08/01/23 albuterol sulfate 90 mcg/actuation 2 puff inhalation QID PRN 08/01/23 08/01/23 aerosol inhaler Shortness Of Breath famotidine 20 mg tablet (Pepcid) 20 mg PO DAILY 08/01/23 08/01/23 quetiapine 50 mg tablet,extended 50 mg PO HS 08/01/23 08/01/23 release 24 hr (Seroquel XR) Allergies Allergy/AdvReac Type Severity Reaction Status Date / Time No Known Allergies Allergy Verified 08/20/23 14:33 Review of Systems Review of Systems: All systems reviewed & are unremarkable except as noted in HPI and below PMFSH Past Medical History Medical History Arterial insufficiency of lower extremity Chronic anemia Chronic kidney disease Comminuted left humeral fracture with nonunion Depression with anxiety Diastolic congestive heart failure Hyperlipidemia Hypertension Lymphedema Pulmonary embolism (2018) Pulmonary hypertension Type 2 diabetes mellitus Surgical History Surgical History History of cholecystectomy History of hernia repair History of tonsillectomy History of tubal ligation Family History Family History Sibling Lung cancer Diabetes mellitus Pancreatic cancer Mother Heart disease Social History Social History Social History: Surrogate medical decision maker: Farhan Avalos (brother). Code status: Full code. Smoking status: Never smoker Second hand tobacco smoke exposure: No Alcohol intake: never Substance use: never Substance use type: does not use Do You Feel Safe in your Home?: Yes Lack of Transportation: YES Lack of Food: Never True Current Housing: I Have Housing Concerned About Future Housing: No Difficulty Paying Gas/Electric Bills: No Difficulty Paying for Meds: No Currently Unemployed: No Education: Don't Know Difficulty w/ Childcare or Family Care: No Spiritual care concerns: No Exam Narrative: APPEARANCE: Somnolent HEAD: normocephalic, atraumatic. EYES: PERRLA/EOMI, conjunctivae clear. NOSE: Normal no drainage EARS:TMS clear with good light reflex. THROAT: Pharynx clear, no exudate. NECK: Supple. No adenopathy, no masses. RESPIRATORY: Airway patent, respirations nonlabored. Clear to auscultation bilaterally, no rales, rhonchi, wheezing. CARDIOVASCULAR: Regular rate and rhythm without murmurs rubs or gallops. ABDOMINAL: Soft, nontender, nondistended, normal bowel sounds MUSCULOSKELETAL: Moves all extremities. Strength/ROM intact, No edema, No calf tenderness. NEURO: Alert. Cranial nerves II through XII intact. SKIN: Warm, dry. Normal Color Course Course Emergency Course: patient was admitted for pneumonia and altered mental status Vital Signs Vital signs:
[2023-09-19] MEDS: NALOXONE HCL 0.4 MG/ML VIAL IV PUSH (16:35)
[2023-09-19 16:48] LABS: Base Excess ABG -0.5 mEq/l (+/-2.0); Carboxyhemoglobin 0.5 % THb (0-2.0); Fractional Inspired Oxygen 21 %; HCO3 ABG 24.9 mEq/l (22.0-26.0); Methemoglobin ABG 0.2 %THb (0-1.5); Oxygen Content ABG 13.8 %vol (16.0-22.0); PCO2 ABG 44.1 mmHg (35.0-45.0); PO2 ABG 76.9 mmHg (80.0-100.0); PO2 FiO2 Ratio Arterial Blood 3.66 %; Reduced Hemoglobin 6.3 %THb (0-5.0); Total Hemoglobin 10.5 g/dL (12.0-18.0); pH ABG 7.369 (7.350-7.450)
[2023-09-19 16:49] LABS: Device ROOM AIR; Site Drawn RIGHT BRACHIAL
[2023-09-19 17:19] LABS: Influenza A QL RT-PCR Negative (Negative); Influenza B QL RT-PCR Negative (Negative); RSV RNA, RT-PCR Negative (Negative); SARS-CoV-2 RNA PCR Negative (Negative)
[2023-09-19 17:24] LABS: Appearance Urine Cloudy (Clear); Bacteria Urine None Seen /hpf; Bilirubin Urine Negative (Negative); Blood Urine Negative (Negative); Color Urine Yellow (Yellow); Glucose Urine UA 3+ mg/dL (Negative); Hyaline Casts Urine Present /lpf; Ketones Urine Negative (Negative); Leukocyte Esterase Ur Negative LEU/UL (Negative); Nitrate Urine Negative (Negative); Protein Urine 2+ mg/dL (Negative); RBC Urine 0-2 /hpf (0-2); Specific Grav Ur 1.018 (1.001-1.035); Squamous Epithelial Cell Urine Occasional /hpf (Few); Urobilinogen Urine 0.2 mg/dL (<2.0); WBC Urine 0-5 /hpf (0-3)
[2023-09-19 17:25] LABS: Add Urine Microscopic? YES
[2023-09-19] MEDS: SODIUM CHLORIDE 0.9% IV 500 ML 999 ML IV CONT (18:17)
[2023-09-19] MEDS: CEFEPIME 2 GM/NS 50 ML 2 GM/50 ML BAG IVPB (19:26)
[2023-09-19 19:29] LABS: NT Pro B Type Natriuretic Pept 274 pg/mL (19.9-100)
[2023-09-19] MEDS: VANCOMYCIN 1,250 MG/NS 250 ML 1,250 MG/250 ML BAG 166.67 MG IVPB ×2 (20:07→22:27)
[2023-09-19 20:35] LABS: MRSA (PCR) NOT DETECTED (NOT DETECTE)
--- NOTE | 2023-09-19 22:43 | ADMGEN ---
This patient, Talia Peralta, was admitted to IMU Room 201-01. Patient/family oriented to hospital policies and general routines including ID bracelet, bed and alarms, visiting hours, pain management, procedures, bathroom and other care routines, personal items, smoking policy, room service/diet, and visiting hours. Information on how to activate the Rapid Response Team has been discussed. Patient/Family are encouraged to report perceived risks to care and to ask questions if they do not understand what they are told or what they should do.
--- NOTE | 2023-09-19 23:51 | PM.IMHP ---
H&P: HPI History of Present Illness Date/Time: 09/19/23 23:51 Chief Complaint: Lethargic Narrative: 58-year-old female with past medical history of morbid obesity, CHF, type 2 diabetes mellitus, chronic lymphedema, peripheral neuropathy and essential hypertension who presented to the ER via EMS from [facility]. The patient had been hospitalized at our facility in July due to chest pain, CHF exacerbation and osteomyelitis from right heel wound. She was discharged home. She then reports that she returned to [facility] due to respiratory failure and acute kidney injury again. She states she was then discharged to [facility]. The patient does not exactly recall why she was brought to the ER. Evidently shelter staff reported that the patient was doing well until after lunch where she became somnolent. She would wake to verbal stimuli or noxious stimuli but seemed confused. She had brought to the ER for evaluation and remained somnolent. She received Narcan without any improvement in symptoms. Evidently sometime around 10 30 tonight after the patient had arrived to the IMU the patient woke up and was responding more appropriately. Patient is now alert orient x4 and is not having difficulty staying awake. She has not received any narcotic pain medications at the shelter. The patient denies any urinary symptoms or respiratory symptoms. But she was started on cefdinir on the likely with her recent discharge from the hospital is my assumption. Patient reports she has been having normal bowel movements. Her at [facility] did not demonstrate any evidence of hypoglycemia. She does report new left heel pain that is started within the last week. She is unknown ulcer to right heel. She denies a known ulcer on the left heel. At the time of admission the patient did have a small area of eschar surrounded by boggy feeling tissue. Pain is reproducible on palpation of the posterior heel. Currently the patient's heels are being floated off the bed. She denies any recent fevers or chills. She denies cough or congestion. She reports that her breathing feels stable. She is occasionally dropping her oxygen saturations with sleep. She denies a known history of obstructive sleep apnea and states that she does not snore. Source of information is obtained from patient report he was a fair to good historian. Review of past medical records and ER report. EMS documentation was unavailable for review. Review of Systems Review of Systems: 12 systems were reviewed with pertinent positives and negatives per HPI. Except as documented in the HPI, all other systems were reviewed and are negative. [facility] Past Medical History Medical History (Updated 09/20/23 @ 04:22 by Lilia Dean DO) Arterial insufficiency of lower extremity Chronic anemia Chronic kidney disease Comminuted left humeral fracture with nonunion Depression with anxiety Diabetic peripheral neuropathy Diastolic congestive heart failure Hyperlipidemia Hypertension Lymphedema Pulmonary embolism (2018) Pulmonary hypertension Type 2 diabetes mellitus Surgical History Surgical History History of cholecystectomy History of hernia repair History of tonsillectomy History of tubal ligation Family History Family History Sibling Lung cancer Diabetes mellitus Pancreatic cancer Mother Heart disease Social History Social History (Updated 09/20/23 @ 04:33 by Lilia Dean DO) Social History: The patient reports that she lived in [place] until 2022. She moved appear to move in with her brother. 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 She had 3 children. She is a lifelong nonsmoker and does not drink alcohol. She ambulated with a walker until her r
[2023-09-20] VITALS (19 sets, daily range): BP systolic 91–143; BP diastolic 42–101; PULSE 60–86; RESP 18–20; TEMP 36.4–37.7; O2SAT 94–100
[2023-09-20 04:19] LABS: Estimated CRCL calculation 34 ml/min; Estimated Glomerular Filt Rate 22
[2023-09-20 04:46] LABS: Hematocrit 33.1 % (37.0-47.0); Mean Corpuscular HGB Conc 30.2 g/dl (32-36); Mean Corpuscular Hemoglobin 28.6 pg (26-34); Mean Corpuscular Volume 94.6 fl (80-100); Mean Platelet Volume 10.2 fl (7.4-10.4); Platelet Count Result 320 k/mm3 (150-375); Red Cell Distribution Width 16.7 % (11.5-14.5); White Blood Count 7.5 K/mm3 (4.5-10.0)
[2023-09-20 05:53] LABS: Anion Gap 4 mmol/L (4-12); Blood Urea Nitrogen 44 mg/dL (7-17); Calcium 9.1 mg/dL (8.4-10.2); Carbon Dioxide 28 mmol/L (22-30); Chloride 106 mmol/L (98-107); Estimated CRCL calculation 32 ml/min; Estimated Glomerular Filt Rate 21; Glucose 173 mg/dL (65-110); Potassium 4.3 mmol/L (3.4-5.0); Sodium 138 mmol/L (137-145)
[2023-09-20 08:08] LABS: Glucose Point of Care 160 mg/dl (65-105)
[2023-09-20] MEDS: INSULIN ASPART (*BKC) 100 UNITS/ML 8 UNITS SUB-Q ×3 (08:43→16:47)
[2023-09-20] MEDS: CEFEPIME 2 GM/NS 50 ML 2 GM/50 ML BAG IVPB ×2 (08:44→21:16)
[2023-09-20] MEDS: ENOXAPARIN 40 MG/0.4 ML SYRINGE SUB-Q (08:45)
[2023-09-20] MEDS: GABAPENTIN 300 MG CAPSULE 600 MG PO ×2 (08:45→16:48)
[2023-09-20] MEDS: FAMOTIDINE 20 MG TABLET PO (08:46)
[2023-09-20] MEDS: CYANOCOBALAMIN 1,000 MCG TABLET 1000 MCG PO (08:46)
[2023-09-20] MEDS: amLODIPine BESYLATE 5 MG TABLET PO (08:46)
[2023-09-20] MEDS: allopurinoL 100 MG TABLET PO (08:46)
[2023-09-20] MEDS: ASPIRIN 81 MG ENTERIC TABLET PO (08:47)
[2023-09-20] MEDS: FERROUS SULFATE 325 MG TABLET DR PO (08:47)
--- NOTE | 2023-09-20 10:35 | PM.IMPN ---
Progress Note: A&P Assessment and Plan (1) AMS (altered mental status): Qualifiers: Altered mental status type: somnolence Qualified Code(s): R40.0 - Somnolence Code(s): R41.82 - Altered mental status, unspecified Status: Acute Assessment and Plan: Patient mentation has improved a lot. Patient is awake and alert today. Will continue with antibiotics. (2) Decubitus ulcer, heel, left, unstageable: Code(s): L89.620 - Pressure ulcer of left heel, unstageable Status: Acute Assessment and Plan: Will continue with IV antibiotics. Continue with decubitus ulcer prevention. 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 involvement without evidence of necrosis Code(s): E11.621 - Type 2 diabetes mellitus with foot ulcer; L97.509 - Non-pressure chronic ulcer of other part of unspecified foot with unspecified severity Status: Acute Assessment and Plan: Continue with antibiotics and decubitus ulcer prevention (5) Acute on chronic renal failure: Qualifiers: Acute renal failure type: unspecified Chronic kidney disease stage: stage 3 (moderate) Chronic kidney disease stage 3 subtype: unspecified whether 3a or 3b Qualified Code(s): N17.9 - Acute kidney failure, unspecified; N18.30 - Chronic kidney disease, stage 3 unspecified Code(s): N17.9 - Acute kidney failure, unspecified; N18.9 - Chronic kidney disease, unspecified Status: Acute Assessment and Plan: Improving and monitor closely. Plan DVT prophylaxis ordered. Patient is full code. Subjective Date/time seen: 09/20/23 10:35 Interval history: Patient was seen during the morning rounds today. Patient is more awake and alert. No shortness of breath or chest pain. Mood stable Review of Systems Review of Systems: 12 systems were reviewed with pertinent positives and negatives per HPI. Except as documented in the HPI, all other systems were reviewed and are negative. Exam Narrative: Weight 118.5 kg BMI 39.7 Const: Other: Morbidly obese, appears older than stated age, no acute distress HENMT: Other: Crowded posterior oropharynx edentulous in upper and lower jaw, head is normocephalic atraumatic, hirsutism in the typical fry pattern Eyes: Other: Pupils are equal and reactive with evidence of bilateral lens replacements Neck: Other: Large neck circumference, no JVD Resp: Other: Air entry is better, no additional sounds Cardio: Other: Regular rate, regular rhythm, 2+ bilateral radial pulses, pedal pulses are difficult to palpate due to edema GI: Other: Morbidly obese, nontender, normoactive bowel sounds : Other: Pure wick catheter in place Skin: Other: Patient has generalized pallor, dried flaking skin, patient does have chronic lymphedema changes of bilateral lower extremities with bilateral erythema just above the ankles, no increased warmth or induration. Patient also has chronic ulcer to the plantar surface of the right heel. The base appears pink clean with granulation tissue forming, the left heel posterior chest overlying the Achilles does have a small area of eschar appears to have been cleansed with Betadine prior to admission, surrounding tissue feels boggy and edematous mild surrounding erythema Neuro: Other: Alert orient x
[2023-09-20] MEDS: INSULIN ASPART (*BKC) 100 UNITS/ML SUB-Q (11:29)
[2023-09-20 11:59] LABS: Glucose Point of Care 210 mg/dl (65-105)
[2023-09-20 15:56] LABS: Glucose Point of Care 160 mg/dl (65-105)
[2023-09-20 20:13] LABS: Glucose Point of Care 176 mg/dl (65-105)
[2023-09-20] MEDS: ATORVASTATIN 40 MG TABLET PO (21:15)
[2023-09-20] MEDS: INSULIN GLARGINE (*BKC) 100 UNITS/ML 32 UNITS SUB-Q (21:15)
[2023-09-20] MEDS: QUEtiapine FUMARATE XR 50 MG TAB.ER.24H PO (21:15)
[2023-09-20] MEDS: TAMSULOSIN HCL 0.4 MG CAPSULE PO (21:15)
[2023-09-21] VITALS (9 sets, daily range): BP systolic 104–143; BP diastolic 51–66; PULSE 62–79; RESP 16–65; TEMP 36.3–36.6; O2SAT 97–98
[2023-09-21 05:08] LABS: Alanine Aminotransferase 18 U/L (6-35); Albumin Level 3.3 g/dL (3.5-5.1); Alkaline Phosphatase 62 U/L (38-126); Anion Gap 5 mmol/L (4-12); Aspartate Amino Transferase 22 U/L (14-36); Bilirubin,Total 0.5 mg/dL (0.2-1.3); Blood Urea Nitrogen 42 mg/dL (7-17); Calcium 8.8 mg/dL (8.4-10.2); Carbon Dioxide 23 mmol/L (22-30); Chloride 109 mmol/L (98-107); Estimated CRCL calculation 39 ml/min; Estimated Glomerular Filt Rate 26; Glucose 160 mg/dL (65-110); Potassium 4.4 mmol/L (3.4-5.0); Sodium 137 mmol/L (137-145)
[2023-09-21 09:33] LABS: Glucose Point of Care 119 mg/dl (65-105)
[2023-09-21] MEDS: INSULIN ASPART (*BKC) 100 UNITS/ML 8 UNITS SUB-Q ×2 (09:37→12:56)
[2023-09-21] MEDS: allopurinoL 100 MG TABLET PO (09:38)
[2023-09-21] MEDS: FAMOTIDINE 20 MG TABLET PO (09:38)
[2023-09-21] MEDS: GABAPENTIN 300 MG CAPSULE 600 MG PO ×2 (09:38→17:23)
[2023-09-21] MEDS: amLODIPine BESYLATE 5 MG TABLET PO (09:38)
[2023-09-21] MEDS: CYANOCOBALAMIN 1,000 MCG TABLET 1000 MCG PO (09:38)
[2023-09-21] MEDS: ENOXAPARIN 40 MG/0.4 ML SYRINGE SUB-Q (09:38)
[2023-09-21] MEDS: ASPIRIN 81 MG ENTERIC TABLET PO (09:38)
[2023-09-21] MEDS: FERROUS SULFATE 325 MG TABLET DR PO (09:38)
[2023-09-21] MEDS: CEFEPIME 2 GM/NS 50 ML 2 GM/50 ML BAG IVPB ×2 (09:54→21:03)
[2023-09-21] MEDS: VANCOMYCIN 1,500 MG/NS 500 ML 1,500 MG/500 ML BAG 250 MG IVPB (09:54)
--- NOTE | 2023-09-21 11:28 | PM.IMPN ---
Progress Note: A&P Assessment and Plan (1) AMS (altered mental status): Qualifiers: Altered mental status type: somnolence Qualified Code(s): R40.0 - Somnolence Code(s): R41.82 - Altered mental status, unspecified Status: Acute Assessment and Plan: Patient mentation has improved a lot. Patient is awake and alert today. Will continue with antibiotics. Monitor closely. (2) Decubitus ulcer, heel, left, unstageable: Code(s): L89.620 - Pressure ulcer of left heel, unstageable Status: Acute Assessment and Plan: Will continue with IV antibiotics. Continue with decubitus ulcer prevention. 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 involvement without evidence of necrosis Code(s): E11.621 - Type 2 diabetes mellitus with foot ulcer; L97.509 - Non-pressure chronic ulcer of other part of unspecified foot with unspecified severity Status: Acute Assessment and Plan: Continue with antibiotics and decubitus ulcer prevention (5) Acute on chronic renal failure: Qualifiers: Acute renal failure type: unspecified Chronic kidney disease stage: stage 3 (moderate) Chronic kidney disease stage 3 subtype: unspecified whether 3a or 3b Qualified Code(s): N17.9 - Acute kidney failure, unspecified; N18.30 - Chronic kidney disease, stage 3 unspecified Code(s): N17.9 - Acute kidney failure, unspecified; N18.9 - Chronic kidney disease, unspecified Status: Acute Assessment and Plan: Improving and monitor closely. Plan DVT prophylaxis ordered. Patient is full code. Subjective Date/time seen: 09/21/23 11:28 Interval history: Patient was seen during the morning rounds today. No new overnight complaints. Patient is more awake and alert. No shortness of breath or chest pain. Mood stable Review of Systems Review of Systems: 12 systems were reviewed with pertinent positives and negatives per HPI. Except as documented in the HPI, all other systems were reviewed and are negative. Exam Narrative: Weight 118.5 kg BMI 39.7 Const: Other: Morbidly obese, appears older than stated age, no acute distress HENMT: Other: Crowded posterior oropharynx edentulous in upper and lower jaw, head is normocephalic atraumatic, hirsutism in the typical fry pattern Eyes: Other: Pupils are equal and reactive with evidence of bilateral lens replacements Neck: Other: Large neck circumference, no JVD Resp: Other: Air entry is better, no additional sounds Cardio: Other: Regular rate, regular rhythm, 2+ bilateral radial pulses, pedal pulses are difficult to palpate due to edema GI: Other: Morbidly obese, nontender, normoactive bowel sounds : Other: Pure wick catheter in place Skin: Other: Patient has generalized pallor, dried flaking skin, patient does have chronic lymphedema changes of bilateral lower extremities with bilateral erythema just above the ankles, no increased warmth or induration. Patient also has chronic ulcer to the plantar surface of the right heel. The base appears pink clean with granulation tissue forming, the left heel posterior chest overlying the Achilles does have a small area of eschar appears to have been cleansed with Betadine prior to admission, surrounding tissue feels boggy and edematous mild surrounding
[2023-09-21 11:50] LABS: Glucose Point of Care 136 mg/dl (65-105)
[2023-09-21] MEDS: FUROSEMIDE 40 MG TABLET PO (14:13)
--- NOTE | 2023-09-21 14:24 | PC.NURSE ---
This patient, Talia Peralta, was transferred to [facility] on 09/21/23 at 1419. Personal belongings sent with patient. Report given to Ginny TAPIA. Appropriate documentation sent with patient.
[2023-09-21 17:11] LABS: Glucose Point of Care 99 mg/dl (65-105)
[2023-09-21] MEDS: ONDANSETRON INJ 4 MG/2 ML VIAL IV PUSH (17:21)
[2023-09-21 20:08] LABS: Glucose Point of Care 112 mg/dl (65-105)
[2023-09-21] MEDS: TAMSULOSIN HCL 0.4 MG CAPSULE PO (21:02)
[2023-09-21] MEDS: ATORVASTATIN 40 MG TABLET PO (21:02)
[2023-09-21] MEDS: QUEtiapine FUMARATE XR 50 MG TAB.ER.24H PO (21:02)
[2023-09-21] MEDS: ACETAMINOPHEN 325 MG TABLET 650 MG PO (23:12)
[2023-09-22] VITALS (8 sets, daily range): BP systolic 105–148; BP diastolic 50–80; PULSE 61–75; RESP 14–18; TEMP 36.2–36.9; O2SAT 92–100; BMI 39.7
[2023-09-22 05:55] LABS: Alanine Aminotransferase 19 U/L (6-35); Alkaline Phosphatase 68 U/L (38-126); Anion Gap 3 mmol/L (4-12); Aspartate Amino Transferase 22 U/L (14-36); Bilirubin,Total 0.4 mg/dL (0.2-1.3); Blood Urea Nitrogen 33 mg/dL (7-17); Calcium 8.6 mg/dL (8.4-10.2); Carbon Dioxide 28 mmol/L (22-30); Chloride 109 mmol/L (98-107); Estimated CRCL calculation 48 ml/min; Estimated Glomerular Filt Rate 33; Glucose 99 mg/dL (65-110); Potassium 4.7 mmol/L (3.4-5.0); Sodium 140 mmol/L (137-145)
[2023-09-22 09:19] LABS: Glucose Point of Care 104 mg/dl (65-105)
[2023-09-22] MEDS: GABAPENTIN 300 MG CAPSULE 600 MG PO ×2 (09:22→17:50)
[2023-09-22] MEDS: ACETAMINOPHEN 325 MG TABLET 650 MG PO (09:22)
[2023-09-22] MEDS: amLODIPine BESYLATE 5 MG TABLET PO (09:25)
[2023-09-22] MEDS: allopurinoL 100 MG TABLET PO (09:25)
[2023-09-22] MEDS: FAMOTIDINE 20 MG TABLET PO (09:25)
[2023-09-22] MEDS: ASPIRIN 81 MG ENTERIC TABLET PO (09:25)
[2023-09-22] MEDS: CEFEPIME 2 GM/NS 50 ML 2 GM/50 ML BAG IVPB (09:25)
[2023-09-22] MEDS: FUROSEMIDE 40 MG TABLET PO (09:25)
[2023-09-22] MEDS: CYANOCOBALAMIN 1,000 MCG TABLET 1000 MCG PO (09:25)
[2023-09-22] MEDS: FERROUS SULFATE 325 MG TABLET DR PO (09:25)
[2023-09-22 10:58] LABS: Basophils Percent Auto 0.2 % (0.2-1.2); Eosinophils Absolute Auto 0.1 K/mm3 (0-0.3); Eosinophils Percent Auto 2.7 % (0-4.4); Hematocrit 31.4 % (37.0-47.0); Hemoglobin 9.5 g/dL (12.0-15.0); Immature Granulocyte Absolute 0.01 K/mm3 (0.00-0.031); Immature Granulocyte Percent A 0.2 % (0-0.5); Lymphocytes Absolute Auto 1.51 K/mm3 (0.9-3.2); Lymphocytes Percent Auto 29.4 % (18.3-44.2); Mean Corpuscular HGB Conc 30.3 g/dl (32-36); Mean Corpuscular Hemoglobin 29.1 pg (26-34); Monocytes Absolute Auto 0.6 K/mm3 (0.1-0.6); Monocytes Percent Auto 11.9 % (2.6-8.5); Neutrophils Absolute Auto 2.9 K/mm3 (1.3-6.7); Neutrophils Percent Auto 55.6 % (45.5-73.1); Platelet Count Result 264 k/mm3 (150-375); Red Blood Count 3.27 M/mm3 (4.2-5.4); Red Cell Distribution Width 16.7 % (11.5-14.5); White Blood Count 5.1 K/mm3 (4.5-10.0)
[2023-09-22] MEDS: ENOXAPARIN 40 MG/0.4 ML SYRINGE SUB-Q (11:18)
[2023-09-22 12:22] LABS: Glucose Point of Care 190 mg/dl (65-105)
--- NOTE | 2023-09-22 12:42 | PM.IMPN ---
Progress Note: A&P Assessment and Plan (1) AMS (altered mental status): Qualifiers: Altered mental status type: somnolence Qualified Code(s): R40.0 - Somnolence Code(s): R41.82 - Altered mental status, unspecified Status: Acute Assessment and Plan: 09/21/23: Patient mentation has improved a lot. Patient is awake and alert today. Will continue with antibiotics. Monitor closely. 09/22/23: UA showing 2+ urine protein, 3+ urine glucose, otherwise normal Blood culture showing no growth on preliminary read No urine culture obtained Continue neuro checks (2) Decubitus ulcer, heel, left, unstageable: Code(s): L89.620 - Pressure ulcer of left heel, unstageable Status: Acute Assessment and Plan: 09/21/23: Will continue with IV antibiotics. Continue with decubitus ulcer prevention. 09/22/23: Continue with current treatment plan Changed IV antibiotics to oral Levaquin today (3) Abnormal chest x-ray: Code(s): R93.89 - Abnormal findings on diagnostic imaging of other specified body structures Status: Acute Assessment and Plan: 09/21/23: Continue antibiotics, patient is more awake and alert today Repeat chest x-ray in am 09/22/23: Treatment for pneumonia, IV antibiotics switched to Levaquin oral today. (4) Diabetic foot ulcer: Qualifiers: Diabetes mellitus type: type 2 Diabetic foot ulcer location: heel Laterality: right Non-pressure ulcer stage: with muscle involvement without evidence of necrosis Qualified Code(s): E11.621 - Type 2 diabetes mellitus with foot ulcer; L97.415 - 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 involvement without evidence of necrosis Code(s): E11.621 - Type 2 diabetes mellitus with foot ulcer; L97.509 - Non-pressure chronic ulcer of other part of unspecified foot with unspecified severity Status: Acute Assessment and Plan: 09/21/23: Continue with antibiotics and decubitus ulcer prevention 09/22/23: Continue with current treatment plan Changed IV antibiotics to oral Levaquin today (5) Acute on chronic renal failure: Qualifiers: Acute renal failure type: unspecified Chronic kidney disease stage: stage 3 (moderate) Chronic kidney disease stage 3 subtype: unspecified whether 3a or 3b Qualified Code(s): N17.9 - Acute kidney failure, unspecified; N18.30 - Chronic kidney disease, stage 3 unspecified Code(s): N17.9 - Acute kidney failure, unspecified; N18.9 - Chronic kidney disease, unspecified Status: Acute Assessment and Plan: 09/21/23: Improving and monitor closely. 09/22/23: BUN 33, creatinine 1.6, EGFR 33 Continue to monitor (6) Diarrhea: Code(s): R19.7 - Diarrhea, unspecified Status: Acute Assessment and Plan: 09/22/23: Reports 3 bouts of diarrhea today Could be due to antibiotics Will get stool culture Time Spent With Patient Time with patient: Greater than 35 minutes Subjective Date/time seen: 09/22/23 12:42 Interval history: This is a 58-year-old female who presented to the hospital on 09/19/2023 for evaluation of lethargy. Patient presented to the ER via EMS from [facility]. Workup in the hospital included a chest x-ray which showed diffuse lung disease consistent with pulmonary edema versus pneumonia. Head CT was negative. Chest x-ray on 09/21/2023 showing pulmonary vascular congestion with bilateral pulmonary infiltrates improving pulmonary edema since the 1st chest x-ray. Chest x-ray on 09/22/2023 showing mild airspace opacities in left lower lung zone consistent with pneumonia. Blood cultures were obtained and are showing no growth on preliminary read. Initial labs showing a white blood cell count of 7.5, hemoglobin 10.0 BUN 44, creatinine 2.3, EGFR 22. You a showing 2+ urine protein, 3+ urine glucose, otherwise normal. MRSA was negative. The cornelio panel obtained and was negative for influe
[2023-09-22 17:10] LABS: Glucose Point of Care 288 mg/dl (65-105)
[2023-09-22] MEDS: INSULIN ASPART (*BKC) 100 UNITS/ML 8 UNITS SUB-Q (17:50)
[2023-09-22] MEDS: INSULIN ASPART (*BKC) 100 UNITS/ML SUB-Q ×2 (17:50→20:19)
[2023-09-22] MEDS: INSULIN GLARGINE (*BKC) 100 UNITS/ML 32 UNITS SUB-Q (20:20)
[2023-09-22] MEDS: ATORVASTATIN 40 MG TABLET PO (20:23)
[2023-09-22] MEDS: QUEtiapine FUMARATE XR 50 MG TAB.ER.24H PO (20:23)
[2023-09-22] MEDS: levoFLOXacin 750 MG TABLET PO (20:23)
[2023-09-22] MEDS: TAMSULOSIN HCL 0.4 MG CAPSULE PO (20:24)
[2023-09-22 20:43] LABS: Glucose Point of Care 288 mg/dl (65-105)
[2023-09-23 03:50] VITALS: BP 113/51; PULSE 65; RESP 18; TEMP 36.7; O2SAT 99
[2023-09-23 08:17] LABS: Alanine Aminotransferase 18 U/L (6-35); Albumin Level 3.1 g/dL (3.5-5.1); Alkaline Phosphatase 64 U/L (38-126); Anion Gap 6 mmol/L (4-12); Aspartate Amino Transferase 20 U/L (14-36); Basophils Percent Auto 0.2 % (0.2-1.2); Bilirubin,Total 0.4 mg/dL (0.2-1.3); Blood Urea Nitrogen 45 mg/dL (7-17); Calcium 8.9 mg/dL (8.4-10.2); Carbon Dioxide 29 mmol/L (22-30); Chloride 106 mmol/L (98-107); Eosinophils Absolute Auto 0.3 K/mm3 (0-0.3); Eosinophils Percent Auto 6.2 % (0-4.4); Estimated CRCL calculation 43 ml/min; Estimated Glomerular Filt Rate 29; Glucose 215 mg/dL (65-110); Hematocrit 30.5 % (37.0-47.0); Hemoglobin 9.2 g/dL (12.0-15.0); Immature Granulocyte Absolute 0.02 K/mm3 (0.00-0.031); Immature Granulocyte Percent A 0.4 % (0-0.5); Lymphocytes Absolute Auto 1.26 K/mm3 (0.9-3.2); Lymphocytes Percent Auto 27.9 % (18.3-44.2); Mean Corpuscular HGB Conc 30.2 g/dl (32-36); Mean Corpuscular Hemoglobin 28.6 pg (26-34); Mean Corpuscular Volume 94.7 fl (80-100); Mean Platelet Volume 10.1 fl (7.4-10.4); Monocytes Absolute Auto 0.5 K/mm3 (0.1-0.6); Monocytes Percent Auto 10.6 % (2.6-8.5); Neutrophils Absolute Auto 2.5 K/mm3 (1.3-6.7); Neutrophils Percent Auto 54.7 % (45.5-73.1); Platelet Count Result 281 k/mm3 (150-375); Potassium 4.7 mmol/L (3.4-5.0); Red Blood Count 3.22 M/mm3 (4.2-5.4); Red Cell Distribution Width 16.3 % (11.5-14.5); Sodium 141 mmol/L (137-145); White Blood Count 4.5 K/mm3 (4.5-10.0)
[2023-09-23 08:59] LABS: Glucose Point of Care 190 mg/dl (65-105)
[2023-09-23 09:24] VITALS: BP 116/53; PULSE 60; RESP 12; TEMP 36.6; O2SAT 97
[2023-09-23] MEDS: GABAPENTIN 300 MG CAPSULE 600 MG PO (09:28)
[2023-09-23] MEDS: amLODIPine BESYLATE 5 MG TABLET PO (09:28)
[2023-09-23] MEDS: allopurinoL 100 MG TABLET PO (09:29)
[2023-09-23] MEDS: FUROSEMIDE 40 MG TABLET PO (09:29)
[2023-09-23] MEDS: ASPIRIN 81 MG ENTERIC TABLET PO (09:29)
[2023-09-23] MEDS: CYANOCOBALAMIN 1,000 MCG TABLET 1000 MCG PO (09:29)
[2023-09-23] MEDS: FERROUS SULFATE 325 MG TABLET DR PO (09:29)
[2023-09-23] MEDS: FAMOTIDINE 20 MG TABLET PO (09:29)
[2023-09-23] MEDS: ENOXAPARIN 40 MG/0.4 ML SYRINGE SUB-Q (09:32)
[2023-09-23] MEDS: INSULIN ASPART (*BKC) 100 UNITS/ML 8 UNITS SUB-Q ×2 (09:33→12:39)
[2023-09-23 12:17] LABS: Glucose Point of Care 230 mg/dl (65-105)
[2023-09-23] MEDS: INSULIN ASPART (*BKC) 100 UNITS/ML SUB-Q (12:40)
[2023-09-23 13:03] VITALS: BP 111/53; PULSE 83; RESP 12; TEMP 36.6; O2SAT 99
--- NOTE | 2023-09-23 13:19 | PM.DS ---
DS: Admitting Diagnosis Discharge Date 09/23/23 Admitting Diagnosis Altered mental status Decubitus ulcer left heel Abnormal chest x-ray Diabetic foot ulcer Acute on chronic renal failure DS: Discharge Diagnosis Discharge Diagnosis (1) AMS (altered mental status): Qualifiers: Altered mental status type: somnolence Qualified Code(s): R40.0 - Somnolence Code(s): R41.82 - Altered mental status, unspecified Status: Acute (2) Decubitus ulcer, heel, left, unstageable: Code(s): L89.620 - Pressure ulcer of left heel, unstageable Status: Acute (3) Abnormal chest x-ray: Code(s): R93.89 - Abnormal findings on diagnostic imaging of other specified body structures Status: Acute (4) Diabetic foot ulcer: Qualifiers: Diabetes mellitus type: type 2 Diabetic foot ulcer location: heel Laterality: right Non-pressure ulcer stage: with muscle involvement without evidence of necrosis Qualified Code(s): E11.621 - Type 2 diabetes mellitus with foot ulcer; L97.415 - 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 involvement without evidence of necrosis Code(s): E11.621 - Type 2 diabetes mellitus with foot ulcer; L97.509 - Non-pressure chronic ulcer of other part of unspecified foot with unspecified severity Status: Acute (5) Acute on chronic renal failure: Qualifiers: Acute renal failure type: unspecified Chronic kidney disease stage: stage 3 (moderate) Chronic kidney disease stage 3 subtype: unspecified whether 3a or 3b Qualified Code(s): N17.9 - Acute kidney failure, unspecified; N18.30 - Chronic kidney disease, stage 3 unspecified Code(s): N17.9 - Acute kidney failure, unspecified; N18.9 - Chronic kidney disease, unspecified Status: Acute (6) Diarrhea: Code(s): R19.7 - Diarrhea, unspecified Status: Acute DS: Summary Hospital Course Reason for hospitalization: Altered mental status Decubitus ulcer left heel Abnormal chest x-ray Diabetic foot ulcer Acute on chronic renal failure Hospital Course: This is a 58-year-old female who presented to the hospital on 09/19/2023 for evaluation of lethargy.? Patient presented to the ER via EMS from [facility].? Workup in the hospital included a chest x-ray which showed diffuse lung disease consistent with pulmonary edema versus pneumonia.? Head CT was negative.? Chest x-ray on 09/21/2023 showing pulmonary vascular congestion with bilateral pulmonary infiltrates improving pulmonary edema since the 1st chest x-ray.? Chest x-ray on 09/22/2023 showing mild airspace opacities in left lower lung zone consistent with pneumonia.? Blood cultures were obtained and are showing no growth on preliminary read.? Initial labs showing a white blood cell count of 7.5, hemoglobin 10.0 BUN 44, creatinine 2.3, EGFR 22.? You a showing 2+ urine protein, 3+ urine glucose, otherwise normal.? MRSA was negative.? The cornelio panel obtained and was negative for influenza a and B, RSV, COVID. On examination today patient is alert to voice, and oriented times 3.? Patient denies any fever, chills, nausea, vomiting, abdominal pain, chest pain, shortness a breath.? Patient endorses 3 bouts of diarrhea today.? Labs today showed a hemoglobin of 9.5, 2 creatinine 1.6, liver enzymes are normal, albumin 3.0.? Antibiotics switched to oral Levaquin today.? We will go ahead and put in for stool culture. 09/23/23: Patient denies any new complaints today. Labs today show a hemoglobin of 9.2, white count is 4.5, BUN 45, creatinine 1.8 which is her baseline, EGFR 29, blood sugars ranging 215-230, liver enzymes are normal, albumin 3.1. Patient is stable for discharge at this time. She will return to her rehab facility. She will need to finish her a dose of Levaquin tomorrow and then follow up with her primary care physician in 1 week. Final diagnosis: Pneumonia, altered mental status, decubitus ulcer on the left heel
--- NOTE | 2023-09-23 14:58 | PCCCNOTE ---
On 09/23/23, the student, Peggy Bradford, provided care and completed [facility] documentation on this patient. I have reviewed the student's documentation and agree with the findings.
[2023-09-23 16:02] LABS: SARS-CoV-2 RNA PCR Negative (Negative)
--- NOTE | 2023-10-02 14:32 | PC.NURSE ---
Blood cx are negative
== END 2023-09-23 16:28 | DRG 139 ==
LOC: ANHED 16:21 → ANHIMU 21:08 → ANH2MED 09-21 14:15
PROVIDERS: Internal Medicine; Admitting Provider Hospitalist; Emergency Provider Emergency Medicine; Referring Provider Emergency Medicine; Visit Provider Nurse Practitioner Acute Care
DX: J18.9 Pneumonia, unspecified organism (principal); I13.0 Hypertensive heart and chronic kidney disease with heart failure and stage 1 through stage 4 chronic kidney disease, or unspecified chronic kidney disease; I50.32 Chronic diastolic (congestive) heart failure; I73.9 Peripheral vascular disease, unspecified; I89.0 Lymphedema, not elsewhere classified; I27.20 Pulmonary hypertension, unspecified; N18.30 Chronic kidney disease, stage 3 unspecified; N17.9 Acute kidney failure, unspecified; E11.51 Type 2 diabetes mellitus with diabetic peripheral angiopathy without gangrene; E11.22 Type 2 diabetes mellitus with diabetic chronic kidney disease; E78.5 Hyperlipidemia, unspecified; E11.42 Type 2 diabetes mellitus with diabetic polyneuropathy; E11.621 Type 2 diabetes mellitus with foot ulcer; E66.01 Morbid (severe) obesity due to excess calories; L89.623 Pressure ulcer of left heel, stage 3; L97.415 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 involvement without evidence of necrosis; R19.7 Diarrhea, unspecified; F32.A Depression, unspecified; F41.9 Anxiety disorder, unspecified; Z20.822 Contact with and (suspected) exposure to COVID-19; Z79.82 Long term (current) use of aspirin; Z68.39 Body mass index [BMI] 39.0-39.9, adult; Z86.711 Personal history of pulmonary embolism
CPT/HCPCS: 36415; 36600; 70450; 71045; 80048; 80053; 81001; 82375; 82565; 82805; 82948; 83050; 83880; 85025; 85027; 87040; 87635; 87637; 87641; 93005; 96361; 96365; 96366; 96367; 96375; 99285; A9270; G0378; G0379; J0692; J1650; J1815; J2310; J2405; J3370; J7040

== ENCOUNTER 2023-10-27 10:36 | Inpatient (IN) | payer OTHER, SELFPAY ==
[2023-10-27] VITALS (15 sets, daily range): BP systolic 121–157; BP diastolic 55–82; PULSE 75–99; RESP 16–30; TEMP 36.3–36.8; O2SAT 88–100; BMI 48.3
--- NOTE | ~2023-10-27 | XR_ITS ---
EXAMINATION: XR chest 2V DATE: 10/27/2023 12:13 INDICATION: Chest pain and shortness of breath TECHNIQUE: frontal and lateral views of the chest were obtained. COMPARISON: Chest radiograph dated 09/22/2023 FINDINGS: Cardiomegaly with pulmonary vascular congestion. There are mild opacities in the perihilar regions an d lower lungs. No pleural effusion or pneumothorax. Cholecystectomy clips in right upper quadrant. IMPRESSION: 1. Mild perihilar and lower lung predominant opacities most likely congestive heart failure related m ild pulmonary edema with differential including pneumonia or atelectasis. 2. Cardiomegaly. Reviewed, dictated and finalized at location A. IMPRESSION: 1. Mild perihilar and lower lung predominant opacities most likely congestive h eart failure related mild pulmonary edema with differential including pneumonia or atelectasis. 2. Cardiomegaly.
--- NOTE | 2023-10-27 11:02 | ECG_ITS ---
SEE SCANNED COPY FOR CONFIRMED REPORT MTDD
[2023-10-27 11:53] LABS: Basophils Percent Auto 0.4 % (0.2-1.2); Eosinophils Absolute Auto 0.3 K/mm3 (0-0.3); Eosinophils Percent Auto 3.9 % (0-4.4); Hematocrit 31.2 % (37.0-47.0); Hemoglobin 9.5 g/dL (12.0-15.0); Immature Granulocyte Absolute 0.03 K/mm3 (0.00-0.031); Immature Granulocyte Percent A 0.4 % (0-0.5); Lymphocytes Absolute Auto 0.97 K/mm3 (0.9-3.2); Lymphocytes Percent Auto 14.1 % (18.3-44.2); Mean Corpuscular HGB Conc 30.4 g/dl (32-36); Mean Corpuscular Hemoglobin 29.9 pg (26-34); Mean Corpuscular Volume 98.1 fl (80-100); Mean Platelet Volume 9.6 fl (7.4-10.4); Monocytes Absolute Auto 0.5 K/mm3 (0.1-0.6); Neutrophils Absolute Auto 5.1 K/mm3 (1.3-6.7); Neutrophils Percent Auto 74.2 % (45.5-73.1); Platelet Count Result 180 k/mm3 (150-375); Red Blood Count 3.18 M/mm3 (4.2-5.4); Red Cell Distribution Width 19.3 % (11.5-14.5); White Blood Count 6.9 K/mm3 (4.5-10.0)
[2023-10-27 12:01] LABS: Alanine Aminotransferase 16 U/L (6-35); Albumin Level 3.5 g/dL (3.5-5.1); Alkaline Phosphatase 77 U/L (38-126); Anion Gap 1 mmol/L (4-12); Aspartate Amino Transferase 17 U/L (14-36); Bilirubin,Total 0.4 mg/dL (0.2-1.3); Blood Urea Nitrogen 45 mg/dL (7-17); Calcium 8.7 mg/dL (8.4-10.2); Carbon Dioxide 35 mmol/L (22-30); Chloride 104 mmol/L (98-107); Estimated CRCL calculation 46 ml/min; Estimated Glomerular Filt Rate 31; Glucose 107 mg/dL (65-110); Potassium 4.7 mmol/L (3.4-5.0); Sodium 140 mmol/L (137-145)
--- NOTE | 2023-10-27 12:49 | ED_ITS ---
HPI - SOB/Dyspnea General Chief Complaint: Shortness of Breath/Dyspnea Stated Complaint: SOB Time Seen by Provider: 10/27/23 11:58 Source: patient, EMS, RN notes reviewed and old records reviewed Mode of arrival: EMS Limitations: no limitations History of Present Illness HPI Narrative: This is a 58 year old female with history of morbid obesity, DM, CHF and COPD who presents for evaluation of shortness of breath. She states she developed a nonproductive cough and shortness of breath last week. She states she feels phlegm in her throat but she is unable to cough anything up. She denies fever. She reports she does not normally wear oxygen but EMS placed her on O2. Her shortness of breath is progressively getting worse. She reports chest pain abdominal pain due to cough only. She denies nausea or vomiting. She was given neb tx at [facility] without improvement of her symptoms. 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 MD elicited complaint: shortness of breath Related Data Home Medications Medication Instructions Recorded Confirmed allopurinol 100 mg tablet 100 mg PO DAILY 02/27/23 10/27/23 ferrous sulfate 325 mg (65 mg 325 mg PO DAILY 02/27/23 10/27/23 iron) tablet tamsulosin 0.4 mg capsule 0.4 mg PO HS 02/27/23 10/27/23 atorvastatin 40 mg tablet 40 mg PO HS 04/15/23 10/27/23 acetaminophen 325 mg tablet 650 mg PO Q4H PRN Pain 08/01/23 10/27/23 albuterol sulfate 90 mcg/actuation 2 puff inhalation QID PRN 08/01/23 10/27/23 aerosol inhaler Shortness Of Breath insulin lispro 100 unit/mL 10 unit subcut TIDWM 09/19/23 10/27/23 subcutaneous solution (Humalog U-100 Insulin) ascorbate calcium (vitamin C) 500 500 mg PO DAILY 10/27/23 10/27/23 mg tablet budesonide-formoterol HFA 160 1 puff inhalation DAILY 10/27/23 10/27/23 mcg-4.5 mcg/actuation aerosol inhaler (Symbicort) furosemide 40 mg tablet 80 mg PO DAILY 10/27/23 10/27/23 liraglutide 0.6 mg/0.1 mL (18 mg/3 0.6 mg subcut DAILY 10/27/23 10/27/23 mL) subcutaneous pen injector (Victoza 2-Isaias) metformin 1,000 mg tablet 1,000 mg PO BID 10/27/23 10/27/23 multivitamin with minerals-folic 1 tablet PO DAILY 10/27/23 10/27/23 acid 0.4 mg tablet pantoprazole 40 mg granules 40 mg PO HS 10/27/23 10/27/23 delayed-release for susp in packet prednisone 20 mg tablet 20 mg PO DAILY 10/27/23 10/27/23 sacubitril 24 mg-valsartan 26 mg 1 tablet PO BID 10/27/23 10/27/23 tablet (Entresto) Allergies Allergy/AdvReac Type Severity Reaction Status Date / Time No Known Allergies Allergy Verified 08/20/23 14:33 Review of Systems Constitutional: Constitutional: Denies fatigue, Denies fever(s) and Denies weakness Cardiovascular: Cardiovascular: Denies syncope, Denies rapid heart rate, Denie s irregular heart rhythm, Reports leg edema (chronic), Denies radiating jaw, neck or arm pain and Reports dyspnea Respiratory: Respiratory: Reports chest congestion, Reports cough, Denies hemoptysis, Denies excessive phlegm production, Reports dyspnea and Reports wheezing Gastrointestinal: Gastrointestinal: Reports abdominal pain (from coughing), Denies hematochezia, Denies diarrhea and Denies vomiting Genitourinary: Genitourinary: Denies hematuria and Denies dysuria Musculoskeletal: Musculoskeletal: Denies joint swelling, Denies loss of height and Denies muscle weakness Integumentary/Breasts: Skin/Breast: Reports erythema and Reports skin ulcer (bilateral heels) Neurologic: Denies syncope, Denies focal weakness and Denies weakness [facility] Past Medical History Medical History Arterial insufficiency of lower extremity Chronic anemia Chronic kidney disease Comminuted left humeral fracture with nonunion Depression with anxiety Diabetic peripheral neuropathy Diastolic congestive heart failure Hyperlipidemia Hypertension Lymphedema Pulmonary embolism (2018) Pulmonary hypertension Type 2 diabetes mellitus Surgical History Surgical History History of cholecystectomy History of hernia repair History of tonsillectomy History of tubal ligation Family History Family History Sibling Lung cancer Diabetes mellitus Pancreatic cancer Mother Heart disease Social History Social History Social History: The patient reports that she lived in [place] until 2022. She moved appear to move in with her brother. 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 She had 3 children. She is a lifelong nonsmoker and does not drink alcohol. She ambulated with a walker until her recent hospitalizations. Surrogate medical decision maker: Farhan Avalos (brother). Code status: Full code. (she states she would not want long-term ventilator support or feeding tube.) She told me that she does not have family member she trust to be her surrogate decision maker. But her brother is listed as her emergency contact in the medical record. Smoking status: Never smoker Second hand tobacco smoke exposure: No Alcohol intake: never Substance use: never Substance use type: does not use Do You Feel Safe in your Home?: Yes Lack of Transportation: YES Lack of Food: Never True Current Housing: Decline to Answer Concerned About Future Housing: No Difficulty Paying Gas/Electric Bills: No Difficulty Paying for Meds: No Currently Unemployed: No Education: High School Diploma/GED Difficulty w/ Childcare or Family Care: No Spiritual care concerns: No Exam Const: General: alert and ill appearing; No diaphoretic Nutritional Appearance: obese Orientation/consciousness: patient oriented x3 Limitations: no limitations HENMT: Head: normal to inspection Eyes: EOM: EOMs intact bilaterally Resp: Effort & Inspection: tachypneic Auscultation: rhonchi throughout and wheezes Cardio: Rate: regular rate Rhythm: regular rhythm Heart sounds: no murmurs GI: GI Palp: Yes Soft to palpation, No Tenderness to palpation present (GI), No Guarding due to palpation present (GI) and No Rigid due to palpation Auscultation: normal bowel sounds Skin: Wounds: wounds noted (small unstageable chronic bilateral heel ulcers) Other: bilateral lower extremity erythema from venous stasis Neuro: General: patient oriented x3, moves all extremities and CN's II-XI intact bilaterally Extrem: General: edema bilateral (severe) Psych: Mental Status: mental status grossly normal Affect: normal affect Attitude: cooperative Course Consultations Consultation #1: I discussed case with Ester Vital who accepts patient to medical floor for chf Date: 10/27/23 Time: 14:41 Vital Signs Vital signs: Vital Signs Temperature 97.7 F 10/27/23 10:49 Pulse Rate 75 10/27/23 10:49 Respiratory Rate 20 10/27/23 10:49 Blood Pressure 128/74 10/27/23 10:49 Pulse Oximetry 93 10/27/23 10:49 Oxygen Delivery Room Air 10/27/23 10:49 Temperature 97.4 F L 10/27/23 17:40 Pulse Rate 90 10/27/23 19:35 Respiratory Rate 22 H 10/27/23 19:35 Blood Pressure 146/72 H 10/27/23 17:40 Pulse Oximetry 94 10/27/23 19:25 Oxygen Delivery Nasal Cannula 10/27/23 19:25 Oxygen Flow Rate 2 10/27/23 19:25 MDM - SOB/Dyspnea MDM Narrative Medical decision making narrative: PAtient presents with cough, wheezing, sob. chest xray, EKG labs ordered. 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 lasix 40 mg IV given. neb tx given. PAient continues to have sob and wheezing so will admitted. ABG shows no need for intubation or bipap at this time. Evaluation discussed with patient and hospitalist. Differential Diagnosis Differential diagnosis: Likely acute exacerbation of chronic obstructive airways disease, congestive heart failure, community acquired pneumonia and asthma with exacerbation Medical Records Attestation: I reviewed the patient's medical records. Lab Data Attestation: I reviewed the patient's lab results. 10/27/23 11:45 10/27/23 11:45 Labs: Lab Results 10/27/23 10/27/23 10/27/23 Range/Units 11:45 13:01 13:05 WBC 6.9 (4.5-10.0) K/mm3 RBC 3.18 L (4.2-5.4) M/mm3 Hgb 9.5 L (12.0-15.0) g/dL Hct 31.2 L (37.0-47.0) % MCV 98.1 (80-100) fl MCH 29.9 (26-34) pg MCHC 30.4 L (32-36) g/dl RDW 19.3 H (11.5-14.5) % Plt Count 180 (150-375) k/mm3 MPV 9.6 (7.4-10.4) fl Immature Gran % (Auto) 0.4 (0-0.5) % Neut % (Auto) 74.2 H (45.5-73.1) % Lymph % (Auto) 14.1 L (18.3-44.2) % [place] % (Auto) 7.0 (2.6-8.5) % Eos % (Auto) 3.9 (0-4.4) % Baso % (Auto) 0.4 (0.2-1.2) % Lymph # (Auto) 0.97 (0.9-3.2) K/mm3 [place] # (Auto) 0.5 (0.1-0.6) K/mm3 Eos # (Auto) 0.3 (0-0.3) K/mm3 Baso # (Auto) 0.0 (0.0-0.1) K/mm3 Abs Immat Gran (auto) 0.03 (0.00-0.031) K/mm3 Absolute Neuts (auto) 5.1 (1.3-6.7) K/mm3 Absolute Nucleated RBC 0.000 (0.0-0.012) K/mm3 Nucleated RBC % 0.0 (0.0-0.2) % Methemoglobin 0.1 (0-1.5) %THb Sodium 140 (137-145) mmol/L Potassium 4.7 (3.4-5.0) mmol/L Chloride 104 (98-107) mmol/L Carbon Dioxide 35 H (22-30) mmol/L Anion Gap 1 L (4-12) mmol/L BUN 45 H (7-17) mg/dL Creatinine 1.70 H (0.7-1.0) mg/dL Estim Creat Clear Calc 46 ml/min Estimated GFR 31 L (59 - ) Glucose 107 (65-110) mg/dL Calcium 8.7 (8.4-10.2) mg/dL Magnesium 1.9 (1.6-2.3) mg/dL Total Bilirubin 0.4 (0.2-1.3) mg/dL AST 17 (14-36) U/L ALT 16 (6-35) U/L Alkaline Phosphatase 77 (38-126) U/L Troponin I < 0.012 (0.000-0.034) ng/mL NT-Pro-B Natriuret Pep 580 H (19.9-100) pg/mL Total Protein 7.0 (6.3-8.2) g/dL Albumin 3.5 (3.5-5.1) g/dL Influenza A (RT-PCR) Negative (Negative) Influenza B (RT-PCR) Negative (Negative) RSV (RT-PCR) Negative (Negative) SARS-CoV-2 RNA (RT-PCR) Negative (Negative) ABG Data ABG results: 10/27/23 13:01 Puncture Site Left radial ABG pH 7.395 ABG pCO2 54.9 H ABG pO2 66.1 L ABG PO2/FiO2 Ratio 2.36 ABG HCO3 32.9 H ABG O2 Saturation 92.6 L ABG O2 Content 13.3 L ABG Base Excess 6.8 A-a Gradient 68.8 Oxyhemoglobin 90.6 Carboxyhemoglobin 0.4 Reduced Hemoglobin 8.9 H Total Hemoglobin 10.4 L O2 Delivery Device Nasal cannula O2 Liters/Min 2.0 FiO2 28 Imaging Data Radiologist's impression: ITS Impressions Chest X-Ray 10/27/23 12:16 IMPRESSION: 1. Mild perihilar and lower lung predominant opacities most likely congestive heart failure related mild pulmonary edema with differential including pneumonia or atelectasis. 2. Cardiomegaly. ECG Data EKG #1: Attestation: I personally reviewed and interpreted this ECG as follows: ECG completion date: 10/27/23 ECG completion time: 11:16 EKG Interpretation: normal rate, sinus rhythm, no ST changes and NL axis Critical Care Time Critical Care Time Critical Care Time: Yes Total Critical Care Time: 35 Discharge Plan Discharge Clinical Impression: Diastolic congestive heart failure, Congestive heart failure Patient Disposition: Still a Patient Condition: Stable
[2023-10-27] MEDS: ALBUTEROL SULFATE NEB 2.5 MG/3 ML INH 10 MG INHALATION (13:02)
[2023-10-27 13:09] LABS: Alveolar/Arterial O2 Gradient 68.8 mmHg; Base Excess ABG 6.8 mEq/l (+/-2.0); Carboxyhemoglobin 0.4 % THb (0-2.0); Fractional Inspired Oxygen 28 %; HCO3 ABG 32.9 mEq/l (22.0-26.0); Methemoglobin ABG 0.1 %THb (0-1.5); Oxygen Content ABG 13.3 %vol (16.0-22.0); Oxygen Saturation ABG 92.6 % (95.0-100.0); Oxyhemoglobin 90.6 % THb (90.0-100.0); PCO2 ABG 54.9 mmHg (35.0-45.0); PO2 ABG 66.1 mmHg (80.0-100.0); PO2 FiO2 Ratio Arterial Blood 2.36 %; Reduced Hemoglobin 8.9 %THb (0-5.0); Total Hemoglobin 10.4 g/dL (12.0-18.0); pH ABG 7.395 (7.350-7.450)
[2023-10-27 13:10] LABS: Device NASAL CANNULA; Modified Allen's Test Pass; Site Drawn LEFT RADIAL
[2023-10-27 13:19] LABS: Magnesium 1.9 mg/dL (1.6-2.3)
[2023-10-27] MEDS: FUROSEMIDE INJ 40 MG/4 ML VIAL IV PUSH ×2 (13:19→20:57)
[2023-10-27 13:32] LABS: NT Pro B Type Natriuretic Pept 580 pg/mL (19.9-100); Troponin I < 0.012 ng/mL (0.000-0.034)
[2023-10-27 13:46] LABS: Influenza A QL RT-PCR Negative (Negative); Influenza B QL RT-PCR Negative (Negative); RSV RNA, RT-PCR Negative (Negative); SARS-CoV-2 RNA PCR Negative (Negative)
--- NOTE | 2023-10-27 16:50 | ADMGEN ---
This patient, Talia Peralta, was admitted to 3 [facility] Surg Room 317-02. Patient/family oriented to hospital policies and general routines including ID bracelet, bed and alarms, visiting hours, pain management, procedures, bathroom and other care routines, personal items, smoking policy, room service/diet, and visiting hours. Information on how to activate the Rapid Response Team has been discussed. Patient/Family are encouraged to report perceived risks to care and to ask questions if they do not understand what they are told or what they should do.
[2023-10-27 17:37] LABS: Glucose Point of Care 102 mg/dl (65-105)
[2023-10-27] MEDS: ALBUTEROL SULFATE NEB 2.5 MG/3 ML INH INHALATION (19:24)
--- NOTE | 2023-10-27 22:08 | P.HP_ITS ---
H&P: HPI History of Present Illness Date/Time: 10/27/23 22:08 Chief Complaint: Shortness of breath for 3 days Narrative: 58-year-old female with past medical history of morbid obesity, suspected obstructive sleep apnea, chronic hypercapnic respiratory failure, CHF, lymphedema add chronic bilateral heel wounds with osteomyelitis who presented to the ER from [facility] due to increased shortness of breath for 3 days. The patient was recently hospitalized urine August for similar symptoms. However at the time of my arrival to bedside the patient was hot to touch. She reports worsening cough that is nonproductive. She has noticed worsening wheezing over the last 3 days. She reports abdominal discomfort due to her cough. She denies any chest pain. She reports that her shortness breath is on change despite receiving Lasix in the ER. She denies recent ill contacts but is from a [facility]. The she denies dose stools with her last bowel movement being yesterday. She denies dysuria. She has had increased urine output since Lasix administered in the ER and has approximately 600 mL out in the pure wick catheter Source of information was review of past medical records including my prior notes and ER physician report. In addition to patient report. Patient is relatively good historian is alert orient x4. Review of Systems Review of Systems: 12 systems were reviewed with pertinent positives and negatives per HPI. Except as documented in the HPI, all other systems were reviewed and are negative. [facility] Past Medical History Medical History Arterial insufficiency of lower extremity Chronic anemia Chronic kidney disease Comminuted left humeral fracture with nonunion Depression with anxiety Diabetic peripheral neuropathy Diastolic congestive heart failure Hyperlipidemia Hypertension Lymphedema Pulmonary embolism (2018) Pulmonary hypertension Type 2 diabetes mellitus Surgical History Surgical History History of cholecystectomy History of hernia repair History of tonsillectomy History of tubal ligation Family History Family History Sibling Lung cancer Diabetes mellitus Pancreatic cancer Mother Heart disease Social History Social History Social History: The patient reports that she lived in [place] until 2022. She moved appear to move in with her brother. 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 She had 3 children. She is a lifelong nonsmoker and does not drink alcohol. She ambulated with a walker until her recent hospitalizations. Surrogate medical decision maker: Farhan Avalos (brother). Code status: Full code. (she states she would not want long-term ventilator support or feeding tube.) She told me that she does not have family member she trust to be her surrogate decision maker. But her brother is listed as her emergency contact in the medical record. Smoking status: Never smoker Second hand tobacco smoke exposure: No Alcohol intake: never Substance use: never Substance use type: does not use Do You Feel Safe in your Home?: Yes Lack of Transportation: YES Lack of Food: Never True Current Housing: Decline to Answer Concerned About Future Housing: No Difficulty Paying Gas/Electric Bills: No Difficulty Paying for Meds: No Currently Unemployed: No Education: High School Diploma/GED Difficulty w/ Childcare or Family Care: No Spiritual care concerns: No Meds Home Medications and Allergies Home Medications Medication Instructions Recorded Confirmed Type allopurinol 100 mg tablet 100 mg PO DAILY 02/27/23 10/27/23 History ferrous sulfate 325 mg (65 mg 325 mg PO DAILY 02/27/23 10/27/23 History iron) tablet tamsulosin 0.4 mg capsule 0.4 mg PO HS 02/27/23 10/27/23 History silver 200 mcg/gram topical gel 1 applic topical DAILY #3 grams 03/25/23 10/27/23 Rx (Silver-Sept) atorvastatin 40 mg tablet 40 mg PO HS 04/15/23 10/27/23 History acetaminophen 325 mg tablet 650 mg PO Q4H PRN Pain 08/01/23 10/27/23 History albuterol sulfate 90 mcg/actuation 2 puff inhalation QID PRN 08/01/23 10/27/23 History aerosol inhaler Shortness Of Breath cyanocobalamin (vitamin B-12) 1,000 mcg PO QAM #30 tabs 08/11/23 10/27/23 Rx 1,000 mcg tablet (Vitamin B-12) gabapentin 300 mg capsule 600 mg PO BID #60 caps 08/11/23 10/27/23 Rx (Neurontin) insulin glargine 100 unit/mL 36 unit (0.36 mL) subcut HS #10 mL 08/11/23 10/27/23 Rx subcutaneous solution (Lantus U-100 Insulin) insulin lispro 100 unit/mL 10 unit subcut TIDWM 09/19/23 10/27/23 History subcutaneous solution (Humalog U-100 Insulin) ascorbate calcium (vitamin C) 500 500 mg PO DAILY 10/27/23 10/27/23 History mg tablet budesonide-formoterol HFA 160 1 puff inhalation DAILY 10/27/23 10/27/23 History mcg-4.5 mcg/actuation aerosol inhaler (Symbicort) furosemide 40 mg tablet 80 mg PO DAILY 10/27/23 10/27/23 History liraglutide 0.6 mg/0.1 mL (18 mg/3 0.6 mg subcut DAILY 10/27/23 10/27/23 History mL) subcutaneous pen injector (Victoza 2-Isaias) metformin 1,000 mg tablet 1,000 mg PO BID 10/27/23 10/27/23 History multivitamin with minerals-folic 1 tablet PO DAILY 10/27/23 10/27/23 History acid 0.4 mg tablet pantoprazole 40 mg granules 40 mg PO HS 10/27/23 10/27/23 History delayed-release for susp in packet prednisone 20 mg tablet 20 mg PO DAILY 10/27/23 10/27/23 History sacubitril 24 mg-valsartan 26 mg 1 tablet PO BID 10/27/23 10/27/23 History tablet (Entresto) Allergies Allergy/AdvReac Type Severity Reaction Status Date / Time No Known Allergies Allergy Verified 08/20/23 14:33 Vital Signs Vital Signs - 24 hr 10/27/23 10:49 10/27/23 10:53 10/27/23 10:53 Temperature 97.7 F Pulse Rate 75 75 Respiratory Rate 20 Blood Pressure 128/74 Pulse Oximetry 93 93 Oxygen Delivery Room Air Room Air Oxygen Flow Rate 10/27/23 11:55 10/27/23 11:55 10/27/23 11:17 Temperature Pulse Rate 76 Respiratory Rate 23 H Blood Pressure 121/82 Pulse Oximetry 88 L 100 93 Oxygen Delivery Room Air Nasal Cannula Oxygen Flow Rate 2 10/27/23 12:15 10/27/23 13:03 10/27/23 13:23 Temperature Pulse Rate 77 76 84 Respiratory Rate 25 H 24 H 16 Blood Pressure 157/55 H Pulse Oximetry 97 100 Oxygen Delivery Oxygen Flow Rate 10/27/23 14:21 10/27/23 14:29 10/27/23 15:27 Temperature Pulse Rate 99 96 88 Respiratory Rate 22 H 22 H 20 Blood Pressure 136/61 137/59 L Pulse Oximetry 99 97 Oxygen Delivery Oxygen Flow Rate 10/27/23 17:00 10/27/23 17:40 10/27/23 19:25 Temperature 97.4 F L Pulse Rate 84 88 Respiratory Rate 22 H 22 H Blood Pressure 146/72 H Pulse Oximetry 98 97 94 Oxygen Delivery Nasal Cannula Nasal Cannula Oxygen Flow Rate 3 2 10/27/23 19:25 10/27/23 19:35 Temperature Pulse Rate 88 90 Respiratory Rate 22 H 22 H Blood Pressure Pulse Oximetry Oxygen Delivery Oxygen Flow Rate Exam Narrative: Weight 135.8 kg BMI 48.3 Const: Other: Acutely ill-appearing, morbidly obese, appears older than stated age, disheveled HENMT: Other: Head is normocephalic atraumatic, mucous membranes are tacky, crowded posterior oropharynx, edentulous in upper and lower jaw, marked hirsutism Eyes: Other: Pupils are equal and reactive with evidence of prior cataract lens replacement bilateral, no scleral icterus, positive conjunctival pallor Neck: Other: Large neck circumference, no JVD Resp: Other: Coarse crackles throughout with loud end-expiratory wheezing bilateral upper yanez Cardio: Other: Regular rate, regular rhythm, 2+ bilateral radial pulses, pedal pulses difficult to assess due to habitus and edema GI: Other: Obese, soft, normoactive bowel sounds : Other: Pure wick catheter in place Skin: Other: Chronic venous stasis changes of bilateral lower extremities with chronic erythema, no increased warmth, remainder of patient's skin is generalized hot to touch as the patient is febrile, chronic right foot heel ulcer with overlying eschar, no surrounding erythema, skin is discolored due to Betadine, left heel ulcer to the posterior heel approximately 2 cm in size. Please see nursing documentation for further details Neuro: Other: Patient is alert orient x4, moves bilateral upper extremities equally cannot m ove lower extremities due to generalized weakness, extraocular movements intact, no changes from prior exams Extrem: Other: Wounds as discussed above, chronic severe lymphedema bilateral lower extremities with venous stasis dermatitis Psych: Other: Appropriate mood and affect, pleasant and cooperative H&P: Results Labs Labs: Short CBC 10/27/23 Range/Units 11:45 WBC 6.9 (4.5-10.0) K/mm3 Hgb 9.5 L (12.0-15.0) g/dL Hct 31.2 L (37.0-47.0) % Plt Count 180 (150-375) k/mm3 BMP 10/27/23 11:45 Sodium 140 Potassium 4.7 Chloride 104 Carbon Dioxide 35 H BUN 45 H Creatinine 1.70 H Glucose 107 Calcium 8.7 Cardiac Enzymes 10/27/23 Range/Units 11:45 Troponin I < 0.012 (0.000-0.034) ng/mL Liver Function 10/27/23 Range/Units 11:45 Total Bilirubin 0.4 (0.2-1.3) mg/dL AST 17 (14-36) U/L ALT 16 (6-35) U/L Alkaline Phosphatase 77 (38-126) U/L Albumin 3.5 (3.5-5.1) g/dL Laboratory Tests 10/28/23 02:21 10/28/23 02:21 10/27/23 10/27/23 10/27/23 11:45 13:01 13:05 WBC 6.9 RBC 3.18 L Hgb 9.5 L Hct 31.2 L MCV 98.1 MCH 29.9 MCHC 30.4 L RDW 19.3 H Plt Count 180 MPV 9.6 Immature Gran % (Auto) 0.4 Neut % (Auto) 74.2 H Lymph % (Auto) 14.1 L [place] % (Auto) 7.0 Eos % (Auto) 3.9 Baso % (Auto) 0.4 Lymph # (Auto) 0.97 [place] # (Auto) 0.5 Eos # (Auto) 0.3 Baso # (Auto) 0.0 Abs Immat Gran (auto) 0.03 Absolute Neuts (auto) 5.1 Absolute Nucleated RBC 0.000 Nucleated RBC % 0.0 Puncture Site Left radial ABG pH 7.395 ABG pCO2 54.9 H ABG pO2 66.1 L ABG PO2/FiO2 Ratio 2.36 ABG HCO3 32.9 H ABG O2 Saturation 92.6 L ABG O2 Content 13.3 L ABG Base Excess 6.8 A-a Gradient 68.8 Oxyhemoglobin 90.6 Carboxyhemoglobin 0.4 Methemoglobin 0.1 Reduced Hemoglobin 8.9 H Total Hemoglobin 10.4 L O2 Delivery Device Nasal cannula O2 Liters/Min 2.0 FiO2 28 Sodium 140 Potassium 4.7 Chloride 104 Carbon Dioxide 35 H Anion Gap 1 L BUN 45 H Creatinine 1.70 H Estim Creat Clear Calc 46 Estimated GFR 31 L Glucose 107 POC Capillary Glucose Lactic Acid Calcium 8.7 Magnesium 1.9 Total Bilirubin 0.4 AST 17 ALT 16 Alkaline Phosphatase 77 Troponin I < 0.012 NT-Pro-B Natriuret Pep 580 H Total Protein 7.0 Albumin 3.5 Procalcitonin Urine Color Urine Appearance Urine pH Ur Specific [place] Urine Protein Urine Glucose (UA) Urine Ketones Ur Blood (Man) Urine Nitrate Urine Bilirubin Urine Urobilinogen Leukocyte Esterase Rfl Urine RBC Urine WBC Ur Squamous Epith Cells Urine Bacteria Urine Casts Nasal MRSA (PCR) Influenza A (RT-PCR) Negative Influenza B (RT-PCR) Negative RSV (RT-PCR) Negative SARS-CoV-2 RNA (RT-PCR) Negative 10/27/23 10/27/23 10/27/23 17:34 20:50 22:53 WBC RBC Hgb Hct MCV MCH MCHC RDW Plt Count MPV Immature Gran % (Auto) Neut % (Auto) Lymph % (Auto) [place] % (Auto) Eos % (Auto) Baso % (Auto) Lymph # (Auto) [place] # (Auto) Eos # (Auto) Baso # (Auto) Abs Immat Gran (auto) Absolute Neuts (auto) Absolute Nucleated RBC Nucleated RBC % Puncture Site ABG pH ABG pCO2 ABG pO2 ABG PO2/FiO2 Ratio ABG HCO3 ABG O2 Saturation ABG O2 Content ABG Base Excess A-a Gradient Oxyhemoglobin Carboxyhemoglobin Methemoglobin Reduced Hemoglobin Total Hemoglobin O2 Delivery Device O2 Liters/Min FiO2 Sodium Potassium Chloride Carbon Dioxide Anion Gap BUN Creatinine Estim Creat Clear Calc Estimated GFR Glucose POC Capillary Glucose 102 115 H Lactic Acid 2.7 H Calcium Magnesium Total Bilirubin AST ALT Alkaline Phosphatase Troponin I NT-Pro-B Natriuret Pep Total Protein Albumin Procalcitonin 0.1 Urine Color Urine Appearance Urine pH Ur Specific [place] Urine Protein Urine Glucose (UA) Urine Ketones Ur Blood (Man) Urine Nitrate Urine Bilirubin Urine Urobilinogen Leukocyte Esterase Rfl Urine RBC Urine WBC Ur Squamous Epith Cells Urine Bacteria Urine Casts Nasal MRSA (PCR) Influenza A (RT-PCR) Influenza B (RT-PCR) RSV (RT-PCR) SARS-CoV-2 RNA (RT-PCR) 10/27/23 10/28/23 10/28/23 22:59 02:21 07:21 WBC 8.1 RBC 3.25 L Hgb 9.6 L Hct 31.0 L MCV 95.4 MCH 29.5 MCHC 31.0 L RDW 19.1 H Plt Count 166 MPV 9.2 Immature Gran % (Auto) 0.6 H Neut % (Auto) 83.9 H Lymph % (Auto) 9.0 L [place] % (Auto) 5.6 Eos % (Auto) 0.7 Baso % (Auto) 0.2 Lymph # (Auto) 0.73 L [place] # (Auto) 0.5 Eos # (Auto) 0.1 Baso # (Auto) 0.0 Abs Immat Gran (auto) 0.05 H Absolute Neuts (auto) 6.8 H Absolute Nucleated RBC 0.000 Nucleated RBC % 0.0 Puncture Site ABG pH ABG pCO2 ABG pO2 ABG PO2/FiO2 Ratio ABG HCO3 ABG O2 Saturation ABG O2 Content ABG Base Excess A-a Gradient Oxyhemoglobin Carboxyhemoglobin Methemoglobin Reduced Hemoglobin Total Hemoglobin O2 Delivery Device O2 Liters/Min FiO2 Sodium 138 Potassium 4.5 Chloride 99 Carbon Dioxide 36 H Anion Gap 3 L BUN 40 H Creatinine 1.60 H Estim Creat Clear Calc 50 Estimated GFR 33 L Glucose 126 H POC Capillary Glucose 100 Lactic Acid 1.6 Calcium 8.6 Magnesium Total Bilirubin 0.4 AST 18 ALT 16 Alkaline Phosphatase 80 Troponin I NT-Pro-B Natriuret Pep Total Protein 7.0 Albumin 3.4 L Procalcitonin Urine Color Yellow Urine Appearance Cloudy H Urine pH 7.0 Ur Specific [place] 1.008 Urine Protein 1+ H Urine Glucose (UA) Negative Urine Ketones Negative Ur Blood (Man) Negative Urine Nitrate Negative Urine Bilirubin Negative Urine Urobilinogen 0.2 Leukocyte Esterase Rfl 2+ H Urine RBC 0-2 Urine WBC 21-50 H Ur Squamous Epith Cells Few Urine Bacteria 4+ Urine Casts 0-2 Nasal MRSA (PCR) Detected A* Influenza A (RT-PCR) Influenza B (RT-PCR) RSV (RT-PCR) SARS-CoV-2 RNA (RT-PCR) Impressions Chest X-Ray 10/27/23 12:16 IMPRESSION: 1. Mild perihilar and lower lung predominant opacities most likely congestive heart failure related mild pulmonary edema with differential including pneumonia or atelectasis. 2. Cardiomegaly. Assessment and Plan Assessment and plan (1) Sepsis: Qualifiers: Acute respiratory failure type: with hypoxia Sepsis acute organ dysfunction status: with acute organ dysfunction Sepsis type: sepsis due to unspecified organism Severe sepsis acute organ dysfunction type: acute respiratory failure Severe sepsis shock status: without septic shock Qualified Code(s): A41.9 - Sepsis, unspecified organism; R65.20 - Severe sepsis without septic shock; J96.01 - Acute respiratory failure with hypoxia Code(s): A41.9 - Sepsis, unspecified organism Status: Acute (2) Pneumonia: Code(s): J18.9 - Pneumonia, unspecified organism Status: Acute (3) Acute on chronic diastolic congestive heart failure: Code(s): I50.33 - Acute on chronic diastolic (congestive) heart failure Status: Acute (4) Chronic anticoagulation: Code(s): Z79.01 - long-term (current) use of anticoagulants Status: Chronic (5) Chronic kidney disease: Qualifiers: Chronic kidney disease stage: unspecified stage Qualified Code(s): N18.9 - Chronic kidney disease, unspecified Code(s): N18.9 - Chronic kidney disease, unspecified Status: Chronic (6) Type 2 diabetes mellitus: Code(s): E11.9 - Type 2 diabetes mellitus without complications Status: Acute (7) Acute hypoxic respiratory failure: Code(s): J96.01 - Acute respiratory failure with hypoxia Status: Acute Plan The patient has sepsis likely due to pulmonary source given her symptoms. Will place patient on antibiotic therapy with Rocephin and azithromycin. Check MRSA PCR which was positive so vancomycin has also been added. Blood cultures have been obtained and are pending. Blood cultures were obtained prior to initiation of antibiotic therapy. Sepsis criteria met with fever, tachypnea and x-ray findings suggestive of pneumonia. Patient also has chronic wounds on the right heel but these do not appear to be acutely infected. Wound Care will be consulted for management of chronic wounds. Pressure relieving dressing is been applied in the patient's heels are being floated from the bed. The patient's BNP is slightly elevated above baseline. Her weight is up about 10 kg compared to prior hospital stay. Will continue diuresis with Lasix b.i.d. and monitor strict I&O's. Will monitor daily weights. Will continue patient's home diabetic medications. Will add sliding scale insulin and mealtime bolus insulin. Hypoglycemia protocol has been ordered as needed. Accu-Cheks a.c. and HS. Quality VTE Prophylaxis VTE prophylaxis: pharmacologic ordered (Lovenox 40 mg subQ daily.)
[2023-10-27] MEDS: AZITHROMYCIN 500 MG/NS 250 ML 500 MG/250 ML BAG 250 MG IVPB (22:51)
[2023-10-27 22:52] LABS: Glucose Point of Care 115 mg/dl (65-105)
[2023-10-27 23:12] LABS: Appearance Urine Cloudy (Clear); Bacteria Urine 4+ /hpf; Bilirubin Urine Negative (Negative); Blood Urine Negative (Negative); Color Urine Yellow (Yellow); Glucose Urine UA Negative (Negative); Ketones Urine Negative (Negative); Leukocyte Esterase Ur 2+ LEU/UL (Negative); Nitrate Urine Negative (Negative); Non Pathogenic Casts 0-2; Protein Urine 1+ mg/dL (Negative); RBC Urine 0-2 /hpf (0-2); Specific Grav Ur 1.008 (1.001-1.035); Squamous Epithelial Cell Urine Few /hpf (Few); Urobilinogen Urine 0.2 mg/dL (<2.0); WBC Urine 21-50 /hpf (0-3)
[2023-10-27 23:15] LABS: Add Urine Microscopic? YES
[2023-10-27 23:22] LABS: Lactic Acid Reflex 2.7 mmol/L (0.7-2.0)
[2023-10-27 23:43] LABS: Procalcitonin 0.1 ng/mL
[2023-10-28] VITALS (21 sets, daily range): BP systolic 103–152; BP diastolic 61–88; PULSE 67–96; RESP 16–22; TEMP 36.4–38.8; O2SAT 94–98
[2023-10-28 00:22] LABS: MRSA (PCR) DETECTED (NOT DETECTE)
[2023-10-28] MEDS: ACETAMINOPHEN 325 MG TABLET 650 MG PO (00:50)
[2023-10-28] MEDS: VANCOMYCIN 1,250 MG/NS 250 ML 1,250 MG/250 ML BAG 166.67 MG IVPB ×2 (01:09→02:50)
[2023-10-28] MEDS: IPRATROPIUM 0.5 MG/ALBUTEROL SULFATE 2.5 MG AMPUL.NEB 3 ML INHALATION ×4 (02:04→20:34)
[2023-10-28 02:09] LABS: Reflex Lactic Acid Yes or No Add Lactic
[2023-10-28 02:28] LABS: Basophils Percent Auto 0.2 % (0.2-1.2); Eosinophils Absolute Auto 0.1 K/mm3 (0-0.3); Eosinophils Percent Auto 0.7 % (0-4.4); Hemoglobin 9.6 g/dL (12.0-15.0); Immature Granulocyte Absolute 0.05 K/mm3 (0.00-0.031); Immature Granulocyte Percent A 0.6 % (0-0.5); Lymphocytes Absolute Auto 0.73 K/mm3 (0.9-3.2); Mean Corpuscular Hemoglobin 29.5 pg (26-34); Mean Corpuscular Volume 95.4 fl (80-100); Mean Platelet Volume 9.2 fl (7.4-10.4); Monocytes Absolute Auto 0.5 K/mm3 (0.1-0.6); Monocytes Percent Auto 5.6 % (2.6-8.5); Neutrophils Absolute Auto 6.8 K/mm3 (1.3-6.7); Neutrophils Percent Auto 83.9 % (45.5-73.1); Platelet Count Result 166 k/mm3 (150-375); Red Blood Count 3.25 M/mm3 (4.2-5.4); Red Cell Distribution Width 19.1 % (11.5-14.5); White Blood Count 8.1 K/mm3 (4.5-10.0)
[2023-10-28 02:38] LABS: Lactic Acid 1.6 mmol/L (0.7-2.0)
[2023-10-28 02:39] LABS: Alanine Aminotransferase 16 U/L (6-35); Albumin Level 3.4 g/dL (3.5-5.1); Alkaline Phosphatase 80 U/L (38-126); Anion Gap 3 mmol/L (4-12); Aspartate Amino Transferase 18 U/L (14-36); Bilirubin,Total 0.4 mg/dL (0.2-1.3); Blood Urea Nitrogen 40 mg/dL (7-17); Calcium 8.6 mg/dL (8.4-10.2); Carbon Dioxide 36 mmol/L (22-30); Chloride 99 mmol/L (98-107); Estimated CRCL calculation 50 ml/min; Estimated Glomerular Filt Rate 33; Glucose 126 mg/dL (65-110); Potassium 4.5 mmol/L (3.4-5.0); Sodium 138 mmol/L (137-145)
--- NOTE | 2023-10-28 06:00 | ECHO_ITS ---
Patient Info Name: Talia Peralta Age: 58 years : 1965 Gender: Female Ht: 66 in Wt: 299 lbs BSA: 2.59 m2 HR: 80 bpm BP: 142 / 76 mmHg Heart Rhythm: Sinus Rhythm Technical Quality: Fair Exam Date: 10/28/2023 8:34 AM Exam Location: Echo Lab Patient Status: Inpatient Admit Date: 10/27/2023 Staff Ordering Physician: Lucy Schroeder MD Electronic Installer: Oh Villalobos RDCS Attending Provider: Ashanti Mijares MD Referring Physician: Elda OCHOA; Exam Type: CA echo doppler color flow Study Info Indications I50.20 - Unspecified systolic (congestive) heart failure Complete two-dimensional, color flow and Doppler transthoracic echocardiogram is performed. Summary 1. Left ventricular chamber dimension is mildly enlarged. 2. Left ventricular systolic function is normal, estimated at 65-70%. 3. The left ventricular diastolic function is grade I diastolic dysfunction. 4. Right ventricular systolic function is normal. 5. Left atrial chamber dimension is moderately enlarged. 6. Right atrial chamber dimension is mildly enlarged. 7. There is mild mitral valve regurgitation. The degree of regurgitation may be underestimated due to the eccentricity of the jet. Left Ventricle Left ventricular chamber dimension is mildly enlarged. Left ventricular systolic function is normal, estimated at 65-70%. There is no increased left ventricular wall thickness. The left ventricular diastolic function is grade I diastolic dysfunction. Right Ventricle Right ventricular chamber dimension is normal. Right ventricular systolic function is normal. Left Atria Left atrial chamber dimension is moderately enlarged. Right Atria Right atrial chamber dimension is mildly enlarged. Atrial Septum Intact interatrial septum visualized by color flow imaging. Aortic Valve The aortic valve is not well visualized. There is no aortic valve stenosis. There is no aortic valve regurgitation. Pulmonic Valve The pulmonic valve is not well visualized. There is trace pulmonic regurgitation. Mitral Valve There is mild mitral valve regurgitation. The degree of regurgitation may be underestimated due to the eccentricity of the jet. Tricuspid Valve There is trace tricuspid valve regurgitation. Pericardium/Pleural There is no pericardial effusion. Inferior Vena Cava Normal inferior vena cava with >50% collapse upon inspiration consistent with normal right atrial pressure, 3 mmHg. Aorta The aortic root size at the sinus of Valsalva is normal. Left Ventricular Outflow Tract Name Value Normal LVOT 2D LVOT Diameter 2.1 cm LVOT Doppler LVOT Peak Gradient 10 mmHg LVOT Mean Gradient 5 mmHg LVOT VTI 31 cm LVOT VTI/AV VTI Ratio 0.9 LVOT Stroke Volume 101 ml LVOT CO 8.0 l/min LVOT CI 3.1 l/min/m2 Pulmonic Valve Name Value Normal RVOT Doppler RVOT Peak Gradient 5 mmHg PV Doppler PV Peak Gradient 4 mmHg Mitral Valve Name Value Normal MV Doppler MV Decel [place] 963 cm/s2 MV PHT 52 ms MV Area (PHT) 4.2 cm2 4.0-5.0 MV Diastolic Function MV E Peak Velocity 174 cm/s MV A Peak Velocity 144 cm/s MV E/A 1.2 MV Decel Time 180 ms Tricuspid Valve Name Value Normal TV Regurgitation Doppler TR Peak Velocity 302 cm/s TR Peak Gradient 26 mmHg Estimated PAP/RSVP RA Pressure 3 mmHg <=5 PA Systolic Pressure 39 mmHg <36 RV Systolic Pressure 39 mmHg <36 Aorta Name Value Normal Ascending Aorta Ao Root Diameter (MM) 2.7 cm Ao Root Diam Index (MM) 1.0 cm/m2 Aortic Valve Name Value Normal AV Doppler AV Peak Velocity 197 cm/s AV Peak Gradient 16 mmHg AV Mean Gradient 7 mmHg AV VTI 34 cm AV Area (Cont Eq VTI) 3.0 cm2 >=3.0 AV Area (Cont Eq Daniel) 2.7 cm2 AV Regurgitation 2D LVOT Area 3.3 cm2 Ventricles Name Value Normal LV Dimensions 2D/MM IVS Diastolic Thickness (2D) 0.9 cm 0.6-1.0 IVS Diastole Thickness (MM) 0.8 cm 0.6-0.9 LVID Diastole (2D) 6.4 cm 3.8-5.2 LVID Diastole (MM) 6.9 cm 3.8-5.2 LVIW Diastolic Thickness (2D) 0.9 cm 0.6-0.9 LVIW Diastolic Thickness (MM) 0.8 cm 0.6-0.9 LVID Systole (2D) 4.4 cm 2.2-3.5 LVID Systole (MM) 4.7 cm 2.2-3.5 LVOT Diameter 2.1 cm LV Mass (2D Cubed) 252.90 g 67.00-162.00 LV Mass Index (2D Cubed) 98 g/m2 43-95 Relative Wall Thickness (2D) 0.30 LV Mass (MM Cubed) 238.44 g 67.00-162.00 LV Mass Index (MM Cubed) 92 g/m2 43-95 Relative Wall Thickness (MM) 0.24 LV Fractional Shortening/Ejection Fraction 2D/MM LV Fractional Shortening (2D) 30 % 27-45 LV Fractional Shortening (MM) 32 % 27-45 LV EF (MM Teicholz) 59 % 54-74 LV EF (2D Teicholz) 57 % 54-74 LV Diastolic Volume (4C MOD) 117 ml LV EF (4C MOD) 72 % LV Diastolic Volume (2C MOD) 77 ml LV EF (2C MOD) 69 % LV Diastolic Volume (BP MOD) 95 ml 46-106 LV Diastolic Volume Index (BP MOD) 37 ml/m2 29-61 LV Systolic Volume (BP MOD) 29 ml 14-42 LV Systolic Volume Index (BP MOD) 11 ml/m2 8-24 LV EF (BP MOD) 69 % 54-74 LV Diastolic Length (4C) 8.3 cm LV Systolic Length (4C) 6.8 cm LV Stroke Volume (4C MOD) 85 ml Atria Name Value Normal LA Dimensions LA Dimension (MM) 4.4 cm 2.7-3.8 LA Volume (4C A-L) 123 ml LA Volume (BP A-L) 107 ml RA Dimensions RA Area (4C) 19.2 cm2 <=18.0 Report Signatures
[2023-10-28 07:24] LABS: Glucose Point of Care 100 mg/dl (65-105)
[2023-10-28] MEDS: FLUTICASONE/SALMETEROL 115-21 MCG INHALER 1 PUFF 2 PUFF INHALATION ×2 (09:12→20:35)
[2023-10-28] MEDS: FUROSEMIDE INJ 40 MG/4 ML VIAL IV PUSH ×2 (09:34→20:38)
[2023-10-28] MEDS: CYANOCOBALAMIN 1,000 MCG TABLET 1000 MCG PO (09:35)
[2023-10-28] MEDS: FERROUS SULFATE 325 MG TABLET DR PO (09:35)
[2023-10-28] MEDS: SACUBITRIL/VALSARTAN 24-26 MG TABLET 1 TAB PO ×2 (09:35→20:40)
[2023-10-28] MEDS: allopurinoL 100 MG TABLET PO (09:35)
[2023-10-28] MEDS: GABAPENTIN 300 MG CAPSULE 600 MG PO ×2 (09:35→17:12)
[2023-10-28] MEDS: ENOXAPARIN 40 MG/0.4 ML SYRINGE SUB-Q (09:35)
[2023-10-28] MEDS: methylPREDNISolone SOD SUCC 125 MG VIAL 40 MG IV PUSH ×3 (09:38→20:37)
[2023-10-28 11:19] LABS: Glucose Point of Care 147 mg/dl (65-105)
[2023-10-28 16:44] LABS: Glucose Point of Care 257 mg/dl (65-105)
[2023-10-28] MEDS: TOLNAFTATE 1% POWDER 45 GM BTL 1 APPLIC TOPICAL ×2 (17:12→20:44)
[2023-10-28] MEDS: THERAPEUTIC MULTIVITAMINS/MINERALS TAB (*BKC) 1 TABLET PO (17:12)
[2023-10-28] MEDS: INSULIN ASPART (*BKC) 100 UNITS/ML SUB-Q ×2 (17:15→20:40)
[2023-10-28] MEDS: INSULIN ASPART (*BKC) 100 UNITS/ML 10 UNITS SUB-Q (17:16)
--- NOTE | 2023-10-28 17:17 | P.PNIM_ITS ---
Progress Note: A&P Assessment and Plan (1) Sepsis: Qualifiers: Sepsis type: sepsis due to unspecified organism Sepsis acute organ dysfunction status: with acute organ dysfunction Severe sepsis acute organ dysfunction type: acute respiratory failure Acute respiratory failure type: with hypoxia Severe sepsis shock status: without septic shock Qualified Code(s): A41.9 - Sepsis, unspecified organism; R65.20 - Severe sepsis without septic shock; J96.01 - Acute respiratory failure with hypoxia Code(s): A41.9 - Sepsis, unspecified organism Status: Acute Assessment and Plan: Patient presents for SOB and found to have sepsis with lactic acidosis, fever, tachypnea likely due to pulmonary source. CXR showing mild perihilar and BLL opacities. BCx collected and are NGTD Rocephin and azithromycin started. MRSA PCR positive so vancomycin added. Patient also has chronic wounds on the right heel but do not appear to be acutely infected. WBC normal. Check CRP. Continue abx. Check sputum (2) Acute hypoxic respiratory failure: Code(s): J96.01 - Acute respiratory failure with hypoxia Status: Acute Assessment and Plan: Patient tachypneic, hypoxic and was ill appearing in the ED. ABG showing 7.39/55/66 on 2L. Stable on 2L now and is breathing easier. Repeat ABG in the morning. (3) Pneumonia: Code(s): J18.9 - Pneumonia, unspecified organism Status: Acute Assessment and Plan: As above Wean O2 as tolerated (4) Acute on chronic diastolic congestive heart failure: Code(s): I50.33 - Acute on chronic diastolic (congestive) heart failure Status: Acute Assessment and Plan: CXR could be consistent with CHF exacerbation and BNP was 580. Her weight is up about 10 kg compared to prior hospital stay. Started on IV Lasix. Echo EF 65-70%, Grade I diastolic dysfunction and mild valvular disease. Monitor strict I&O's and daily weights. (5) Chronic kidney disease: Qualifiers: Chronic kidney disease stage: unspecified stage Qualified Code(s): N18.9 - Chronic kidney disease, unspecified Code(s): N18.9 - Chronic kidney disease, unspecified Status: Chronic Assessment and Plan: Cr 1.6 on admission. Baseline is wide ranging (1.3-2.6) but mostly in 1.6-1.8 range. Patinet is at baseline Cr function. Monitor UOP, renal fxn and electrolytes closely while on IV Lasix (6) Type 2 diabetes mellitus: Code(s): E11.9 - Type 2 diabetes mellitus without complications Status: Acute Assessment and Plan: The patient's blood glucose was reviewed on 10/27 Glucose remains reasonably well controlled. Continue AccuCheks covering with sliding scale. Hypoglycemia protocol available as needed. Continue to monitor Plan Code status - full DVT prophylaxis - Lovenox Subjective Date/time seen: 10/28/23 17:17 Interval history: 58yo female with dCHF, pulm HTN, HTN, DM and chronic lymphedema here for shortness of breath Assuming care. Chart reviewed. Having fevers here. Cough is nonproductive. No CP. Feeels SOB. Not eating much Exam Narrative: Tm 101.9 97.5 150/61 80 16 98% 2L Gen - NARD lying semi-recumbent in bed Chest - coarse BS, nml RR CV - RRR S1/S2 Abd - Soft, obese, NT - PureWik in place with clear yellow urine in cannister Ext - Bilateral LE lymphedema Psych - Nml mood and affect Skin - Warm and dry Objective Data Vital Signs Vital Signs: Vital Signs - 24 hr 10/27/23 17:40 10/27/23 19:25 10/27/23 19:25 Temperature 97.4 F L Pulse Rate 84 88 88 Respiratory Rate 22 H 22 H 22 H Blood Pressure 146/72 H Pulse Oximetry 97 94 Oxygen Delivery Nasal Cannula Oxygen Flow Rate 2 Fraction of Inspired Oxygen 10/27/23 19:35 10/27/23 22:00 10/28/23 00:50 Temperature 98.2 F 101.9 F H Pulse Rate 90 95 Respiratory Rate 22 H 30 H Blood Pressure 142/76 H Pulse Oximetry 93 Oxygen Delivery Oxygen Flow Rate Fraction of Inspired Oxygen 10/28/23 00:52 10/28/23 02:07 10/28/23 02:23 Temperature 101.9 F H Pulse Rate 84 87 Respiratory Rate 21 H 21 H Blood Pressure Pulse Oximetry Oxygen Delivery Oxygen Flow Rate Fraction of Inspired Oxygen 10/28/23 00:00 10/28/23 04:00 10/28/23 01:50 Temperature 99.3 F Pulse Rate 96 80 Respiratory Rate Blood Pressure Pulse Oximetry Oxygen Delivery Oxygen Flow Rate Fraction of Inspired Oxygen 10/28/23 06:05 10/28/23 09:13 10/28/23 09:13 Temperature 98.2 F Pulse Rate 80 85 Respiratory Rate 20 22 H Blood Pressure 103/64 Pulse Oximetry 98 94 Oxygen Delivery Nasal Cannula Oxygen Flow Rate 2 Fraction of Inspired Oxygen 28 10/28/23 09:25 10/28/23 09:50 10/28/23 13:30 Temperature Pulse Rate 88 91 87 Respiratory Rate 22 H 22 H Blood Pressure Pulse Oximetry Oxygen Delivery Oxygen Flow Rate Fraction of Inspired Oxygen 10/28/23 13:37 10/28/23 12:00 10/28/23 14:00 Temperature 97.5 F L Pulse Rate 89 73 77 Respiratory Rate 22 H 16 Blood Pressure 150/61 H Pulse Oximetry 98 Oxygen Delivery Oxygen Flow Rate Fraction of Inspired Oxygen 10/28/23 16:00 Temperature Pulse Rate 80 Respiratory Rate Blood Pressure Pulse Oximetry Oxygen Delivery Oxygen Flow Rate Fraction of Inspired Oxygen Intake/Output Intake/Output: Intake & Output 10/25/23 10/26/23 10/27/23 10/28/23 23:59 23:59 23:59 23:59 Intake Total 50 880 Output Total 350 3400 Balance -300 -2520 Meds/Results Medications: Active Medications Generic Name Dose Route Start Last Admin Trade Name Freq PRN Reason Stop Dose Admin Acetaminophen 650 mg 10/27/23 23:15 10/28/23 00:50 Acetaminophen 325 Mg Tablet PO 650 mg Q4H PRN Administration Pain 1-3 or fever Albuterol/Ipratropium 3 ml 10/28/23 02:00 10/28/23 13:30 Ipratropium 0.5 Mg/Albuterol Sulfate 2.5 Mg Ampul.Neb 3 Ml INHALATION 3 ml Q6HRT ANGELIA Administration Allopurinol 100 mg 10/28/23 09:00 10/28/23 09:35 Allopurinol 100 Mg Tablet PO 100 mg DAILY ANGELIA Administration Atorvastatin Calcium 40 mg 10/28/23 21:00 Atorvastatin 40 Mg Tablet PO HS ANGELIA Cyanocobalamin 1,000 mcg 10/28/23 09:00 10/28/23 09:35 Cyanocobalamin 1,000 Mcg Tablet PO 1,000 mcg QAM ANGELIA Administration Dextrose 12.5 gm 10/27/23 23:14 Dextrose 50% 25 Gm/50 Ml Syringe IV PUSH PRN PRN Hypoglycemia Protocol Enoxaparin Sodium 40 mg 10/28/23 09:00 10/28/23 09:35 Enoxaparin 40 Mg/0.4 Ml Syringe SUB-Q 40 mg DAILY ANGELIA Administration Ferrous Sulfate 325 mg 10/28/23 09:00 10/28/23 09:35 Ferrous Sulfate [address] PO 11/27/23 08:59 325 mg DAILY ANGELIA Administration Furosemide 40 mg 10/27/23 21:00 10/28/23 09:34 Furosemide Inj 40 Mg/4 Ml Vial IV PUSH 40 mg Q12HR ANGELIA Administration Gabapentin 600 mg 10/28/23 09:00 10/28/23 17:12 Gabapentin 300 Mg Capsule PO 600 mg BID ANGELIA Administration Glucagon 1 mg 10/27/23 23:14 Glucagon For Inj 1 Mg Vial IM PRN PRN Hypoglycemia Protocol Glucose 15 gm 10/27/23 23:14 Glucose Oral Gel 15 Gm Of Glucse In 37.5 Gm Tube PO PRN PRN Hypoglycemia Protocol Ceftriaxone Sodium 1 gm in 50 mls @ 100 mls/hr 10/27/23 22:30 10/27/23 23:19 Rocephin 1 Gm/Ns 50 Ml IVPB Infused HS ANGELIA Infusion Azithromycin 500 mg in 250 mls @ 250 mls/hr 10/27/23 22:30 10/27/23 22:51 Zithromax IVPB 250 mls/hr HS ANGELIA Administration Dextrose 1,000 mls @ 100 mls/hr 10/27/23 23:14 Dextrose 5% 1,000 Ml IVPB PRN PRN Hypoglycemia Protocol Vancomycin HCl 1,500 mg in 500 mls @ 250 mls/hr 10/29/23 01:00 Vancomycin 1,500 Mg/Ns 500 Ml IVPB Q24H [facility] Insulin Aspart 3 - 6 units 10/28/23 08:00 10/28/23 09:34 Insulin Aspart (*Bkc) 100 Units/Ml SUB-Q Not Given TIDWM [facility] Protocol Insulin Aspart 1 - 3 units 10/28/23 21:00 Insulin Aspart (*Bkc) 100 Units/Ml SUB-Q HS [facility] Protocol Insulin Aspart 10 units 10/28/23 08:00 Insulin Aspart (*Bkc) 100 Units/Ml SUB-Q 11/27/23 07:59 TIDWM [facility] Insulin Glargine 32 units 10/27/23 23:20 10/28/23 00:55 Insulin Glargine (*Bkc) 100 Units/Ml SUB-Q Not Given HS [facility] Methylprednisolone Sodium Succinate 40 mg 10/28/23 06:00 10/28/23 09:38 Methylprednisolone Sod Succ 125 Mg Vial IV PUSH 40 mg Q8HR ANGELIA Administration Miscellaneous Information 0 each 10/27/23 00:01 Victoza Nonform Okay To Hold Till Discharge? XX 11/26/23 00:00 CLARIFY [facility] Multivitamins/Calcium 1 tablet 10/28/23 12:00 10/28/23 17:12 Therapeutic Multivitamins/Minerals Tab (*Bkc) PO 1 tablet DAILY@1200 ANGELIA Administration Non-Formulary Medication 0.6 mg 10/28/23 09:00 Liraglutide [Victoza 2-Isaias] SUB-Q 11/27/23 08:59 DAILY [facility] Ondansetron HCl 4 mg 10/27/23 15:10 Ondansetron Inj 4 Mg/2 Ml Vial IV PUSH Q4H PRN Nausea Pantoprazole Sodium 40 mg 10/28/23 21:00 Pantoprazole 40 Mg Tablet PO 11/27/23 20:59 HS [facility] Perflutren Lipid Microsphere 0 ml 10/27/23 15:10 Perflutren Lipid Microspheres 1.5 Ml Vial Diluted To 10 Ml Total Volume IV PUSH 10/30/23 15:12 ONCE PRN adequate visualization Protocol Sacubitril/Valsartan 1 tab 10/28/23 09:00 10/28/23 09:35 Sacubitril/Valsartan 24-26 Mg Tablet PO 1 tab Q12HR ANGELIA Administration Fluticasone/Salmeterol 2 puff 10/28/23 08:00 10/28/23 09:12 Fluticasone/Salmeterol 115-21 Mcg Inhaler 1 Puff INHALATION 2 puff Q12HRT ANGELIA Administration Tamsulosin HCl 0.4 mg 10/28/23 21:00 Tamsulosin Hcl 0.4 Mg Capsule PO HS [facility] Tolnaftate 1 applic 10/28/23 09:00 10/28/23 17:12 Tolnaftate 1% Powder 45 Gm Btl TOPICAL 1 applic Q12HR ANGELIA Administration Radiology Results: ITS Impressions Chest X-Ray 10/27/23 12:16 IMPRESSION: 1. Mild perihilar and lower lung predominant opacities most likely congestive heart failure related mild pulmonary edema with differential including pneumonia or atelectasis. 2. Cardiomegaly. Labs Labs: Laboratory Results - last 24 hr 10/27/23 10/27/23 10/27/23 17:34 20:50 22:53 WBC RBC Hgb Hct MCV MCH MCHC RDW Plt Count MPV Immature Gran % (Auto) Neut % (Auto) Lymph % (Auto) [place] % (Auto) Eos % (Auto) Baso % (Auto) Lymph # (Auto) [place] # (Auto) Eos # (Auto) Baso # (Auto) Abs Immat Gran (auto) Absolute Neuts (auto) Absolute Nucleated RBC Nucleated RBC % Sodium Potassium Chloride Carbon Dioxide Anion Gap BUN Creatinine Estim Creat Clear Calc Estimated GFR Glucose POC Capillary Glucose 102 115 H Lactic Acid 2.7 H Calcium Total Bilirubin AST ALT Alkaline Phosphatase Total Protein Albumin Procalcitonin 0.1 Urine Color Urine Appearance Urine pH Ur Specific [place] Urine Protein Urine Glucose (UA) Urine Ketones Ur Blood (Man) Urine Nitrate Urine Bilirubin Urine Urobilinogen Leukocyte Esterase Rfl Urine RBC Urine WBC Ur Squamous Epith Cells Urine Bacteria Urine Casts Nasal MRSA (PCR) 10/27/23 10/28/23 10/28/23 22:59 02:21 07:21 WBC 8.1 RBC 3.25 L Hgb 9.6 L Hct 31.0 L MCV 95.4 MCH 29.5 MCHC 31.0 L RDW 19.1 H Plt Count 166 MPV 9.2 Immature Gran % (Auto) 0.6 H Neut % (Auto) 83.9 H Lymph % (Auto) 9.0 L [place] % (Auto) 5.6 Eos % (Auto) 0.7 Baso % (Auto) 0.2 Lymph # (Auto) 0.73 L [place] # (Auto) 0.5 Eos # (Auto) 0.1 Baso # (Auto) 0.0 Abs Immat Gran (auto) 0.05 H Absolute Neuts (auto) 6.8 H Absolute Nucleated RBC 0.000 Nucleated RBC % 0.0 Sodium 138 Potassium 4.5 Chloride 99 Carbon Dioxide 36 H Anion Gap 3 L BUN 40 H Creatinine 1.60 H Estim Creat Clear Calc 50 Estimated GFR 33 L Glucose 126 H POC Capillary Glucose 100 Lactic Acid 1.6 Calcium 8.6 Total Bilirubin 0.4 AST 18 ALT 16 Alkaline Phosphatase 80 Total Protein 7.0 Albumin 3.4 L Procalcitonin Urine Color Yellow Urine Appearance Cloudy H Urine pH 7.0 Ur Specific [place] 1.008 Urine Protein 1+ H Urine Glucose (UA) Negative Urine Ketones Negative Ur Blood (Man) Negative Urine Nitrate Negative Urine Bilirubin Negative Urine Urobilinogen 0.2 Leukocyte Esterase Rfl 2+ H Urine RBC 0-2 Urine WBC 21-50 H Ur Squamous Epith Cells Few Urine Bacteria 4+ Urine Casts 0-2 Nasal MRSA (PCR) Detected A* 10/28/23 10/28/23 11:16 16:37 WBC RBC Hgb Hct MCV MCH MCHC RDW Plt Count MPV Immature Gran % (Auto) Neut % (Auto) Lymph % (Auto) [place] % (Auto) Eos % (Auto) Baso % (Auto) Lymph # (Auto) [place] # (Auto) Eos # (Auto) Baso # (Auto) Abs Immat Gran (auto) Absolute Neuts (auto) Absolute Nucleated RBC Nucleated RBC % Sodium Potassium Chloride Carbon Dioxide Anion Gap BUN Creatinine Estim Creat Clear Calc Estimated GFR Glucose POC Capillary Glucose 147 H 257 H Lactic Acid Calcium Total Bilirubin AST ALT Alkaline Phosphatase Total Protein Albumin Procalcitonin Urine Color Urine Appearance Urine pH Ur Specific [place] Urine Protein Urine Glucose (UA) Urine Ketones Ur Blood (Man) Urine Nitrate Urine Bilirubin Urine Urobilinogen Leukocyte Esterase Rfl Urine RBC Urine WBC Ur Squamous Epith Cells Urine Bacteria Urine Casts Nasal MRSA (PCR)
[2023-10-28] MEDS: ATORVASTATIN 40 MG TABLET PO (20:40)
[2023-10-28] MEDS: PANTOPRAZOLE 40 MG TABLET PO (20:40)
[2023-10-28] MEDS: TAMSULOSIN HCL 0.4 MG CAPSULE PO (20:40)
[2023-10-28] MEDS: INSULIN GLARGINE (*BKC) 100 UNITS/ML 32 UNITS SUB-Q (20:42)
[2023-10-28] MEDS: AZITHROMYCIN 500 MG/NS 250 ML 500 MG/250 ML BAG 250 MG IVPB (20:43)
[2023-10-28 21:36] LABS: Glucose Point of Care 229 mg/dl (65-105)
[2023-10-29] VITALS (17 sets, daily range): BP systolic 124–130; BP diastolic 48–60; PULSE 64–81; RESP 16–22; TEMP 36.1–36.4; O2SAT 95–98
[2023-10-29] MEDS: VANCOMYCIN 1,500 MG/NS 500 ML 1,500 MG/500 ML BAG 250 MG IVPB (01:00)
[2023-10-29] MEDS: IPRATROPIUM 0.5 MG/ALBUTEROL SULFATE 2.5 MG AMPUL.NEB 3 ML INHALATION ×4 (03:20→20:13)
[2023-10-29] MEDS: methylPREDNISolone SOD SUCC 125 MG VIAL 40 MG IV PUSH ×3 (05:20→20:32)
[2023-10-29 06:15] LABS: Alveolar/Arterial O2 Gradient 24.7 mmHg; Base Excess ABG 8.9 mEq/l (+/-2.0); Fractional Inspired Oxygen 28 %; HCO3 ABG 34.9 mEq/l (22.0-26.0); Oxygen Content ABG 13.3 %vol (16.0-22.0); Oxygen Saturation ABG 97.9 % (95.0-100.0); Oxyhemoglobin 95.9 % THb (90.0-100.0); PCO2 ABG 56.2 mmHg (35.0-45.0); PO2 ABG 108.6 mmHg (80.0-100.0); PO2 FiO2 Ratio Arterial Blood 3.88 %; Total Hemoglobin 9.7 g/dL (12.0-18.0); pH ABG 7.411 (7.350-7.450)
[2023-10-29 06:16] LABS: Device NASAL CANNULA; Modified Allen's Test Pass; Site Drawn LEFT RADIAL
[2023-10-29 06:48] LABS: Basophils Percent Auto 0.1 % (0.2-1.2); Hematocrit 30.8 % (37.0-47.0); Hemoglobin 9.4 g/dL (12.0-15.0); Immature Granulocyte Absolute 0.05 K/mm3 (0.00-0.031); Immature Granulocyte Percent A 0.6 % (0-0.5); Lymphocytes Absolute Auto 0.75 K/mm3 (0.9-3.2); Lymphocytes Percent Auto 9.2 % (18.3-44.2); Mean Corpuscular HGB Conc 30.5 g/dl (32-36); Mean Corpuscular Hemoglobin 29.6 pg (26-34); Mean Corpuscular Volume 96.9 fl (80-100); Mean Platelet Volume 10.2 fl (7.4-10.4); Monocytes Absolute Auto 0.2 K/mm3 (0.1-0.6); Monocytes Percent Auto 2.9 % (2.6-8.5); Neutrophils Absolute Auto 7.1 K/mm3 (1.3-6.7); Neutrophils Percent Auto 87.2 % (45.5-73.1); Platelet Count Result 180 k/mm3 (150-375); Red Blood Count 3.18 M/mm3 (4.2-5.4); Red Cell Distribution Width 18.4 % (11.5-14.5); White Blood Count 8.2 K/mm3 (4.5-10.0)
[2023-10-29 07:01] LABS: Albumin Level 3.5 g/dL (3.5-5.1); Anion Gap 4 mmol/L (4-12); Blood Urea Nitrogen 45 mg/dL (7-17); Calcium 8.9 mg/dL (8.4-10.2); Carbon Dioxide 36 mmol/L (22-30); Chloride 99 mmol/L (98-107); Estimated CRCL calculation 50 ml/min; Estimated Glomerular Filt Rate 33; Glucose 304 mg/dL (65-110); Magnesium 2.2 mg/dL (1.6-2.3); Phosphorus 5.5 mg/dL (2.5-4.5); Potassium 4.4 mmol/L (3.4-5.0); Sodium 139 mmol/L (137-145)
[2023-10-29 07:38] LABS: CRP 15.7 mg/dL (<1.0)
[2023-10-29 07:47] LABS: Glucose Point of Care 278 mg/dl (65-105)
[2023-10-29] MEDS: FLUTICASONE/SALMETEROL 115-21 MCG INHALER 1 PUFF 2 PUFF INHALATION ×2 (07:49→20:13)
[2023-10-29] MEDS: GABAPENTIN 300 MG CAPSULE 600 MG PO ×2 (07:59→16:55)
[2023-10-29] MEDS: FUROSEMIDE INJ 40 MG/4 ML VIAL IV PUSH ×2 (07:59→20:04)
[2023-10-29] MEDS: allopurinoL 100 MG TABLET PO (07:59)
[2023-10-29] MEDS: FERROUS SULFATE 325 MG TABLET DR PO (07:59)
[2023-10-29] MEDS: CYANOCOBALAMIN 1,000 MCG TABLET 1000 MCG PO (07:59)
[2023-10-29] MEDS: ENOXAPARIN 40 MG/0.4 ML SYRINGE SUB-Q (07:59)
[2023-10-29] MEDS: SACUBITRIL/VALSARTAN 24-26 MG TABLET 1 TAB PO ×2 (07:59→20:04)
[2023-10-29] MEDS: INSULIN ASPART (*BKC) 100 UNITS/ML 10 UNITS SUB-Q ×3 (08:00→16:57)
[2023-10-29] MEDS: TOLNAFTATE 1% POWDER 45 GM BTL 1 APPLIC TOPICAL ×2 (08:00→20:32)
[2023-10-29] MEDS: INSULIN ASPART (*BKC) 100 UNITS/ML SUB-Q ×4 (08:00→20:06)
--- NOTE | 2023-10-29 08:55 | ADMGEN ---
This patient, Talia Peralta, was admitted to 3 [facility] Surg Room 317-01. Patient/family oriented to hospital policies and general routines including ID bracelet, bed and alarms, visiting hours, pain management, procedures, bathroom and other care routines, personal items, smoking policy, room service/diet, and visiting hours. Information on how to activate the Rapid Response Team has been discussed. Patient/Family are encouraged to report perceived risks to care and to ask questions if they do not understand what they are told or what they should do.
[2023-10-29 11:23] LABS: Glucose Point of Care 253 mg/dl (65-105)
[2023-10-29] MEDS: THERAPEUTIC MULTIVITAMINS/MINERALS TAB (*BKC) 1 TABLET PO (11:41)
--- NOTE | 2023-10-29 13:17 | P.PNIM_ITS ---
Progress Note: A&P Assessment and Plan (1) Sepsis: Qualifiers: Acute respiratory failure type: with hypoxia Sepsis acute organ dysfunction status: with acute organ dysfunction Sepsis type: sepsis due to unspecified organism Severe sepsis acute organ dysfunction type: acute respiratory failure Severe sepsis shock status: without septic shock Qualified Code(s): A41.9 - Sepsis, unspecified organism; R65.20 - Severe sepsis without septic shock; J96.01 - Acute respiratory failure with hypoxia Code(s): A41.9 - Sepsis, unspecified organism Status: Acute Assessment and Plan: Patient presents for SOB and found to have sepsis with lactic acidosis, fever, tachypnea likely due to pulmonary source. CXR showing mild perihilar and BLL opacities. BCx are NGTD Rocephin and azithromycin started. MRSA PCR positive so vancomycin added. Patient also has chronic wounds on the right heel but do not appear to be acutely infected. WBC normal but CRP 16. Sputum pending Abx adjusted to Rocephin and Doxy. Continue abx. (2) Acute hypoxic respiratory failure: Code(s): J96.01 - Acute respiratory failure with hypoxia Status: Acute Assessment and Plan: Patient tachypneic, hypoxic and was ill appearing in the ED. ABG showing 7.39/55/66 on 2L. Stable on 2L now and is breathing easier. Repeat ABG 7.41/56/108 2L (3) Pneumonia: Code(s): J18.9 - Pneumonia, unspecified organism Status: Acute Assessment and Plan: As above Wean O2 as tolerated (4) Acute on chronic diastolic congestive heart failure: Code(s): I50.33 - Acute on chronic diastolic (congestive) heart failure Status: Acute Assessment and Plan: CXR could be consistent with CHF exacerbation and BNP was 580. Her weight is up about 10 kg compared to prior hospital stay. Started on IV Lasix. Echo EF 65-70%, Grade I diastolic dysfunction and mild valvular disease. Negative fluid balance of -4.7kg Monitor strict I&O's and daily weights. (5) Chronic kidney disease: Qualifiers: Chronic kidney disease stage: unspecified stage Qualified Code(s): N18.9 - Chronic kidney disease, unspecified Code(s): N18.9 - Chronic kidney disease, unspecified Status: Chronic Assessment and Plan: Cr 1.6 on admission. Baseline is wide ranging (1.3-2.6) but mostly in 1.6-1.8 range. Patient is at baseline Cr function. Monitor UOP, renal fxn and electrolytes closely while on IV Lasix (6) Type 2 diabetes mellitus: Code(s): E11.9 - Type 2 diabetes mellitus without complications Status: Acute Assessment and Plan: The patient's blood glucose was reviewed on 10/28 Glucose remains elevated Continue AccuCheks covering with sliding scale. Hypoglycemia protocol available as needed. Continue to monitor (7) UTI (urinary tract infection): Qualifiers: Urinary tract infection type: acute cystitis Hematuria presence: without hematuria Qualified Code(s): N30.00 - Acute cystitis without hematuria Code(s): N39.0 - Urinary tract infection, site not specified Status: Acute Assessment and Plan: UA is consistent with UTI. UCx collected. Rocephin started. UCx growing EColi. Follow up on UCx results. Plan Code status - full DVT prophylaxis - Lovenox Subjective Date/time seen: 10/29/23 13:17 Interval history: 58yo female with dCHF, pulm HTN, HTN, DM and chronic lymphedema here for shortness of breath Feeling better today. Her cough is nonproductive. Cough does cause shortness of breath and some chest discomfort. She is eating well. Exam Narrative: AF 97.0 130/56 76 20 96% 2L Gen - NARD Chest -expiratory wheezes anteriorly CV - RRR S1/S2 Abd - Soft, obese, NT Ext - Bilateral LE lymphedema with pitting and nonpitting edema Psych - Nml mood and affect Skin - Warm and dry Objective Data Vital Signs Vital Signs: Vital Signs - 24 hr 10/28/23 13:30 10/28/23 13:37 10/28/23 14:00 Temperature 97.5 F L Pulse Rate 87 89 77 Respiratory Rate 22 H 22 H 16 Blood Pressure 150/61 H Pulse Oximetry 98 Oxygen Delivery Oxygen Flow Rate 10/28/23 16:00 10/28/23 20:38 10/28/23 20:57 Temperature Pulse Rate 80 68 Respiratory Rate 20 Blood Pressure Pulse Oximetry 96 Oxygen Delivery Nasal Cannula Oxygen Flow Rate 2 10/28/23 20:50 10/28/23 22:00 10/29/23 03:33 Temperature 97.5 F L Pulse Rate 70 74 67 Respiratory Rate 20 20 20 Blood Pressure 152/88 H Pulse Oximetry 96 Oxygen Delivery Oxygen Flow Rate 10/29/23 03:40 10/29/23 04:36 10/28/23 20:00 Temperature 97 F L Pulse Rate 70 69 67 Respiratory Rate 20 22 H Blood Pressure 130/56 L Pulse Oximetry 96 Oxygen Delivery Oxygen Flow Rate 10/29/23 00:00 10/29/23 04:00 10/29/23 07:49 Temperature Pulse Rate 81 77 Respiratory Rate Blood Pressure Pulse Oximetry 96 Oxygen Delivery Nasal Cannula Oxygen Flow Rate 2 10/29/23 07:49 10/29/23 08:00 10/29/23 08:00 Temperature Pulse Rate 70 75 Respiratory Rate 20 20 Blood Pressure Pulse Oximetry 96 Oxygen Delivery Nasal Cannula Oxygen Flow Rate 2 10/29/23 08:00 10/29/23 12:00 Temperature Pulse Rate 71 76 Respiratory Rate Blood Pressure Pulse Oximetry Oxygen Delivery Oxygen Flow Rate Intake/Output Intake/Output: Intake & Output 10/26/23 10/27/23 10/28/23 10/29/23 23:59 23:59 23:59 23:59 Intake Total 300 1120 360 Output Total 350 3400 2550 Balance -50 -2280 -2190 Meds/Results Medications: Active Medications Generic Name Dose Route Start Last Admin Trade Name Rodrigueq PRN Reason Stop Dose Admin Acetaminophen 650 mg 10/27/23 23:15 10/28/23 00:50 Acetaminophen 325 Mg Tablet PO 650 mg Q4H PRN Administration Pain 1-3 or fever Albuterol/Ipratropium 3 ml 10/28/23 02:00 10/29/23 07:49 Ipratropium 0.5 Mg/Albuterol Sulfate 2.5 Mg Ampul.Neb 3 Ml INHALATION 3 ml Q6HRT ANGELIA Administration Allopurinol 100 mg 10/28/23 09:00 10/29/23 07:59 Allopurinol 100 Mg Tablet PO 100 mg DAILY ANGELIA Administration Atorvastatin Calcium 40 mg 10/28/23 21:00 10/28/23 20:40 Atorvastatin 40 Mg Tablet PO 40 mg HS ANGELIA Administration Cyanocobalamin 1,000 mcg 10/28/23 09:00 10/29/23 07:59 Cyanocobalamin 1,000 Mcg Tablet PO 1,000 mcg QAM ANGELIA Administration Dextrose 12.5 gm 10/27/23 23:14 Dextrose 50% 25 Gm/50 Ml Syringe IV PUSH PRN PRN Hypoglycemia Protocol Doxycycline Hyclate 100 mg 10/29/23 21:00 Doxycycline Hyclate 100 Mg Tablet PO 11/03/23 21:01 Q12HR ANGELIA Enoxaparin Sodium 40 mg 10/28/23 09:00 10/29/23 07:59 Enoxaparin 40 Mg/0.4 Ml Syringe SUB-Q 40 mg DAILY ANGELIA Administration Ferrous Sulfate 325 mg 10/28/23 09:00 10/29/23 07:59 Ferrous Sulfate [address] PO 11/27/23 08:59 325 mg DAILY ANGELIA Administration Furosemide 40 mg 10/27/23 21:00 10/29/23 07:59 Furosemide Inj 40 Mg/4 Ml Vial IV PUSH 40 mg Q12HR ANGELIA Administration Gabapentin 600 mg 10/28/23 09:00 10/29/23 07:59 Gabapentin 300 Mg Capsule PO 600 mg BID ANGELIA Administration Glucagon 1 mg 10/27/23 23:14 Glucagon For Inj 1 Mg Vial IM PRN PRN Hypoglycemia Protocol Glucose 15 gm 10/27/23 23:14 Glucose Oral Gel 15 Gm Of Glucse In 37.5 Gm Tube PO PRN PRN Hypoglycemia Protocol Ceftriaxone Sodium 1 gm in 50 mls @ 100 mls/hr 10/27/23 22:30 10/28/23 20:44 Rocephin 1 Gm/Ns 50 Ml IVPB 100 mls/hr HS ANGELIA Administration Dextrose 1,000 mls @ 100 mls/hr 10/27/23 23:14 Dextrose 5% 1,000 Ml IVPB PRN PRN Hypoglycemia Protocol Insulin Aspart 3 - 6 units 10/28/23 08:00 10/29/23 11:41 Insulin Aspart (*Bkc) 100 Units/Ml SUB-Q 4 units TIDWM ANGELIA Administration Protocol Insulin Aspart 1 - 3 units 10/28/23 21:00 10/28/23 20:40 Insulin Aspart (*Bkc) 100 Units/Ml SUB-Q 1 units HS ANGELIA Administration Protocol Insulin Aspart 10 units 10/28/23 08:00 10/29/23 11:41 Insulin Aspart (*Bkc) 100 Units/Ml SUB-Q 11/27/23 07:59 10 units TIDWM ANGELIA Administration Insulin Glargine 32 units 10/27/23 23:20 10/28/23 20:42 Insulin Glargine (*Bkc) 100 Units/Ml SUB-Q 32 units HS ANGELIA Administration Methylprednisolone Sodium Succinate 40 mg 10/28/23 06:00 10/29/23 13:05 Methylprednisolone Sod Succ 125 Mg Vial IV PUSH 40 mg Q8HR ANGELIA Administration Miscellaneous Information 0 each 10/27/23 00:01 10/29/23 07:42 Victoza Nonform Okay To Hold Till Discharge? XX 11/26/23 00:00 Not Given CLARIFY ANGELIA Multivitamins/Calcium 1 tablet 10/28/23 12:00 10/29/23 11:41 Therapeutic Multivitamins/Minerals Tab (*Bkc) PO 1 tablet DAILY@1200 ANGELIA Administration Non-Formulary Medication 0.6 mg 10/28/23 09:00 Liraglutide [Victoza 2-Isaias] SUB-Q 11/27/23 08:59 DAILY ANGELIA Ondansetron HCl 4 mg 10/27/23 15:10 Ondansetron Inj 4 Mg/2 Ml Vial IV PUSH Q4H PRN Nausea Pantoprazole Sodium 40 mg 10/28/23 21:00 10/28/23 20:40 Pantoprazole 40 Mg Tablet PO 11/27/23 20:59 40 mg HS ANGELIA Administration Perflutren Lipid Microsphere 0 ml 10/27/23 15:10 Perflutren Lipid Microspheres 1.5 Ml Vial Diluted To 10 Ml Total Volume IV PUSH 10/30/23 15:12 ONCE PRN adequate visualization Protocol Sacubitril/Valsartan 1 tab 10/28/23 09:00 10/29/23 07:59 Sacubitril/Valsartan 24-26 Mg Tablet PO 1 tab Q12HR ANGELIA Administration Fluticasone/Salmeterol 2 puff 10/28/23 08:00 10/29/23 07:49 Fluticasone/Salmeterol 115-21 Mcg Inhaler 1 Puff INHALATION 2 puff Q12HRT ANGELIA Administration Tamsulosin HCl 0.4 mg 10/28/23 21:00 10/28/23 20:40 Tamsulosin Hcl 0.4 Mg Capsule PO 0.4 mg HS ANGELIA Administration Tolnaftate 1 applic 10/28/23 09:00 10/29/23 08:00 Tolnaftate 1% Powder 45 Gm Btl TOPICAL 1 applic Q12HR ANGELIA Administration Radiology Results: ITS Impressions Chest X-Ray 10/27/23 12:16 IMPRESSION: 1. Mild perihilar and lower lung predominant opacities most likely congestive heart failure related mild pulmonary edema with differential including pneumonia or atelectasis. 2. Cardiomegaly. Labs Labs: Laboratory Results - last 24 hr 10/28/23 10/28/23 10/29/23 16:37 20:36 05:48 WBC RBC Hgb Hct MCV MCH MCHC RDW Plt Count MPV Immature Gran % (Auto) Neut % (Auto) Lymph % (Auto) [place] % (Auto) Eos % (Auto) Baso % (Auto) Lymph # (Auto) [place] # (Auto) Eos # (Auto) Baso # (Auto) Abs Immat Gran (auto) Absolute Neuts (auto) Absolute Nucleated RBC Nucleated RBC % Puncture Site Left radial ABG pH 7.411 ABG pCO2 56.2 H ABG pO2 108.6 H ABG PO2/FiO2 Ratio 3.88 ABG HCO3 34.9 H ABG O2 Saturation 97.9 ABG O2 Content 13.3 L ABG Base Excess 8.9 A-a Gradient 24.7 Oxyhemoglobin 95.9 Total Hemoglobin 9.7 L O2 Delivery Device Nasal cannula O2 Liters/Min 2.0 FiO2 28 Sodium Potassium Chloride Carbon Dioxide Anion Gap BUN Creatinine Estim Creat Clear Calc Estimated GFR Glucose POC Capillary Glucose 257 H 229 H Calcium Phosphorus Magnesium C-Reactive Protein Albumin 10/29/23 10/29/23 10/29/23 06:01 07:44 11:00 WBC 8.2 RBC 3.18 L Hgb 9.4 L Hct 30.8 L MCV 96.9 MCH 29.6 MCHC 30.5 L RDW 18.4 H Plt Count 180 MPV 10.2 Immature Gran % (Auto) 0.6 H Neut % (Auto) 87.2 H Lymph % (Auto) 9.2 L [place] % (Auto) 2.9 Eos % (Auto) 0.0 Baso % (Auto) 0.1 L Lymph # (Auto) 0.75 L [place] # (Auto) 0.2 Eos # (Auto) 0.0 Baso # (Auto) 0.0 Abs Immat Gran (auto) 0.05 H Absolute Neuts (auto) 7.1 H Absolute Nucleated RBC 0.000 Nucleated RBC % 0.0 Puncture Site ABG pH ABG pCO2 ABG pO2 ABG PO2/FiO2 Ratio ABG HCO3 ABG O2 Saturation ABG O2 Content ABG Base Excess A-a Gradient Oxyhemoglobin Total Hemoglobin O2 Delivery Device O2 Liters/Min FiO2 Sodium 139 Potassium 4.4 Chloride 99 Carbon Dioxide 36 H Anion Gap 4 BUN 45 H Creatinine 1.60 H Estim Creat Clear Calc 50 Estimated GFR 33 L Glucose 304 H POC Capillary Glucose 278 H 253 H Calcium 8.9 Phosphorus 5.5 H Magnesium 2.2 C-Reactive Protein 15.7 H Albumin 3.5
[2023-10-29 16:58] LABS: Glucose Point of Care 211 mg/dl (65-105)
[2023-10-29] MEDS: ATORVASTATIN 40 MG TABLET PO (20:04)
[2023-10-29] MEDS: PANTOPRAZOLE 40 MG TABLET PO (20:04)
[2023-10-29] MEDS: DOXYCYCLINE HYCLATE 100 MG TABLET PO (20:05)
[2023-10-29] MEDS: TAMSULOSIN HCL 0.4 MG CAPSULE PO (20:05)
[2023-10-29 20:07] LABS: Glucose Point of Care 222 mg/dl (65-105)
[2023-10-29] MEDS: INSULIN GLARGINE (*BKC) 100 UNITS/ML 32 UNITS SUB-Q (20:08)
[2023-10-30] VITALS (10 sets, daily range): BP systolic 120–128; BP diastolic 53–57; PULSE 63–86; RESP 12–19; TEMP 36.2–36.7; O2SAT 94–98
[2023-10-30] MEDS: IPRATROPIUM 0.5 MG/ALBUTEROL SULFATE 2.5 MG AMPUL.NEB 3 ML INHALATION ×3 (02:38→13:34)
[2023-10-30 06:48] LABS: Basophils Percent Auto 0.1 % (0.2-1.2); Hematocrit 29.2 % (37.0-47.0); Hemoglobin 8.8 g/dL (12.0-15.0); Immature Granulocyte Absolute 0.05 K/mm3 (0.00-0.031); Immature Granulocyte Percent A 0.5 % (0-0.5); Lymphocytes Absolute Auto 1.26 K/mm3 (0.9-3.2); Lymphocytes Percent Auto 11.6 % (18.3-44.2); Mean Corpuscular HGB Conc 30.1 g/dl (32-36); Mean Corpuscular Hemoglobin 29.1 pg (26-34); Mean Corpuscular Volume 96.7 fl (80-100); Mean Platelet Volume 10.1 fl (7.4-10.4); Monocytes Absolute Auto 0.6 K/mm3 (0.1-0.6); Monocytes Percent Auto 5.9 % (2.6-8.5); Neutrophils Absolute Auto 8.9 K/mm3 (1.3-6.7); Neutrophils Percent Auto 81.9 % (45.5-73.1); Platelet Count Result 195 k/mm3 (150-375); Red Blood Count 3.02 M/mm3 (4.2-5.4); Red Cell Distribution Width 18.5 % (11.5-14.5); White Blood Count 10.9 K/mm3 (4.5-10.0)
[2023-10-30] MEDS: methylPREDNISolone SOD SUCC 125 MG VIAL 40 MG IV PUSH (06:50)
[2023-10-30 07:07] LABS: Glucose Point of Care 228 mg/dl (65-105)
[2023-10-30 07:18] LABS: Anion Gap 2 mmol/L (4-12); Blood Urea Nitrogen 56 mg/dL (7-17); CRP 6.1 mg/dL (<1.0); Calcium 8.7 mg/dL (8.4-10.2); Carbon Dioxide 37 mmol/L (22-30); Chloride 101 mmol/L (98-107); Estimated CRCL calculation 44 ml/min; Estimated Glomerular Filt Rate 29; Glucose 212 mg/dL (65-110); Potassium 4.1 mmol/L (3.4-5.0); Sodium 140 mmol/L (137-145)
[2023-10-30] MEDS: FLUTICASONE/SALMETEROL 115-21 MCG INHALER 1 PUFF 2 PUFF INHALATION (07:24)
[2023-10-30] MEDS: ENOXAPARIN 40 MG/0.4 ML SYRINGE SUB-Q (08:37)
[2023-10-30] MEDS: GABAPENTIN 300 MG CAPSULE 600 MG PO ×2 (08:37→17:57)
[2023-10-30] MEDS: SACUBITRIL/VALSARTAN 24-26 MG TABLET 1 TAB PO (08:37)
[2023-10-30] MEDS: predniSONE 20 MG TABLET 40 MG PO (08:37)
[2023-10-30] MEDS: FERROUS SULFATE 325 MG TABLET DR PO (08:37)
[2023-10-30] MEDS: CYANOCOBALAMIN 1,000 MCG TABLET 1000 MCG PO (08:37)
[2023-10-30] MEDS: FUROSEMIDE INJ 40 MG/4 ML VIAL IV PUSH (08:37)
[2023-10-30] MEDS: allopurinoL 100 MG TABLET PO (08:38)
[2023-10-30] MEDS: INSULIN ASPART (*BKC) 100 UNITS/ML SUB-Q ×3 (08:38→17:57)
[2023-10-30] MEDS: DOXYCYCLINE HYCLATE 100 MG TABLET PO (08:38)
[2023-10-30] MEDS: INSULIN ASPART (*BKC) 100 UNITS/ML 10 UNITS SUB-Q ×3 (08:40→17:57)
[2023-10-30] MEDS: TOLNAFTATE 1% POWDER 45 GM BTL 1 APPLIC TOPICAL (08:40)
[2023-10-30 11:31] LABS: Glucose Point of Care 267 mg/dl (65-105)
[2023-10-30] MEDS: THERAPEUTIC MULTIVITAMINS/MINERALS TAB (*BKC) 1 TABLET PO (12:06)
--- NOTE | 2023-10-30 14:50 | P.PNIM_ITS ---
Progress Note: A&P Assessment and Plan (1) Sepsis: Qualifiers: Acute respiratory failure type: with hypoxia Sepsis acute organ dysfunction status: with acute organ dysfunction Sepsis type: sepsis due to unspecified organism Severe sepsis acute organ dysfunction type: acute respiratory failure Severe sepsis shock status: without septic shock Qualified Code(s): A41.9 - Sepsis, unspecified organism; R65.20 - Severe sepsis without septic shock; J96.01 - Acute respiratory failure with hypoxia Code(s): A41.9 - Sepsis, unspecified organism Status: Acute Assessment and Plan: Patient presents for SOB and found to have sepsis with lactic acidosis, fever, tachypnea likely due to pulmonary source. CXR showing mild perihilar and BLL opacities. BCx are NGTD Rocephin and azithromycin started. MRSA PCR positive so vancomycin added. Patient also has chronic wounds on the right heel but do not appear to be acutely infected. WBC normal but CRP 16. Sputum no growth Abx adjusted to Rocephin and Doxy. Change Rocephin to Augmentin today to complete a course. Continue abx. (2) Acute hypoxic respiratory failure: Code(s): J96.01 - Acute respiratory failure with hypoxia Status: Acute Assessment and Plan: Patient tachypneic, hypoxic and was ill appearing in the ED. ABG showing 7.39/55/66 on 2L. Stable on 2L now and is breathing easier. Repeat ABG 7.41/56/108 2L She does not wear O2 chronically. Wean O2 as tolerated. (3) Pneumonia: Code(s): J18.9 - Pneumonia, unspecified organism Status: Acute Assessment and Plan: As above Wean O2 as tolerated (4) Acute on chronic diastolic congestive heart failure: Code(s): I50.33 - Acute on chronic diastolic (congestive) heart failure Status: Acute Assessment and Plan: CXR could be consistent with CHF exacerbation and BNP was 580. Her weight is up about 10 kg compared to prior hospital stay. Started on IV Lasix. Echo EF 65-70%, Grade I diastolic dysfunction and mild valvular disease. Negative fluid balance of -4.5L Monitor strict I&O's and daily weights. Okay to stop tele Stop Lasix given the elevated Cr. Change to oral tomorrow (5) Chronic kidney disease: Qualifiers: Chronic kidney disease stage: unspecified stage Qualified Code(s): N18. 9 - Chronic kidney disease, unspecified Code(s): N18.9 - Chronic kidney disease, unspecified Status: Chronic Assessment and Plan: Cr 1.6 on admission. Baseline is wide ranging (1.3-2.6) but mostly in 1.6-1.8 range. Patient is at baseline Cr function. Cr up to 1.8 so getting close to dry weight. Monitor UOP, renal fxn and electrolytes closely while on IV Lasix (6) Type 2 diabetes mellitus: Code(s): E11.9 - Type 2 diabetes mellitus without complications Status: Acute Assessment and Plan: The patient's blood glucose was reviewed on 10/29 Glucose remains elevated due to steroids Continue AccuCheks covering with sliding scale. Hypoglycemia protocol available as needed. Continue to monitor (7) UTI (urinary tract infection): Qualifiers: Hematuria presence: without hematuria Urinary tract infection type: acute cystitis Qualified Code(s): N30.00 - Acute cystitis without hematuria Code(s): N39.0 - Urinary tract infection, site not specified Status: Acute Assessment and Plan: UA is consistent with UTI. UCx collected. Rocephin started. UCx growing EColi. Continue abx. Plan Code status - full DVT prophylaxis - Lovenox Subjective Date/time seen: 10/30/23 14:50 Interval history: 58yo female with dCHF, pulm HTN, HTN, DM and chronic lymphedema here for shortness of breath No problems overnight. Cough better. No CP or SOB. Eating okay. Exam Narrative: AF 98.0 128/57 69 16 96% 2L Gen - NARD Chest - bibasilar crackles. nml RR CV - RRR S1/S2.Tele showing no significant dysrhythmias Abd - Soft, obese, NT Ext - Bilateral LE lymphedema with minimal pitting edema. Psych - Nml mood and affect Skin - Warm and dry Objective Data Vital Signs Vital Signs: Vital Signs - 24 hr 10/29/23 16:00 10/29/23 20:14 10/29/23 20:18 Temperature Pulse Rate 73 68 Respiratory Rate 16 Blood Pressure Pulse Oximetry 95 Oxygen Delivery Nasal Cannula Oxygen Flow Rate 2 10/29/23 20:23 10/29/23 21:07 10/29/23 20:00 Temperature 96.9 F L Pulse Rate 70 68 70 Respiratory Rate 16 16 Blood Pressure 130/48 L Pulse Oximetry 97 Oxygen Delivery Oxygen Flow Rate 10/30/23 00:00 10/30/23 05:12 10/30/23 04:00 Temperature 97.1 F L Pulse Rate 69 63 63 Respiratory Rate 12 Blood Pressure 120/53 L Pulse Oximetry 98 Oxygen Delivery Oxygen Flow Rate 10/30/23 07:25 10/30/23 07:25 10/30/23 07:32 Temperature Pulse Rate 78 73 Respiratory Rate 17 19 Blood Pressure Pulse Oximetry 94 Oxygen Delivery Nasal Cannula Oxygen Flow Rate 2 10/30/23 08:00 10/30/23 08:00 10/30/23 13:30 Temperature Pulse Rate 71 86 Respiratory Rate 18 Blood Pressure Pulse Oximetry 94 Oxygen Delivery Nasal Cannula Oxygen Flow Rate 2 10/30/23 13:39 10/30/23 13:39 Temperature 98.0 F Pulse Rate 69 82 Respiratory Rate 16 18 Blood Pressure 128/57 L Pulse Oximetry 96 Oxygen Delivery Oxygen Flow Rate Intake/Output Intake/Output: Intake & Output 10/27/23 10/28/23 10/29/23 10/30/23 23:59 23:59 23:59 23:59 Intake Total 300 1170 1490 1230 Output Total 350 3400 3850 1100 Balance -50 -0254 -8644 130 Meds/Results Medications: Active Medications Generic Name Dose Route Start Last Admin Trade Name Freq PRN Reason Stop Dose Admin Acetaminophen 650 mg 10/27/23 23:15 10/28/23 00:50 Acetaminophen 325 Mg Tablet PO 650 mg Q4H PRN Administration Pain 1-3 or fever Albuterol/Ipratropium 3 ml 10/28/23 02:00 10/30/23 13:34 Ipratropium 0.5 Mg/Albuterol Sulfate 2.5 Mg Ampul.Neb 3 Ml INHALATION 3 ml Q6HRT ANGELIA Administration Allopurinol 100 mg 10/28/23 09:00 10/30/23 08:38 Allopurinol 100 Mg Tablet PO 100 mg DAILY ANGELIA Administration Amoxicillin/Clavulanate Potassium 1 tablet 10/30/23 21:00 Amoxicillin/Clavulanate K 875-125 Mg Tab PO 11/03/23 09:01 Q12HR ANGELIA Atorvastatin Calcium 40 mg 10/28/23 21:00 10/29/23 20:04 Atorvastatin 40 Mg Tablet PO 40 mg HS ANGELIA Administration Cyanocobalamin 1,000 mcg 10/28/23 09:00 10/30/23 08:37 Cyanocobalamin 1,000 Mcg Tablet PO 1,000 mcg QAM ANGELIA Administration Dextrose 12.5 gm 10/27/23 23:14 Dextrose 50% 25 Gm/50 Ml Syringe IV PUSH PRN PRN Hypoglycemia Protocol Doxycycline Hyclate 100 mg 10/29/23 21:00 10/30/23 08:38 Doxycycline Hyclate 100 Mg Tablet PO 11/03/23 21:01 100 mg Q12HR ANGELIA Administration Enoxaparin Sodium 40 mg 10/28/23 09:00 10/30/23 08:37 Enoxaparin 40 Mg/0.4 Ml Syringe SUB-Q 40 mg DAILY ANGELIA Administration Ferrous Sulfate 325 mg 10/28/23 09:00 10/30/23 08:37 Ferrous Sulfate [address] PO 11/27/23 08:59 325 mg DAILY ANGELIA Administration Furosemide 40 mg 10/27/23 21:00 10/30/23 08:37 Furosemide Inj 40 Mg/4 Ml Vial IV PUSH 40 mg Q12HR ANGELIA Administration Gabapentin 600 mg 10/28/23 09:00 10/30/23 08:37 Gabapentin 300 Mg Capsule PO 600 mg BID ANGELIA Administration Glucagon 1 mg 10/27/23 23:14 Glucagon For Inj 1 Mg Vial IM PRN PRN Hypoglycemia Protocol Glucose 15 gm 10/27/23 23:14 Glucose Oral Gel 15 Gm Of Glucse In 37.5 Gm Tube PO PRN PRN Hypoglycemia Protocol Dextrose 1,000 mls @ 100 mls/hr 10/27/23 23:14 Dextrose 5% 1,000 Ml IVPB PRN PRN Hypoglycemia Protocol Insulin Aspart 3 - 6 units 10/28/23 08:00 10/30/23 12:06 Insulin Aspart (*Bkc) 100 Units/Ml SUB-Q 4 units TIDWM ANGELIA Administration Protocol Insulin Aspart 1 - 3 units 10/28/23 21:00 10/29/23 20:06 Insulin Aspart (*Bkc) 100 Units/Ml SUB-Q 1 units HS ANGELIA Administration Protocol Insulin Aspart 10 units 10/28/23 08:00 10/30/23 12:06 Insulin Aspart (*Bkc) 100 Units/Ml SUB-Q 11/27/23 07:59 10 units TIDWM ANGELIA Administration Insulin Glargine 32 units 10/27/23 23:20 10/29/23 20:08 Insulin Glargine (*Bkc) 100 Units/Ml SUB-Q 32 units HS [facility] Administration Multivitamins/Calcium 1 tablet 10/28/23 12:00 10/30/23 12:06 Therapeutic Multivitamins/Minerals Tab (*Bkc) PO 1 tablet DAILY@1200 ANGELIA Administration Non-Formulary Medication 0.6 mg 10/28/23 09:00 10/30/23 12:39 Liraglutide [Victoza 2-Isaias] SUB-Q 11/27/23 08:59 Not Given DAILY [facility] Ondansetron HCl 4 mg 10/27/23 15:10 Ondansetron Inj 4 Mg/2 Ml Vial IV PUSH Q4H PRN Nausea Pantoprazole Sodium 40 mg 10/28/23 21:00 10/29/23 20:04 Pantoprazole 40 Mg Tablet PO 11/27/23 20:59 40 mg HS [facility] Administration Perflutren Lipid Microsphere 0 ml 10/27/23 15:10 Perflutren Lipid Microspheres 1.5 Ml Vial Diluted To 10 Ml Total Volume IV PUSH 10/30/23 15:12 ONCE PRN adequate visualization Protocol Prednisone 40 mg 10/30/23 08:00 10/30/23 08:37 Prednisone 20 Mg Tablet PO 11/02/23 08:01 40 mg DAILY@0800 [facility] Administration Sacubitril/Valsartan 1 tab 10/28/23 09:00 10/30/23 08:37 Sacubitril/Valsartan 24-26 Mg Tablet PO 1 tab Q12HR [facility] Administration Fluticasone/Salmeterol 2 puff 10/28/23 08:00 10/30/23 07:24 Fluticasone/Salmeterol 115-21 Mcg Inhaler 1 Puff INHALATION 2 puff Q12HRT [facility] Administration Tamsulosin HCl 0.4 mg 10/28/23 21:00 10/29/23 20:05 Tamsulosin Hcl 0.4 Mg Capsule PO 0.4 mg HS [facility] Administration Tolnaftate 1 applic 10/28/23 09:00 10/30/23 08:40 Tolnaftate 1% Powder 45 Gm Btl TOPICAL 1 applic Q12HR ANGELIA Administration Radiology Results: ITS Impressions Chest X-Ray 10/27/23 12:16 IMPRESSION: 1. Mild perihilar and lower lung predominant opacities most likely congestive heart failure related mild pulmonary edema with differential including pneumonia or atelectasis. 2. Cardiomegaly. Labs Labs: Laboratory Results - last 24 hr 10/29/23 10/29/23 10/30/23 16:21 20:03 06:11 WBC 10.9 H RBC 3.02 L Hgb 8.8 L Hct 29.2 L MCV 96.7 MCH 29.1 MCHC 30.1 L RDW 18.5 H Plt Count 195 MPV 10.1 Immature Gran % (Auto) 0.5 Neut % (Auto) 81.9 H Lymph % (Auto) 11.6 L [place] % (Auto) 5.9 Eos % (Auto) 0.0 Baso % (Auto) 0.1 L Lymph # (Auto) 1.26 [place] # (Auto) 0.6 Eos # (Auto) 0.0 Baso # (Auto) 0.0 Abs Immat Gran (auto) 0.05 H Absolute Neuts (auto) 8.9 H Absolute Nucleated RBC 0.000 Nucleated RBC % 0.0 Sodium 140 Potassium 4.1 Chloride 101 Carbon Dioxide 37 H Anion Gap 2 L BUN 56 H D Creatinine 1.80 H Estim Creat Clear Calc 44 Estimated GFR 29 L Glucose 212 H POC Capillary Glucose 211 H 222 H Calcium 8.7 C-Reactive Protein 6.1 H 10/30/23 10/30/23 07:05 11:27 WBC RBC Hgb Hct MCV MCH MCHC RDW Plt Count MPV Immature Gran % (Auto) Neut % (Auto) Lymph % (Auto) [place] % (Auto) Eos % (Auto) Baso % (Auto) Lymph # (Auto) [place] # (Auto) Eos # (Auto) Baso # (Auto) Abs Immat Gran (auto) Absolute Neuts (auto) Absolute Nucleated RBC Nucleated RBC % Sodium Potassium Chloride Carbon Dioxide Anion Gap BUN Creatinine Estim Creat Clear Calc Estimated GFR Glucose POC Capillary Glucose 228 H 267 H Calcium C-Reactive Protein
--- NOTE | 2023-10-30 15:48 | PM.DS ---
DS: Admitting Diagnosis Discharge Date 10/30/23 Admitting Diagnosis Shortness of breath DS: Discharge Diagnosis Discharge Diagnosis (1) Sepsis: Qualifiers: Acute respiratory failure type: with hypoxia Sepsis acute organ dysfunction status: with acute organ dysfunction Sepsis type: sepsis due to unspecified organism Severe sepsis acute organ dysfunction type: acute respiratory failure Severe sepsis shock status: without septic shock Qualified Code(s): A41.9 - Sepsis, unspecified organism; R65.20 - Severe sepsis without septic shock; J96.01 - Acute respiratory failure with hypoxia Code(s): A41.9 - Sepsis, unspecified organism Status: Acute (2) Acute hypoxic respiratory failure: Code(s): J96.01 - Acute respiratory failure with hypoxia Status: Acute (3) Pneumonia: Code(s): J18.9 - Pneumonia, unspecified organism Status: Acute (4) Acute on chronic diastolic congestive heart failure: Code(s): I50.33 - Acute on chronic diastolic (congestive) heart failure Status: Acute (5) Chronic kidney disease: Qualifiers: Chronic kidney disease stage: unspecified stage Qualified Code(s): N18.9 - Chronic kidney disease, unspecified Code(s): N18.9 - Chronic kidney disease, unspecified Status: Chronic (6) Type 2 diabetes mellitus: Code(s): E11.9 - Type 2 diabetes mellitus without complications Status: Acute (7) UTI (urinary tract infection): Qualifiers: Hematuria presence: without hematuria Urinary tract infection type: acute cystitis Qualified Code(s): N30.00 - Acute cystitis without hematuria Code(s): N39.0 - Urinary tract infection, site not specified Status: Acute DS: Summary Hospital Course Reason for hospitalization: 58yo female with dCHF, pulm HTN, HTN, DM and chronic lymphedema here for shortness of breath. Please see H&P for details Hospital Course: Patient presents for SOB and found to have sepsis with lactic acidosis, fever, tachypnea likely due to PNA and/or UTI. CXR showing mild perihilar and BLL opacities. BCx are NGTD. Rocephin and azithromycin started.? MRSA PCR positive so vancomycin added.?Patient also has chronic wounds on the right heel but do not appear to be acutely infected.?WBC normal but CRP 16. Sputum no growth. Abx adjusted to Rocephin and Doxy.?CRP trended down. ABG showing 7.39/55/66 on 2L. She improved and was stable on 2L and breathing easier. Repeat ABG 7.41/56/108 2L. CXR could be consistent with CHF exacerbation and BNP was 580. Her weight is up about 10 kg compared to prior hospital stay.?She was started on IV Lasix. Echo EF 65-70%, Grade I diastolic dysfunction and mild valvular disease. Negative fluid balance of -4.5L. Cr 1.6 on admission. Baseline is wide ranging (1.3-2.6) but mostly in 1.6-1.8 range. Patient remained at her baseline Cr function. UA is consistent with UTI. UCx collected. Rocephin started. UCx growing EColi. Ntibiotics adjusted. She overall did well and was able to be discharged on 10/30/23 Status at Discharge Cognitive/behavioral status at discharge: stable Time Spent with Patient Time attestation: Total time spent providing and/or coordinating discharge services: 34 minutes Time spent: Greater than 30 minutes Exam Narrative: AF 98.0 128/57 69 16 96% 2L Gen - NARD Chest - bibasilar crackles. nml RR CV - RRR S1/S2.Tele showing no significant dysrhythmias Abd - Soft, obese, NT Ext - Bilateral LE lymphedema with minimal pitting edema. Psych - Nml mood and affect Skin - Warm and dry DS: Data Data Completed and Pending Labs on day of discharge: Labs from last 24 hours 10/30/23 10/30/23 10/30/23 11:27 07:05 06:11 WBC 10.9 H RBC 3.02 L Hgb 8.8 L Hct 29.2 L MCV 96.7 MCH 29.1 MCHC 30.1 L RDW 18.5 H Plt Count 195 MPV 10.1 Immature Gran % (Auto) 0.5 Neut % (Auto) 81.9 H Lymph % (Auto) 11.6 L [place] % (Auto) 5.9 Eos % (Auto) 0.0 Baso % (Auto) 0.1 L Lymph # (Auto) 1.26 [place] # (Auto) 0.6 Eos # (Auto) 0.0 Baso # (Auto) 0.0 Abs Immat Gran (auto) 0.05 H Absolute Neuts (auto) 8.9 H Absolute Nucleated RBC 0.000 Nucleated RBC % 0.0 Sodium 140 Potassium 4.1 Chloride 101 Carbon Dioxide 37 H Anion Gap 2 L BUN 56 H D Creatinine 1.80 H Estim Creat Clear Calc 44 Estimated GFR 29 L Glucose 212 H POC Capillary Glucose 267 H 228 H Calcium 8.7 C-Reactive Protein 6.1 H 10/29/23 10/29/23 20:03 16:21 WBC RBC Hgb Hct MCV MCH MCHC RDW Plt Count MPV Immature Gran % (Auto) Neut % (Auto) Lymph % (Auto) [place] % (Auto) Eos % (Auto) Baso % (Auto) Lymph # (Auto) [place] # (Auto) Eos # (Auto) Baso # (Auto) Abs Immat Gran (auto) Absolute Neuts (auto) Absolute Nucleated RBC Nucleated RBC % Sodium Potassium Chloride Carbon Dioxide Anion Gap BUN Creatinine Estim Creat Clear Calc Estimated GFR Glucose POC Capillary Glucose 222 H 211 H Calcium C-Reactive Protein Preliminary micro results at discharge 10/29/23 17:53 Sputum Culture - Preliminary Sputum 10/27/23 22:54 Blood Culture - Preliminary Blood 10/27/23 22:54 Blood Culture - Preliminary Blood Discharge Plan Discharge Attending physician on discharge: Aniket Fermin Discharging Clinician: Aniket Fermin Anticipated Discharge Date/Time: 10/30/23 16:16 Patient Disposition: [facility] Skilled Nursing/Asst Living Activity: as tolerated Diet: diabetic Discharge Instructions: Please check glucose before meals and before bed. Record for the doctor's review. Check blood pressure 1 to 2 times a day. Record for the doctor's review. Take precautions to avoid falls. Oxygen at 2Liters/min. Wean off to keep SpO2 >92% Continue routine wound care to the heels. Rise slowly from a lying or sitting position. Pause before standing or walking. Check daily morning weights after voiding. Call the doctor if the patient gains more than 3 lb in 2 days or 5 lb in 1 week. Contact the doctor if the patient has any type of trauma, lightheadedness with standing or other worrisome symptoms. Avoid NSAIDs (ibuprofen, naproxen, Aleve). Tylenol is safe to take. Follow-up with the provider at the facility. Thank you for using [facility] for your health care needs. Patient Instructions: Antibiotic Form Stand Alone Forms: General Discharge Information Follow-up/Referrals: UNKNOWN,DOCTOR [Primary Care Provider] - Discharge Medications: New doxycycline hyclate 100 mg Tablet 100 mg PO Q12HR Qty: 9 0RF prednisone 20 mg Tablet 40 mg PO DAILY@0800 3 Days Qty: 6 0RF amoxicillin-pot clavulanate 875-125 mg tablet 1 tablet PO Q12H Qty: 8 0RF tolnaftate 1 % Powder 1 applic topical Q12HR Qty: 45 0RF Rx Instructions: Apply to affected areas until clear. furosemide [Lasix] 20 mg tablet 20 mg PO MOWEFR Qty: 30 0RF Continued allopurinol 100 mg Tablet 100 mg PO DAILY Patient Comments: Rx Instructions: \ ferrous sulfate 325 mg (65 mg iron) Tablet 325 mg PO DAILY tamsulosin 0.4 mg Capsule 0.4 mg PO HS acetaminophen 325 mg Tablet 650 mg PO Q4H PRN (Reason: Pain) albuterol sulfate 90 mcg/actuation Hfa Aerosol Inhaler 2 puff INHALATION QID PRN (Reason: Shortness Of Breath) cyanocobalamin (vitamin B-12) [Vitamin B-12] 1,000 mcg Tablet 1,000 mcg PO QAM Qty: 30 0RF gabapentin [Neurontin] 300 mg Capsule 600 mg PO BID Qty: 60 0RF insulin glargine [Lantus U-100 Insulin] 100 unit/mL solution 36 unit subcut HS Qty: 10 0RF Patient Comments: filled 06/13/23 43 day supply insulin lispro [Humalog U-100 Insulin] 100 unit/mL solution 10 unit subcut TIDWM Entresto 24-26 mg Tablet 1 tablet PO BID metformin 1,000 mg Tablet 1,000 mg PO BID budesonide-formoterol [Symbicort] 160-4.5 mcg/actuation Hfa Aerosol Inhaler 1 puff INHALATION DAILY pantoprazole [address] For Susp In Packet 40 mg PO HS ascorbate calcium (vitamin C) 500 mg Tablet 500 mg PO DAILY multivit with min-folic acid [Adult One Daily Multivitamin] 0.4 mg Tablet 1 tablet PO DAILY Victoza 2-Isaias 0.6 mg/0.1 mL (18 mg/3 mL) Pen Injector 0.6 mg SUBCUT DAILY Silver-Sept 200 mcg/gram Gel 1 applic topical DAILY Qty: 3 0RF Rx Instructions: Apply to feet atorvastatin 40 mg Tablet 40 mg PO HS Changed furosemide 40 mg tablet 40 mg PO BID Qty: 60 0RF Discontinued prednisone 20 mg Tablet 20 mg PO DAILY Other Ambulatory Orders: Basic Metabolic Panel (Routine) Timeframe: [id number] Location: Determined by Patient Ordered By: Aniket Fermin Date of admission: 10/29/23 16:18 Primary Care Provider: UNKNOWN,DOCTOR Admitting Provider: Ashanti Mijares Attending physician on admission: Asahnti Mijares Condition: Stable
[2023-10-30 16:25] LABS: Glucose Point of Care 259 mg/dl (65-105)
[2023-10-30 17:37] LABS: SARS-CoV-2 RNA PCR Negative (Negative)
--- NOTE | 2023-11-03 09:39 | PC.NURSE ---
Sputum cx is negative. Dr. Zander villalpando.
== END 2023-10-30 18:15 | DRG 139 ==
LOC: ANHED 12:22 → ANH3MEDSUR 15:51
PROVIDERS: Emergency Medicine; Internal Medicine; Admitting Provider Family Medicine; Emergency Provider General Practice; Visit Provider Internal Medicine
DX: J18.9 Pneumonia, unspecified organism (principal); N30.00 Acute cystitis without hematuria; I13.0 Hypertensive heart and chronic kidney disease with heart failure and stage 1 through stage 4 chronic kidney disease, or unspecified chronic kidney disease; J96.01 Acute respiratory failure with hypoxia; B96.20 Unspecified Escherichia coli [E. coli] as the cause of diseases classified elsewhere; I50.33 Acute on chronic diastolic (congestive) heart failure; B95.62 Methicillin resistant Staphylococcus aureus infection as the cause of diseases classified elsewhere; E78.5 Hyperlipidemia, unspecified; E11.42 Type 2 diabetes mellitus with diabetic polyneuropathy; E11.22 Type 2 diabetes mellitus with diabetic chronic kidney disease; E66.01 Morbid (severe) obesity due to excess calories; F41.8 Other specified anxiety disorders; G47.33 Obstructive sleep apnea (adult) (pediatric); I27.20 Pulmonary hypertension, unspecified; J96.12 Chronic respiratory failure with hypercapnia; M86.672 Other chronic osteomyelitis, left ankle and foot; M86.671 Other chronic osteomyelitis, right ankle and foot; Z68.42 Body mass index [BMI] 45.0-49.9, adult; Z11.52 Encounter for screening for COVID-19; Z20.822 Contact with and (suspected) exposure to COVID-19; Z86.711 Personal history of pulmonary embolism; Z90.49 Acquired absence of other specified parts of digestive tract; Z79.4 Long term (current) use of insulin; Z79.84 Long term (current) use of oral hypoglycemic drugs; N18.30 Chronic kidney disease, stage 3 unspecified
CPT/HCPCS: 36415; 36600; 71046; 80048; 80053; 80069; 81001; 82375; 82805; 82948; 83050; 83605; 83735; 83880; 84145; 84484; 85025; 86140; 87040; 87070; 87077; 87086; 87088; 87186; 87205; 87635; 87637; 87641; 93005; 93306; 94640; 96365; 96375; 96376; 99285; A9270; G0378; J0456; J0696; J1650; J1815; J1940; J2919; J3370; J7512